=== PATIENT | male | born 1960 | race Caucasian/White ===

== ENCOUNTER 2016-06-02 11:21 | Inpatient (IN) | payer OTHER ==
[2016-06-02 12:26] VITALS: BMI 25.0
--- NOTE | 2016-06-02 13:49 | HP ---
CIWA Score - CIWA Score Nausea/Vomitin-Mild Nausea/No Vomiting Muscle Tremors: 4-Moderate,w/Arms Extend Anxiety: 4-Mod. Anxious/Guarded Agitation: 4-Moderately Restless Paroxysmal Sweats: 3 Orientation: 0-Oriented Tacttile Disturbances: 0-None Auditory Disturbances: 0-None Visual Disturbances: 0-None Headache: 0-None Present CIWA-Ar Total Score: 16 Admission ROS S - HPI Chief Complaint: I am here for detox and rehab. Allergies/Adverse Reactions: Allergies Allergy/AdvReac Type Severity Reaction Status Date / Time VELOGNA Allergy Severe Hives Uncoded 06/02/16 14:03 MAYONNAISE Allergy Severe Nausea Uncoded 06/02/16 14:03 History of Present Illness: pt is a 55yr old male with a history of alcohol dependence seeking detox for treatment. pt is also on a mmtp program last dose for 120ml received today 06/02/16, pt has take home bottles in his possession. Exam Limitations: No Limitations - Ebola screening Have you traveled outside of the country in the last 21 days: No Have you had contact with anyone from an Ebola affected area: No Have you been sick,other than usual withdrawal symptoms: No Do you have a fever: No - Review of Systems Constitutional: Chills, Diaphoresis, Loss of Appetite, Night Sweats, Changes in sleep, Unintentional Wgt. Loss EENT: reports: No Symptoms Reported, Blurred Vision Cardiac: reports: No Symptoms Reported GI: reports: Constipated, Poor Appetite, Poor Fluid Intake : reports: No Symptoms Reported Musculoskeletal: reports: No Symptoms Reported Integumentary: reports: Flushing, Pruritus (jock itch), Sweating Neuro: reports: Headache, Tingling, Tremors Endocrine: reports: Excessive Sweating, Flushing, Intolerance to Cold, Intolerance to Heat Hematology: reports: Anemia Psychiatric: reports: Judgement Intact, Mood/Affect Appropiate, Orientated x3, Agitated, Anxious Other Systems: Reviewed and Negative Patient History - Patient Medical History Hx Anemia: Yes Hx Asthma: Yes Hx Chronic Obstructive Pulmonary Disease (COPD): No Hx Cancer: No Hx Cardiac Disorders: No Hx Congestive Heart Failure: No Hx Hypertension: Yes Hx Hypercholesterolemia: No Hx Pacemaker: No HX Cerebrovascular Accident: No Hx Seizures: No Hx Dementia: No Hx Diabetes: No Hx Gastrointestinal Disorders: No Hx Liver Disease: No Hx Genitourinary Disorders: No Hx Sexually Transmitted Disorders: No Hx Renal Disease (ESRD): No Hx Thyroid Disease: No Hx Human Immunodeficiency Virus (HIV): No (neg) Hx Hepatitis C: No (negative) Hx Depression: No Hx Suicide Attempt: No (denies) Hx Bipolar Disorder: Yes Hx Schizophrenia: No - Patient Surgical History Past Surgical History: Yes Hx Abdominal Surgery: Yes (inguinal hernia 1976) - PPD History Previous Implant?: Yes Documented Results: Negative w/o proof Implanted On Prior [facility] Admission?: No PPD to be Administered?: No - Reproductive History Patient is a Female of Child Bearing Age (11 -55 yrs old): No - Smoking Cessation Smoking history: Current every day smoker Have you smoked in the past 12 months: Yes Aproximately how many cigarettes per day: 10 Hx Chewing Tobacco Use: No Initiated information on smoking cessation: Yes 'Breaking Loose' booklet given: 06/02/16 - Substance & Tx. History Hx Alcohol Use: Yes Hx Substance Use: No Substance Use Type: Alcohol Hx Substance Use Treatment: Yes - Substances Abused Alcohol Route: Oral Frequency: Daily Amount used: half pint barcardi/ 3 six pack beer Age of first use: 11 Date of Last Use: 06/02/16 Family Disease History - Family Disease History Family History: Denies Admission Physical Exam S - Vital Signs Vital Signs: Vital Signs - 24 hr 06/02/16 12:25 Temperature 96.9 F L Pulse Rate 111 H Respiratory 20 Rate Blood Pressure 119/73 - Physical General Appearance: Yes: Appropriately Dressed, Moderate Distress, Tremorous, Irritable, Sweating, Anxious HEENTM: Yes: Hearing grossly Normal, Nasal Congestion, Rhinorrhea Respiratory: Yes: Lungs Clear, Normal Breath Sounds, No Respiratory Distress Neck: Yes: No masses,lesions,Nodules Breast: Yes: Within Normal Limits Cardiology: Yes: Regular Rhythm, Regular Rate, S1, S2 Abdominal: Yes: Normal Bowel Sounds, Non Tender Genitourinary: Yes: Within Normal Limits, Other (jock itch to groin area) Back: Yes: Normal Inspection Musculoskeletal: Yes: full range of Motion Extremities: Yes: Normal Capillary Refill, Tremors Neurological: Yes: Fully Oriented, Alert, Normal Response Integumentary: Yes: Normal Color, Diaphoresis Lymphatic: Yes: Within Normal Limits - Diagnostic (1) Jock itch Current Visit: Yes Status: Acute Comment: groin area (2) Tinea pedis Current Visit: Yes Status: Chronic Qualifiers: Laterality: bilateral Qualified Code(s): B35.3 - Tinea pedis (3) Alcohol dependence with uncomplicated withdrawal Current Visit: Yes Status: Chronic (4) Asthma Current Visit: Yes Status: Chronic Qualifiers: Asthma severity: mild intermittent (5) Hypertension Current Visit: Yes Status: Chronic Qualifiers: Hypertension type: essential hypertension Qualified Code(s): I10 - Essential (primary) hypertension (6) Methadone maintenance therapy patient Current Visit: Yes Status: Chronic Comment: pt recieved his 120mg of methadone today; pending verification Cleared for Admission S - Detox or Rehab [facility] Level of Care: Medically Managed Detox Regimen/Protocol: Librium [facility] Breath Alcohol Content Breath Alcohol Content: 0.085 Urine Pregancy Test - Result Urine Test Results: Negative- NO Line Present Urine Drug Screen - Results Drug Screen Negative: No Urine Drug Screen Results: KAYCEE-Cocaine, MTD-Methadone
[2016-06-02] MEDS ORDERED: LOPERAMIDE HCL 2 MG CAPSULE PO PRN (14:21)
[2016-06-02] MEDS ORDERED: MAGNESIUM CITRATE 300 ML BOTTLE PO PRN (14:21)
[2016-06-02] MEDS ORDERED: guaiFENesin/D-METHORPHAN HB 10 ML UNIT-DOSE CUPS PO PRN (14:21)
[2016-06-02] MEDS ORDERED: MAG HYDROX/AL HYDROX/SIMETH 30 ML UNIT-DOSE CUP PO PRN (14:21)
[2016-06-02] MEDS ORDERED: hydrOXYzine PAMOATE 50 MG CAPSULE (FP) PO PRN (14:21)
[2016-06-02] MEDS ORDERED: P-EPHED 60MG/TRIPROLIDI 2.5MG TABLET PO PRN (14:21)
[2016-06-02] MEDS ORDERED: ACETAMINOPHEN 325 MG TABLET (FP) PO PRN (14:21)
[2016-06-02] MEDS ORDERED: MAGNESIUM HYDROX 2400MG/30ML ORAL SUSPENSION 30 ML CUP PO PRN (14:21)
[2016-06-02] MEDS ORDERED: IBUPROFEN 400 MG TABLET (FP) PO PRN (14:21)
[2016-06-02] MEDS ORDERED: MENTHOL/PHENOL 1 EACH UD MM PRN (14:21)
[2016-06-02] MEDS ORDERED: PATIENT'S OWN MEDICATION (NON-FORMULARY) (Fluticasone Propionate [Flovent Diskus] 110 MCG) IH PRN (14:23)
[2016-06-02] MEDS ORDERED: chlordiazePOXIDE HCL 25 MG CAPSULE PO ONE (15:09)
[2016-06-02] MEDS: chlordiazePOXIDE HCL 25 MG CAPSULE PO SCH ×2 (17:08→23:01)
[2016-06-02] MEDS ORDERED: ALBUTEROL SO4 2.5/IPRATROPIUM 0.5 INH SOL 3 ML VIAL.NEB. NEB PRN (17:59)
[2016-06-02] MEDS: NICOTINE POLACRILEX 4 MG GUM BUC PRN (19:32)
[2016-06-02] MEDS ORDERED: TOLNAFTATE 1% CREAM 15 GM TUBE TP SCH (22:00)
[2016-06-02] MEDS ORDERED: TOLNAFTATE TP SCH (22:00)
--- NOTE | 2016-06-02 22:49 | PN ---
S Progress Note Note: RECEIVED PHARMACIST CALL PATIENT HAS TWO ANTIFUNGUL CREAM CONTINUE DETOX
[2016-06-02 22:58] LABS: URINE APPEARANCE CLEAR; URINE BILIRUBIN NEGATIVE (NEGATIVE); URINE BLOOD NEGATIVE (NEGATIVE); URINE COLOR YELLOW; URINE GLUCOSE (UA) NEGATIVE (NEGATIVE); URINE KETONE NEGATIVE (NEGATIVE); URINE LEUK ESTERASE NEGATIVE (NEGATIVE); URINE NITRITE NEGATIVE (NEGATIVE); URINE PROTEIN NEGATIVE (NEGATIVE); URINE UROBILINOGEN NEGATIVE E.U./dl (0.2-1.0)
[2016-06-02] MEDS: BUDESONIDE/FORMETEROL FUMARATE 80/4.5 mcg INHALER IH SCH (23:00)
[2016-06-02] MEDS: THIAMINE HCL 100 MG TABLET (FP) PO SCH (23:00)
[2016-06-02] MEDS: NYSTATIN 100,000 UNIT/GM TOPICAL CREAM 15 GM TUBE TP SCH (23:00)
[2016-06-02] MEDS: diphenhydrAMINE HCL 50 MG CAPSULE PO PRN (23:03)
[2016-06-03] MEDS: chlordiazePOXIDE HCL 25 MG CAPSULE PO SCH ×4 (05:18→22:27)
[2016-06-03] MEDS: METHADONE HCL 40 MG DISPERSABLE TABLET PO SCH (07:30)
--- NOTE | 2016-06-03 09:24 | PN ---
S CIWA - CIWA Score Nausea/Vomitin Muscle Tremors: 4-Moderate,w/Arms Extend Anxiety: 5 Agitation: 4-Moderately Restless Paroxysmal Sweats: 3 Orientation: 0-Oriented Tacttile Disturbances: 1-Very Mild Itch/Numbness Auditory Disturbances: 0-None Visual Disturbances: 0-None Headache: 1-Very Mild CIWA-Ar Total Score: 21 BHS Progress Note (SOAP) Subjective: nausea, sweats, interrupted sleep, anxiety, trmeors, concerned he will nto geet his seroquel asking for psychiatrist and blood pressure mediatons Objective: 06/03/16 09:23 Vital Signs - 24 hr 06/02/16 06/02/16 06/02/16 12:25 17:10 23:18 Temperature 96.9 F L 98.4 F 97 F L Pulse Rate 111 H 104 H 94 H Respiratory 20 18 18 Rate Blood Pressure 119/73 123/84 140/88 06/03/16 06:44 Temperature 96.5 F L Pulse Rate 75 Respiratory 18 Rate Blood Pressure 150/93 Laboratory Tests 06/02/16 15:48 Urine Color Yellow Urine Appearance Clear Urine pH 5.0 Ur Specific [place] 1.012 Urine Protein Negative Urine Glucose (UA) Negative Urine Ketones Negative Urine Blood Negative Urine Nitrite Negative Urine Bilirubin Negative Urine Urobilinogen Negative Ur Leukocyte Esterase Negative labs st ill pending Assessment: 06/03/16 09:23 withdrawal sx, hypertension Plan: cont detox, fluids,
--- NOTE | 2016-06-03 09:59 | CONSULT ---
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 Substance Abuse History: - Smoking Cessation. Smoking history: Current every day smoker. Have you smoked in the past 12 months: Yes. Aproximately how many cigarettes per day: 10. Hx Chewing Tobacco Use: No. Initiated information on smoking cessation: Yes. 'Breaking Loose' booklet given: 06/02/16. - Substance & Tx. History. Hx Alcohol Use: Yes. Hx Substance Use: No. Substance Use Type : Alcohol. Hx Substance Use Treatment: Yes. - Substances Abused. Alcohol. Route: Oral. Frequency: Daily. Amount used: half pint barcardi/ 3 six pack beer. Age of first use: 11. Date of Last Use: 06/02/16. Discussed in this session.Patient confirms this pattern of substance abuse. Medical History: Hypertension,bronchial asthma,COPD and a history of inguinal herniorraphy. Psychiatric History: Patient denies history of psychiatric hospitalizations.He is,however,receiving outpatient psychiatric services at the [facility] clinic on [facility] under the supervision of Dr Sifuentes.Medications : seroquel 100 mg po hs + lamotrigine 50 mg po am/100 mg hs.Verified with [facility] @ [phone].Mr Hill endorses the diagnosis of Bipolar Disorder.He denies history of suicide attempts. Physical/Sexual Abuse/Trauma History: Patient denies. Additional Comment: Urine Drug Screen Results: KAYCEE-Cocaine, MTD-Methadone.Noted. Mental Status Exam - Mental Status Exam Alert and Oriented to: Time, Place, Person Cognitive Function: Good Patient Appearance: Disheveled (unshaven) Mood: Anxious, Apprehensive, Hopeful Affect: Mood Congruent Patient Behavior: Fatigued, Appropriate, Cooperative Speech Pattern: Clear (good historian) Voice Loudness: Normal Thought Process: Intact Thought Disorder: Not Present Hallucinations: Denies Suicidal Ideation: Denies Homicidal Ideation: Denies Insight/Judgement: Fair Sleep: Poorly, Difficulty falling asleep Appetite: Good Muscle strength/Tone: Normal Gait/Station: Normal Psychiatric Findings - Problem List ([place] 1, 2,3) (1) Alcohol dependence with uncomplicated withdrawal Current Visit: Yes Status: Acute (2) Opioid dependence on agonist therapy Current Visit: Yes Status: Chronic (3) Nicotine dependence Current Visit: Yes Status: Acute (4) Cocaine dependence Current Visit: Yes Status: Acute (5) Bipolar disorder Current Visit: Yes Status: Chronic (6) Asthma with COPD Current Visit: Yes Status: Chronic (7) Hypertension Current Visit: Yes Status: Chronic Qualifiers: Hypertension type: essential hypertension Qualified Code(s): I10 - Essential (primary) hypertension (8) Tinea pedis Current Visit: Yes Status: Chronic Qualifiers: Laterality: bilateral Qualified Code(s): B35.3 - Tinea pedis (9) Insomnia Current Visit: Yes Status: Acute - Initial Treatment Plan Initial Treatment Plan: Psychoeducation.Detoxification.Medications : lamictal 50 mg po daily/100 mg po hs + seroquel 100 mg po hs.Side effects/benefits discussed with the patient.Made aware of the risk of exfoliative dermatitis ( lamictal) and instructed to alert MD/RN if occurrence of skin rash.Patient states that he understands information and he agrees to follow this plan of care.Mr Hill indicates to this speech writer that he last took his medications 24 hours ago (just prior to this [facility] visit).No scripts necessary at discharge ( filled scripts on 05/24/16 @ [facility] :confirmed by pharmacist via telephone in the presence of the patient).Mr Hill has,verbally,given permission to speech writer to contact his pharmacy for verification of his medications.Observation.
[2016-06-03] MEDS ORDERED: IPRATROPIUM BROMIDE NS SCH (10:00)
[2016-06-03] MEDS: LISINOPRIL 10 MG TABLET (FP) PO SCH (10:34)
[2016-06-03] MEDS: PRENATAL VITAMINS W/ FOLIC ACID TABLET (FP) PO SCH (10:34)
[2016-06-03] MEDS: NICOTINE 21 MG/24 HOURS TOPICAL PATCH TD SCH (10:34)
[2016-06-03] MEDS: NYSTATIN 100,000 UNIT/GM TOPICAL CREAM 15 GM TUBE TP SCH ×2 (10:35→22:29)
[2016-06-03] MEDS: NICOTINE POLACRILEX 4 MG GUM BUC PRN ×2 (10:39→20:28)
[2016-06-03 10:54] LABS: CALCIUM 8.8 mg/dL (8.5-10.1)
[2016-06-03 10:55] LABS: MCHC 33.1 g/dl (32.0-35.9); MEAN CELL VOLUME 96.5 fl (80-96); MEAN PLT VOLUME 8.3 fl (7.5-11.1); PLATELET COUNT 184 K/MM3 (134-434); RDW 14.6 % (11.9-15.9); WHITE BLOOD COUNT 8.9 K/mm3 (4.0-10.0)
[2016-06-03 10:59] LABS: ALBUMIN 3.6 g/dl (3.4-5.0); ALK PHOS 148 U/L (45-117); ANION GAP 12 (8-16); BILIRUBIN,TOTAL 0.7 mg/dL (0.2-1.0); CO2 26 mmol/L (21-32); CREATININE 0.6 mg/dL (0.7-1.3); GLUCOSE,RANDOM 67 mg/dL (74-106); SGOT/AST 75 U/L (15-37); SGPT/ALT 54 U/L (12-78); TOT PROT 7.1 g/dl (6.4-8.2)
[2016-06-03] MEDS: BUDESONIDE/FORMETEROL FUMARATE 80/4.5 mcg INHALER IH SCH ×2 (11:22→22:27)
[2016-06-03] MEDS: GABAPENTIN 400 MG CAPSULE (FP) PO SCH ×2 (13:41→22:28)
[2016-06-03] MEDS: lamoTRIgine 25 MG TABLET PO SCH (13:42)
--- NOTE | 2016-06-03 18:47 | EKG ---
Test Reason : Blood Pressure : / mmHG Vent. Rate : 097 BPM Atrial Rate : 097 BPM P-R Int : 190 ms QRS Dur : 090 ms QT Int : 354 ms P-R-T Axes : 049 015 044 degrees QTc Int : 449 ms NORMAL SINUS RHYTHM SEPTAL INFARCT , AGE UNDETERMINED ABNORMAL ECG NO PREVIOUS ECGS AVAILABLE Confirmed by ERIN RENE MD ([id number]) on 06/03/2016 6:47:19 PM Referred By: Confirmed By:ERIN RENE MD
[2016-06-03] MEDS: THIAMINE HCL 100 MG TABLET (FP) PO SCH (22:27)
[2016-06-03] MEDS: QUEtiapine FUMARATE 100 MG TABLET (FP) PO SCH (22:28)
[2016-06-03] MEDS: lamoTRIgine 100 MG TABLET (FP) PO SCH (22:28)
[2016-06-04] MEDS: GABAPENTIN 400 MG CAPSULE (FP) PO SCH ×3 (05:27→22:34)
[2016-06-04] MEDS: chlordiazePOXIDE HCL 25 MG CAPSULE PO SCH ×2 (05:27→12:13)
[2016-06-04] MEDS: METHADONE HCL 40 MG DISPERSABLE TABLET PO SCH (05:27)
[2016-06-04] MEDS: LISINOPRIL 10 MG TABLET (FP) PO SCH (10:31)
[2016-06-04] MEDS: NYSTATIN 100,000 UNIT/GM TOPICAL CREAM 15 GM TUBE TP SCH ×2 (10:31→23:10)
[2016-06-04] MEDS: NICOTINE 21 MG/24 HOURS TOPICAL PATCH TD SCH (10:32)
[2016-06-04] MEDS: lamoTRIgine 25 MG TABLET PO SCH (10:32)
[2016-06-04] MEDS: PRENATAL VITAMINS W/ FOLIC ACID TABLET (FP) PO SCH (10:32)
[2016-06-04] MEDS: NICOTINE POLACRILEX 4 MG GUM BUC PRN (10:36)
[2016-06-04] MEDS: BUDESONIDE/FORMETEROL FUMARATE 80/4.5 mcg INHALER IH SCH ×2 (12:13→22:33)
[2016-06-04] MEDS: chlordiazePOXIDE HCL 25 MG CAPSULE PO PRN ×2 (15:06→20:39)
--- NOTE | 2016-06-04 15:38 | PN ---
S CIWA - CIWA Score Nausea/Vomitin-Mild Nausea/No Vomiting Muscle Tremors: 4-Moderate,w/Arms Extend Anxiety: 4-Mod. Anxious/Guarded Agitation: 4-Moderately Restless Paroxysmal Sweats: No Perspiration Orientation: 0-Oriented Tacttile Disturbances: 0-None Auditory Disturbances: 0-None Visual Disturbances: 0-None Headache: 2-Mild CIWA-Ar Total Score: 15 BHS Progress Note (SOAP) Subjective: Nausea, anxious, irritable, tremor, chills, interrupted sleep Objective: 06/04/16 15:37 Last Vital Signs Temp Pulse Resp BP Pulse Ox 97.9 F 86 18 114/74 06/04/16 14:17 06/04/16 14:17 06/04/16 14:17 06/04/16 14:17 Laboratory Tests 06/02/16 06/03/16 06/03/16 15:48 06:00 06:00 WBC 8.9 RBC 4.45 Hgb 14.2 Hct 43.0 MCV 96.5 H MCHC 33.1 RDW 14.6 Plt Count 184 MPV 8.3 Sodium 139 Potassium 3.6 Chloride 101 Carbon Dioxide 26 Anion Gap 12 BUN 13 Creatinine 0.6 L Creat Clearance w eGFR > 60 Random Glucose 67 L Calcium 8.8 Total Bilirubin 0.7 AST 75 H ALT 54 Alkaline Phosphatase 148 H Total Protein 7.1 Albumin 3.6 Urine Color Yellow Urine Appearance Clear Urine pH 5.0 Ur Specific [place] 1.012 Urine Protein Negative Urine Glucose (UA) Negative Urine Ketones Negative Urine Blood Negative Urine Nitrite Negative Urine Bilirubin Negative Urine Urobilinogen Negative Ur Leukocyte Esterase Negative RPR Titer 06/03/16 06:00 WBC RBC Hgb Hct MCV MCHC RDW Plt Count MPV Sodium Potassium Chloride Carbon Dioxide Anion Gap BUN Creatinine Creat Clearance w eGFR Random Glucose Calcium Total Bilirubin AST ALT Alkaline Phosphatase Total Protein Albumin Urine Color Urine Appearance Urine pH Ur Specific [place] Urine Protein Urine Glucose (UA) Urine Ketones Urine Blood Urine Nitrite Urine Bilirubin Urine Urobilinogen Ur Leukocyte Esterase RPR Titer Nonreactive Labs noted Assessment: 06/04/16 15:38 Withdrawal symptoms Plan: Continue detox
[2016-06-04] MEDS: chlordiazePOXIDE 5 MG CAPSULE PO SCH ×2 (17:19→22:34)
[2016-06-04] MEDS: THIAMINE HCL 100 MG TABLET (FP) PO SCH (22:33)
[2016-06-04] MEDS: lamoTRIgine 100 MG TABLET (FP) PO SCH (22:34)
[2016-06-04] MEDS: QUEtiapine FUMARATE 100 MG TABLET (FP) PO SCH (22:34)
[2016-06-05] MEDS: METHADONE HCL 40 MG DISPERSABLE TABLET PO SCH (05:32)
[2016-06-05] MEDS: chlordiazePOXIDE 5 MG CAPSULE PO SCH ×2 (05:33→10:29)
[2016-06-05] MEDS: GABAPENTIN 400 MG CAPSULE (FP) PO SCH ×3 (05:33→22:17)
[2016-06-05] MEDS: chlordiazePOXIDE HCL 25 MG CAPSULE PO PRN (09:13)
[2016-06-05] MEDS: PRENATAL VITAMINS W/ FOLIC ACID TABLET (FP) PO SCH (10:29)
[2016-06-05] MEDS: BUDESONIDE/FORMETEROL FUMARATE 80/4.5 mcg INHALER IH SCH ×2 (10:29→22:16)
[2016-06-05] MEDS: NICOTINE 21 MG/24 HOURS TOPICAL PATCH TD SCH (10:30)
[2016-06-05] MEDS: lamoTRIgine 25 MG TABLET PO SCH (10:30)
[2016-06-05] MEDS: LISINOPRIL 10 MG TABLET (FP) PO SCH (10:30)
[2016-06-05] MEDS: TOLNAFTATE 1% CREAM 15 GM TUBE TP SCH ×2 (10:31→22:19)
--- NOTE | 2016-06-05 11:41 | PN ---
BHS Progress Note (SOAP) Subjective: ANXIETY,TREMORS,FATIGUE. Objective: 06/05/16 11:40 Vital Signs Temperature 97.2 F L 06/05/16 10:59 Pulse Rate 77 06/05/16 10:59 Respiratory Rate 18 06/05/16 10:59 Blood Pressure 130/72 06/05/16 10:59 O2 Sat by Pulse Oximetry (%) Assessment: 06/05/16 11:41 WITHDRAWAL SX Plan: CONTINUE DETOX
[2016-06-05] MEDS: chlordiazePOXIDE HCL 10 MG CAPSULE PO SCH ×2 (17:26→22:17)
[2016-06-05] MEDS: THIAMINE HCL 100 MG TABLET (FP) PO SCH (22:16)
[2016-06-05] MEDS: lamoTRIgine 100 MG TABLET (FP) PO SCH (22:17)
[2016-06-05] MEDS: QUEtiapine FUMARATE 100 MG TABLET (FP) PO SCH (22:17)
[2016-06-05] MEDS: diphenhydrAMINE HCL 50 MG CAPSULE PO PRN (22:18)
[2016-06-06] MEDS: TOLNAFTATE 1% CREAM 15 GM TUBE TP SCH ×2 (05:20→10:09)
[2016-06-06] MEDS: METHADONE HCL 40 MG DISPERSABLE TABLET PO SCH (05:36)
[2016-06-06] MEDS: GABAPENTIN 400 MG CAPSULE (FP) PO SCH (05:36)
[2016-06-06] MEDS: chlordiazePOXIDE HCL 10 MG CAPSULE PO SCH (05:36)
[2016-06-06 06:44] VITALS: BP 107/68; PULSE 76; TEMP 96
[2016-06-06] MEDS: LISINOPRIL 10 MG TABLET (FP) PO SCH (09:44)
[2016-06-06] MEDS: NICOTINE 21 MG/24 HOURS TOPICAL PATCH TD SCH (09:44)
[2016-06-06] MEDS: lamoTRIgine 25 MG TABLET PO SCH (09:44)
[2016-06-06] MEDS: PRENATAL VITAMINS W/ FOLIC ACID TABLET (FP) PO SCH (09:44)
[2016-06-06] MEDS: BUDESONIDE/FORMETEROL FUMARATE 80/4.5 mcg INHALER IH SCH (09:44)
--- NOTE | 2016-06-06 11:31 | DS ---
[facility] Detox Discharge Summary Admission Date: 06/02/16 Discharge Date: 06/06/16 - History Present History: Alcohol Dependence, Cocaine Dependence, MMTP Additional Comments: DETOX COMPLETED. PT INSTRUCTED TO FOLLOW UP WITH HIS PMD DR ACOSTA AT [facility] ([phone]) FOR MEDICAL MANAGEMENT OF HIS COMORBID CONDITIONS. ENCOURAGED TO FOLLOW UP WITH HIS UPCOMING SCHEDULED APPOINTMENTS ON 06/28/16 --ECHO,COLONOSCOPY AND PSYCH PER HIS DOCUMENTATION. Pertinent Past History: HTN HEP C - Physical Exam Results Vital Signs: Vital Signs Temperature 96 F L 06/06/16 06:42 Pulse Rate 76 06/06/16 06:42 Respiratory Rate 16 06/06/16 06:42 Blood Pressure 107/68 06/06/16 06:42 O2 Sat by Pulse Oximetry (%) Pertinent Admission Physical Exam Findings: WITHDRAWAL SX Laboratory Last Values WBC 8.9 K/mm3 (4.0-10.0) 06/03/16 06:00 RBC 4.45 M/mm3 (4.00-5.60) 06/03/16 06:00 Hgb 14.2 GM/dL (11.7-16.9) 06/03/16 06:00 Hct 43.0 % (35.4-49) 06/03/16 06:00 MCV 96.5 fl (80-96) H 06/03/16 06:00 MCHC 33.1 g/dl (32.0-35.9) 06/03/16 06:00 RDW 14.6 % (11.9-15.9) 06/03/16 06:00 Plt Count 184 K/MM3 (134-434) 06/03/16 06:00 MPV 8.3 fl (7.5-11.1) 06/03/16 06:00 Sodium 139 mmol/L (136-145) 06/03/16 06:00 Potassium 3.6 mmol/L (3.5-5.1) 06/03/16 06:00 Chloride 101 mmol/L (98-107) 06/03/16 06:00 Carbon Dioxide 26 mmol/L (21-32) 06/03/16 06:00 Anion Gap 12 (8-16) 06/03/16 06:00 BUN 13 mg/dL (7-18) 06/03/16 06:00 Creatinine 0.6 mg/dL (0.7-1.3) L 06/03/16 06:00 Creat Clearance w eGFR > 60 (>60) 06/03/16 06:00 Random Glucose 67 mg/dL (74-106) L 06/03/16 06:00 Calcium 8.8 mg/dL (8.5-10.1) 06/03/16 06:00 Total Bilirubin 0.7 mg/dL (0.2-1.0) 06/03/16 06:00 AST 75 U/L (15-37) H 06/03/16 06:00 ALT 54 U/L (12-78) 06/03/16 06:00 Alkaline Phosphatase 148 U/L (45-117) H 06/03/16 06:00 Total Protein 7.1 g/dl (6.4-8.2) 06/03/16 06:00 Albumin 3.6 g/dl (3.4-5.0) 06/03/16 06:00 Urine Color Yellow 06/02/16 15:48 Urine Appearance Clear 06/02/16 15:48 Urine pH 5.0 (5.0-8.0) 06/02/16 15:48 Ur Specific [place] 1.012 (1.001-1.035) 06/02/16 15:48 Urine Protein Negative (NEGATIVE) 06/02/16 15:48 Urine Glucose (UA) Negative (NEGATIVE) 06/02/16 15:48 Urine Ketones Negative (NEGATIVE) 06/02/16 15:48 Urine Blood Negative (NEGATIVE) 06/02/16 15:48 Urine Nitrite Negative (NEGATIVE) 06/02/16 15:48 Urine Bilirubin Negative (NEGATIVE) 06/02/16 15:48 Urine Urobilinogen Negative E.U./dl (0.2-1.0) 06/02/16 15:48 Ur Leukocyte Esterase Negative (NEGATIVE) 06/02/16 15:48 RPR Titer Nonreactive (NONREACTIVE) 06/03/16 06:00 - Treatment Hospital Course: Detox Protocol Followed, Detoxed Safely, Responded well, Discharged Condition Good - Medication Discharge Medications: Ambulatory Orders Budesonide/Formeterol Fumarate [SYMBICORT 80/4.5mcg -] 2 inh PO BID 06/02/16 Fluticasone Propionate [Flovent Diskus] 110 mcg IH PRN PRN 06/02/16 Folic Acid - 1 mg PO DAILY 06/02/16 Gabapentin [Neurontin -] 400 mg PO TID 06/02/16 Ipratropium [place] 1 spray NS DAILY 06/02/16 Lamotrigine [Lamictal -] 50 mg PO AM 06/02/16 Lamotrigine [Lamictal -] 100 mg PO HS 06/02/16 Lisinopril [Prinivil] 10 mg PO DAILY 06/02/16 Quetiapine Fumarate [Seroquel -] 100 mg PO HS 06/02/16 Thiamine HCl [Vitamin B1] 100 mg PO DAILY 06/02/16 Tolnaftate [Antifungal Cream] 1 - 2 grams TP BID 06/02/16 - Diagnosis (1) Alcohol dependence with uncomplicated withdrawal Status: Acute (2) Jock itch Status: Acute (3) Nicotine dependence Status: Acute Qualifiers: Nicotine product type: cigarettes Substance use status: uncomplicated Qualified Code(s): F17.210 - Nicotine dependence, cigarettes, uncomplicated (4) Asthma with COPD Status: Chronic (5) Hypertension Status: Chronic Qualifiers: Hypertension type: essential hypertension Qualified Code(s): I10 - Essential (primary) hypertension (6) Methadone maintenance therapy patient Status: Chronic (7) Tinea pedis Status: Chronic Qualifiers: Laterality: bilateral Qualified Code(s): B35.3 - Tinea pedis (8) Cocaine dependence Status: Acute Qualifiers: Substance use status: uncomplicated Qualified Code(s): F14.20 - Cocaine dependence, uncomplicated (9) Bipolar disorder Status: Chronic - AMA Did Patient Leave Against Medical Advice: No
== END 2016-06-06 10:20 | disposition home or self-care (01) | DRG 773 ==
LOC: YASAS 11:21 → Y3N 15:06
PROVIDERS: ADMIT Internal Medicine; ATTEND Internal Medicine
PROC: HZ2ZZZZ Detoxification Services for Substance Abuse Treatment (ICD-10-PCS; principal; 2016-06-06)
DX: F10.230 Alcohol dependence with withdrawal, uncomplicated (principal); F11.20 Opioid dependence, uncomplicated; F14.20 Cocaine dependence, uncomplicated; F17.210 Nicotine dependence, cigarettes, uncomplicated; F31.9 Bipolar disorder, unspecified; G47.00 Insomnia, unspecified; I10 Essential (primary) hypertension; J44.9 Chronic obstructive pulmonary disease, unspecified; J45.909 Unspecified asthma, uncomplicated; B35.3 Tinea pedis
CPT/HCPCS: 36415; 80053; 81003; 85027; 86593; 93005; 93010

== ENCOUNTER 2019-06-13 13:16 | Inpatient (IN) | payer OTHER ==
--- NOTE | 2019-06-13 13:44 | BHS.RME ---
Substance Use & Tx History - Substance Use History Benzodiazepines Substance amount: klonopin 2 mg two tablets Frequency of use: Daily Substance route: Oral Date of Last Use: 06/13/19 Alcohol Substance amount: 1/2 pint bacardi Frequency of use: Daily Date of Last Use: 06/13/19 CIWA Nausea/Vomitin Muscle Tremors: 3 Anxiety: 1-Mildly Anxious Agitation: 1-Slight > Activity Paroxysmal Sweats: 1-Minimal Palms Moist Orientation: 1-Uncertain about Date Tacttile Disturbances: 1-Very Mild Itch/Numbness Auditory Disturbances: 0-None Visual Disturbances: 0-None Headache: 1-Very Mild CIWA-Ar Total Score: 12
[2019-06-13 14:18] VITALS: BMI 26.2
--- NOTE | 2019-06-13 14:47 | HP ---
CIWA Score Nausea/Vomitin-No Nausea/No Vomiting Muscle Tremors: None Anxiety: 3 Agitation: 3 Paroxysmal Sweats: No Perspiration Orientation: 0-Oriented Tacttile Disturbances: 2-Mild Itch/Numbness/Burn Auditory Disturbances: 1-Very Mild Visual Disturbances: 0-None Headache: 0-None Present CIWA-Ar Total Score: 9 - Admission Criteria OASAS Guidelines: Admission for Medically Managed Detox: Requires at least one of the followin. CIWA greater than 12 2. Seizures within the past 24 hours 3. Delirium tremens within the past 24 hours 4. Hallucinations within the past 24 hours 5. Acute intervention needed for co occurring medical disorder 6. Acute intervention needed for co occurring psychiatric disorder 7. Severe withdrawal that cannot be handled at a lower level of care (continued vomiting, continued diarrhea, abnormal vital signs) requiring intravenous medication and/or fluids 8. Patient presents the following: Acute intervention needed for co-occurring med or psych disorder Admission Criteria Met: Admission criteria met Admitting History and Physical - Admission History of Present Illness: Pt comes to [facility] seeking detox from alcohol. Methadone 90mg. He got his dose today. EtOH: 1/2 pint bacardi & 2 6-packs of 24oz beers daily. Last drink 5:30 am today. Never blacked out. Never had a seizure. Klonopin: 2mg twice daily since 2016. Crack cocaine: first - 1986, last 2 days ago Heroin: first - 1976, last use 3-4 months ago. Used to use frequently. For the past number of years, he uses once or twice yearly. Has never injected. PMH: HTN, Asthma PSH: partial b/l mastectomies (separate operations), hernia repair b/l Psych: Bipolar, Anxiety, Depression FH: Father - colon CA, Mother - stage III GI cancer Follows with GI. Had colon polyps. Gets colonoscopy every 3-5 years - Smoking History Smoking history: Current every day smoker Have you smoked in the past 12 months: Yes Aproximately how many cigarettes per day: 10 - Alcohol/Substance Use Hx Alcohol Use: Yes Admission ROS [facility] Allergies/Adverse Reactions: Allergies Allergy/AdvReac Type Severity Reaction Status Date / Time No Known Drug Allergies Allergy Unknown Verified 06/13/19 14:18 BOLOGNA Allergy Severe Hives Uncoded 06/13/19 14:18 MAYONNAISE Allergy Severe Nausea Uncoded 06/13/19 14:18 NKDA Allergy Uncoded 06/13/19 14:18 Patient History - Patient Medical History Hx Anemia: Yes Hx Asthma: Yes Hx Chronic Obstructive Pulmonary Disease (COPD): Yes Hx Cancer: No Hx Cardiac Disorders: No Hx Congestive Heart Failure: No Hx Hypertension: Yes Hx Hypercholesterolemia: No Hx Pacemaker: No HX Cerebrovascular Accident: No Hx Seizures: No Hx Dementia: No Hx Diabetes: No Hx Gastrointestinal Disorders: No Hx Liver Disease: No Hx Genitourinary Disorders: No Hx Sexually Transmitted Disorders: No Hx Renal Disease (ESRD): No Hx Thyroid Disease: No Hx Human Immunodeficiency Virus (HIV): No (neg) Hx Hepatitis C: No (negative) Hx Depression: Yes Hx Suicide Attempt: No Hx Bipolar Disorder: Yes Hx Schizophrenia: No - Patient Surgical History Past Surgical History: Yes Hx Neurologic Surgery: No Hx Cataract Extraction: No Hx Cardiac Surgery: No Hx Lung Surgery: No Hx Breast Surgery: Yes (Bilateral breast sx) Hx Breast Biopsy: No Hx Abdominal Surgery: Yes (inguinal hernia 1976) Hx Appendectomy: No Hx Cholecystectomy: No Hx Genitourinary Surgery: No Hx Section: No Hx Orthopedic Surgery: No Other Surgical History: Tonsillectomy Anesthesia Reaction: No - PPD History Previous Implant?: Yes Documented Results: Negative w/o proof Implanted On Prior [facility] Admission?: No Date: 06/04/16 - Smoking Cessation Smoking history: Current every day smoker Have you smoked in the past 12 months: Yes Aproximately how many cigarettes per day: 10 Hx Chewing Tobacco Use: No Initiated information on smoking cessation: Yes 'Breaking Loose' booklet given: 06/13/19 - Substances abused Alcohol Substance route: Oral Frequency: Daily Amount used: 2 6pks 24 oz cans 1/2 pint Age of first use: 10 Date of last use: 06/13/19 Cocaine Substance route: Smoking Frequency: Daily Amount used: $20 Age of first use: 28 Date of last use: 06/11/19 Admission Physical Exam BHS - Vital Signs Vital Signs: Vital Signs - 24 hr 06/13/19 14:15 Temperature 96.9 F L Pulse Rate 97 H Respiratory 18 Rate Blood Pressure 151/82 - Physical General Appearance: Yes: Within Normal Limits HEENTM: Yes: Within Normal Limits, EOMI, Normal ENT Inspection, SARAH Respiratory: Yes: Within Normal Limits, Lungs Clear Cardiology: Yes: Within Normal Limits, Regular Rhythm, Regular Rate. No: Murmur Abdominal: Yes: Within Normal Limits, Normal Bowel Sounds, Non Tender, Soft Back: Yes: Normal Inspection Breathalyzer - Breathalyzer Breathalyzer: 0.136 Urine Drug Screen - Test Device Lot number: [id number] Expiration date: 03/24/21 - Control Is test valid?: Yes - Results Drug screen NEGATIVE: No Urine drug screen results: KAYCEE-Cocaine, MTD-Methadone, BZO-Benzodiazepines Inpatient Rehab Admission - Rehab Decision to Admit Inpatient rehab admission?: No
[2019-06-13] MEDS ORDERED: hydrOXYzine PAMOATE 25 MG CAPSULE (FP) PO PRN (15:11)
[2019-06-13] MEDS ORDERED: METHOCARBAMOL 500 MG TABLET PO PRN (15:11)
[2019-06-13] MEDS ORDERED: BISMUTH SUBSALICYLATE 262 MG/15 ML BTL PO PRN (15:11)
[2019-06-13] MEDS ORDERED: MAG HYDROX/AL HYDROX/SIMETH 30 ML UNIT-DOSE CUP PO PRN (15:11)
[2019-06-13] MEDS ORDERED: MAGNESIUM CITRATE 300 ML BOTTLE PO PRN (15:11)
[2019-06-13] MEDS ORDERED: MENTHOL/PHENOL 1 EACH UD MM PRN (15:11)
[2019-06-13] MEDS ORDERED: MELATONIN 5 MG TABLETS PO PRN (15:11)
[2019-06-13] MEDS ORDERED: ACETAMINOPHEN 325 MG TABLET (FP) PO PRN ×2 (15:11)
[2019-06-13] MEDS ORDERED: IBUPROFEN 400 MG TABLET (FP) PO PRN (15:11)
[2019-06-13 16:55] LABS: HEMATOCRIT 41.8 % (35.4-49); HEMOGLOBIN 14.3 GM/dL (11.7-16.9); MCH 31.9 pg (25.7-33.7); MCHC 34.3 g/dl (32.0-35.9); MEAN CELL VOLUME 93.2 fl (80-96); MEAN PLT VOLUME 8.1 fl (7.5-11.1); PLATELET COUNT 199 K/MM3 (134-434); RBC 4.48 M/mm3 (4.00-5.60); RDW 14.3 % (11.9-15.9); WHITE BLOOD COUNT 5.4 K/mm3 (4.0-10.0)
[2019-06-13 17:05] LABS: ALBUMIN 3.5 g/dl (3.4-5.0); BLOOD UREA NITROGEN 13.2 mg/dL (7-18); CALCIUM 8.2 mg/dL (8.5-10.1); CREATININE 0.7 mg/dL (0.55-1.3); POTASSIUM 4.1 mmol/L (3.5-5.1); TOT PROT 7.2 g/dl (6.4-8.2)
[2019-06-13] MEDS: chlordiazePOXIDE HCL 25 MG CAPSULE PO SCH ×2 (17:31→22:30)
[2019-06-13] MEDS ORDERED: cloNIDine HCL 0.1 MG TABLET PO ONE (20:39)
[2019-06-13] MEDS ORDERED: QUEtiapine FUMARATE 100 MG TABLET (FP) PO ONE (21:28)
--- NOTE | 2019-06-13 21:28 | PN ---
S Progress Note Note: pt requesting psych meds . meds dated 05/08/2019 indicate Seroquel 100 mg hs . P ; one-time dose of Seroquel 100 mg ordered until seen by psychiatry
[2019-06-13] MEDS: BUDESONIDE/FORMETEROL FUMARATE 80/4.5 mcg INHALER IH SCH (21:50)
[2019-06-13] MEDS: THIAMINE HCL 100 MG TABLET (FP) PO SCH (22:30)
[2019-06-14] MEDS: chlordiazePOXIDE HCL 25 MG CAPSULE PO SCH ×4 (05:43→22:38)
--- NOTE | 2019-06-14 09:42 | PN ---
S CIWA - CIWA Score Nausea/Vomitin-Mild Nausea/No Vomiting Muscle Tremors: 3 Anxiety: 3 Agitation: 2 Paroxysmal Sweats: 3 Orientation: 0-Oriented Tacttile Disturbances: 0-None Auditory Disturbances: 0-None Visual Disturbances: 0-None Headache: 0-None Present CIWA-Ar Total Score: 12 BHS Progress Note (SOAP) Subjective: pt states he feels like he is in withdrawal- came in last night. O: Vital Signs - 24 hr 06/13/19 06/13/19 06/13/19 14:15 16:53 20:27 Temperature 96.9 F L 97.2 F L 98.1 F Pulse Rate 97 H 99 H 98 H Respiratory 18 18 18 Rate Blood Pressure 151/82 141/76 164/110 H 06/13/19 06/13/19 06/14/19 20:32 22:57 00:41 Temperature 98.1 F 98.1 F Pulse Rate 98 H 94 H Respiratory 18 18 18 Rate Blood Pressure 164/110 H 160/95 06/14/19 05:38 Temperature 97.5 F L Pulse Rate 89 Respiratory 18 Rate Blood Pressure 137/70 Laboratory Tests 06/13/19 06/13/19 06/13/19 15:30 15:30 15:30 WBC 5.4 RBC 4.48 Hgb 14.3 Hct 41.8 MCV 93.2 MCH 31.9 MCHC 34.3 RDW 14.3 Plt Count 199 MPV 8.1 Sodium 141 Potassium 4.1 Chloride 105 Carbon Dioxide 29 Anion Gap 6 L BUN 13.2 Creatinine 0.7 Est GFR (CKD-EPI)AfAm 118.88 Est GFR (CKD-EPI)NonAf 102.57 Random Glucose 81 Calcium 8.2 L Total Bilirubin 1.0 AST 38 H ALT 32 Alkaline Phosphatase 144 H Total Protein 7.2 Albumin 3.5 RPR Titer Nonreactive a/p: AUD- continue detox meds, d/w pt that he can ask for prn meds in between dosing MH consult pending for seroquel OUD- ordered methadonee- verified with MMTP
[2019-06-14] MEDS ORDERED: METHADONE HCL 10 MG TABLET PO SCH (09:45)
[2019-06-14] MEDS ORDERED: METHADONE HCL 40 MG DISPERSABLE TABLET PO SCH (10:00)
[2019-06-14] MEDS: NICOTINE 14 MG/24 HOURS TOPICAL PATCH TD SCH (10:24)
[2019-06-14] MEDS: PRENATAL VITAMINS W/ FOLIC ACID TABLET (FP) PO SCH (10:24)
[2019-06-14] MEDS: BUDESONIDE/FORMETEROL FUMARATE 80/4.5 mcg INHALER IH SCH ×2 (10:24→22:38)
[2019-06-14] MEDS: LISINOPRIL 10 MG TABLET (FP) PO SCH (10:25)
[2019-06-14] MEDS ORDERED: METHADONE HCL 40 MG DISPERSABLE TABLET ONE (11:02)
[2019-06-14] MEDS ORDERED: METHADONE HCL 10 MG TABLET ONE (11:02)
[2019-06-14] MEDS: METHADONE 80 MG, METHADONE 10 MG PO SCH (11:03)
--- NOTE | 2019-06-14 11:49 | CONSULT ---
[facility] Psychiatric Consult - Data Date of interview: 06/14/19 Admission source: [facility] Identifying data: Revisit to [facility] and admmission to [address] [place] [address] for this 58 y/ o male self-referred for detoxification treatment. AZALIA issues : alcohol , crack/cocaine, opioid, nicotine, benzodiazepine (clonazepam). Patient is single, father of one (claimed no dependents at a previous meeting with this copywriter), domiciled, unemployed and supported on SSI benefits. Substance Abuse History: Discussed with the patient. Details in current [facility] report as follows : Smoking history: Current every day smoker. Have you smoked in the past 12 months: Yes. Aproximately how many cigarettes per day: 10. Hx Chewing Tobacco Use: No. Initiated information on smoking cessation: Yes. ' Breaking Loose' booklet given: 06/13/19. - Substances abused. Alcohol. Substance route: Oral. Frequency: Daily. Amount used: 2 6pks 24 oz cans 1/2 pint. Age of first use: 10. Date of last use: 06/13/19. Cocaine. Substance route: Smoking. Frequency: Daily. Amount used: $20. Age of first use: 28. Date of last use: 06/11/19 Medical History: Medical profile is remarkable for hypertension, antecedents of bilateral mastectomies (partial), bronchial asthma, COPD, colon polyps and a history of bilateral inguinal herniorraphy. Psychiatric History: Patient denies history of psychiatric hospitalizations. Mr Hill is still receiving psychiatric outpatient services at the [facility] clinic on [facility] His current medications consist of seroquel 50 mg/day - 100 mg/hs + gabapentin 400 mg po tid + buspar 10 mg/bid (copywriter called [facility] @ [phone] : no response. Diagnosis : Bipolar Disorder. Patient denies history of suicide attempts. Physical/Sexual Abuse/Trauma History: Patient denies. Additional Comment: Urine drug screen results: KAYCEE-Cocaine, MTD-Methadone, BZO- Benzodiazepines. Noted. Mental Status Exam - Mental Status Exam Alert and Oriented to: Time, Place, Person Cognitive Function: Good Patient Appearance: Unkempt, Disheveled Mood: Hopeful, Euthymic Affect: Appropriate, Normal Range Patient Behavior: Fatigued, Appropriate, Cooperative Speech Pattern: Clear, Appropriate Voice Loudness: Normal Thought Process: Intact, Goal Oriented Thought Disorder: Not Present Hallucinations: Denies Suicidal Ideation: Denies Homicidal Ideation: Denies Insight/Judgement: Poor Sleep: Poorly, Difficulty falling asleep Appetite: Good Gait/Station: Normal Psychiatric Findings - Problem List ([place] 1, 2,3) (1) Alcohol dependence with uncomplicated withdrawal Current Visit: Yes Status: Acute (2) Opioid dependence on agonist therapy Current Visit: Yes Status: Chronic (3) Benzodiazepine dependence Current Visit: Yes Status: Chronic Comment: Has been buying klonopin in the streets for years (2 mg twice a day). (4) Cocaine dependence Current Visit: Yes Status: Chronic Qualifiers: Substance use status: uncomplicated Qualified Code(s): F14.20 - Cocaine dependence, uncomplicated (5) Nicotine dependence Current Visit: Yes Status: Chronic Qualifiers: Nicotine product type: cigarettes Substance use status: uncomplicated Qualified Code(s): F17.210 - Nicotine dependence, cigarettes, uncomplicated (6) Bipolar disorder Current Visit: Yes Status: Chronic (7) Insomnia Current Visit: Yes Status: Chronic - Initial Treatment Plan Initial Treatment Plan: Psychoeducation. Sleep hygiene. Detoxification. AA/NA meetings. Medications resumed as : seroquel 50 mg po daily + 100 mg po hs in addition to buspar 10 mg po bid. Side effects/benefits of these drugs are discussed with the patient. Mr Hill is agreeable with this plan of care. Observation.
[2019-06-14] MEDS: chlordiazePOXIDE HCL 25 MG CAPSULE PO PRN ×2 (13:07→19:19)
[2019-06-14] MEDS: GABAPENTIN 300 MG CAPSULE PO SCH ×2 (13:07→22:37)
[2019-06-14] MEDS ORDERED: QUEtiapine FUMARATE 50 MG TABLET PO SCH (22:00)
[2019-06-14] MEDS: QUEtiapine FUMARATE 100 MG TABLET (FP) PO SCH (22:37)
[2019-06-14] MEDS: THIAMINE HCL 100 MG TABLET (FP) PO SCH (22:37)
[2019-06-15] MEDS: chlordiazePOXIDE HCL 25 MG CAPSULE PO PRN ×3 (01:49→20:36)
[2019-06-15] MEDS: ALBUTEROL SO4 HFA INHALER IH PRN (01:57)
[2019-06-15] MEDS ORDERED: METHADONE HCL 10 MG TABLET ONE (04:32)
[2019-06-15] MEDS ORDERED: METHADONE HCL 40 MG DISPERSABLE TABLET ONE (04:32)
[2019-06-15] MEDS: METHADONE 80 MG, METHADONE 10 MG PO SCH (05:45)
[2019-06-15] MEDS: chlordiazePOXIDE HCL 25 MG CAPSULE PO SCH ×4 (05:46→22:05)
[2019-06-15] MEDS: NICOTINE 14 MG/24 HOURS TOPICAL PATCH TD SCH (10:11)
[2019-06-15] MEDS: GABAPENTIN 300 MG CAPSULE PO SCH ×2 (10:11→17:09)
[2019-06-15] MEDS: QUEtiapine FUMARATE 50 MG TABLET PO SCH (10:11)
[2019-06-15] MEDS: PRENATAL VITAMINS W/ FOLIC ACID TABLET (FP) PO SCH (10:11)
[2019-06-15] MEDS: BUDESONIDE/FORMETEROL FUMARATE 80/4.5 mcg INHALER IH SCH ×2 (10:11→22:08)
[2019-06-15] MEDS: LISINOPRIL 10 MG TABLET (FP) PO SCH (10:14)
--- NOTE | 2019-06-15 12:31 | PN ---
S CIWA - CIWA Score Nausea/Vomitin-No Nausea/No Vomiting Muscle Tremors: None Anxiety: 4-Mod. Anxious/Guarded Agitation: 4-Moderately Restless Paroxysmal Sweats: 2 Orientation: 0-Oriented Tacttile Disturbances: 2-Mild Itch/Numbness/Burn Auditory Disturbances: 0-None Visual Disturbances: 0-None Headache: 0-None Present CIWA-Ar Total Score: 12 BHS Progress Note (SOAP) Subjective: Patient admitted for alcohol detox. C/o of anxiety, restlessness and numbness and tingling of hands/feet Objective: 06/15/19 12:29 Vital Signs Temperature 98.1 F 06/15/19 11:38 Pulse Rate 93 H 06/15/19 11:41 Respiratory Rate 18 06/15/19 11:41 Blood Pressure 102/63 06/15/19 11:41 O2 Sat by Pulse Oximetry (%) Laboratory Tests 06/13/19 06/13/19 06/13/19 15:30 15:30 15:30 WBC 5.4 RBC 4.48 Hgb 14.3 Hct 41.8 MCV 93.2 MCH 31.9 MCHC 34.3 RDW 14.3 Plt Count 199 MPV 8.1 Sodium 141 Potassium 4.1 Chloride 105 Carbon Dioxide 29 Anion Gap 6 L BUN 13.2 Creatinine 0.7 Est GFR (CKD-EPI)AfAm 118.88 Est GFR (CKD-EPI)NonAf 102.57 Random Glucose 81 Calcium 8.2 L Total Bilirubin 1.0 AST 38 H ALT 32 Alkaline Phosphatase 144 H Total Protein 7.2 Albumin 3.5 RPR Titer Nonreactive PE alert and oriented x 3 skin warm and dry +perrla, eoms intact bl gi nt, nd ext full rom, amb ad suzie anxious/restless/pacing in [place] Assessment: 06/15/19 12:30 Etoh withdrawal sx Plan: continue detox encourage fluids monitor clinically
[2019-06-15] MEDS: cloNIDine HCL 0.1 MG TABLET PO PRN (13:06)
[2019-06-15] MEDS: MAGNESIUM HYDROX 2400MG/30ML ORAL SUSPENSION 30 ML CUP PO PRN (18:25)
[2019-06-15] MEDS: THIAMINE HCL 100 MG TABLET (FP) PO SCH (22:05)
[2019-06-15] MEDS: QUEtiapine FUMARATE 100 MG TABLET (FP) PO SCH (22:05)
[2019-06-16] MEDS: chlordiazePOXIDE HCL 10 MG CAPSULE PO PRN ×2 (03:37→13:14)
[2019-06-16] MEDS: MAGNESIUM HYDROX 2400MG/30ML ORAL SUSPENSION 30 ML CUP PO PRN (03:39)
[2019-06-16] MEDS ORDERED: METHADONE HCL 10 MG TABLET ONE (04:41)
[2019-06-16] MEDS ORDERED: METHADONE HCL 40 MG DISPERSABLE TABLET ONE (04:41)
[2019-06-16] MEDS: METHADONE 80 MG, METHADONE 10 MG PO SCH (05:00)
[2019-06-16] MEDS: chlordiazePOXIDE HCL 10 MG CAPSULE PO SCH ×4 (05:00→22:05)
[2019-06-16] MEDS: NICOTINE 14 MG/24 HOURS TOPICAL PATCH TD SCH (10:43)
[2019-06-16] MEDS: BUDESONIDE/FORMETEROL FUMARATE 80/4.5 mcg INHALER IH SCH ×2 (10:43→22:07)
[2019-06-16] MEDS: GABAPENTIN 300 MG CAPSULE PO SCH ×2 (10:43→16:50)
[2019-06-16] MEDS: PRENATAL VITAMINS W/ FOLIC ACID TABLET (FP) PO SCH (10:43)
[2019-06-16] MEDS: LISINOPRIL 10 MG TABLET (FP) PO SCH (10:44)
[2019-06-16] MEDS: QUEtiapine FUMARATE 50 MG TABLET PO SCH (10:44)
[2019-06-16] MEDS: TOLNAFTATE 1% CREAM 15 GM TUBE TP SCH ×2 (12:48→22:08)
[2019-06-16] MEDS: DOCUSATE SODIUM 100 MG CAPSULE (FP) PO SCH ×2 (13:11→22:05)
--- NOTE | 2019-06-16 13:22 | PN ---
[facility] CIWA - CIWA Score Nausea/Vomitin-Mild Nausea/No Vomiting Muscle Tremors: 1-None Visible, but [place] Anxiety: 1-Mildly Anxious Agitation: 1-Slight > Activity Paroxysmal Sweats: No Perspiration Orientation: 0-Oriented Tacttile Disturbances: 0-None Auditory Disturbances: 0-None Visual Disturbances: 0-None Headache: 1-Very Mild CIWA-Ar Total Score: 5 S Progress Note (SOAP) Subjective: alert,irritable,anxious,interrupted sleep,itching both feet,tinea pedis Objective: 06/16/19 13:20 Vital Signs Temperature 96.8 F L 06/16/19 08:38 Pulse Rate 81 06/16/19 08:38 Respiratory Rate 16 06/16/19 08:38 Blood Pressure 128/85 06/16/19 08:38 O2 Sat by Pulse Oximetry (%) Assessment: 06/16/19 13:20 withdrawal symptom Plan: continue detox librium regimen,tinactin cream both feet,psychiatric reevaluation for serquel
--- NOTE | 2019-06-16 14:26 | PN ---
CHASITY Progress Note Note: Patient requests to see customs entry writer in order to get Seroquel 50 mg/day ordered. Seroquel 50 mg/day is already ordered for patient and according to nursing staff , he received it this morning
[2019-06-16] MEDS: cloNIDine HCL 0.1 MG TABLET PO PRN (19:06)
[2019-06-16] MEDS: QUEtiapine FUMARATE 100 MG TABLET (FP) PO SCH (22:06)
[2019-06-16] MEDS: THIAMINE HCL 100 MG TABLET (FP) PO SCH (22:25)
[2019-06-17] MEDS ORDERED: METHADONE HCL 10 MG TABLET ONE (04:19)
[2019-06-17] MEDS ORDERED: METHADONE HCL 40 MG DISPERSABLE TABLET ONE (04:20)
[2019-06-17] MEDS: METHADONE 80 MG, METHADONE 10 MG PO SCH (06:14)
[2019-06-17] MEDS: DOCUSATE SODIUM 100 MG CAPSULE (FP) PO SCH ×2 (06:16→22:07)
[2019-06-17] MEDS: chlordiazePOXIDE HCL 10 MG CAPSULE PO SCH ×2 (06:17→17:27)
[2019-06-17] MEDS: ALBUTEROL SO4 HFA INHALER IH PRN (07:14)
--- NOTE | 2019-06-17 10:28 | PN ---
S Progress Note Note: Patient requests to resume Buspar 10 mg/bid. Therefore Buspar 10 mg/bid is ordered
[2019-06-17] MEDS: BUDESONIDE/FORMETEROL FUMARATE 80/4.5 mcg INHALER IH SCH ×2 (10:33→22:07)
[2019-06-17] MEDS: GABAPENTIN 300 MG CAPSULE PO SCH ×2 (10:33→17:28)
[2019-06-17] MEDS: TOLNAFTATE 1% CREAM 15 GM TUBE TP SCH ×2 (10:33→22:07)
[2019-06-17] MEDS: QUEtiapine FUMARATE 50 MG TABLET PO SCH (10:33)
[2019-06-17] MEDS: LISINOPRIL 10 MG TABLET (FP) PO SCH (10:34)
[2019-06-17] MEDS: NICOTINE 14 MG/24 HOURS TOPICAL PATCH TD SCH (10:34)
[2019-06-17] MEDS: PRENATAL VITAMINS W/ FOLIC ACID TABLET (FP) PO SCH (10:34)
[2019-06-17] MEDS: busPIRone HCL 10 MG TABLET (FP) PO SCH ×2 (10:35→22:07)
[2019-06-17] MEDS ORDERED: chlordiazePOXIDE HCL 10 MG CAPSULE PO ONE (10:47)
--- NOTE | 2019-06-17 10:51 | PN ---
S CIWA - CIWA Score Nausea/Vomitin-Mild Nausea/No Vomiting Muscle Tremors: 2 Anxiety: 2 Agitation: 2 Paroxysmal Sweats: No Perspiration Orientation: 0-Oriented Tacttile Disturbances: 1-Very Mild Itch/Numbness Auditory Disturbances: 0-None Visual Disturbances: 0-None Headache: 1-Very Mild CIWA-Ar Total Score: 9 BHS Progress Note (SOAP) Subjective: alert,irritable,anxious,interrupted sleep,pain in the body Objective: 06/17/19 10:50 Vital Signs Temperature 97.7 F 06/17/19 08:40 Pulse Rate 89 06/17/19 08:40 Respiratory Rate 18 06/17/19 08:40 Blood Pressure 106/77 06/17/19 08:40 O2 Sat by Pulse Oximetry (%) Assessment: 06/17/19 10:50 withdrawal symptom Plan: continue detox librium regimen,discharge in am,librium 10 mgs po now
[2019-06-17] MEDS: QUEtiapine FUMARATE 100 MG TABLET (FP) PO SCH (22:07)
[2019-06-17] MEDS: THIAMINE HCL 100 MG TABLET (FP) PO SCH (22:07)
[2019-06-17] MEDS: cloNIDine HCL 0.1 MG TABLET PO PRN (22:12)
[2019-06-18] MEDS ORDERED: METHADONE HCL 40 MG DISPERSABLE TABLET ONE (04:59)
[2019-06-18] MEDS ORDERED: METHADONE HCL 10 MG TABLET ONE (04:59)
[2019-06-18] MEDS ORDERED: chlordiazePOXIDE HCL 10 MG CAPSULE PO ONE (05:00)
[2019-06-18] MEDS: METHADONE 80 MG, METHADONE 10 MG PO SCH (05:20)
[2019-06-18] MEDS: ALBUTEROL SO4 HFA INHALER IH PRN (05:25)
--- NOTE | 2019-06-18 09:21 | PN ---
S CIWA - CIWA Score Nausea/Vomitin-No Nausea/No Vomiting Muscle Tremors: 1-None Visible, but [place] Anxiety: 0-No Anxiety, at Ease Agitation: 0-Normal Activity Paroxysmal Sweats: No Perspiration Orientation: 0-Oriented Tacttile Disturbances: 0-None Auditory Disturbances: 0-None Visual Disturbances: 0-None Headache: 1-Very Mild CIWA-Ar Total Score: 2 BHS Progress Note (SOAP) Subjective: alert,no complaint Objective: 06/18/19 09:19 alert,no complaint 06/18/19 09:19 Vital Signs Temperature 97.2 F L 06/18/19 06:32 Pulse Rate 62 06/18/19 06:32 Respiratory Rate 18 06/18/19 06:32 Blood Pressure 125/70 06/18/19 06:32 O2 Sat by Pulse Oximetry (%) Assessment: 06/18/19 09:19 Vital Signs Temperature 97.2 F L 06/18/19 06:32 Pulse Rate 62 06/18/19 06:32 Respiratory Rate 18 06/18/19 06:32 Blood Pressure 125/70 06/18/19 06:32 O2 Sat by Pulse Oximetry (%) 06/18/19 09:20 detox completed,no withdrawal symptom Plan: discharge today,follow up with after care program as arrangement
--- NOTE | 2019-06-18 09:21 | DS ---
[facility] Detox Discharge Summary Admission Date: 06/13/19 Discharge Date: 06/18/19 - History Present History: Alcohol Dependence, Cocaine Dependence, MMTP Additional Comments: alerted,oriented x3 ambulation on the unit heart normal heart sound lung clear no abdominal pain stable for discharge total time of discharge spending 30 mins Pertinent Past History: astma hypertension nicotine dependence bipolar disorder - Physical Exam Results Vital Signs: Vital Signs Temperature 97.2 F L 06/18/19 06:32 Pulse Rate 62 06/18/19 06:32 Respiratory Rate 18 06/18/19 06:32 Blood Pressure 125/70 06/18/19 06:32 O2 Sat by Pulse Oximetry (%) Pertinent Admission Physical Exam Findings: withdrawal signs and symptom - Treatment Hospital Course: Detox Protocol Followed, Detoxed Safely, Responded well, Discharged Condition Good Patient has Accepted a Rehab Referral to: declined - Medication Discharge Medications: Ambulatory Orders Budesonide/Formeterol Fumarate [SYMBICORT 80/4.5mcg -] 2 inh PO BID 06/02/16 Folic Acid - 1 mg PO DAILY 06/02/16 Gabapentin [Neurontin -] 400 mg PO TID 06/02/16 Lisinopril [Prinivil] 10 mg PO DAILY 06/02/16 Quetiapine Fumarate [Seroquel -] 100 mg PO HS 06/02/16 Albuterol Sulfate Inhaler - [Ventolin Hfa Inhaler -] 2 inh PO Q4H PRN 06/13/19 Buspirone HCl [Buspar -] 10 mg PO BID 06/13/19 Methadone [Dolophine -] 90 mg PO DAILY 06/13/19 - Diagnosis (1) Alcohol dependence with uncomplicated withdrawal Current Visit: Yes Status: Acute (2) Benzodiazepine dependence Current Visit: Yes Status: Chronic (3) Bipolar disorder Current Visit: Yes Status: Chronic (4) Cocaine dependence Current Visit: Yes Status: Chronic Qualifiers: Substance use status: uncomplicated Qualified Code(s): F14.20 - Cocaine dependence, uncomplicated (5) Insomnia Current Visit: Yes Status: Chronic (6) Nicotine dependence Current Visit: Yes Status: Chronic Qualifiers: Nicotine product type: cigarettes Substance use status: uncomplicated Qualified Code(s): F17.210 - Nicotine dependence, cigarettes, uncomplicated (7) Opioid dependence on agonist therapy Current Visit: Yes Status: Chronic (8) Asthma with COPD Current Visit: No Status: Chronic (9) Hypertension Current Visit: No Status: Chronic Qualifiers: Hypertension type: essential hypertension Qualified Code(s): I10 - Essential (primary) hypertension (10) Methadone maintenance therapy patient Current Visit: No Status: Chronic (11) Tinea pedis Current Visit: No Status: Chronic Qualifiers: Laterality: bilateral Qualified Code(s): B35.3 - Tinea pedis
[2019-06-18] MEDS: busPIRone HCL 10 MG TABLET (FP) PO SCH (10:54)
[2019-06-18 10:55] VITALS: BP 144/92; PULSE 89; TEMP 98.6
[2019-06-18] MEDS: GABAPENTIN 300 MG CAPSULE PO SCH (10:55)
[2019-06-18] MEDS: PRENATAL VITAMINS W/ FOLIC ACID TABLET (FP) PO SCH (10:55)
[2019-06-18] MEDS: LISINOPRIL 10 MG TABLET (FP) PO SCH (10:55)
[2019-06-18] MEDS: QUEtiapine FUMARATE 50 MG TABLET PO SCH (10:55)
[2019-06-18] MEDS: NICOTINE 14 MG/24 HOURS TOPICAL PATCH TD SCH (10:55)
[2019-06-18] MEDS: BUDESONIDE/FORMETEROL FUMARATE 80/4.5 mcg INHALER IH SCH (10:55)
[2019-06-18] MEDS: TOLNAFTATE 1% CREAM 15 GM TUBE TP SCH (10:55)
== END 2019-06-18 10:32 | disposition home or self-care (01) | DRG 773 ==
LOC: YASAS 13:16 → Y6N 14:49
PROVIDERS: ADMIT Allergy & Immunology; ATTEND Allergy & Immunology
PROC: HZ2ZZZZ Detoxification Services for Substance Abuse Treatment (ICD-10-PCS; principal; 2019-06-13)
DX: F10.230 Alcohol dependence with withdrawal, uncomplicated (principal); F11.20 Opioid dependence, uncomplicated; F13.20 Sedative, hypnotic or anxiolytic dependence, uncomplicated; F14.20 Cocaine dependence, uncomplicated; F17.210 Nicotine dependence, cigarettes, uncomplicated; F31.9 Bipolar disorder, unspecified; F41.9 Anxiety disorder, unspecified; G47.00 Insomnia, unspecified; I10 Essential (primary) hypertension; J44.9 Chronic obstructive pulmonary disease, unspecified; J45.998 Other asthma; B35.3 Tinea pedis; Z86.010 Personal history of colon polyps; Z91.018 Allergy to other foods
CPT/HCPCS: 36415; 80053; 85027; 86593; J0735

== ENCOUNTER 2019-11-12 12:25 | Inpatient (IN) | payer OTHER ==
--- NOTE | 2019-11-12 13:14 | BHS.RME ---
Substance Use & Tx History - Substance Use History Alcohol Substance amount: 3 six packs Physical/Psych/Mental Status - Behavior General Behavior: Decreased activity Eye Contact: Normal - Cooperativeness Cooperativeness: Cooperative - Thinking Thought Processes: Tight, Logical, Goal Directed - Physical Health Problems Is patient presently having any pain?: No Does patient presently have any injuries (include location): No Does patient currently have a fever: No Is patient : No CIWA Nausea/Vomitin-Mild Nausea/No Vomiting Muscle Tremors: None Anxiety: 2 Agitation: 0-Normal Activity Paroxysmal Sweats: No Perspiration Orientation: 1-Uncertain about Date Tacttile Disturbances: 0-None Auditory Disturbances: 0-None Visual Disturbances: 0-None Headache: 0-None Present CIWA-Ar Total Score: 4
--- NOTE | 2019-11-12 13:55 | HP ---
CIWA Score Nausea/Vomitin-Mild Nausea/No Vomiting Muscle Tremors: None Anxiety: 2 Agitation: 0-Normal Activity Paroxysmal Sweats: No Perspiration Orientation: 1-Uncertain about Date Tacttile Disturbances: 0-None Auditory Disturbances: 0-None Visual Disturbances: 0-None Headache: 0-None Present CIWA-Ar Total Score: 4 - Admission Criteria OASAS Guidelines: Admission for Medically Managed Detox: Requires at least one of the followin. CIWA greater than 12 2. Seizures within the past 24 hours 3. Delirium tremens within the past 24 hours 4. Hallucinations within the past 24 hours 5. Acute intervention needed for co occurring medical disorder 6. Acute intervention needed for co occurring psychiatric disorder 7. Severe withdrawal that cannot be handled at a lower level of care (continued vomiting, continued diarrhea, abnormal vital signs) requiring intravenous medication and/or fluids 8. Admitting History and Physical - Admission Chief Complaint: Mr. Hill presents to [facility] today requesting for detox from alcohol and benzodiazepine History of Present Illness: Mr. Hill presents to [facility] today requesting for detox from alcohol and benzodiazepine PMH: HTN, taks lisionpril, Asthma, st attack was 8yrs ago. Uses albuterol inhaler as needed. Last use was 3 days ago PSH: B/L Inguinal hernia PSYCH: Bipolar disorder. Takes seroquel, gabapentin and buspirone. Last dose, 11/12/19 SOCIAL/DOMICLED: Lives [facility] with mother LEGAL:None Substance Use History Alcohol Substance amount: 3 six packs beer daily Last use: 11/12/19 First use: age 10 No x of seizures. 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 orientation & mobility specialist Benzodiazepine: Xanax from street Substance amount: 2mg daily Last use: 11/12/19 First use: age 10 Klonopin: Substance use amount: 2.5mg or 3 tabs daily Last use: 11/12/19 First use: Age 28 Nicotine: Substance use amount: smokes 5-6 cigarettes daily Last use: 11/12/19 First use: age 10 Crack cocaine: Substance use amount: smokes $30 worth Last use: 11/11/19 First use: age 25 Limitations to Obtaining History: No Limitations - Past Surgical History Past Surgical History: Yes: Hernia Repair (b/l inguinal) - Smoking History Smoking history: Current every day smoker Have you smoked in the past 12 months: Yes Aproximately how many cigarettes per day: 6 - Alcohol/Substance Use Hx Alcohol Use: Yes Number of Drinks Daily: 6 (3 six packs) History of Substance Use: reports: Cocaine Date of Last Use: 11/10/19 (first use, age 25) - Social History Usual Living Arrangement: Yes: Other (Lives in the [place] with mother) Admission [facility] Chief Complaint: Mr. Hill presents to [facility] today requesting for detox from alcohol and benzodiazepine Allergies/Adverse Reactions: Allergies Allergy/AdvReac Type Severity Reaction Status Date / Time No Known Drug Allergies Allergy Unknown Verified 06/13/19 14:18 shellfish derived Allergy Verified 11/12/19 14:15 BOLOGNA Allergy Severe Hives Uncoded 06/13/19 14:18 MAYONNAISE Allergy Severe Nausea Uncoded 06/13/19 14:18 NKDA Allergy Uncoded 06/13/19 14:18 Exam Limitations: No Limitations - Ebola screening Have you traveled outside of the country in the last 21 days: No Have you been sick,other than usual withdrawal symptoms: No Do you have a fever: No - Review of Systems Constitutional: Unintentional Wgt. Loss (13 Ibs in 6 weeks) EENT: reports: No Symptoms Reported Respiratory: reports: No Symptoms reported Cardiac: reports: No Symptoms Reported GI: reports: No Symptoms Reported : reports: No Symptoms Reported Musculoskeletal: reports: Back Pain (Started months ago. Started aftr a hug from a nephew who is a big chloe.) Integumentary: reports: No Symptoms Reported Neuro: reports: No Symptoms reported Endocrine: reports: No Symptoms Reported Hematology: reports: No Symptoms Reported Psychiatric: reports: Anxious Patient History - Patient Medical History Hx Anemia: Yes Hx Asthma: Yes Hx Chronic Obstructive Pulmonary Disease (COPD): Yes Hx Cancer: No Hx Cardiac Disorders: No Hx Congestive Heart Failure: No Hx Hypertension: Yes Hx Hypercholesterolemia: No Hx Pacemaker: No HX Cerebrovascular Accident: No Hx Seizures: No Hx Dementia: No Hx Diabetes: No Hx Gastrointestinal Disorders: No Hx Liver Disease: No Hx Genitourinary Disorders: No Hx Sexually Transmitted Disorders: No Hx Renal Disease (ESRD): No Hx Thyroid Disease: No Hx Human Immunodeficiency Virus (HIV): No (neg) Hx Hepatitis C: No (negative) Hx Depression: Yes Hx Suicide Attempt: No Hx Bipolar Disorder: Yes Hx Schizophrenia: No - Patient Surgical History Past Surgical History: Yes Hx Neurologic Surgery: No Hx Cataract Extraction: No Hx Cardiac Surgery: No Hx Lung Surgery: No Hx Breast Surgery: Yes (Bilateral breast sx) Hx Breast Biopsy: No Hx Abdominal Surgery: Yes (inguinal hernia 1976) Hx Appendectomy: No Hx Cholecystectomy: No Hx Genitourinary Surgery: No Hx Section: No Hx Orthopedic Surgery: No Other Surgical History: Tonsillectomy Anesthesia Reaction: No - PPD History Date: 06/04/16 - Smoking Cessation Smoking history: Current every day smoker Have you smoked in the past 12 months: Yes Aproximately how many cigarettes per day: 6 Hx Chewing Tobacco Use: No Initiated information on smoking cessation: Yes 'Breaking Loose' booklet given: 11/12/19 Admission Physical Exam [facility] - Physical General Appearance: Yes: No Apparent Distress, Nourished, Appropriately Dressed HEENTM: Yes: Within Normal Limits, EOMI, Hearing grossly Normal, Normal ENT Inspection, Normocephalic, Normal Voice, SARAH Respiratory: Yes: Within Normal Limits, Chest Non-Tender, Lungs Clear, Normal Breath Sounds, No Respiratory Distress, No Accessory Muscle Use Neck: Yes: Within Normal Limits, No masses,lesions,Nodules, Trachea in good position Breast: Yes: Breast Exam Deferred Cardiology: Yes: Within Normal Limits, Regular Rhythm, Regular Rate, Gallop/S4 Abdominal: Yes: Normal Bowel Sounds, Soft, Distended, Tenderness (In right hypogastrium), Hepatomegaly (5cm below right costal margin) Genitourinary: Yes: Within Normal Limits Back: Yes: Other (moderate back pain, started after a hug from nephew who is a big chloe) Musculoskeletal: Yes: Back pain (moderate back pain, started after a hug from nephew who is a big chloe) Extremities: Yes: Erythema (mild erytherma wih few scattered telengiectasia on leg) Neurological: Yes: Within Normal Limits, Fully Oriented, Alert Integumentary: Yes: Within Normal Limits Cleared for Admission [facility] - Detox or Rehab [facility] Level of Care: Medically Managed Detox Regimen/Protocol: Methadone/Librium Claeared for Rehab Admission: No Screened but not Admitted - Documentation of Visit Screened but not Admitted: No Breathalyzer - Breathalyzer Breathalyzer: 0.047 Urine Drug Screen - Test Device Lot number: [id number] Expiration date: 12/28/20 - Control Is test valid?: Yes - Results Drug screen NEGATIVE: No Urine drug screen results: KAYCEE-Cocaine, MTD-Methadone, BZO-Benzodiazepines Inpatient Rehab Admission - Rehab Decision to Admit Inpatient rehab admission?: No
[2019-11-12] MEDS ORDERED: NICOTINE POLACRILEX 2 MG GUM BUC PRN (14:49)
[2019-11-12] MEDS ORDERED: ONDANSETRON *ODT* 4 MG TABLET SL ONE (14:49)
[2019-11-12] MEDS ORDERED: BISMUTH SUBSALICYLATE 524 MG/30 ML UD PO PRN (14:49)
[2019-11-12] MEDS ORDERED: ACETAMINOPHEN 325 MG TABLET (FP) PO PRN (14:49)
[2019-11-12] MEDS ORDERED: MAGNESIUM HYDROX 2400MG/30ML ORAL SUSPENSION 30 ML CUP PO PRN (14:49)
[2019-11-12] MEDS ORDERED: MAGNESIUM CITRATE 300 ML BOTTLE PO PRN (14:49)
[2019-11-12] MEDS ORDERED: cloNIDine HCL 0.1 MG TABLET PO PRN (14:49)
[2019-11-12] MEDS ORDERED: MAG HYDROX/AL HYDROX/SIMETH 30 ML UNIT-DOSE CUP PO PRN (14:49)
[2019-11-12] MEDS ORDERED: METHOCARBAMOL 500 MG TABLET PO PRN (14:49)
[2019-11-12] MEDS ORDERED: MENTHOL/PHENOL 1 EACH UD MM PRN (14:49)
[2019-11-12] MEDS ORDERED: IBUPROFEN 400 MG TABLET (FP) PO PRN (14:49)
[2019-11-12] MEDS ORDERED: METHADONE HCL 10 MG TABLET (FOR DETOX USE ONLY) PO ONE (14:49)
[2019-11-12 15:34] VITALS: BMI 26.4
--- NOTE | 2019-11-12 15:48 | EKG ---
Test Reason : Blood Pressure : / mmHG Vent. Rate : 091 BPM Atrial Rate : 091 BPM P-R Int : 174 ms QRS Dur : 100 ms QT Int : 404 ms P-R-T Axes : 056 010 034 degrees QTc Int : 496 ms NORMAL SINUS RHYTHM SEPTAL INFARCT (CITED ON OR BEFORE 02-JUN-2016) ABNORMAL ECG WHEN COMPARED WITH ECG OF 02-JUN-2016 17:18, NO SIGNIFICANT CHANGE WAS FOUND Confirmed by MD FRANCES, BRYAN ([id number]) on 11/12/2019 3:48:17 PM Referred By: Confirmed By:BRYAN DANIELS MD
[2019-11-12] MEDS: chlordiazePOXIDE HCL 25 MG CAPSULE PO SCH ×2 (17:14→22:02)
[2019-11-12] MEDS: NICOTINE 7 MG/24 HOURS TOPICAL PATCH TD SCH (17:15)
[2019-11-12] MEDS: FOLIC ACID 1 MG TABLET (FP) PO SCH (17:16)
[2019-11-12] MEDS: PRENATAL VITAMINS W/ FOLIC ACID TABLET (FP) PO SCH (17:16)
[2019-11-12] MEDS: GABAPENTIN 400 MG CAPSULE PO SCH ×2 (17:17→22:02)
[2019-11-12] MEDS: LISINOPRIL 10 MG TABLET (FP) PO SCH (17:17)
--- NOTE | 2019-11-12 17:31 | CONSULT ---
[facility] Psychiatric Consult - Data Date of interview: 11/12/19 Admission source: [facility] Identifying data: Readmission to [address] [place] [address] for this 59 y/o male self- referred for detoxification treatment. AZALIA issues : alcohol, crack/cocaine, opioid, nicotine, benzodiazepine (clonazepam). Patient is single, no dependents, domiciled (lives with his biological mother), unemployed and supported on SSI benefits. Substance Abuse History: Discussed with the patient. AZALIA profile as follows : Alcohol. Substance amount: 3 six packs beer daily. Last use: 11/12/19. First use: age 10. No x of seizures. Blackout x 1(15 yrs ago). 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 Benzodiazepine: Xanax from street. Substance amount: 2mg daily. Last use: 11/12/19. First use: age 10. Klonopin: Substance use amount: 2.5mg or 3 tabs daily. Last use: 11/12/19. First use: Age 28. Nicotine: Substance use amount: smokes 5-6 cigarettes daily. Last use: 11/12/19. First use: age 10. Crack cocaine: Substance use amount: smokes $30 worth. Last use: 11/11/19. First use: age 25. History of multiple AZALIA treatment failures. Medical History: Medical profile continues to be remarkable for hypertension, antecedent of bilateral mastectomies (partial), bronchial asthma, COPD, colon polyps and a history of bilateral inguinal herniorraphy. Psychiatric History: Patient denies history of psychiatric hospitalizations. Mr Hill is currently receiving psychiatric outpatient services at [facility] in [facility]. Maintenance medications consist of seroquel 50 mg/day + 200 mg/hs + gabapentin 400 mg/tid + buspar 10 mg/bid (copy writer called [facility] @ [phone] : spoke to pharmacist; medications are confirmed; patient got refills on 11/08/19). Diagnosis : Bipolar Disorder. Patient denies history of suicide attempts. Physical/Sexual Abuse/Trauma History: Patient denies. Additional Comment: Urine drug screen results: KAYCEE-Cocaine, MTD-Methadone, BZO- Benzodiazepines. Noted. Mental Status Exam - Mental Status Exam Alert and Oriented to: Time, Place, Person Cognitive Function: Good Patient Appearance: Well Groomed (short stature, obese) Mood: Anxious (mildly anxious), Hopeful Affect: Mood Congruent, Constricted Patient Behavior: Fatigued, Appropriate, Cooperative Speech Pattern: Clear (patient is a good historian), Appropriate Voice Loudness: Normal Thought Process: Intact, Goal Oriented Thought Disorder: Not Present Hallucinations: Denies Suicidal Ideation: Denies Homicidal Ideation: Denies Insight/Judgement: Poor Sleep: Poorly, Difficulty falling asleep Gait/Station: Normal Psychiatric Findings - Problem List (Protem 1, 2,3) (1) Alcohol dependence with uncomplicated withdrawal Current Visit: Yes Status: Acute (2) Opioid use disorder Current Visit: Yes Status: Chronic (3) Benzodiazepine dependence Current Visit: Yes Status: Chronic Comment: Has been buying klonopin in the streets for years (2 mg twice a day). (4) Cocaine dependence Current Visit: Yes Status: Chronic Qualifiers: Substance use status: uncomplicated Qualified Code(s): F14.20 - Cocaine dependence, uncomplicated (5) Nicotine dependence Current Visit: Yes Status: Chronic Qualifiers: Nicotine product type: cigarettes Substance use status: uncomplicated Qualified Code(s): F17.210 - Nicotine dependence, cigarettes, uncomplicated (6) Substance induced mood disorder Current Visit: Yes Status: Chronic (7) Bipolar disorder Current Visit: Yes Status: Chronic (8) Insomnia Current Visit: Yes Status: Chronic - Initial Treatment Plan Initial Treatment Plan: Psychoeducation. Sleep hygiene. Detoxification in progress. Support. Medications are verified with pharmacist at [facility] (see Psychiatric History section of this report for details). Resumed : seroquel 50 mg po am + 100 mg po hs (reduced to prevent oversedation). Gabapentin is already initiated from [facility]. Side effects/benefits of these medications are discussed in my interview with the patient. Mr Hill granted consent (verbal) to this copy writer. Observation.
[2019-11-12] MEDS ORDERED: ALBUTEROL SO4 HFA INHALER IH PRN (18:00)
[2019-11-12] MEDS: hydrOXYzine PAMOATE 25 MG CAPSULE (FP) PO SCH ×2 (18:35→22:02)
[2019-11-12] MEDS: chlordiazePOXIDE HCL 25 MG CAPSULE PO PRN (20:36)
[2019-11-12] MEDS ORDERED: MELATONIN 5 MG TABLETS PO SCH (22:00)
[2019-11-12] MEDS ORDERED: QUEtiapine FUMARATE 50 MG TABLET PO SCH (22:00)
[2019-11-12] MEDS: TOLNAFTATE 1% CREAM 15 GM TUBE TP SCH (22:02)
[2019-11-12] MEDS: QUEtiapine FUMARATE 100 MG TABLET (FP) PO SCH (22:02)
[2019-11-12] MEDS: THIAMINE HCL 100 MG TABLET (FP) PO SCH (22:02)
[2019-11-13] MEDS: ACETAMINOPHEN 325 MG TABLET (FP) PO PRN ×2 (01:09→23:00)
[2019-11-13] MEDS: GABAPENTIN 400 MG CAPSULE PO SCH ×3 (05:41→21:38)
[2019-11-13] MEDS: chlordiazePOXIDE HCL 25 MG CAPSULE PO SCH ×4 (05:41→22:21)
[2019-11-13] MEDS: hydrOXYzine PAMOATE 25 MG CAPSULE (FP) PO SCH ×5 (05:41→21:39)
--- NOTE | 2019-11-13 08:35 | PN ---
Teaching Attending Note Name of Resident: Storm Alan ATTENDING PHYSICIAN STATEMENT I saw and evaluated the patient. I reviewed the resident's note and discussed the case with the resident. I agree with the resident's findings and plan as documented. SUBJECTIVE: OBJECTIVE: ASSESSMENT AND PLAN:
[2019-11-13] MEDS ORDERED: METHADONE 80 MG, METHADONE 10 MG PO ONE (10:00)
[2019-11-13] MEDS ORDERED: METHADONE HCL 10 MG TABLET PO ONE (10:00)
[2019-11-13] MEDS ORDERED: METHADONE (DETOX) 20 MG, METHADONE (DETOX) 5 MG PO ONE (10:00)
[2019-11-13] MEDS: LISINOPRIL 10 MG TABLET (FP) PO SCH (10:17)
[2019-11-13] MEDS: NICOTINE 7 MG/24 HOURS TOPICAL PATCH TD SCH (10:17)
[2019-11-13] MEDS ORDERED: METHADONE HCL 10 MG TABLET ONE (10:17)
[2019-11-13] MEDS: PRENATAL VITAMINS W/ FOLIC ACID TABLET (FP) PO SCH (10:17)
[2019-11-13] MEDS: QUEtiapine FUMARATE 50 MG TABLET PO SCH (10:18)
[2019-11-13] MEDS ORDERED: METHADONE HCL 40 MG DISPERSABLE TABLET ONE (10:18)
[2019-11-13] MEDS: FOLIC ACID 1 MG TABLET (FP) PO SCH (10:19)
[2019-11-13] MEDS: TOLNAFTATE 1% CREAM 15 GM TUBE TP SCH ×2 (10:19→21:38)
--- NOTE | 2019-11-13 10:44 | PN ---
S CIWA - CIWA Score Nausea/Vomitin-Mild Nausea/No Vomiting Muscle Tremors: 3 Anxiety: 1-Mildly Anxious Agitation: 1-Slight > Activity Paroxysmal Sweats: 2 Orientation: 0-Oriented Tacttile Disturbances: 0-None Auditory Disturbances: 0-None Visual Disturbances: 1-Very Mild Sensitivity Headache: 3-Moderate CIWA-Ar Total Score: 12 BHS Progress Note (SOAP) Subjective: 59 years old male admitted on 11/12/19 for alcohol and benzo withdrawal sx management treating with librium detox regiment taking methadone 90mg po daily mr moss received 13 bottle of methadone 90mg po daily on 11/05/19 resume methadone 90mg po today Objective: 11/13/19 10:50 Vital Signs - 24 hr 11/12/19 11/12/19 11/12/19 15:31 16:09 20:37 Temperature 97.1 F L 97.3 F L 97.5 F L Pulse Rate 102 H 94 H 96 H Respiratory 20 18 16 Rate Blood Pressure 117/74 133/85 137/86 O2 Sat by Pulse 98 98 Oximetry (%) 11/13/19 11/13/19 06:24 08:34 Temperature 96.9 F L 97.3 F L Pulse Rate 71 88 Respiratory 18 16 Rate Blood Pressure 150/88 133/79 O2 Sat by Pulse 98 Oximetry (%) 11/13/19 10:51 lab pending 11/13/19 10:53 bp elevation clonidine 0.1 mg po q6h prn Assessment: 11/13/19 10:53 alcohol and benzo withdrawal sx hypertension Plan: librium regiment lisniopril 10 mg po
[2019-11-13] MEDS ORDERED: cloNIDine HCL 0.1 MG TABLET PO PRN (10:53)
[2019-11-13 11:06] LABS: HEMOGLOBIN 12.5 GM/dL (11.7-16.9); MCH 32.2 pg (25.7-33.7); MCHC 33.8 g/dl (32.0-35.9); MEAN CELL VOLUME 95.4 fl (80-96); MEAN PLT VOLUME 8.9 fl (7.5-11.1); PLATELET COUNT 178 K/MM3 (134-434); RBC 3.88 M/mm3 (4.00-5.60); RDW 14.5 % (11.9-15.9); WHITE BLOOD COUNT 5.2 K/mm3 (4.0-10.0)
[2019-11-13 11:16] LABS: ALBUMIN 2.9 g/dl (3.4-5.0); BILIRUBIN,TOTAL 0.8 mg/dL (0.2-1); BLOOD UREA NITROGEN 11.4 mg/dL (7-18); CALCIUM 8.1 mg/dL (8.5-10.1); CREATININE 0.5 mg/dL (0.55-1.3); POTASSIUM 3.8 mmol/L (3.5-5.1); TOT PROT 6.6 g/dl (6.4-8.2)
[2019-11-13] MEDS: THIAMINE HCL 100 MG TABLET (FP) PO SCH (21:38)
[2019-11-13] MEDS: MELATONIN 5 MG TABLETS PO SCH (21:39)
[2019-11-13] MEDS: DOCUSATE SODIUM 100 MG CAPSULE (FP) PO SCH (21:39)
[2019-11-13] MEDS: QUEtiapine FUMARATE 100 MG TABLET (FP) PO SCH (21:39)
[2019-11-13] MEDS ORDERED: SUVOREXANT 5 MG TABLET PO ONE (22:00)
[2019-11-14] MEDS ORDERED: METHADONE HCL 40 MG DISPERSABLE TABLET ONE (04:41)
[2019-11-14] MEDS ORDERED: METHADONE HCL 10 MG TABLET ONE (04:41)
[2019-11-14] MEDS: hydrOXYzine PAMOATE 25 MG CAPSULE (FP) PO SCH ×5 (05:43→22:01)
[2019-11-14] MEDS: GABAPENTIN 400 MG CAPSULE PO SCH ×3 (05:43→22:01)
[2019-11-14] MEDS: chlordiazePOXIDE HCL 25 MG CAPSULE PO SCH ×4 (05:43→22:02)
[2019-11-14] MEDS: METHADONE 80 MG, METHADONE 10 MG PO SCH (05:44)
[2019-11-14] MEDS ORDERED: METHADONE HCL 10 MG TABLET PO SCH (06:00)
[2019-11-14] MEDS ORDERED: METHADONE HCL 10 MG TABLET (FOR DETOX USE ONLY) PO ONE (10:00)
[2019-11-14] MEDS: TOLNAFTATE 1% CREAM 15 GM TUBE TP SCH ×2 (10:07→22:01)
[2019-11-14] MEDS: PRENATAL VITAMINS W/ FOLIC ACID TABLET (FP) PO SCH (10:07)
[2019-11-14] MEDS: FOLIC ACID 1 MG TABLET (FP) PO SCH (10:07)
[2019-11-14] MEDS: LISINOPRIL 10 MG TABLET (FP) PO SCH (10:08)
[2019-11-14] MEDS: NICOTINE 7 MG/24 HOURS TOPICAL PATCH TD SCH (10:08)
[2019-11-14] MEDS: QUEtiapine FUMARATE 50 MG TABLET PO SCH (10:08)
--- NOTE | 2019-11-14 11:38 | PN ---
Psychiatric Progress Note Vital Signs: Vital Signs Period Temp Pulse Resp BP Sys/Henry Pulse Ox Last 24 Hr 96.6 F-97.3 F 85-106 16-20 120-144/79-84 96-97 Date of Session: 11/14/19 Chief Complaint:: " I need my buspar and that medication for nightmares." HPI: Day 3 of detoxification treatment. See my consult note of 11/12/19 for details. Hospital course is benign except for patient's insistence on having buspar + prazosin included in his current regimen of medications. This is the reason for this psychiatric re-consultation. ROS: Unremarkable. Current Medications: Active Medications Generic Name Dose Route Start Last Admin Trade Name Freq PRN Reason Stop Dose Admin Acetaminophen 650 mg 11/12/19 14:49 11/13/19 23:00 Tylenol - PO 650 mg Q6H PRN Administration PAIN LEVEL 4 - 6 Acetaminophen 650 mg 11/12/19 14:49 Tylenol - PO Q6H PRN FEVER Al Hydroxide/Mg Hydroxide 30 ml 11/12/19 14:49 Mylanta Oral Suspension - PO Q6H PRN DYSPEPSIA Albuterol Sulfate 1 puff 11/12/19 18:00 Ventolin Hfa Inhaler - IH Q4H PRN ASTHMA Bismuth Subsalicylate 524 mg 11/12/19 14:49 Pepto-Bismol - PO Q1H PRN DIARRHEA Chlordiazepoxide HCl 25 mg 11/14/19 05:00 11/14/19 10:08 Librium - PO 11/14/19 23:01 25 mg [id number] SILVIA Administration Chlordiazepoxide HCl 25 mg 11/12/19 14:49 11/12/19 20:36 Librium - PO 11/14/19 23:59 25 mg Q4H PRN Administration WITHDRAWAL(CONT SUBST) Chlordiazepoxide HCl 10 mg 11/15/19 05:00 Librium - PO 11/15/19 23:01 [id number] SILVIA Chlordiazepoxide HCl 10 mg 11/16/19 05:00 Librium - PO 11/16/19 17:01 Q12H SILVIA Chlordiazepoxide HCl 10 mg 11/15/19 00:00 Librium - PO 11/16/19 00:00 Q4H PRN WITHDRAWAL(CONT SUBST) Chlordiazepoxide HCl 10 mg 11/17/19 05:00 Librium - PO 11/17/19 05:01 ONCE@0500 ONE Clonidine 0.1 mg 11/13/19 10:53 Catapres - PO 11/14/19 23:59 Q6H PRN HYPERTENSION Docusate Sodium 300 mg 11/13/19 22:00 11/13/19 21:39 Colace - PO 300 mg HS SILVIA Administration Eucalyptus/Menthol/Phenol/Sorbitol 1 each 11/12/19 14:49 Cepastat Lozenge - MM 11/18/19 14:50 Q4H PRN SORE THROAT Folic Acid 1 mg 11/12/19 15:15 11/14/19 10:07 Folic Acid - PO 1 mg DAILY SILVIA Administration Gabapentin 400 mg 11/12/19 18:00 11/14/19 05:43 Neurontin - PO 400 mg TID SILVIA Administration Hydroxyzine Pamoate 25 mg 11/12/19 18:00 11/14/19 10:08 Vistaril - PO 11/18/19 14:50 25 mg Q4HWA SILVIA Administration Ibuprofen 400 mg 11/12/19 14:49 Motrin - PO Q6H PRN PAIN LEVEL 1 - 3 Lisinopril 10 mg 11/12/19 18:00 11/14/19 10:08 Prinivil PO 10 mg DAILY SILVIA Administration Magnesium Citrate 300 ml 11/12/19 14:49 Citroma - PO Q48H PRN CONSTIPATION Magnesium Hydroxide 30 ml 11/12/19 14:49 Milk Of Magnesia - PO PRN PRN CONSTIPATION Melatonin 10 mg 11/13/19 15:45 11/13/19 21:39 Melatonin PO 10 mg HS SILVIA Administration Methadone HCl 80 mg/ Methadone 90 mg 11/14/19 06:00 11/14/19 05:44 HCl 10 mg PO 11/20/19 05:59 90 mg DAILY@0600 SILVIA Administration Methocarbamol 500 mg 11/12/19 14:49 Robaxin - PO 11/18/19 14:50 Q6H PRN MUSCLE SPASMS Nicotine 7 mg 11/12/19 15:00 11/14/19 10:08 Nicoderm Patch - TD 7 mg DAILY SILVIA Administration Nicotine Polacrilex 2 mg 11/12/19 14:49 Nicorette Gum - BUC Q2H PRN NICOTINE REPLACEMENT RX Multivit/Folic Acid/Iron 1 tab 11/12/19 15:00 11/14/19 10:07 Vitamins (Sjr) - PO 1 tab DAILY SILVIA Administration Quetiapine Fumarate 100 mg 11/12/19 22:00 11/13/19 21:39 Seroquel - PO 100 mg HS SILVIA Administration Quetiapine Fumarate 50 mg 11/13/19 10:00 11/14/19 10:08 Seroquel - PO 50 mg DAILY SILVIA Administration Thiamine HCl 100 mg 11/12/19 22:00 11/13/19 21:38 Vitamin B1 - PO 100 mg HS SILVIA Administration Tolnaftate 1 applic 11/12/19 22:00 11/14/19 10:07 Tinactin 1% Cream - TP 1 applic BID SILVIA Administration Medication(s) Change(s): Medications are revisited. Ordered at patient's request : buspar 10 mg po bid + prazosin 1 mg po hs. Side effects/benefits of both molecules are discussed with the patient. Mr Hill is in agreement with this plan of care. Howell consent (verbal) to . Current Side Effect: No Lab tests ordered: No Lab tests reviewed: Yes Provider note:: Chart reviewed. Medications were already verified, by this customs entry writer, with pharmacist at [facility] on 11/12/19. Prazosin was not mentioned but the patient insists that he gets prescribed that medication (could not name the drug) " to stop my nightmares." Met with the patient several times in the course of the morning (incessantly at office door to inquire about medications orders). Reassurance provided. Side effects/benefits revisited. Patient is in agreement with this plan of care (refer to Medications Changes section for details). No acute psychiatric issues. Detoxification progressing as per protocol. Well tolerated. Stable mental status. Refer to MSE report. No need for futher psychiatric consultation. Total face to face time:: 35 Mental Status Exam - Mental Status Exam Alert and Oriented to: Time, Place, Person Cognitive Function: Good Patient Appearance: Well Groomed Mood: Anxious Affect: Appropriate, Normal Range Patient Behavior: Appropriate, Cooperative Speech Pattern: Clear, Appropriate Voice Loudness: Normal Thought Process: Intact, Goal Oriented Thought Disorder: Not Present Hallucinations: Denies Suicidal Ideation: Denies Homicidal Ideation: Denies Insight/Judgement: Poor Sleep: Well Appetite: Good Gait/Station: Normal Psychiatric Treatment Plan - Problem List (1) Alcohol dependence with uncomplicated withdrawal Current Visit: Yes Comment: . (2) Opioid use disorder Current Visit: Yes Comment: . (3) Benzodiazepine dependence Current Visit: Yes Comment: . (4) Cocaine dependence Current Visit: Yes Qualifiers: Substance use status: uncomplicated Qualified Code(s): F14.20 - Cocaine dependence, uncomplicated Comment: . (5) Nicotine dependence Current Visit: Yes Qualifiers: Nicotine product type: cigarettes Substance use status: uncomplicated Qualified Code(s): F17.210 - Nicotine dependence, cigarettes, uncomplicated (6) Substance induced mood disorder Current Visit: Yes Comment: . (7) Bipolar disorder Current Visit: Yes Comment: . (8) Insomnia Current Visit: Yes Comment: .
--- NOTE | 2019-11-14 12:33 | PN ---
S CIWA - CIWA Score Nausea/Vomitin-No Nausea/No Vomiting Muscle Tremors: 2 Anxiety: 2 Agitation: 0-Normal Activity Paroxysmal Sweats: No Perspiration Orientation: 3-Disoriented Date>2 days Tacttile Disturbances: 0-None Auditory Disturbances: 0-None Visual Disturbances: 0-None Headache: 0-None Present CIWA-Ar Total Score: 7 BHS Progress Note (SOAP) Subjective: Asking to see Psychiatry, asking to resume medication for nightmares/insomnia. Asking for tx for chronic low back pain Objective: 11/14/19 12:30 PE Gn: WDWN, in no distress MS: awake, alert, mildly anxious Motor: moves well Coord; nl Gait: steady Laboratory Tests 11/13/19 11/13/19 11/13/19 07:50 07:50 07:50 WBC 5.2 RBC 3.88 L Hgb 12.5 Hct 37.0 MCV 95.4 MCH 32.2 MCHC 33.8 RDW 14.5 Plt Count 178 MPV 8.9 Sodium 139 Potassium 3.8 Chloride 106 Carbon Dioxide 28 Anion Gap 5 L BUN 11.4 Creatinine 0.5 L Est GFR (CKD-EPI)AfAm 135.56 Est GFR (CKD-EPI)NonAf 116.96 Random Glucose 89 Calcium 8.1 L Total Bilirubin 0.8 AST 109 H ALT 83 H Alkaline Phosphatase 188 H Total Protein 6.6 Albumin 2.9 L Syphilis Serology Non-reactive Home Medication List Medication Instructions Recorded Confirmed Type Budesonide/Formeterol Fumarate 2 inh PO BID 06/02/16 11/12/19 History [SYMBICORT 80/4.5mcg -] Lisinopril [Prinivil] 10 mg PO DAILY 06/02/16 11/12/19 History Quetiapine Fumarate [Seroquel -] 200 mg PO HS 06/02/16 11/12/19 History Albuterol Sulfate Inhaler - 2 inh PO Q4H PRN 06/13/19 11/12/19 History [Ventolin HFA Inhaler -] Buspirone HCl [Buspar -] 20 mg PO BID 06/13/19 11/12/19 History Methadone [Dolophine -] 90 mg PO DAILY 06/13/19 11/12/19 History Gabapentin [Neurontin -] 300 mg PO Q8H 11/12/19 11/12/19 History Quetiapine Fumarate [Seroquel -] 50 mg PO DAILY 11/12/19 11/12/19 History Active Medications Generic Name Dose Route Start Last Admin Trade Name Freq PRN Reason Stop Dose Admin Acetaminophen 650 mg 11/12/19 14:49 11/13/19 23:00 Tylenol - PO 650 mg Q6H PRN Administration PAIN LEVEL 4 - 6 Acetaminophen 650 mg 11/12/19 14:49 Tylenol - PO Q6H PRN FEVER Al Hydroxide/Mg Hydroxide 30 ml 11/12/19 14:49 Mylanta Oral Suspension - PO Q6H PRN DYSPEPSIA Albuterol Sulfate 1 puff 11/12/19 18:00 Ventolin Hfa Inhaler - IH Q4H PRN ASTHMA Bismuth Subsalicylate 524 mg 11/12/19 14:49 Pepto-Bismol - PO Q1H PRN DIARRHEA Buspirone HCl 10 mg 11/14/19 22:00 Buspar - PO BID SILVIA Chlordiazepoxide HCl 25 mg 11/14/19 05:00 11/14/19 10:08 Librium - PO 11/14/19 23:01 25 mg [id number] SILVIA Administration Chlordiazepoxide HCl 25 mg 11/12/19 14:49 11/12/19 20:36 Librium - PO 11/14/19 23:59 25 mg Q4H PRN Administration WITHDRAWAL(CONT SUBST) Chlordiazepoxide HCl 10 mg 11/15/19 05:00 Librium - PO 11/15/19 23:01 [id number] SILVIA Chlordiazepoxide HCl 10 mg 11/16/19 05:00 Librium - PO 11/16/19 17:01 Q12H SILVIA Chlordiazepoxide HCl 10 mg 11/15/19 00:00 Librium - PO 11/16/19 00:00 Q4H PRN WITHDRAWAL(CONT SUBST) Chlordiazepoxide HCl 10 mg 11/17/19 05:00 Librium - PO 11/17/19 05:01 ONCE@0500 ONE Clonidine 0.1 mg 11/13/19 10:53 Catapres - PO 11/14/19 23:59 Q6H PRN HYPERTENSION Docusate Sodium 300 mg 11/13/19 22:00 11/13/19 21:39 Colace - PO 300 mg HS SILVIA Administration Eucalyptus/Menthol/Phenol/Sorbitol 1 each 11/12/19 14:49 Cepastat Lozenge - MM 11/18/19 14:50 Q4H PRN SORE THROAT Folic Acid 1 mg 11/12/19 15:15 11/14/19 10:07 Folic Acid - PO 1 mg DAILY SILVIA Administration Gabapentin 400 mg 11/12/19 18:00 11/14/19 05:43 Neurontin - PO 400 mg TID SILVIA Administration Hydroxyzine Pamoate 25 mg 11/12/19 18:00 11/14/19 10:08 Vistaril - PO 11/18/19 14:50 25 mg Q4HWA SILVIA Administration Ibuprofen 400 mg 11/12/19 14:49 Motrin - PO Q6H PRN PAIN LEVEL 1 - 3 Lisinopril 10 mg 11/12/19 18:00 11/14/19 10:08 Prinivil PO 10 mg DAILY SILVIA Administration Magnesium Citrate 300 ml 11/12/19 14:49 Citroma - PO Q48H PRN CONSTIPATION Magnesium Hydroxide 30 ml 11/12/19 14:49 Milk Of Magnesia - PO PRN PRN CONSTIPATION Melatonin 10 mg 11/13/19 15:45 11/13/19 21:39 Melatonin PO 10 mg HS SILVIA Administration Methadone HCl 80 mg/ Methadone 90 mg 11/14/19 06:00 11/14/19 05:44 HCl 10 mg PO 11/20/19 05:59 90 mg DAILY@0600 SILVIA Administration Methocarbamol 500 mg 11/12/19 14:49 Robaxin - PO 11/18/19 14:50 Q6H PRN MUSCLE SPASMS Nicotine 7 mg 11/12/19 15:00 11/14/19 10:08 Nicoderm Patch - TD 7 mg DAILY SILVIA Administration Nicotine Polacrilex 2 mg 11/12/19 14:49 Nicorette Gum - BUC Q2H PRN NICOTINE REPLACEMENT RX Multivit/Folic Acid/Iron 1 tab 11/12/19 15:00 11/14/19 10:07 Vitamins (Sjr) - PO 1 tab DAILY SILVIA Administration Quetiapine Fumarate 100 mg 11/12/19 22:00 11/13/19 21:39 Seroquel - PO 100 mg HS SILVIA Administration Quetiapine Fumarate 50 mg 11/13/19 10:00 11/14/19 10:08 Seroquel - PO 50 mg DAILY SILVIA Administration Thiamine HCl 100 mg 11/12/19 22:00 11/13/19 21:38 Vitamin B1 - PO 100 mg HS SILVIA Administration Tolnaftate 1 applic 11/12/19 22:00 11/14/19 10:07 Tinactin 1% Cream - TP 1 applic BID SILVIA Administration Assessment: 11/14/19 12:32 1. Alcohol use disorder 2. Opioid use disorder on maintenance therapy 3. Nicotine dependence Plan: 1. Librium protocol, projected completion on 11/16 2. Methadone, 90 mg daily 3. Nicoderm patch 4. Dr. Godfrey seeing patient now
[2019-11-14] MEDS: LIDOCAINE 5% TOPICAL PATCH TP SCH (12:46)
[2019-11-14] MEDS: chlordiazePOXIDE HCL 25 MG CAPSULE PO PRN ×2 (15:15→19:54)
[2019-11-14] MEDS: DOCUSATE SODIUM 100 MG CAPSULE (FP) PO SCH (21:59)
[2019-11-14] MEDS: busPIRone HCL 10 MG TABLET (FP) PO SCH (21:59)
[2019-11-14] MEDS: LIDOCAINE PATCH REMOVAL MC SCH (22:00)
[2019-11-14] MEDS: MELATONIN 5 MG TABLETS PO SCH (22:00)
[2019-11-14] MEDS: THIAMINE HCL 100 MG TABLET (FP) PO SCH (22:01)
[2019-11-14] MEDS: QUEtiapine FUMARATE 100 MG TABLET (FP) PO SCH (22:01)
[2019-11-14] MEDS: PRAZOSIN HCL 1 MG CAPSULE PO SCH (22:01)
[2019-11-14] MEDS ORDERED: MASKS NR ONE (22:35)
[2019-11-15] MEDS ORDERED: METHADONE HCL 40 MG DISPERSABLE TABLET ONE (04:18)
[2019-11-15] MEDS ORDERED: METHADONE HCL 10 MG TABLET ONE (04:18)
[2019-11-15] MEDS: chlordiazePOXIDE HCL 10 MG CAPSULE PO SCH ×4 (04:54→22:06)
[2019-11-15] MEDS: METHADONE 80 MG, METHADONE 10 MG PO SCH (05:01)
[2019-11-15] MEDS: hydrOXYzine PAMOATE 25 MG CAPSULE (FP) PO SCH ×5 (05:01→22:07)
[2019-11-15] MEDS: GABAPENTIN 400 MG CAPSULE PO SCH ×3 (05:01→22:07)
[2019-11-15] MEDS ORDERED: METHADONE (DETOX) 10 MG, METHADONE (DETOX) 5 MG PO ONE (10:00)
[2019-11-15] MEDS: PRENATAL VITAMINS W/ FOLIC ACID TABLET (FP) PO SCH (10:04)
[2019-11-15] MEDS: busPIRone HCL 10 MG TABLET (FP) PO SCH ×2 (10:05→22:06)
[2019-11-15] MEDS: LISINOPRIL 10 MG TABLET (FP) PO SCH (10:05)
[2019-11-15] MEDS: LIDOCAINE 5% TOPICAL PATCH TP SCH (10:06)
[2019-11-15] MEDS: TOLNAFTATE 1% CREAM 15 GM TUBE TP SCH ×2 (10:06→22:08)
[2019-11-15] MEDS: NICOTINE 7 MG/24 HOURS TOPICAL PATCH TD SCH (10:07)
[2019-11-15] MEDS: FOLIC ACID 1 MG TABLET (FP) PO SCH (10:07)
[2019-11-15] MEDS: QUEtiapine FUMARATE 50 MG TABLET PO SCH (10:07)
--- NOTE | 2019-11-15 13:44 | PN ---
S CIWA - CIWA Score Nausea/Vomitin-No Nausea/No Vomiting Muscle Tremors: None Anxiety: 2 Agitation: 1-Slight > Activity Paroxysmal Sweats: 3 Orientation: 0-Oriented Tacttile Disturbances: 0-None Auditory Disturbances: 0-None Visual Disturbances: 0-None Headache: 0-None Present CIWA-Ar Total Score: 6 BHS Progress Note (SOAP) Subjective: c/o anxiety and sweats. Objective: 11/15/19 13:43 Vital Signs 11/15/19 11/15/19 08:40 12:32 Temperature 97.1 F L 96.6 F L Pulse Rate 85 98 H Respiratory 18 16 Rate Blood Pressure 133/85 122/80 O2 Sat by Pulse 97 Oximetry (%) Laboratory Last Values WBC 5.2 K/mm3 (4.0-10.0) 11/13/19 07:50 RBC 3.88 M/mm3 (4.00-5.60) L 11/13/19 07:50 Hgb 12.5 GM/dL (11.7-16.9) 11/13/19 07:50 Hct 37.0 % (35.4-49) 11/13/19 07:50 MCV 95.4 fl (80-96) 11/13/19 07:50 MCH 32.2 pg (25.7-33.7) 11/13/19 07:50 MCHC 33.8 g/dl (32.0-35.9) 11/13/19 07:50 RDW 14.5 % (11.9-15.9) 11/13/19 07:50 Plt Count 178 K/MM3 (134-434) 11/13/19 07:50 MPV 8.9 fl (7.5-11.1) 11/13/19 07:50 Sodium 139 mmol/L (136-145) 11/13/19 07:50 Potassium 3.8 mmol/L (3.5-5.1) 11/13/19 07:50 Chloride 106 mmol/L (98-107) 11/13/19 07:50 Carbon Dioxide 28 mmol/L (21-32) 11/13/19 07:50 Anion Gap 5 MMOL/L (8-16) L 11/13/19 07:50 BUN 11.4 mg/dL (7-18) 11/13/19 07:50 Creatinine 0.5 mg/dL (0.55-1.3) L 11/13/19 07:50 Est GFR (CKD-EPI)AfAm 135.56 11/13/19 07:50 Est GFR (CKD-EPI)NonAf 116.96 11/13/19 07:50 Random Glucose 89 mg/dL (74-106) 11/13/19 07:50 Calcium 8.1 mg/dL (8.5-10.1) L 11/13/19 07:50 Total Bilirubin 0.8 mg/dL (0.2-1) 11/13/19 07:50 AST 109 U/L (15-37) H 11/13/19 07:50 ALT 83 U/L (13-61) H 11/13/19 07:50 Alkaline Phosphatase 188 U/L (45-117) H 11/13/19 07:50 Total Protein 6.6 g/dl (6.4-8.2) 11/13/19 07:50 Albumin 2.9 g/dl (3.4-5.0) L 11/13/19 07:50 Syphilis Serology Non-reactive (NONREACTIVE) 11/13/19 07:50 COVID-19 (JOHNIE) Not detected (Not Detected) 11/12/19 16:00 Labs noted. Assessment: 11/15/19 13:44 AOX3, in no acute respiratory distress. Full ROM, ambulating in the unit. Withdrawal symptoms Plan: continue detox.
[2019-11-15] MEDS: chlordiazePOXIDE HCL 10 MG CAPSULE PO PRN ×2 (14:28→20:02)
[2019-11-15] MEDS: ACETAMINOPHEN 325 MG TABLET (FP) PO PRN (20:04)
[2019-11-15] MEDS: DOCUSATE SODIUM 100 MG CAPSULE (FP) PO SCH (22:06)
[2019-11-15] MEDS: PRAZOSIN HCL 1 MG CAPSULE PO SCH (22:06)
[2019-11-15] MEDS: THIAMINE HCL 100 MG TABLET (FP) PO SCH (22:07)
[2019-11-15] MEDS: LIDOCAINE PATCH REMOVAL MC SCH (22:07)
[2019-11-15] MEDS: QUEtiapine FUMARATE 100 MG TABLET (FP) PO SCH (22:07)
[2019-11-15] MEDS: MELATONIN 5 MG TABLETS PO SCH (22:08)
[2019-11-16] MEDS ORDERED: METHADONE HCL 10 MG TABLET ONE (04:07)
[2019-11-16] MEDS ORDERED: METHADONE HCL 40 MG DISPERSABLE TABLET ONE (04:08)
[2019-11-16] MEDS: hydrOXYzine PAMOATE 25 MG CAPSULE (FP) PO SCH ×5 (05:50→22:09)
[2019-11-16] MEDS: chlordiazePOXIDE HCL 10 MG CAPSULE PO SCH ×2 (05:50→17:16)
[2019-11-16] MEDS: METHADONE 80 MG, METHADONE 10 MG PO SCH (05:50)
[2019-11-16] MEDS: GABAPENTIN 400 MG CAPSULE PO SCH ×3 (05:51→22:08)
[2019-11-16] MEDS: LISINOPRIL 10 MG TABLET (FP) PO SCH ×2 (09:47→22:08)
[2019-11-16] MEDS: FOLIC ACID 1 MG TABLET (FP) PO SCH (09:47)
[2019-11-16] MEDS: LIDOCAINE 5% TOPICAL PATCH TP SCH (09:48)
[2019-11-16] MEDS: PRENATAL VITAMINS W/ FOLIC ACID TABLET (FP) PO SCH (09:48)
[2019-11-16] MEDS: TOLNAFTATE 1% CREAM 15 GM TUBE TP SCH ×2 (09:48→22:09)
[2019-11-16] MEDS: busPIRone HCL 10 MG TABLET (FP) PO SCH ×2 (09:48→22:09)
[2019-11-16] MEDS: NICOTINE 7 MG/24 HOURS TOPICAL PATCH TD SCH (09:48)
[2019-11-16] MEDS: QUEtiapine FUMARATE 50 MG TABLET PO SCH (09:49)
[2019-11-16] MEDS ORDERED: METHADONE HCL 10 MG TABLET (FOR DETOX USE ONLY) PO ONE (10:00)
--- NOTE | 2019-11-16 10:12 | PN ---
S CIWA - CIWA Score Nausea/Vomitin-No Nausea/No Vomiting Muscle Tremors: 1-None Visible, but [place] Anxiety: 1-Mildly Anxious Agitation: 0-Normal Activity Paroxysmal Sweats: 1-Minimal Palms Moist Orientation: 0-Oriented Tacttile Disturbances: 0-None Auditory Disturbances: 0-None Visual Disturbances: 0-None Headache: 0-None Present CIWA-Ar Total Score: 3 BHS Progress Note (SOAP) Subjective: 59 years old male admitted on 11/12/19 for alcohol and benzo withdrawal sx management treating with librium detox regimetn requests seroquel 200 mg po daily due to discharge date of 11/17/19 tomorrow mr moss may return to mental health service in the [facility] and resume seroquel 200mg discussing cardiovascular insult related to polypharmacotheray Objective: 11/16/19 10:13 Vital Signs - 24 hr 11/15/19 11/15/19 11/15/19 12:32 16:30 20:31 Temperature 96.6 F L 97.1 F L 97.3 F L Pulse Rate 98 H 83 89 Respiratory 16 18 19 Rate Blood Pressure 122/80 143/85 146/83 O2 Sat by Pulse 97 98 Oximetry (%) 11/16/19 11/16/19 05:44 08:39 Temperature 97.3 F L 96.9 F L Pulse Rate 70 95 H Respiratory 16 18 Rate Blood Pressure 143/79 138/83 O2 Sat by Pulse 99 Oximetry (%) Laboratory Tests bp elevation added lisinopril 10 mg po at hs 11/12/19 11/13/19 11/13/19 16:00 07:50 07:50 WBC 5.2 RBC 3.88 L Hgb 12.5 Hct 37.0 MCV 95.4 MCH 32.2 MCHC 33.8 RDW 14.5 Plt Count 178 MPV 8.9 Sodium Potassium Chloride Carbon Dioxide Anion Gap BUN Creatinine Est GFR (CKD-EPI)AfAm Est GFR (CKD-EPI)NonAf Random Glucose Calcium Total Bilirubin AST ALT Alkaline Phosphatase Total Protein Albumin Syphilis Serology Non-reactive COVID-19 (JOHNIE) Not detected 11/13/19 07:50 WBC RBC Hgb Hct MCV MCH MCHC RDW Plt Count MPV Sodium 139 Potassium 3.8 Chloride 106 Carbon Dioxide 28 Anion Gap 5 L BUN 11.4 Creatinine 0.5 L Est GFR (CKD-EPI)AfAm 135.56 Est GFR (CKD-EPI)NonAf 116.96 Random Glucose 89 Calcium 8.1 L Total Bilirubin 0.8 AST 109 H ALT 83 H Alkaline Phosphatase 188 H Total Protein 6.6 Albumin 2.9 L Syphilis Serology COVID-19 (JOHNIE) 11/16/19 10:16 11/16/19 10:17 at elevation mr moss will return to methadone program for repeat ast Assessment: 11/16/19 10:18 alcohol and benzo withdrawal Plan: librium regiment
--- NOTE | 2019-11-16 16:12 | PN ---
Psychiatric Progress Note Vital Signs: Vital Signs Period Temp Pulse Resp BP Sys/Henry Pulse Ox Last 24 Hr 96.9 F-97.3 F 70-100 16-19 117-146/72-85 96-99 Date of Session: 11/16/19 Chief Complaint:: " I'n not sleeping well." HPI: Patient admitted to for acohol, crack/cocaine, opioid, nicotine, benzodiazepine (clonazepam) dependence. Consultation ordered due to complaints of insomnia. ROS: Patient is ambulatory, alert +oriented X3. Current Medications: Active Medications Generic Name Dose Route Start Last Admin Trade Name Freq PRN Reason Stop Dose Admin Acetaminophen 650 mg 11/12/19 14:49 11/15/19 20:04 Tylenol - PO 650 mg Q6H PRN Administration PAIN LEVEL 4 - 6 Acetaminophen 650 mg 11/12/19 14:49 Tylenol - PO Q6H PRN FEVER Al Hydroxide/Mg Hydroxide 30 ml 11/12/19 14:49 Mylanta Oral Suspension - PO Q6H PRN DYSPEPSIA Albuterol Sulfate 1 puff 11/12/19 18:00 Ventolin Hfa Inhaler - IH Q4H PRN ASTHMA Bismuth Subsalicylate 524 mg 11/12/19 14:49 Pepto-Bismol - PO Q1H PRN DIARRHEA Buspirone HCl 10 mg 11/14/19 22:00 11/16/19 09:48 Buspar - PO 10 mg BID SILVIA Administration Chlordiazepoxide HCl 10 mg 11/16/19 05:00 11/16/19 05:50 Librium - PO 11/16/19 17:01 10 mg Q12H SILVIA Administration Chlordiazepoxide HCl 10 mg 11/17/19 05:00 Librium - PO 11/17/19 05:01 ONCE@0500 ONE Docusate Sodium 300 mg 11/13/19 22:00 11/15/19 22:06 Colace - PO 300 mg HS SILVIA Administration Eucalyptus/Menthol/Phenol/Sorbitol 1 each 11/12/19 14:49 Cepastat Lozenge - MM 11/18/19 14:50 Q4H PRN SORE THROAT Folic Acid 1 mg 11/12/19 15:15 11/16/19 09:47 Folic Acid - PO 1 mg DAILY SILVIA Administration Gabapentin 400 mg 11/12/19 18:00 11/16/19 13:40 Neurontin - PO 400 mg TID SILVIA Administration Hydroxyzine Pamoate 25 mg 11/12/19 18:00 11/16/19 13:40 Vistaril - PO 11/18/19 14:50 25 mg Q4HWA SILVIA Administration Ibuprofen 400 mg 11/12/19 14:49 11/14/19 22:36 Motrin - PO 400 mg Q6H PRN Administration PAIN LEVEL 1 - 3 Lidocaine 1 patch 11/14/19 12:45 11/16/19 09:48 Lidoderm Patch - TP 1 patch DAILY SILVIA Administration Lisinopril 10 mg 11/16/19 22:00 Prinivil PO DAILY@2200 SILVIA Magnesium Citrate 300 ml 11/12/19 14:49 Citroma - PO Q48H PRN CONSTIPATION Magnesium Hydroxide 30 ml 11/12/19 14:49 Milk Of Magnesia - PO PRN PRN CONSTIPATION Melatonin 10 mg 11/13/19 15:45 11/15/19 22:08 Melatonin PO 10 mg HS [facility] Administration Methadone HCl 80 mg/ Methadone 90 mg 11/14/19 06:00 11/16/19 05:50 HCl 10 mg PO 11/20/19 05:59 90 mg DAILY@0600 [facility] Administration Methocarbamol 500 mg 11/12/19 14:49 Robaxin - PO 11/18/19 14:50 Q6H PRN MUSCLE SPASMS Miscellaneous 1 each 11/14/19 22:00 11/15/19 22:07 Lidoderm Patch Removal MC 1 each DAILY@2200 [facility] Administration Nicotine 7 mg 11/12/19 15:00 11/16/19 09:48 Nicoderm Patch - TD Not Given DAILY [facility] Nicotine Polacrilex 2 mg 11/12/19 14:49 Nicorette Gum - BUC Q2H PRN NICOTINE REPLACEMENT RX Prazosin HCl 1 mg 11/14/19 22:00 11/15/19 22:06 Minipress - PO 1 mg HS [facility] Administration Multivit/Folic Acid/Iron 1 tab 11/12/19 15:00 11/16/19 09:48 Vitamins (Sjr) - PO 1 tab DAILY SILVIA Administration Quetiapine Fumarate 100 mg 11/12/19 22:00 11/15/19 22:07 Seroquel - PO 100 mg HS SILVIA Administration Quetiapine Fumarate 50 mg 11/13/19 10:00 11/16/19 09:49 Seroquel - PO 50 mg DAILY SILVIA Administration Thiamine HCl 100 mg 11/12/19 22:00 11/15/19 22:07 Vitamin B1 - PO 100 mg HS SILVIA Administration Tolnaftate 1 applic 11/12/19 22:00 11/16/19 09:48 Tinactin 1% Cream - TP 1 applic BID SILVIA Administration Medication(s) Change(s): Yes. Will d/c seroquel 100mg HS. Will order Seroquel 200mg HS. Current Side Effect: No Lab tests ordered: No Lab tests reviewed: Yes Provider note:: Chart reviewed. Dr. Godfrey note read and appreciated. Mr. Hill reports poor sleep despite accepting seroquel 100mg HS. Patient reports being prescribed seroquel 200mg by his outpatient psychiatrist. Will d/c seroquel 100mg and will order seroquel 200mg HS. Patient educated on the importance of proper sleep hygiene. Benefits and side effects discussed. Verbal consent given. Total face to face time:: 25 Mental Status Exam - Mental Status Exam Alert and Oriented to: Time, Place, Person Cognitive Function: Good Patient Appearance: Well Groomed Mood: Hopeful Affect: Appropriate Patient Behavior: Cooperative Speech Pattern: Appropriate Voice Loudness: Normal Thought Process: Goal Oriented Thought Disorder: Not Present Hallucinations: Denies Suicidal Ideation: Denies Homicidal Ideation: Denies Insight/Judgement: Poor Sleep: Poorly Appetite: Fair Muscle strength/Tone: Normal Gait/Station: Normal Psychiatric Treatment Plan - Problem List (1) Alcohol dependence with uncomplicated withdrawal Current Visit: Yes Comment: . (2) Benzodiazepine dependence Current Visit: Yes Comment: . (3) Bipolar disorder Current Visit: Yes Comment: . (4) Cocaine dependence Current Visit: Yes Qualifiers: Substance use status: uncomplicated Qualified Code(s): F14.20 - Cocaine dependence, uncomplicated Comment: . (5) Nicotine dependence Current Visit: Yes Qualifiers: Nicotine product type: cigarettes Substance use status: uncomplicated Qualified Code(s): F17.210 - Nicotine dependence, cigarettes, uncomplicated (6) Substance-induced sleep disorder Current Visit: Yes
[2019-11-16] MEDS: MELATONIN 5 MG TABLETS PO SCH (22:06)
[2019-11-16] MEDS: LIDOCAINE PATCH REMOVAL MC SCH (22:07)
[2019-11-16] MEDS: DOCUSATE SODIUM 100 MG CAPSULE (FP) PO SCH (22:08)
[2019-11-16] MEDS: THIAMINE HCL 100 MG TABLET (FP) PO SCH (22:08)
[2019-11-16] MEDS: PRAZOSIN HCL 1 MG CAPSULE PO SCH (22:08)
[2019-11-16] MEDS: QUEtiapine FUMARATE 200 MG TABLET PO SCH (22:09)
[2019-11-17] MEDS ORDERED: METHADONE HCL 40 MG DISPERSABLE TABLET ONE (04:07)
[2019-11-17] MEDS ORDERED: METHADONE HCL 10 MG TABLET ONE (04:07)
[2019-11-17] MEDS ORDERED: chlordiazePOXIDE HCL 10 MG CAPSULE PO ONE (05:00)
[2019-11-17] MEDS: hydrOXYzine PAMOATE 25 MG CAPSULE (FP) PO SCH ×2 (05:56→10:09)
[2019-11-17] MEDS: METHADONE 80 MG, METHADONE 10 MG PO SCH (05:56)
[2019-11-17] MEDS: GABAPENTIN 400 MG CAPSULE PO SCH ×3 (05:56→22:10)
[2019-11-17] MEDS ORDERED: METHADONE HCL 5 MG TABLET (FOR DETOX USE ONLY) PO ONE (06:00)
--- NOTE | 2019-11-17 08:22 | DS ---
[facility] Detox Discharge Summary Admission Date: 11/12/19 Discharge Date: 11/17/19 - History Present History: Alcohol Dependence, Sedative Dependence - Physical Exam Results Vital Signs: Vital Signs Temperature 96.9 F L 11/17/19 06:53 Pulse Rate 75 11/17/19 06:53 Respiratory Rate 18 11/17/19 06:53 Blood Pressure 130/85 11/17/19 06:53 O2 Sat by Pulse Oximetry (%) 98 11/17/19 06:53 - Treatment Hospital Course: Detox Protocol Followed, Detoxed Safely, Responded well, Discharged Condition Good, Rehab Referral Accepted - Medication Discharge Medications: Ambulatory Orders Budesonide/Formeterol Fumarate [SYMBICORT 80/4.5mcg -] 2 inh PO BID 06/02/16 Lisinopril [Prinivil] 10 mg PO DAILY 06/02/16 Quetiapine Fumarate [Seroquel -] 200 mg PO HS 06/02/16 Albuterol Sulfate Inhaler - [Ventolin HFA Inhaler -] 2 inh PO Q4H PRN 06/13/19 Buspirone HCl [Buspar -] 20 mg PO BID 06/13/19 Methadone [Dolophine -] 90 mg PO DAILY 06/13/19 Gabapentin [Neurontin -] 300 mg PO Q8H 11/12/19 Quetiapine Fumarate [Seroquel -] 50 mg PO DAILY 11/12/19 - AMA Did Patient Leave Against Medical Advice: No CIWA Score - CIWA Score Nausea/Vomitin-No Nausea/No Vomiting Muscle Tremors: 1-None Visible, but [place] Anxiety: 0-No Anxiety, at Ease Agitation: 0-Normal Activity Paroxysmal Sweats: No Perspiration Orientation: 0-Oriented Tacttile Disturbances: 0-None Auditory Disturbances: 0-None Visual Disturbances: 0-None Headache: 0-None Present CIWA-Ar Total Score: 1
[2019-11-17] MEDS: busPIRone HCL 10 MG TABLET (FP) PO SCH ×2 (10:08→22:10)
[2019-11-17] MEDS: PRENATAL VITAMINS W/ FOLIC ACID TABLET (FP) PO SCH (10:09)
[2019-11-17] MEDS: NICOTINE 7 MG/24 HOURS TOPICAL PATCH TD SCH (10:09)
[2019-11-17] MEDS: QUEtiapine FUMARATE 50 MG TABLET PO SCH (10:10)
[2019-11-17] MEDS: TOLNAFTATE 1% CREAM 15 GM TUBE TP SCH ×2 (10:10→22:13)
[2019-11-17] MEDS: FOLIC ACID 1 MG TABLET (FP) PO SCH (10:10)
[2019-11-17] MEDS: LIDOCAINE 5% TOPICAL PATCH TP SCH (10:12)
[2019-11-17] MEDS ORDERED: chlordiazePOXIDE 5 MG CAPSULE PO ONE ×3 (10:30→23:15)
--- NOTE | 2019-11-17 10:47 | PN ---
S Progress Note Note: Psychiatry Attending's note : No scripts needed. Patient got refills on 11/08/19. From [facility].
--- NOTE | 2019-11-17 13:28 | PN ---
[facility] CIWA - CIWA Score Nausea/Vomitin-No Nausea/No Vomiting Muscle Tremors: 1-None Visible, but [place] Anxiety: 3 Agitation: 0-Normal Activity Paroxysmal Sweats: No Perspiration Orientation: 0-Oriented Tacttile Disturbances: 0-None Auditory Disturbances: 0-None Visual Disturbances: 0-None Headache: 0-None Present CIWA-Ar Total Score: 4 [facility] Progress Note (SOAP) Subjective: 59 years old male admitted on 11/12/19 for alcohol and benzo withdrawal sx management treating with librium detox regiment received methadone 90mg po today feeling anxious that aftercare [facility] available for him psychiatrist progress note is appreciated that 150mg po seroquel per day is appropriated due to mr moss is in the process of librium detox mr moss seen by psychiatrist yesterday increase seroquel to 250 mg due to trouble sleep at night mr moss is tolerated seroquel well mr msos continues experiencing alcohol and benzo withdrawal sx additional librium were added into detox regiment Objective: 11/17/19 13:45 Vital Signs - 24 hr 11/16/19 11/16/19 11/17/19 16:30 20:25 06:53 Temperature 97.1 F L 97.1 F L 96.9 F L Pulse Rate 76 90 75 Respiratory 18 18 18 Rate Blood Pressure 114/78 117/83 130/85 O2 Sat by Pulse 96 98 Oximetry (%) 11/17/19 11/17/19 08:31 12:28 Temperature 97.1 F L 97.1 F L Pulse Rate 117 H 105 H Respiratory 18 20 Rate Blood Pressure 127/77 100/70 O2 Sat by Pulse 96 Oximetry (%) Laboratory Tests 11/12/19 11/13/19 11/13/19 16:00 07:50 07:50 WBC 5.2 RBC 3.88 L Hgb 12.5 Hct 37.0 MCV 95.4 MCH 32.2 MCHC 33.8 RDW 14.5 Plt Count 178 MPV 8.9 Sodium Potassium Chloride Carbon Dioxide Anion Gap BUN Creatinine Est GFR (CKD-EPI)AfAm Est GFR (CKD-EPI)NonAf Random Glucose Calcium Total Bilirubin AST ALT Alkaline Phosphatase Total Protein Albumin Syphilis Serology Non-reactive COVID-19 (JOHNIE) Not detected 11/13/19 07:50 WBC RBC Hgb Hct MCV MCH MCHC RDW Plt Count MPV Sodium 139 Potassium 3.8 Chloride 106 Carbon Dioxide 28 Anion Gap 5 L BUN 11.4 Creatinine 0.5 L Est GFR (CKD-EPI)AfAm 135.56 Est GFR (CKD-EPI)NonAf 116.96 Random Glucose 89 Calcium 8.1 L Total Bilirubin 0.8 AST 109 H ALT 83 H Alkaline Phosphatase 188 H Total Protein 6.6 Albumin 2.9 L Syphilis Serology COVID-19 (JOHNIE) 11/17/19 13:47 ast elevation will return to methadone program repeat ast serum level Assessment: 11/17/19 13:47 alcohol and benzo withdrawal Plan: librium regiment
[2019-11-17] MEDS: hydrOXYzine PAMOATE 50 MG CAPSULE (FP) PO SCH ×2 (17:02→22:14)
[2019-11-17] MEDS: DOCUSATE SODIUM 100 MG CAPSULE (FP) PO SCH (22:10)
[2019-11-17] MEDS: LISINOPRIL 10 MG TABLET (FP) PO SCH (22:11)
[2019-11-17] MEDS: MELATONIN 5 MG TABLETS PO SCH (22:11)
[2019-11-17] MEDS: THIAMINE HCL 100 MG TABLET (FP) PO SCH (22:12)
[2019-11-17] MEDS: QUEtiapine FUMARATE 200 MG TABLET PO SCH (22:12)
[2019-11-17] MEDS: PRAZOSIN HCL 1 MG CAPSULE PO SCH (22:12)
[2019-11-17] MEDS: LIDOCAINE PATCH REMOVAL MC SCH (22:13)
[2019-11-18] MEDS ORDERED: METHADONE HCL 10 MG TABLET ONE (04:43)
[2019-11-18] MEDS ORDERED: METHADONE HCL 40 MG DISPERSABLE TABLET ONE (04:43)
[2019-11-18] MEDS ORDERED: chlordiazePOXIDE 5 MG CAPSULE PO ONE (05:00)
[2019-11-18] MEDS: hydrOXYzine PAMOATE 50 MG CAPSULE (FP) PO SCH (05:42)
[2019-11-18] MEDS: METHADONE 80 MG, METHADONE 10 MG PO SCH (05:42)
[2019-11-18] MEDS: GABAPENTIN 400 MG CAPSULE PO SCH (05:42)
[2019-11-18] MEDS: busPIRone HCL 10 MG TABLET (FP) PO SCH (09:23)
[2019-11-18] MEDS: FOLIC ACID 1 MG TABLET (FP) PO SCH (09:24)
[2019-11-18] MEDS: PRENATAL VITAMINS W/ FOLIC ACID TABLET (FP) PO SCH (09:28)
[2019-11-18] MEDS: LIDOCAINE 5% TOPICAL PATCH TP SCH (09:33)
[2019-11-18] MEDS: NICOTINE 7 MG/24 HOURS TOPICAL PATCH TD SCH (09:34)
[2019-11-18 09:44] VITALS: BP 125/76; PULSE 116; TEMP 96.7
[2019-11-18] MEDS: TOLNAFTATE 1% CREAM 15 GM TUBE TP SCH (10:02)
[2019-11-18] MEDS: QUEtiapine FUMARATE 50 MG TABLET PO SCH (10:04)
--- NOTE | 2019-11-18 10:45 | DS ---
[facility] Detox Discharge Summary Admission Date: 11/12/19 Discharge Date: 11/18/19 - History Present History: Alcohol Dependence, Sedative Dependence Additional Comments: 59 years old male admitted on 11/12/19 for alcohol and benzo withdrawal sx management treated with librium detox regiment feeling better today less anxiousness with mild tremor received methadone 90mg po today ate breakfast showered mr moss has month supply of medications to go to [facility] e prescription from detox unit mr moss determines to maintain sober that his mother out of cancer surgery and is doing ok mr moss states that he will put out 150% effort to stay clean for his mother alert oriented x 3 speech clearly coherently ambulating with steady gaits cardiac s1s2 regular rate rhythm ekg indicated old septal infract mr moss denies chest pain no dizziness no shortness of breath respiratory clear lung sounds bilaterally on auscultation extremities full range of motion Pertinent Past History: time for discharge 35 minutes treatment team met with the patient who is going to [facility] for alcohol recovery cigarette cessation discussed related to respiratory insult with co exist medication condition of asthma and hypertension - Physical Exam Results Vital Signs: Vital Signs Temperature 96.7 F L 11/18/19 09:05 Pulse Rate 116 H 11/18/19 09:05 Respiratory Rate 20 11/18/19 09:05 Blood Pressure 125/76 11/18/19 09:05 O2 Sat by Pulse Oximetry (%) 98 11/18/19 09:05 Pertinent Admission Physical Exam Findings: alcohol and benzo withdrawal Laboratory Tests 11/12/19 11/13/19 11/13/19 16:00 07:50 07:50 WBC 5.2 RBC 3.88 L Hgb 12.5 Hct 37.0 MCV 95.4 MCH 32.2 MCHC 33.8 RDW 14.5 Plt Count 178 MPV 8.9 Sodium Potassium Chloride Carbon Dioxide Anion Gap BUN Creatinine Est GFR (CKD-EPI)AfAm Est GFR (CKD-EPI)NonAf Random Glucose Calcium Total Bilirubin AST ALT Alkaline Phosphatase Total Protein Albumin Syphilis Serology Non-reactive COVID-19 (JOHNIE) Not detected 11/13/19 07:50 WBC RBC Hgb Hct MCV MCH MCHC RDW Plt Count MPV Sodium 139 Potassium 3.8 Chloride 106 Carbon Dioxide 28 Anion Gap 5 L BUN 11.4 Creatinine 0.5 L Est GFR (CKD-EPI)AfAm 135.56 Est GFR (CKD-EPI)NonAf 116.96 Random Glucose 89 Calcium 8.1 L Total Bilirubin 0.8 AST 109 H ALT 83 H Alkaline Phosphatase 188 H Total Protein 6.6 Albumin 2.9 L Syphilis Serology COVID-19 (JOHNIE) lab noted - Treatment Hospital Course: Detox Protocol Followed, Detoxed Safely, Responded well, Discharged Condition Good, Rehab Referral Accepted Patient has Accepted a Rehab Referral to: [facility] - Medication Discharge Medications: Ambulatory Orders Budesonide/Formeterol Fumarate [SYMBICORT 80/4.5mcg -] 2 inh PO BID 06/02/16 Lisinopril [Prinivil] 10 mg PO DAILY 06/02/16 Quetiapine Fumarate [Seroquel -] 200 mg PO HS 06/02/16 Albuterol Sulfate Inhaler - [Ventolin HFA Inhaler -] 2 inh PO Q4H PRN 06/13/19 Buspirone HCl [Buspar -] 20 mg PO BID 06/13/19 Methadone [Dolophine -] 90 mg PO DAILY 06/13/19 Gabapentin [Neurontin -] 300 mg PO Q8H 11/12/19 Quetiapine Fumarate [Seroquel -] 50 mg PO DAILY 11/12/19 - Diagnosis (1) Alcohol dependence with uncomplicated withdrawal Current Visit: Yes Status: Acute (2) Substance-induced sleep disorder Current Visit: Yes Status: Suspected (3) Nicotine dependence Current Visit: Yes Status: Acute Qualifiers: Nicotine product type: cigarettes Substance use status: in withdrawal Qualified Code(s): F17.213 - Nicotine dependence, cigarettes, with withdrawal (4) Substance induced mood disorder Current Visit: Yes Status: Suspected (5) Asthma with COPD Current Visit: Yes Status: Chronic (6) Methadone maintenance therapy patient Current Visit: Yes Status: Chronic (7) Septal myocardial infarction Current Visit: Yes Status: Chronic - AMA Did Patient Leave Against Medical Advice: No CIWA Score - CIWA Score Nausea/Vomitin-No Nausea/No Vomiting Muscle Tremors: None Anxiety: 2 Agitation: 0-Normal Activity Paroxysmal Sweats: No Perspiration Orientation: 0-Oriented Tacttile Disturbances: 0-None Auditory Disturbances: 0-None Visual Disturbances: 0-None Headache: 0-None Present CIWA-Ar Total Score: 2
== END 2019-11-18 10:12 | disposition home or self-care (01) | DRG 773 ==
LOC: YASAS 12:25 → Y3N 15:24
PROVIDERS: ADMIT Allergy & Immunology; ATTEND Allergy & Immunology
PROC: HZ2ZZZZ Detoxification Services for Substance Abuse Treatment (ICD-10-PCS; principal; 2019-11-12)
DX: F10.230 Alcohol dependence with withdrawal, uncomplicated (principal); F11.20 Opioid dependence, uncomplicated; F13.230 Sedative, hypnotic or anxiolytic dependence with withdrawal, uncomplicated; F14.20 Cocaine dependence, uncomplicated; F17.213 Nicotine dependence, cigarettes, with withdrawal; F19.282 Other psychoactive substance dependence with psychoactive substance-induced sleep disorder; F19.24 Other psychoactive substance dependence with psychoactive substance-induced mood disorder; F31.9 Bipolar disorder, unspecified; G47.00 Insomnia, unspecified; I10 Essential (primary) hypertension; I25.2 Old myocardial infarction; J44.9 Chronic obstructive pulmonary disease, unspecified; R74.0 Nonspecific elevation of levels of transaminase and lactic acid dehydrogenase [LDH]; Z86.2 Personal history of diseases of the blood and blood-forming organs and certain disorders involving the immune mechanism; Z90.13 Acquired absence of bilateral breasts and nipples; Z86.010 Personal history of colon polyps; Z98.890 Other specified postprocedural states; Z91.018 Allergy to other foods; Z91.013 Allergy to seafood
CPT/HCPCS: 36415; 80053; 85027; 86780; 93005; 93010; U0003

== ENCOUNTER 2020-03-09 11:47 | Inpatient (IN) | payer OTHER ==
[2020-03-09] MEDS ORDERED: MAGNESIUM HYDROX 2400MG/30ML ORAL SUSPENSION 30 ML CUP PO PRN (13:16)
[2020-03-09] MEDS ORDERED: BISMUTH SUBSALICYLATE 524 MG/30 ML UD PO PRN (13:16)
[2020-03-09] MEDS ORDERED: ONDANSETRON *ODT* 4 MG TABLET SL PRN (13:16)
[2020-03-09] MEDS ORDERED: ACETAMINOPHEN 325 MG TABLET (FP) PO PRN ×2 (13:16)
[2020-03-09] MEDS ORDERED: MAGNESIUM CITRATE 300 ML BOTTLE PO PRN (13:16)
[2020-03-09] MEDS ORDERED: NICOTINE POLACRILEX 2 MG GUM BUC PRN (13:16)
[2020-03-09] MEDS ORDERED: IBUPROFEN 400 MG TABLET (FP) PO PRN (13:16)
[2020-03-09] MEDS ORDERED: MENTHOL/PHENOL 1 EACH UD MM PRN (13:16)
[2020-03-09] MEDS ORDERED: MAG HYDROX/AL HYDROX/SIMETH 30 ML UNIT-DOSE CUP PO PRN (13:16)
[2020-03-09] MEDS ORDERED: ALBUTEROL SO4 HFA INHALER IH PRN (13:18)
[2020-03-09 13:23] VITALS: BMI 28.1
[2020-03-09] MEDS: LORazepam 1 MG TABLET PO PRN ×2 (15:15→19:42)
[2020-03-09] MEDS: hydrOXYzine PAMOATE 25 MG CAPSULE (FP) PO SCH ×3 (15:15→22:01)
[2020-03-09] MEDS: NICOTINE 14 MG/24 HOURS TOPICAL PATCH TD SCH (15:16)
[2020-03-09] MEDS: LORazepam 2 MG TABLET PO SCH ×2 (17:12→22:01)
[2020-03-09] MEDS: METHOCARBAMOL 500 MG TABLET PO PRN (18:34)
[2020-03-09] MEDS ORDERED: PRAZOSIN HCL 5 MG CAPSULE PO SCH (22:00)
[2020-03-09] MEDS: MELATONIN 5 MG TABLETS PO SCH (22:00)
[2020-03-09] MEDS: THIAMINE HCL 100 MG TABLET (FP) PO SCH (22:01)
[2020-03-10] MEDS ORDERED: METHADONE HCL 10 MG TABLET ONE (04:34)
[2020-03-10] MEDS ORDERED: METHADONE HCL 40 MG DISPERSABLE TABLET ONE (04:34)
[2020-03-10] MEDS: METHADONE 80 MG, METHADONE 10 MG PO SCH (05:30)
[2020-03-10] MEDS: hydrOXYzine PAMOATE 25 MG CAPSULE (FP) PO SCH ×5 (05:31→22:00)
[2020-03-10] MEDS: LORazepam 2 MG TABLET PO SCH ×4 (05:31→22:00)
[2020-03-10] MEDS ORDERED: METHADONE HCL 40 MG DISPERSABLE TABLET PO SCH (06:00)
[2020-03-10] MEDS ORDERED: LISINOPRIL 20 MG TABLET PO SCH (10:00)
[2020-03-10 10:01] LABS: HEMOGLOBIN 13.2 GM/dL (11.7-16.9); MCH 32.2 pg (25.7-33.7); MCHC 34.7 g/dl (32.0-35.9); MEAN CELL VOLUME 92.7 fl (80-96); MEAN PLT VOLUME 7.9 fl (7.5-11.1); PLATELET COUNT 183 K/MM3 (134-434); RDW 15.7 % (11.9-15.9); WHITE BLOOD COUNT 6.3 K/mm3 (4.0-10.0)
[2020-03-10] MEDS: PRENATAL VITAMINS W/ FOLIC ACID TABLET (FP) PO SCH (10:02)
[2020-03-10] MEDS: NICOTINE 14 MG/24 HOURS TOPICAL PATCH TD SCH (10:03)
[2020-03-10 10:08] LABS: POTASSIUM 3.8 mmol/L (3.5-5.1)
[2020-03-10 10:12] LABS: ALBUMIN 2.9 g/dl (3.4-5.0); BLOOD UREA NITROGEN 12.5 mg/dL (7-18); CALCIUM 8.5 mg/dL (8.5-10.1)
[2020-03-10 10:16] LABS: CREATININE 0.5 mg/dL (0.55-1.3)
[2020-03-10 10:17] LABS: BILIRUBIN,TOTAL 1.9 mg/dL (0.2-1); TOT PROT 6.4 g/dl (6.4-8.2)
[2020-03-10 11:07] LABS: HIV INTERPRETATION NEGATIVE (NEGATIVE)
[2020-03-10] MEDS: METHOCARBAMOL 500 MG TABLET PO PRN ×2 (13:50→22:00)
[2020-03-10] MEDS: cloNIDine HCL 0.1 MG TABLET PO PRN (15:56)
[2020-03-10] MEDS: QUEtiapine FUMARATE 100 MG TABLET (FP) PO SCH (22:00)
[2020-03-10] MEDS: THIAMINE HCL 100 MG TABLET (FP) PO SCH (22:00)
[2020-03-10] MEDS: busPIRone HCL 5 MG TABLET PO SCH (22:00)
[2020-03-10] MEDS: MELATONIN 5 MG TABLETS PO SCH (22:00)
[2020-03-10] MEDS: PRAZOSIN HCL 5 MG CAPSULE PO SCH (22:02)
[2020-03-11] MEDS ORDERED: METHADONE HCL 10 MG TABLET ONE (03:45)
[2020-03-11] MEDS ORDERED: METHADONE HCL 40 MG DISPERSABLE TABLET ONE (03:46)
[2020-03-11] MEDS: LORazepam 1 MG TABLET PO SCH ×4 (05:15→22:01)
[2020-03-11] MEDS: hydrOXYzine PAMOATE 25 MG CAPSULE (FP) PO SCH ×2 (05:15→10:02)
[2020-03-11] MEDS: METHADONE 80 MG, METHADONE 10 MG PO SCH (05:15)
[2020-03-11] MEDS: LISINOPRIL 20 MG TABLET PO SCH (10:01)
[2020-03-11] MEDS: QUEtiapine FUMARATE 50 MG TABLET PO SCH (10:01)
[2020-03-11] MEDS: PRENATAL VITAMINS W/ FOLIC ACID TABLET (FP) PO SCH (10:02)
[2020-03-11] MEDS: NICOTINE 14 MG/24 HOURS TOPICAL PATCH TD SCH (10:02)
[2020-03-11] MEDS: busPIRone HCL 5 MG TABLET PO SCH ×2 (10:07→22:01)
[2020-03-11] MEDS ORDERED: FLU VACCINE (FLULAVAL) PF 60 MCG/0.5 ML SYRINGE 2020-2021 IM ONE (12:00)
[2020-03-11] MEDS: cloNIDine HCL 0.1 MG TABLET PO PRN (17:18)
[2020-03-11] MEDS: hydrOXYzine PAMOATE 25 MG CAPSULE (FP) PO PRN ×2 (17:18→22:01)
[2020-03-11] MEDS: LORazepam 1 MG TABLET PO PRN (19:26)
[2020-03-11] MEDS: THIAMINE HCL 100 MG TABLET (FP) PO SCH (22:01)
[2020-03-11] MEDS: PRAZOSIN HCL 5 MG CAPSULE PO SCH (22:01)
[2020-03-11] MEDS: MELATONIN 5 MG TABLETS PO SCH (22:01)
[2020-03-11] MEDS: METHOCARBAMOL 500 MG TABLET PO PRN (22:01)
[2020-03-11] MEDS: QUEtiapine FUMARATE 100 MG TABLET (FP) PO SCH (22:01)
[2020-03-12] MEDS: LORazepam 0.5 MG TABLET PO PRN ×2 (01:27→20:38)
[2020-03-12] MEDS ORDERED: METHADONE HCL 10 MG TABLET ONE (04:40)
[2020-03-12] MEDS ORDERED: METHADONE HCL 40 MG DISPERSABLE TABLET ONE (04:40)
[2020-03-12] MEDS: METHADONE 80 MG, METHADONE 10 MG PO SCH (05:31)
[2020-03-12] MEDS: LORazepam 0.5 MG TABLET PO SCH ×4 (05:31→22:16)
[2020-03-12] MEDS: cloNIDine HCL 0.1 MG TABLET PO PRN ×2 (05:32→17:31)
[2020-03-12] MEDS: COLLOIDAL OATMEAL 1 BAR EACH TP PRN (07:00)
[2020-03-12] MEDS: busPIRone HCL 5 MG TABLET PO SCH ×2 (10:11→22:17)
[2020-03-12] MEDS: GABAPENTIN 300 MG CAPSULE PO SCH ×2 (10:12→22:16)
[2020-03-12] MEDS: PRENATAL VITAMINS W/ FOLIC ACID TABLET (FP) PO SCH (10:12)
[2020-03-12] MEDS: QUEtiapine FUMARATE 50 MG TABLET PO SCH (10:12)
[2020-03-12] MEDS: NICOTINE 14 MG/24 HOURS TOPICAL PATCH TD SCH (10:12)
[2020-03-12] MEDS: LISINOPRIL 20 MG TABLET PO SCH (10:12)
[2020-03-12 11:02] LABS: GLUCOSE,FASTING 107 mg/dL (74-106)
[2020-03-12 11:06] LABS: SGOT/AST 76 U/L (15-37)
[2020-03-12] MEDS ORDERED: FLU VACCINE (FLULAVAL) PF 60 MCG/0.5 ML SYRINGE 2020-2021 IM ONE (12:00)
[2020-03-12] MEDS: METHOCARBAMOL 500 MG TABLET PO PRN (13:20)
[2020-03-12] MEDS: THIAMINE HCL 100 MG TABLET (FP) PO SCH (22:16)
[2020-03-12] MEDS: QUEtiapine FUMARATE 100 MG TABLET (FP) PO SCH (22:16)
[2020-03-12] MEDS: MELATONIN 5 MG TABLETS PO SCH (22:16)
[2020-03-12] MEDS: PRAZOSIN HCL 5 MG CAPSULE PO SCH (22:18)
[2020-03-13] MEDS ORDERED: METHADONE HCL 10 MG TABLET ONE (03:48)
[2020-03-13] MEDS ORDERED: METHADONE HCL 40 MG DISPERSABLE TABLET ONE (03:49)
[2020-03-13] MEDS ORDERED: LORazepam 0.5 MG TABLET PO ONE (05:00)
[2020-03-13] MEDS: METHADONE 80 MG, METHADONE 10 MG PO SCH (05:32)
[2020-03-13] MEDS: LORazepam 0.5 MG TABLET PO SCH ×3 (05:33→21:00)
[2020-03-13] MEDS: GABAPENTIN 300 MG CAPSULE PO SCH ×2 (10:11→21:01)
[2020-03-13] MEDS: PRENATAL VITAMINS W/ FOLIC ACID TABLET (FP) PO SCH (10:11)
[2020-03-13] MEDS: LISINOPRIL 20 MG TABLET PO SCH (10:12)
[2020-03-13] MEDS: QUEtiapine FUMARATE 50 MG TABLET PO SCH (10:12)
[2020-03-13] MEDS: busPIRone HCL 5 MG TABLET PO SCH ×2 (10:13→21:01)
[2020-03-13] MEDS: NICOTINE 14 MG/24 HOURS TOPICAL PATCH TD SCH (10:13)
[2020-03-13] MEDS: cloNIDine HCL 0.1 MG TABLET PO PRN ×2 (13:09→21:02)
[2020-03-13] MEDS: METHOCARBAMOL 500 MG TABLET PO PRN (18:25)
[2020-03-13] MEDS: hydrOXYzine PAMOATE 25 MG CAPSULE (FP) PO PRN (18:25)
[2020-03-13] MEDS: THIAMINE HCL 100 MG TABLET (FP) PO SCH (21:01)
[2020-03-13] MEDS: MELATONIN 5 MG TABLETS PO SCH (21:01)
[2020-03-13] MEDS: PRAZOSIN HCL 5 MG CAPSULE PO SCH (21:01)
[2020-03-13] MEDS: QUEtiapine FUMARATE 100 MG TABLET (FP) PO SCH (21:01)
[2020-03-14] MEDS: hydrOXYzine PAMOATE 25 MG CAPSULE (FP) PO PRN ×2 (01:25→17:33)
[2020-03-14] MEDS ORDERED: METHADONE HCL 40 MG DISPERSABLE TABLET ONE (03:41)
[2020-03-14] MEDS ORDERED: METHADONE HCL 10 MG TABLET ONE (03:41)
[2020-03-14] MEDS: METHADONE 80 MG, METHADONE 10 MG PO SCH (05:32)
[2020-03-14] MEDS: LORazepam 0.5 MG TABLET PO SCH ×2 (05:32→10:08)
[2020-03-14] MEDS: METHOCARBAMOL 500 MG TABLET PO PRN (06:06)
[2020-03-14] MEDS: GABAPENTIN 300 MG CAPSULE PO SCH ×2 (10:08→22:03)
[2020-03-14] MEDS: PRENATAL VITAMINS W/ FOLIC ACID TABLET (FP) PO SCH (10:08)
[2020-03-14] MEDS: QUEtiapine FUMARATE 50 MG TABLET PO SCH (10:08)
[2020-03-14] MEDS: NICOTINE 14 MG/24 HOURS TOPICAL PATCH TD SCH (10:09)
[2020-03-14] MEDS: LISINOPRIL 20 MG TABLET PO SCH (10:09)
[2020-03-14] MEDS: busPIRone HCL 5 MG TABLET PO SCH ×2 (10:11→22:03)
[2020-03-14] MEDS: cloNIDine HCL 0.1 MG TABLET PO PRN ×2 (12:24→17:33)
[2020-03-14] MEDS: COLLOIDAL OATMEAL 1 BAR EACH TP PRN (19:02)
[2020-03-14] MEDS ORDERED: QUEtiapine FUMARATE 50 MG TABLET ONE (21:00)
[2020-03-14 21:21] VITALS: TEMP 97.3
[2020-03-14] MEDS: QUEtiapine FUMARATE 100 MG TABLET (FP) PO SCH (22:03)
[2020-03-14] MEDS: MELATONIN 5 MG TABLETS PO SCH (22:03)
[2020-03-14] MEDS: PRAZOSIN HCL 5 MG CAPSULE PO SCH (22:03)
[2020-03-14] MEDS: THIAMINE HCL 100 MG TABLET (FP) PO SCH (22:03)
[2020-03-15] MEDS ORDERED: METHADONE HCL 10 MG TABLET ONE (04:40)
[2020-03-15] MEDS ORDERED: METHADONE HCL 40 MG DISPERSABLE TABLET ONE (04:41)
[2020-03-15] MEDS ORDERED: LORazepam 0.5 MG TABLET PO ONE (05:00)
[2020-03-15] MEDS: METHADONE 80 MG, METHADONE 10 MG PO SCH (05:34)
[2020-03-15 07:37] VITALS: BP 144/91; PULSE 90
[2020-03-15] MEDS: PRENATAL VITAMINS W/ FOLIC ACID TABLET (FP) PO SCH (09:14)
[2020-03-15] MEDS: NICOTINE 14 MG/24 HOURS TOPICAL PATCH TD SCH (09:14)
[2020-03-15] MEDS: QUEtiapine FUMARATE 50 MG TABLET PO SCH (09:14)
[2020-03-15] MEDS: busPIRone HCL 5 MG TABLET PO SCH (09:14)
[2020-03-15] MEDS: GABAPENTIN 300 MG CAPSULE PO SCH (09:14)
[2020-03-15] MEDS: LISINOPRIL 20 MG TABLET PO SCH (09:14)
== END 2020-03-15 09:10 | disposition other institution (70) | DRG 773 ==
LOC: YASAS 11:47 → Y3N 13:19
PROVIDERS: ADMIT Allergy & Immunology; ATTEND Allergy & Immunology
PROC: HZ2ZZZZ Detoxification Services for Substance Abuse Treatment (ICD-10-PCS; principal; 2020-03-09)
DX: F10.230 Alcohol dependence with withdrawal, uncomplicated (principal); F11.20 Opioid dependence, uncomplicated; F13.230 Sedative, hypnotic or anxiolytic dependence with withdrawal, uncomplicated; F14.20 Cocaine dependence, uncomplicated; F17.210 Nicotine dependence, cigarettes, uncomplicated; F19.24 Other psychoactive substance dependence with psychoactive substance-induced mood disorder; F31.9 Bipolar disorder, unspecified; G47.00 Insomnia, unspecified; I10 Essential (primary) hypertension; I25.2 Old myocardial infarction; J44.9 Chronic obstructive pulmonary disease, unspecified; K63.5 Polyp of colon; R74.8 Abnormal levels of other serum enzymes; R73.9 Hyperglycemia, unspecified; R26.89 Other abnormalities of gait and mobility; Z99.89 Dependence on other enabling machines and devices; Z91.018 Allergy to other foods; Z91.013 Allergy to seafood; Z90.13 Acquired absence of bilateral breasts and nipples; Z98.890 Other specified postprocedural states
CPT/HCPCS: 36415; 80053; 82947; 84450; 85027; 86780; 87389; C9803; G0008; J0735; Q2036; U0003

== ENCOUNTER 2020-07-24 11:56 | Inpatient (IN) | payer OTHER ==
[2020-07-24 12:37] VITALS: BMI 25.2
[2020-07-24] MEDS ORDERED: MAG HYDROX/AL HYDROX/SIMETH 30 ML UNIT-DOSE CUP PO PRN (13:36)
[2020-07-24] MEDS ORDERED: BISMUTH SUBSALICYLATE 524 MG/30 ML UD PO PRN (13:36)
[2020-07-24] MEDS ORDERED: NICOTINE POLACRILEX 2 MG GUM BUC PRN (13:36)
[2020-07-24] MEDS ORDERED: ACETAMINOPHEN 325 MG TABLET (FP) PO PRN ×2 (13:36)
[2020-07-24] MEDS ORDERED: MENTHOL/PHENOL 1 EACH UD MM PRN (13:36)
[2020-07-24] MEDS ORDERED: MAGNESIUM CITRATE 300 ML BOTTLE PO PRN (13:36)
[2020-07-24] MEDS ORDERED: ONDANSETRON *ODT* 4 MG TABLET SL PRN (13:36)
[2020-07-24] MEDS ORDERED: MAGNESIUM HYDROX 2400MG/30ML ORAL SUSPENSION 30 ML CUP PO PRN (13:36)
[2020-07-24] MEDS ORDERED: METHOCARBAMOL 500 MG TABLET PO PRN (13:36)
[2020-07-24] MEDS ORDERED: IBUPROFEN 400 MG TABLET (FP) PO PRN (13:36)
[2020-07-24] MEDS ORDERED: ALBUTEROL SO4 HFA INHALER IH PRN (13:41)
[2020-07-24] MEDS: hydrOXYzine PAMOATE 25 MG CAPSULE (FP) PO SCH ×3 (14:29→22:06)
[2020-07-24] MEDS: LORazepam 2 MG TABLET PO SCH ×2 (17:20→22:06)
[2020-07-24] MEDS: MELATONIN 5 MG TABLETS PO SCH (22:06)
[2020-07-24] MEDS: THIAMINE HCL 100 MG TABLET (FP) PO SCH (22:06)
[2020-07-24] MEDS: BUDESONIDE/FORMETEROL FUMARATE 80/4.5 mcg INHALER IH SCH (22:06)
[2020-07-25] MEDS: LORazepam 1 MG TABLET PO PRN ×2 (01:46→19:59)
[2020-07-25] MEDS ORDERED: METHADONE HCL 10 MG TABLET ONE (05:10)
[2020-07-25] MEDS ORDERED: METHADONE HCL 40 MG DISPERSABLE TABLET ONE (05:11)
[2020-07-25] MEDS: hydrOXYzine PAMOATE 25 MG CAPSULE (FP) PO SCH ×5 (06:00→22:13)
[2020-07-25] MEDS ORDERED: METHADONE HCL 10 MG TABLET PO ONE (06:00)
[2020-07-25] MEDS: LORazepam 2 MG TABLET PO SCH ×4 (06:00→22:10)
[2020-07-25] MEDS ORDERED: METHADONE 80 MG, METHADONE 10 MG PO ONE (06:00)
[2020-07-25] MEDS: LISINOPRIL 10 MG TABLET PO SCH (10:33)
[2020-07-25] MEDS: PRENATAL VITAMINS W/ FOLIC ACID TABLET (FP) PO SCH (10:34)
[2020-07-25] MEDS: BUDESONIDE/FORMETEROL FUMARATE 80/4.5 mcg INHALER IH SCH ×2 (10:34→22:13)
[2020-07-25] MEDS: QUEtiapine FUMARATE 50 MG TABLET PO SCH (10:35)
[2020-07-25 11:45] LABS: POTASSIUM 3.9 mmol/L (3.5-5.1)
[2020-07-25 11:50] LABS: BLOOD UREA NITROGEN 13.6 mg/dL (7-18); CALCIUM 9.1 mg/dL (8.5-10.1); HEMATOCRIT 38.5 % (35.4-49); HEMOGLOBIN 13.3 GM/dL (11.7-16.9); MCH 33.3 pg (25.7-33.7); MCHC 34.5 g/dl (32.0-35.9); MEAN CELL VOLUME 96.3 fl (80-96); MEAN PLT VOLUME 8.3 fl (7.5-11.1); PLATELET COUNT 187 K/MM3 (134-434); RBC 3.99 M/mm3 (4.00-5.60); RDW 14.6 % (11.9-15.9); WHITE BLOOD COUNT 8.6 K/mm3 (4.0-10.0)
[2020-07-25 11:51] LABS: ALBUMIN 3.3 g/dl (3.4-5.0)
[2020-07-25 11:53] LABS: CREATININE 0.6 mg/dL (0.55-1.3)
[2020-07-25 11:54] LABS: BILIRUBIN,TOTAL 0.8 mg/dL (0.2-1)
[2020-07-25 11:55] LABS: TOT PROT 6.9 g/dl (6.4-8.2)
[2020-07-25] MEDS: GABAPENTIN 100 MG CAPSULE PO SCH ×2 (14:16→22:11)
[2020-07-25] MEDS ORDERED: QUEtiapine FUMARATE 100 MG TABLET (FP) PO SCH (22:00)
[2020-07-25] MEDS: QUEtiapine FUMARATE 100 MG TABLET (FP) PO SCH (22:11)
[2020-07-25] MEDS: THIAMINE HCL 100 MG TABLET (FP) PO SCH (22:11)
[2020-07-25] MEDS: MELATONIN 5 MG TABLETS PO SCH (22:13)
[2020-07-25] MEDS: PRAZOSIN HCL 1 MG CAPSULE PO SCH (22:13)
[2020-07-26] MEDS: hydrOXYzine PAMOATE 25 MG CAPSULE (FP) PO SCH ×5 (05:22→22:28)
[2020-07-26] MEDS: LORazepam 1 MG TABLET PO SCH ×4 (05:22→22:26)
[2020-07-26] MEDS ORDERED: METHADONE HCL 10 MG TABLET PO SCH (07:15)
[2020-07-26] MEDS: GABAPENTIN 100 MG CAPSULE PO SCH ×3 (07:34→22:25)
[2020-07-26] MEDS ORDERED: METHADONE HCL 10 MG TABLET ONE (08:26)
[2020-07-26] MEDS ORDERED: METHADONE HCL 40 MG DISPERSABLE TABLET ONE (08:27)
[2020-07-26] MEDS: METHADONE 80 MG, METHADONE 10 MG PO SCH (08:28)
[2020-07-26] MEDS: QUEtiapine FUMARATE 50 MG TABLET PO SCH (10:26)
[2020-07-26] MEDS: PRENATAL VITAMINS W/ FOLIC ACID TABLET (FP) PO SCH (10:26)
[2020-07-26] MEDS: BUDESONIDE/FORMETEROL FUMARATE 80/4.5 mcg INHALER IH SCH ×2 (10:30→22:27)
[2020-07-26] MEDS: LISINOPRIL 10 MG TABLET PO SCH (10:32)
[2020-07-26] MEDS: LORazepam 1 MG TABLET PO PRN (14:28)
[2020-07-26] MEDS: PRAZOSIN HCL 1 MG CAPSULE PO SCH (22:25)
[2020-07-26] MEDS: THIAMINE HCL 100 MG TABLET (FP) PO SCH (22:26)
[2020-07-26] MEDS: QUEtiapine FUMARATE 100 MG TABLET (FP) PO SCH (22:26)
[2020-07-26] MEDS: MELATONIN 5 MG TABLETS PO SCH (22:26)
[2020-07-27] MEDS ORDERED: LORazepam 0.5 MG TABLET PO PRN
[2020-07-27] MEDS ORDERED: METHADONE HCL 10 MG TABLET ONE (03:50)
[2020-07-27] MEDS ORDERED: METHADONE HCL 40 MG DISPERSABLE TABLET ONE (03:50)
[2020-07-27] MEDS: LORazepam 0.5 MG TABLET PO SCH ×4 (05:08→22:06)
[2020-07-27] MEDS: hydrOXYzine PAMOATE 25 MG CAPSULE (FP) PO SCH ×5 (05:08→22:06)
[2020-07-27] MEDS: GABAPENTIN 100 MG CAPSULE PO SCH ×3 (05:08→22:06)
[2020-07-27] MEDS: METHADONE 80 MG, METHADONE 10 MG PO SCH (05:09)
[2020-07-27] MEDS: LISINOPRIL 10 MG TABLET PO SCH (10:29)
[2020-07-27] MEDS: BUDESONIDE/FORMETEROL FUMARATE 80/4.5 mcg INHALER IH SCH ×2 (10:29→22:06)
[2020-07-27] MEDS: PRENATAL VITAMINS W/ FOLIC ACID TABLET (FP) PO SCH (10:29)
[2020-07-27] MEDS: QUEtiapine FUMARATE 50 MG TABLET PO SCH (10:29)
[2020-07-27] MEDS: THIAMINE HCL 100 MG TABLET (FP) PO SCH (22:06)
[2020-07-27] MEDS: busPIRone HCL 10 MG TABLET (FP) PO SCH (22:06)
[2020-07-27] MEDS: QUEtiapine FUMARATE 100 MG TABLET (FP) PO SCH (22:07)
[2020-07-27] MEDS: MELATONIN 5 MG TABLETS PO SCH (22:07)
[2020-07-27] MEDS: PRAZOSIN HCL 1 MG CAPSULE PO SCH (22:07)
[2020-07-28] MEDS ORDERED: METHADONE HCL 10 MG TABLET ONE (04:05)
[2020-07-28] MEDS ORDERED: METHADONE HCL 40 MG DISPERSABLE TABLET ONE (04:06)
[2020-07-28] MEDS ORDERED: LORazepam 0.5 MG TABLET PO ONE (05:00)
[2020-07-28] MEDS: METHADONE 80 MG, METHADONE 10 MG PO SCH (05:20)
[2020-07-28] MEDS: GABAPENTIN 100 MG CAPSULE PO SCH ×2 (05:21→15:20)
[2020-07-28] MEDS: hydrOXYzine PAMOATE 25 MG CAPSULE (FP) PO SCH ×3 (05:21→15:20)
[2020-07-28 09:33] VITALS: BP 136/92; PULSE 111; TEMP 97.5
[2020-07-28] MEDS: QUEtiapine FUMARATE 50 MG TABLET PO SCH (10:00)
[2020-07-28] MEDS: busPIRone HCL 10 MG TABLET (FP) PO SCH (10:00)
[2020-07-28] MEDS: LISINOPRIL 10 MG TABLET PO SCH (10:00)
[2020-07-28] MEDS: PRENATAL VITAMINS W/ FOLIC ACID TABLET (FP) PO SCH (10:00)
[2020-07-28] MEDS: BUDESONIDE/FORMETEROL FUMARATE 80/4.5 mcg INHALER IH SCH (10:01)
== END 2020-07-28 15:26 | disposition other institution (70) | DRG 773 ==
LOC: YASAS 11:56 → Y6N 13:50
PROVIDERS: ADMIT Allergy & Immunology; ATTEND Allergy & Immunology
PROC: HZ2ZZZZ Detoxification Services for Substance Abuse Treatment (ICD-10-PCS; principal; 2020-07-24)
DX: F10.230 Alcohol dependence with withdrawal, uncomplicated (principal); F13.230 Sedative, hypnotic or anxiolytic dependence with withdrawal, uncomplicated; F11.20 Opioid dependence, uncomplicated; F14.20 Cocaine dependence, uncomplicated; F17.210 Nicotine dependence, cigarettes, uncomplicated; F19.282 Other psychoactive substance dependence with psychoactive substance-induced sleep disorder; F19.24 Other psychoactive substance dependence with psychoactive substance-induced mood disorder; I10 Essential (primary) hypertension; J44.9 Chronic obstructive pulmonary disease, unspecified; J45.20 Mild intermittent asthma, uncomplicated; Z86.010 Personal history of colon polyps; Z98.890 Other specified postprocedural states; Z91.013 Allergy to seafood; Z91.018 Allergy to other foods; Z90.13 Acquired absence of bilateral breasts and nipples
CPT/HCPCS: 36415; 80053; 85027; 86780; C9803; U0003; U0005

== ENCOUNTER 2020-07-28 15:36 | Inpatient (IN) | payer OTHER ==
[2020-07-28] MEDS ORDERED: MAGNESIUM CITRATE 300 ML BOTTLE PO PRN (15:49)
[2020-07-28] MEDS ORDERED: IBUPROFEN 400 MG TABLET (FP) PO PRN (15:49)
[2020-07-28] MEDS ORDERED: guaiFENesin 200 MG/10 ML 10 ML UNIT-DOSE CUPS PO PRN (15:49)
[2020-07-28] MEDS ORDERED: ACETAMINOPHEN 325 MG TABLET (FP) PO PRN (15:49)
[2020-07-28] MEDS ORDERED: P-EPHED 60MG/TRIPROLIDI 2.5MG TABLET PO PRN (15:49)
[2020-07-28] MEDS ORDERED: NICOTINE POLACRILEX 2 MG GUM BUC PRN (15:49)
[2020-07-28] MEDS ORDERED: MENTHOL/PHENOL 1 EACH UD MM PRN (15:49)
[2020-07-28] MEDS ORDERED: LOPERAMIDE HCL 2 MG CAPSULE PO PRN (15:49)
[2020-07-28] MEDS ORDERED: ALBUTEROL SO4 HFA INHALER IH PRN (16:13)
[2020-07-28] MEDS ORDERED: PRAZOSIN HCL 1 MG CAPSULE PO SCH (22:00)
[2020-07-28] MEDS ORDERED: PRAZOSIN HCL 2 MG CAPSULE PO SCH (22:00)
[2020-07-28] MEDS ORDERED: QUEtiapine FUMARATE 100 MG TABLET (FP) PO SCH (22:00)
[2020-07-28] MEDS: GABAPENTIN 100 MG CAPSULE PO SCH (22:17)
[2020-07-28] MEDS: BUDESONIDE/FORMETEROL FUMARATE 80/4.5 mcg INHALER IH SCH (22:17)
[2020-07-28] MEDS: MELATONIN 5 MG TABLETS PO SCH (22:17)
[2020-07-28] MEDS: THIAMINE HCL 100 MG TABLET (FP) PO SCH (22:18)
[2020-07-29] MEDS: hydrOXYzine PAMOATE 25 MG CAPSULE (FP) PO PRN ×4 (01:40→15:53)
[2020-07-29] MEDS: MAG HYDROX/AL HYDROX/SIMETH 30 ML UNIT-DOSE CUP PO PRN ×3 (01:49→18:22)
[2020-07-29] MEDS ORDERED: METHADONE HCL 10 MG TABLET ONE (05:40)
[2020-07-29] MEDS ORDERED: METHADONE HCL 40 MG DISPERSABLE TABLET ONE (05:41)
[2020-07-29] MEDS: GABAPENTIN 100 MG CAPSULE PO SCH (05:42)
[2020-07-29] MEDS: METHADONE 80 MG, METHADONE 10 MG PO SCH (05:42)
[2020-07-29] MEDS ORDERED: METHADONE HCL 10 MG TABLET PO SCH (06:00)
[2020-07-29] MEDS: LISINOPRIL 20 MG TABLET PO SCH (09:40)
[2020-07-29] MEDS: PRENATAL VITAMINS W/ FOLIC ACID TABLET (FP) PO SCH (09:40)
[2020-07-29] MEDS: QUEtiapine FUMARATE 50 MG TABLET PO SCH (09:40)
[2020-07-29] MEDS: NICOTINE 7 MG/24 HOURS TOPICAL PATCH TD SCH (09:41)
[2020-07-29] MEDS: BUDESONIDE/FORMETEROL FUMARATE 80/4.5 mcg INHALER IH SCH ×2 (09:42→21:02)
[2020-07-29] MEDS ORDERED: hydrOXYzine PAMOATE 25 MG CAPSULE (FP) PO PRN (12:27)
[2020-07-29] MEDS: GABAPENTIN 400 MG CAPSULE PO SCH ×2 (14:04→21:02)
[2020-07-29] MEDS ORDERED: PT OWN MED DRAWER 7, Y5N ONE (20:13)
[2020-07-29] MEDS ORDERED: MASKS NR ONE (20:48)
[2020-07-29] MEDS: QUEtiapine FUMARATE 200 MG TABLET PO SCH (21:02)
[2020-07-29] MEDS: MELATONIN 5 MG TABLETS PO SCH (21:02)
[2020-07-29] MEDS: busPIRone HCL 10 MG TABLET (FP) PO SCH (21:02)
[2020-07-29] MEDS: THIAMINE HCL 100 MG TABLET (FP) PO SCH (21:03)
[2020-07-29] MEDS: PRAZOSIN HCL 1 MG CAPSULE PO SCH (21:42)
[2020-07-30] MEDS: hydrOXYzine PAMOATE 25 MG CAPSULE (FP) PO PRN ×2 (03:05→17:28)
[2020-07-30] MEDS ORDERED: METHADONE HCL 40 MG DISPERSABLE TABLET ONE (03:24)
[2020-07-30] MEDS ORDERED: METHADONE HCL 10 MG TABLET ONE (03:24)
[2020-07-30] MEDS: METHADONE 80 MG, METHADONE 10 MG PO SCH (06:01)
[2020-07-30] MEDS: GABAPENTIN 400 MG CAPSULE PO SCH ×3 (06:01→21:01)
[2020-07-30] MEDS: QUEtiapine FUMARATE 50 MG TABLET PO SCH (09:36)
[2020-07-30] MEDS: BUDESONIDE/FORMETEROL FUMARATE 80/4.5 mcg INHALER IH SCH ×2 (09:36→21:01)
[2020-07-30] MEDS: PRENATAL VITAMINS W/ FOLIC ACID TABLET (FP) PO SCH (09:36)
[2020-07-30] MEDS: busPIRone HCL 10 MG TABLET (FP) PO SCH ×2 (09:36→21:01)
[2020-07-30] MEDS: LISINOPRIL 20 MG TABLET PO SCH (09:36)
[2020-07-30] MEDS: NICOTINE 7 MG/24 HOURS TOPICAL PATCH TD SCH (09:37)
[2020-07-30] MEDS ORDERED: PT OWN MED DRAWER 7, Y5N ONE (20:08)
[2020-07-30] MEDS: QUEtiapine FUMARATE 200 MG TABLET PO SCH (21:01)
[2020-07-30] MEDS: THIAMINE HCL 100 MG TABLET (FP) PO SCH (21:02)
[2020-07-30] MEDS: PRAZOSIN HCL 1 MG CAPSULE PO SCH (21:03)
[2020-07-30] MEDS: MELATONIN 5 MG TABLETS PO SCH (21:03)
[2020-07-31] MEDS: hydrOXYzine PAMOATE 25 MG CAPSULE (FP) PO PRN ×3 (00:24→21:02)
[2020-07-31] MEDS ORDERED: METHADONE HCL 40 MG DISPERSABLE TABLET ONE (03:23)
[2020-07-31] MEDS ORDERED: METHADONE HCL 10 MG TABLET ONE (03:23)
[2020-07-31] MEDS: METHADONE 80 MG, METHADONE 10 MG PO SCH (06:16)
[2020-07-31] MEDS: GABAPENTIN 400 MG CAPSULE PO SCH ×3 (06:16→21:00)
[2020-07-31] MEDS: LISINOPRIL 20 MG TABLET PO SCH ×2 (07:31→10:07)
[2020-07-31] MEDS: busPIRone HCL 10 MG TABLET (FP) PO SCH ×2 (10:06→21:00)
[2020-07-31] MEDS: NICOTINE 7 MG/24 HOURS TOPICAL PATCH TD SCH (10:06)
[2020-07-31] MEDS: BUDESONIDE/FORMETEROL FUMARATE 80/4.5 mcg INHALER IH SCH ×2 (10:06→21:01)
[2020-07-31] MEDS: QUEtiapine FUMARATE 50 MG TABLET PO SCH (10:06)
[2020-07-31] MEDS: PRENATAL VITAMINS W/ FOLIC ACID TABLET (FP) PO SCH (10:06)
[2020-07-31] MEDS ORDERED: PT OWN MED DRAWER 7, Y5N ONE (19:27)
[2020-07-31] MEDS: QUEtiapine FUMARATE 200 MG TABLET PO SCH (21:00)
[2020-07-31] MEDS: PRAZOSIN HCL 1 MG CAPSULE PO SCH (21:00)
[2020-07-31] MEDS: MELATONIN 5 MG TABLETS PO SCH (21:01)
[2020-07-31] MEDS: THIAMINE HCL 100 MG TABLET (FP) PO SCH (21:01)
[2020-07-31] MEDS ORDERED: cloNIDine HCL 0.1 MG TABLET PO ONE ×2 (21:40→22:00)
[2020-08-01] MEDS ORDERED: METHADONE HCL 40 MG DISPERSABLE TABLET ONE (05:19)
[2020-08-01] MEDS ORDERED: METHADONE HCL 10 MG TABLET ONE (05:19)
[2020-08-01] MEDS: METHADONE 80 MG, METHADONE 10 MG PO SCH (05:57)
[2020-08-01] MEDS: GABAPENTIN 400 MG CAPSULE PO SCH ×3 (05:57→21:07)
[2020-08-01] MEDS: BUDESONIDE/FORMETEROL FUMARATE 80/4.5 mcg INHALER IH SCH ×2 (09:55→21:07)
[2020-08-01] MEDS: hydrOXYzine PAMOATE 25 MG CAPSULE (FP) PO PRN ×3 (09:55→21:08)
[2020-08-01] MEDS: busPIRone HCL 10 MG TABLET (FP) PO SCH ×2 (09:55→21:07)
[2020-08-01] MEDS: QUEtiapine FUMARATE 50 MG TABLET PO SCH (09:56)
[2020-08-01] MEDS: NICOTINE 7 MG/24 HOURS TOPICAL PATCH TD SCH (09:56)
[2020-08-01] MEDS: LISINOPRIL 20 MG TABLET PO SCH (09:56)
[2020-08-01] MEDS: PRENATAL VITAMINS W/ FOLIC ACID TABLET (FP) PO SCH (09:56)
[2020-08-01 10:09] LABS: SARS-CoV-2 NAA Not Detected (Not Detected)
[2020-08-01] MEDS: MAG HYDROX/AL HYDROX/SIMETH 30 ML UNIT-DOSE CUP PO PRN (15:34)
[2020-08-01] MEDS: QUEtiapine FUMARATE 200 MG TABLET PO SCH (21:07)
[2020-08-01] MEDS: MELATONIN 5 MG TABLETS PO SCH (21:08)
[2020-08-01] MEDS: PRAZOSIN HCL 1 MG CAPSULE PO SCH (21:08)
[2020-08-01] MEDS: THIAMINE HCL 100 MG TABLET (FP) PO SCH (21:09)
[2020-08-01] MEDS ORDERED: METOPROLOL TARTRATE 25 MG TABLET (FP) PO ONE (22:15)
[2020-08-02] MEDS ORDERED: METHADONE HCL 40 MG DISPERSABLE TABLET ONE (03:16)
[2020-08-02] MEDS ORDERED: METHADONE HCL 10 MG TABLET ONE (03:16)
[2020-08-02] MEDS: hydrOXYzine PAMOATE 25 MG CAPSULE (FP) PO PRN ×2 (06:10→21:17)
[2020-08-02] MEDS: METHADONE 80 MG, METHADONE 10 MG PO SCH (06:10)
[2020-08-02] MEDS: GABAPENTIN 400 MG CAPSULE PO SCH ×3 (06:10→21:15)
[2020-08-02] MEDS ORDERED: PT OWN MED DRAWER 7, Y5N ONE (08:05)
[2020-08-02] MEDS: busPIRone HCL 10 MG TABLET (FP) PO SCH ×2 (09:50→21:15)
[2020-08-02] MEDS: QUEtiapine FUMARATE 50 MG TABLET PO SCH (09:50)
[2020-08-02] MEDS: LISINOPRIL 20 MG TABLET PO SCH (09:50)
[2020-08-02] MEDS: BUDESONIDE/FORMETEROL FUMARATE 80/4.5 mcg INHALER IH SCH ×2 (09:50→21:16)
[2020-08-02] MEDS: NICOTINE 7 MG/24 HOURS TOPICAL PATCH TD SCH (09:51)
[2020-08-02] MEDS: PRENATAL VITAMINS W/ FOLIC ACID TABLET (FP) PO SCH (09:51)
[2020-08-02] MEDS: QUEtiapine FUMARATE 200 MG TABLET PO SCH (21:15)
[2020-08-02] MEDS: PRAZOSIN HCL 1 MG CAPSULE PO SCH (21:15)
[2020-08-02] MEDS: THIAMINE HCL 100 MG TABLET (FP) PO SCH (21:15)
[2020-08-02] MEDS: MELATONIN 5 MG TABLETS PO SCH (21:16)
[2020-08-03] MEDS ORDERED: METHADONE HCL 10 MG TABLET ONE (03:37)
[2020-08-03] MEDS ORDERED: METHADONE HCL 40 MG DISPERSABLE TABLET ONE (03:38)
[2020-08-03] MEDS: hydrOXYzine PAMOATE 25 MG CAPSULE (FP) PO PRN (03:44)
[2020-08-03] MEDS: GABAPENTIN 400 MG CAPSULE PO SCH ×3 (05:55→21:13)
[2020-08-03] MEDS: METHADONE 80 MG, METHADONE 10 MG PO SCH (05:55)
[2020-08-03] MEDS: PRENATAL VITAMINS W/ FOLIC ACID TABLET (FP) PO SCH (09:31)
[2020-08-03] MEDS: BUDESONIDE/FORMETEROL FUMARATE 80/4.5 mcg INHALER IH SCH ×2 (09:32→21:30)
[2020-08-03] MEDS: busPIRone HCL 10 MG TABLET (FP) PO SCH ×2 (09:32→21:13)
[2020-08-03] MEDS: NICOTINE 7 MG/24 HOURS TOPICAL PATCH TD SCH (09:32)
[2020-08-03] MEDS: QUEtiapine FUMARATE 50 MG TABLET PO SCH (09:32)
[2020-08-03] MEDS: LISINOPRIL 20 MG TABLET PO SCH (09:33)
[2020-08-03] MEDS: cloNIDine HCL 0.1 MG TABLET PO PRN (10:02)
[2020-08-03] MEDS: MAG HYDROX/AL HYDROX/SIMETH 30 ML UNIT-DOSE CUP PO PRN (18:02)
[2020-08-03] MEDS: QUEtiapine FUMARATE 200 MG TABLET PO SCH (21:13)
[2020-08-03] MEDS: PRAZOSIN HCL 1 MG CAPSULE PO SCH (21:13)
[2020-08-03] MEDS: MELATONIN 5 MG TABLETS PO SCH (21:13)
[2020-08-03] MEDS: THIAMINE HCL 100 MG TABLET (FP) PO SCH (21:13)
[2020-08-04] MEDS ORDERED: METHADONE HCL 10 MG TABLET ONE (05:05)
[2020-08-04] MEDS ORDERED: METHADONE HCL 40 MG DISPERSABLE TABLET ONE (05:05)
[2020-08-04] MEDS: GABAPENTIN 400 MG CAPSULE PO SCH ×3 (06:15→21:16)
[2020-08-04] MEDS: cloNIDine HCL 0.1 MG TABLET PO PRN ×2 (06:15→21:15)
[2020-08-04] MEDS: METHADONE 80 MG, METHADONE 10 MG PO SCH (06:16)
[2020-08-04] MEDS: LISINOPRIL 20 MG TABLET PO SCH (09:32)
[2020-08-04] MEDS: QUEtiapine FUMARATE 50 MG TABLET PO SCH (09:32)
[2020-08-04] MEDS: BUDESONIDE/FORMETEROL FUMARATE 80/4.5 mcg INHALER IH SCH ×2 (09:32→21:17)
[2020-08-04] MEDS: hydrOXYzine PAMOATE 25 MG CAPSULE (FP) PO PRN ×3 (09:32→21:16)
[2020-08-04] MEDS: PRENATAL VITAMINS W/ FOLIC ACID TABLET (FP) PO SCH (09:32)
[2020-08-04] MEDS: busPIRone HCL 10 MG TABLET (FP) PO SCH ×2 (09:32→21:16)
[2020-08-04] MEDS: NICOTINE 7 MG/24 HOURS TOPICAL PATCH TD SCH (09:35)
[2020-08-04] MEDS: PRAZOSIN HCL 1 MG CAPSULE PO SCH (21:16)
[2020-08-04] MEDS: MELATONIN 5 MG TABLETS PO SCH (21:16)
[2020-08-04] MEDS: THIAMINE HCL 100 MG TABLET (FP) PO SCH (21:16)
[2020-08-04] MEDS: QUEtiapine FUMARATE 200 MG TABLET PO SCH (21:16)
[2020-08-05] MEDS ORDERED: METHADONE HCL 40 MG DISPERSABLE TABLET ONE (03:46)
[2020-08-05] MEDS ORDERED: METHADONE HCL 10 MG TABLET ONE (03:46)
[2020-08-05] MEDS: METHADONE 80 MG, METHADONE 10 MG PO SCH (06:04)
[2020-08-05] MEDS: GABAPENTIN 400 MG CAPSULE PO SCH ×3 (06:04→21:09)
[2020-08-05] MEDS: hydrOXYzine PAMOATE 25 MG CAPSULE (FP) PO PRN ×2 (06:06→09:39)
[2020-08-05] MEDS: PRENATAL VITAMINS W/ FOLIC ACID TABLET (FP) PO SCH (09:38)
[2020-08-05] MEDS: LISINOPRIL 20 MG TABLET PO SCH (09:38)
[2020-08-05] MEDS: busPIRone HCL 10 MG TABLET (FP) PO SCH ×2 (09:38→21:09)
[2020-08-05] MEDS: QUEtiapine FUMARATE 50 MG TABLET PO SCH (09:38)
[2020-08-05] MEDS: NICOTINE 7 MG/24 HOURS TOPICAL PATCH TD SCH ×2 (09:39→10:32)
[2020-08-05] MEDS: BUDESONIDE/FORMETEROL FUMARATE 80/4.5 mcg INHALER IH SCH ×2 (09:39→21:10)
[2020-08-05] MEDS: cloNIDine HCL 0.1 MG TABLET PO PRN ×2 (11:40→21:09)
[2020-08-05] MEDS: NICOTINE 14 MG/24 HOURS TOPICAL PATCH TD SCH (19:46)
[2020-08-05] MEDS: MELATONIN 5 MG TABLETS PO SCH (21:08)
[2020-08-05] MEDS: QUEtiapine FUMARATE 200 MG TABLET PO SCH (21:09)
[2020-08-05] MEDS: THIAMINE HCL 100 MG TABLET (FP) PO SCH (21:09)
[2020-08-05] MEDS: PRAZOSIN HCL 1 MG CAPSULE PO SCH (21:12)
[2020-08-05] MEDS ORDERED: PT OWN MED DRAWER 7, Y5N ONE (21:12)
[2020-08-06] MEDS ORDERED: METHADONE HCL 40 MG DISPERSABLE TABLET ONE (03:35)
[2020-08-06] MEDS ORDERED: METHADONE HCL 10 MG TABLET ONE (03:35)
[2020-08-06] MEDS: METHADONE 80 MG, METHADONE 10 MG PO SCH (06:02)
[2020-08-06] MEDS: GABAPENTIN 400 MG CAPSULE PO SCH ×3 (06:03→21:27)
[2020-08-06] MEDS: hydrOXYzine PAMOATE 25 MG CAPSULE (FP) PO PRN ×2 (06:04→14:31)
[2020-08-06] MEDS: BUDESONIDE/FORMETEROL FUMARATE 80/4.5 mcg INHALER IH SCH ×2 (09:34→21:27)
[2020-08-06] MEDS: busPIRone HCL 10 MG TABLET (FP) PO SCH ×2 (09:34→21:27)
[2020-08-06] MEDS: QUEtiapine FUMARATE 50 MG TABLET PO SCH (09:34)
[2020-08-06] MEDS: LISINOPRIL 20 MG TABLET PO SCH (09:34)
[2020-08-06] MEDS: PRENATAL VITAMINS W/ FOLIC ACID TABLET (FP) PO SCH (09:34)
[2020-08-06] MEDS: NICOTINE 14 MG/24 HOURS TOPICAL PATCH TD SCH (09:35)
[2020-08-06] MEDS: MAGNESIUM HYDROX 2400MG/30ML ORAL SUSPENSION 30 ML CUP PO PRN (18:30)
[2020-08-06] MEDS ORDERED: PT OWN MED DRAWER 7, Y5N ONE (19:38)
[2020-08-06] MEDS: MELATONIN 5 MG TABLETS PO SCH (21:27)
[2020-08-06] MEDS: THIAMINE HCL 100 MG TABLET (FP) PO SCH (21:27)
[2020-08-06] MEDS: QUEtiapine FUMARATE 200 MG TABLET PO SCH (21:27)
[2020-08-06] MEDS: PRAZOSIN HCL 1 MG CAPSULE PO SCH (21:27)
[2020-08-06] MEDS: cloNIDine HCL 0.1 MG TABLET PO PRN (21:29)
[2020-08-07] MEDS ORDERED: METHADONE HCL 40 MG DISPERSABLE TABLET ONE (03:19)
[2020-08-07] MEDS ORDERED: METHADONE HCL 10 MG TABLET ONE (03:19)
[2020-08-07] MEDS: GABAPENTIN 400 MG CAPSULE PO SCH ×3 (06:10→21:16)
[2020-08-07] MEDS: METHADONE 80 MG, METHADONE 10 MG PO SCH (06:10)
[2020-08-07] MEDS: hydrOXYzine PAMOATE 25 MG CAPSULE (FP) PO PRN ×2 (06:10→19:20)
[2020-08-07] MEDS: LISINOPRIL 20 MG TABLET PO SCH (09:26)
[2020-08-07] MEDS: PRENATAL VITAMINS W/ FOLIC ACID TABLET (FP) PO SCH (09:26)
[2020-08-07] MEDS: QUEtiapine FUMARATE 50 MG TABLET PO SCH (09:26)
[2020-08-07] MEDS: busPIRone HCL 10 MG TABLET (FP) PO SCH ×2 (09:26→21:16)
[2020-08-07] MEDS: BUDESONIDE/FORMETEROL FUMARATE 80/4.5 mcg INHALER IH SCH ×2 (09:27→21:16)
[2020-08-07] MEDS: NICOTINE 14 MG/24 HOURS TOPICAL PATCH TD SCH (09:27)
[2020-08-07] MEDS ORDERED: PT OWN MED DRAWER 7, Y5N ONE (19:46)
[2020-08-07] MEDS: THIAMINE HCL 100 MG TABLET (FP) PO SCH (21:16)
[2020-08-07] MEDS: QUEtiapine FUMARATE 200 MG TABLET PO SCH (21:16)
[2020-08-07] MEDS: PRAZOSIN HCL 1 MG CAPSULE PO SCH (21:17)
[2020-08-07] MEDS: MELATONIN 5 MG TABLETS PO SCH (21:17)
[2020-08-07] MEDS: cloNIDine HCL 0.1 MG TABLET PO PRN (21:18)
[2020-08-08] MEDS: hydrOXYzine PAMOATE 25 MG CAPSULE (FP) PO PRN ×2 (01:39→05:59)
[2020-08-08] MEDS ORDERED: METHADONE HCL 40 MG DISPERSABLE TABLET ONE (03:47)
[2020-08-08] MEDS ORDERED: METHADONE HCL 10 MG TABLET ONE (03:47)
[2020-08-08] MEDS: METHADONE 80 MG, METHADONE 10 MG PO SCH (05:58)
[2020-08-08] MEDS: cloNIDine HCL 0.1 MG TABLET PO PRN (05:58)
[2020-08-08] MEDS: GABAPENTIN 400 MG CAPSULE PO SCH ×3 (05:59→21:04)
[2020-08-08] MEDS: LISINOPRIL 20 MG TABLET PO SCH (09:21)
[2020-08-08] MEDS: busPIRone HCL 10 MG TABLET (FP) PO SCH ×2 (09:21→21:04)
[2020-08-08] MEDS: BUDESONIDE/FORMETEROL FUMARATE 80/4.5 mcg INHALER IH SCH ×2 (09:21→21:05)
[2020-08-08] MEDS: QUEtiapine FUMARATE 50 MG TABLET PO SCH (09:21)
[2020-08-08] MEDS: PRENATAL VITAMINS W/ FOLIC ACID TABLET (FP) PO SCH (09:21)
[2020-08-08] MEDS: NICOTINE 14 MG/24 HOURS TOPICAL PATCH TD SCH (09:22)
[2020-08-08] MEDS: PRAZOSIN HCL 1 MG CAPSULE PO SCH (21:04)
[2020-08-08] MEDS: QUEtiapine FUMARATE 200 MG TABLET PO SCH (21:04)
[2020-08-08] MEDS: THIAMINE HCL 100 MG TABLET (FP) PO SCH (21:05)
[2020-08-08] MEDS: MELATONIN 5 MG TABLETS PO SCH (21:43)
[2020-08-09] MEDS: hydrOXYzine PAMOATE 25 MG CAPSULE (FP) PO PRN ×3 (02:09→14:12)
[2020-08-09] MEDS: cloNIDine HCL 0.1 MG TABLET PO PRN ×2 (02:09→21:28)
[2020-08-09] MEDS ORDERED: METHADONE HCL 40 MG DISPERSABLE TABLET ONE (03:14)
[2020-08-09] MEDS ORDERED: METHADONE HCL 10 MG TABLET ONE (03:14)
[2020-08-09] MEDS: METHADONE 80 MG, METHADONE 10 MG PO SCH (06:06)
[2020-08-09] MEDS: GABAPENTIN 400 MG CAPSULE PO SCH ×3 (06:06→21:26)
[2020-08-09] MEDS: PRENATAL VITAMINS W/ FOLIC ACID TABLET (FP) PO SCH (09:38)
[2020-08-09] MEDS: NICOTINE 14 MG/24 HOURS TOPICAL PATCH TD SCH (09:39)
[2020-08-09] MEDS: LISINOPRIL 20 MG TABLET PO SCH (09:39)
[2020-08-09] MEDS: busPIRone HCL 10 MG TABLET (FP) PO SCH ×2 (09:39→21:26)
[2020-08-09] MEDS: QUEtiapine FUMARATE 50 MG TABLET PO SCH (09:39)
[2020-08-09] MEDS: BUDESONIDE/FORMETEROL FUMARATE 80/4.5 mcg INHALER IH SCH ×2 (09:39→21:26)
[2020-08-09] MEDS ORDERED: DOCUSATE SODIUM 100 MG CAPSULE (FP) PO ONE (09:45)
[2020-08-09] MEDS: DOCUSATE SODIUM 100 MG CAPSULE (FP) PO SCH ×2 (14:12→21:26)
[2020-08-09] MEDS ORDERED: PT OWN MED DRAWER 7, Y5N ONE (20:09)
[2020-08-09] MEDS: QUEtiapine FUMARATE 200 MG TABLET PO SCH (21:25)
[2020-08-09] MEDS: THIAMINE HCL 100 MG TABLET (FP) PO SCH (21:25)
[2020-08-09] MEDS: MELATONIN 5 MG TABLETS PO SCH (22:56)
[2020-08-09] MEDS: PRAZOSIN HCL 1 MG CAPSULE PO SCH (22:56)
[2020-08-10] MEDS: hydrOXYzine PAMOATE 25 MG CAPSULE (FP) PO PRN ×3 (03:27→13:58)
[2020-08-10] MEDS ORDERED: METHADONE HCL 10 MG TABLET ONE (05:59)
[2020-08-10] MEDS: METHADONE 80 MG, METHADONE 10 MG PO SCH (06:00)
[2020-08-10] MEDS: DOCUSATE SODIUM 100 MG CAPSULE (FP) PO SCH ×3 (06:00→21:09)
[2020-08-10] MEDS ORDERED: METHADONE HCL 40 MG DISPERSABLE TABLET ONE (06:00)
[2020-08-10] MEDS: GABAPENTIN 400 MG CAPSULE PO SCH ×3 (06:00→21:10)
[2020-08-10] MEDS: cloNIDine HCL 0.1 MG TABLET PO PRN ×2 (06:04→21:12)
[2020-08-10] MEDS: PRENATAL VITAMINS W/ FOLIC ACID TABLET (FP) PO SCH (09:40)
[2020-08-10] MEDS: QUEtiapine FUMARATE 50 MG TABLET PO SCH (09:40)
[2020-08-10] MEDS: BUDESONIDE/FORMETEROL FUMARATE 80/4.5 mcg INHALER IH SCH ×2 (09:40→21:10)
[2020-08-10] MEDS: busPIRone HCL 10 MG TABLET (FP) PO SCH ×2 (09:40→21:10)
[2020-08-10] MEDS: LISINOPRIL 20 MG TABLET PO SCH (09:41)
[2020-08-10] MEDS: NICOTINE 14 MG/24 HOURS TOPICAL PATCH TD SCH (09:41)
[2020-08-10] MEDS ORDERED: PT OWN MED DRAWER 7, Y5N ONE (20:42)
[2020-08-10] MEDS: PRAZOSIN HCL 1 MG CAPSULE PO SCH (21:09)
[2020-08-10] MEDS: QUEtiapine FUMARATE 200 MG TABLET PO SCH (21:10)
[2020-08-10] MEDS: THIAMINE HCL 100 MG TABLET (FP) PO SCH (21:10)
[2020-08-10] MEDS: MELATONIN 5 MG TABLETS PO SCH (21:12)
[2020-08-11] MEDS ORDERED: METHADONE HCL 10 MG TABLET ONE (03:13)
[2020-08-11] MEDS ORDERED: METHADONE HCL 40 MG DISPERSABLE TABLET ONE (03:14)
[2020-08-11] MEDS: GABAPENTIN 400 MG CAPSULE PO SCH ×3 (06:14→21:16)
[2020-08-11] MEDS: METHADONE 80 MG, METHADONE 10 MG PO SCH (06:14)
[2020-08-11] MEDS: DOCUSATE SODIUM 100 MG CAPSULE (FP) PO SCH ×3 (06:14→21:16)
[2020-08-11] MEDS: PRENATAL VITAMINS W/ FOLIC ACID TABLET (FP) PO SCH (09:39)
[2020-08-11] MEDS: hydrOXYzine PAMOATE 25 MG CAPSULE (FP) PO PRN ×3 (09:40→21:18)
[2020-08-11] MEDS: QUEtiapine FUMARATE 50 MG TABLET PO SCH (09:40)
[2020-08-11] MEDS: LISINOPRIL 20 MG TABLET PO SCH (09:40)
[2020-08-11] MEDS: NICOTINE 14 MG/24 HOURS TOPICAL PATCH TD SCH (09:40)
[2020-08-11] MEDS: busPIRone HCL 10 MG TABLET (FP) PO SCH ×2 (09:40→21:16)
[2020-08-11] MEDS: BUDESONIDE/FORMETEROL FUMARATE 80/4.5 mcg INHALER IH SCH ×2 (09:40→21:16)
[2020-08-11] MEDS: MAGNESIUM HYDROX 2400MG/30ML ORAL SUSPENSION 30 ML CUP PO PRN (17:52)
[2020-08-11] MEDS ORDERED: PT OWN MED DRAWER 7, Y5N ONE (20:46)
[2020-08-11] MEDS: PRAZOSIN HCL 1 MG CAPSULE PO SCH (21:15)
[2020-08-11] MEDS: QUEtiapine FUMARATE 200 MG TABLET PO SCH (21:16)
[2020-08-11] MEDS: MELATONIN 5 MG TABLETS PO SCH (21:16)
[2020-08-11] MEDS: cloNIDine HCL 0.1 MG TABLET PO PRN (21:17)
[2020-08-11] MEDS: THIAMINE HCL 100 MG TABLET (FP) PO SCH (21:26)
[2020-08-12] MEDS ORDERED: MASKS NR ONE (01:27)
[2020-08-12] MEDS: hydrOXYzine PAMOATE 25 MG CAPSULE (FP) PO PRN (02:31)
[2020-08-12] MEDS ORDERED: METHADONE HCL 10 MG TABLET ONE (03:20)
[2020-08-12] MEDS ORDERED: METHADONE HCL 40 MG DISPERSABLE TABLET ONE (03:20)
[2020-08-12] MEDS: METHADONE 80 MG, METHADONE 10 MG PO SCH (05:54)
[2020-08-12] MEDS: GABAPENTIN 400 MG CAPSULE PO SCH ×2 (05:55→13:37)
[2020-08-12] MEDS: DOCUSATE SODIUM 100 MG CAPSULE (FP) PO SCH ×2 (05:55→13:37)
[2020-08-12] MEDS: cloNIDine HCL 0.1 MG TABLET PO PRN (08:23)
[2020-08-12] MEDS: QUEtiapine FUMARATE 50 MG TABLET PO SCH (09:49)
[2020-08-12] MEDS: busPIRone HCL 10 MG TABLET (FP) PO SCH (09:49)
[2020-08-12] MEDS: BUDESONIDE/FORMETEROL FUMARATE 80/4.5 mcg INHALER IH SCH (09:50)
[2020-08-12] MEDS: LISINOPRIL 20 MG TABLET PO SCH (09:50)
[2020-08-12] MEDS: PRENATAL VITAMINS W/ FOLIC ACID TABLET (FP) PO SCH (09:50)
[2020-08-12] MEDS: NICOTINE 14 MG/24 HOURS TOPICAL PATCH TD SCH (09:50)
[2020-08-12 10:29] VITALS: BP 141/80; PULSE 74; TEMP 97
== END 2020-08-12 14:35 | disposition home or self-care (01) | DRG 772 ==
LOC: YASAS 15:36 → Y5N 15:41
PROVIDERS: ADMIT Allergy & Immunology; ATTEND Allergy & Immunology
PROC: HZ42ZZZ Group Counseling for Substance Abuse Treatment, Cognitive-Behavioral (ICD-10-PCS; principal; 2020-07-28)
DX: F10.20 Alcohol dependence, uncomplicated (principal); F11.20 Opioid dependence, uncomplicated; F14.20 Cocaine dependence, uncomplicated; F13.20 Sedative, hypnotic or anxiolytic dependence, uncomplicated; F17.210 Nicotine dependence, cigarettes, uncomplicated; F19.282 Other psychoactive substance dependence with psychoactive substance-induced sleep disorder; F31.9 Bipolar disorder, unspecified; F43.10 Post-traumatic stress disorder, unspecified; I10 Essential (primary) hypertension; I25.2 Old myocardial infarction; J44.9 Chronic obstructive pulmonary disease, unspecified; J45.909 Unspecified asthma, uncomplicated; G47.00 Insomnia, unspecified; B35.3 Tinea pedis; Z86.010 Personal history of colon polyps; Z90.13 Acquired absence of bilateral breasts and nipples; Z98.890 Other specified postprocedural states; Z91.013 Allergy to seafood; Z91.018 Allergy to other foods
CPT/HCPCS: C9803; J0735; U0003; U0005

== ENCOUNTER 2020-11-05 15:42 | Inpatient (IN) | payer OTHER ==
[2020-11-05 19:21] VITALS: BMI 24.9
[2020-11-05] MEDS ORDERED: MENTHOL/PHENOL 1 EACH UD MM PRN (20:24)
[2020-11-05] MEDS ORDERED: BISMUTH SUBSALICYLATE 524 MG/30 ML PO PRN (20:24)
[2020-11-05] MEDS ORDERED: ONDANSETRON *ODT* 4 MG TABLET SL PRN (20:24)
[2020-11-05] MEDS ORDERED: LORazepam 1 MG TABLET PO PRN (20:24)
[2020-11-05] MEDS ORDERED: MAGNESIUM CITRATE 300 ML BOTTLE PO PRN (20:24)
[2020-11-05] MEDS ORDERED: ACETAMINOPHEN 325 MG TABLET (FP) PO PRN ×2 (20:24)
[2020-11-05] MEDS ORDERED: MAG HYDROX/AL HYDROX/SIMETH 30 ML UNIT-DOSE CUP PO PRN (20:24)
[2020-11-05] MEDS ORDERED: IBUPROFEN 400 MG TABLET (FP) PO PRN (20:24)
[2020-11-05] MEDS ORDERED: ALBUTEROL SO4 HFA INHALER IH PRN (21:18)
[2020-11-05] MEDS ORDERED: METHOCARBAMOL 500 MG TABLET ONE (21:42)
[2020-11-05] MEDS ORDERED: hydrOXYzine PAMOATE 25 MG CAPSULE (FP) PO ONE (21:42)
[2020-11-05] MEDS ORDERED: LORazepam 2 MG TABLET ONE (21:42)
[2020-11-05] MEDS: MELATONIN 5 MG TABLETS PO SCH (21:44)
[2020-11-05] MEDS: hydrOXYzine PAMOATE 25 MG CAPSULE (FP) PO SCH (21:44)
[2020-11-05] MEDS: METHOCARBAMOL 500 MG TABLET PO PRN (21:44)
[2020-11-05] MEDS: THIAMINE HCL 100 MG TABLET (FP) PO SCH (21:44)
[2020-11-05] MEDS ORDERED: PRAZOSIN HCL 5 MG CAPSULE PO SCH (22:00)
[2020-11-05] MEDS ORDERED: BUSPIRONE HCL 15 MG PO SCH (22:00)
[2020-11-05] MEDS ORDERED: QUEtiapine FUMARATE 200 MG TABLET PO SCH (22:00)
[2020-11-05] MEDS: LORazepam 2 MG TABLET PO SCH (22:13)
[2020-11-05] MEDS: ATORVASTATIN CA 10 MG TABLET (FP) PO SCH (22:13)
[2020-11-05] MEDS: FAMOTIDINE 20 MG TABLET PO SCH (22:14)
[2020-11-05] MEDS: GABAPENTIN 400 MG CAPSULE PO SCH (22:14)
[2020-11-05] MEDS: BUDESONIDE/FORMETEROL FUMARATE 80/4.5 mcg INHALER IH SCH (23:27)
[2020-11-06] MEDS ORDERED: LORazepam 2 MG TABLET ONE ×2 (04:18→10:08)
[2020-11-06] MEDS: hydrOXYzine PAMOATE 25 MG CAPSULE (FP) PO SCH ×6 (05:41→23:46)
[2020-11-06] MEDS: LORazepam 2 MG TABLET PO SCH ×4 (05:41→22:01)
[2020-11-06] MEDS: GABAPENTIN 400 MG CAPSULE PO SCH ×2 (05:41→14:46)
[2020-11-06] MEDS ORDERED: LISINOPRIL 10 MG PO SCH (10:00)
[2020-11-06] MEDS ORDERED: LISINOPRIL 10 MG TABLET ONE (10:08)
[2020-11-06] MEDS ORDERED: hydrOXYzine PAMOATE 25 MG CAPSULE (FP) PO ONE (10:08)
[2020-11-06] MEDS: LISINOPRIL 20 MG TABLET PO SCH (10:10)
[2020-11-06] MEDS: PRENATAL VITAMINS W/ FOLIC ACID TABLET (FP) PO SCH (10:10)
[2020-11-06] MEDS: BUDESONIDE/FORMETEROL FUMARATE 80/4.5 mcg INHALER IH SCH ×2 (10:13→22:04)
[2020-11-06] MEDS ORDERED: methaDONE HCL 10 MG TABLET PO SCH (10:15)
[2020-11-06] MEDS ORDERED: methaDONE HCL 10 MG TABLET ONE (12:00)
[2020-11-06] MEDS ORDERED: methaDONE HCL 40 MG DISPERSABLE TABLET ONE (12:01)
[2020-11-06] MEDS: QUEtiapine FUMARATE 25 MG TABLET PO SCH (12:02)
[2020-11-06] MEDS: methaDONE 80 MG, methaDONE 10 MG PO SCH (12:02)
[2020-11-06] MEDS: FAMOTIDINE 20 MG TABLET PO SCH ×2 (12:02→22:01)
[2020-11-06] MEDS: FOLIC ACID 1 MG TABLET (FP) PO SCH (14:44)
[2020-11-06] MEDS: ASCORBIC ACID 250 MG TABLET (FP) PO SCH (14:44)
[2020-11-06] MEDS: MAGNESIUM HYDROX 2400MG/30ML ORAL SUSPENSION 30 ML CUP PO PRN (14:46)
[2020-11-06] MEDS: GABAPENTIN 100 MG CAPSULE PO SCH (22:00)
[2020-11-06] MEDS: QUEtiapine FUMARATE 100 MG TABLET (FP) PO SCH (22:00)
[2020-11-06] MEDS: ATORVASTATIN CA 10 MG TABLET (FP) PO SCH (22:01)
[2020-11-06] MEDS: MELATONIN 5 MG TABLETS PO SCH (22:01)
[2020-11-06] MEDS: THIAMINE HCL 100 MG TABLET (FP) PO SCH (22:01)
[2020-11-06] MEDS: busPIRone HCL 5 MG TABLET PO SCH (22:01)
[2020-11-07] MEDS ORDERED: methaDONE HCL 40 MG DISPERSABLE TABLET ONE (04:05)
[2020-11-07] MEDS ORDERED: methaDONE HCL 10 MG TABLET ONE (04:05)
[2020-11-07] MEDS: methaDONE 80 MG, methaDONE 10 MG PO SCH (05:02)
[2020-11-07] MEDS: GABAPENTIN 100 MG CAPSULE PO SCH ×3 (05:02→22:20)
[2020-11-07] MEDS: hydrOXYzine PAMOATE 25 MG CAPSULE (FP) PO SCH ×5 (05:03→22:19)
[2020-11-07] MEDS: busPIRone HCL 5 MG TABLET PO SCH ×3 (05:03→22:20)
[2020-11-07] MEDS: LORazepam 1 MG TABLET PO SCH ×4 (05:03→22:19)
[2020-11-07] MEDS: FAMOTIDINE 20 MG TABLET PO SCH ×2 (10:13→22:20)
[2020-11-07] MEDS: PRENATAL VITAMINS W/ FOLIC ACID TABLET (FP) PO SCH (10:13)
[2020-11-07] MEDS: QUEtiapine FUMARATE 25 MG TABLET PO SCH (10:13)
[2020-11-07] MEDS: LISINOPRIL 20 MG TABLET PO SCH (10:13)
[2020-11-07] MEDS: ASCORBIC ACID 250 MG TABLET (FP) PO SCH (10:14)
[2020-11-07] MEDS: FOLIC ACID 1 MG TABLET (FP) PO SCH (10:14)
[2020-11-07] MEDS: BUDESONIDE/FORMETEROL FUMARATE 80/4.5 mcg INHALER IH SCH ×2 (10:17→22:20)
[2020-11-07 11:09] LABS: HEMATOCRIT 39.1 % (35.4-49); MCH 31.5 pg (25.7-33.7); MCHC 33.3 g/dl (32.0-35.9); MEAN CELL VOLUME 94.5 fl (80-96); MEAN PLT VOLUME 8.1 fl (7.5-11.1); PLATELET COUNT 164 10^3/uL (134-434); RBC 4.14 M/mm3 (4.00-5.60); WHITE BLOOD COUNT 7.2 K/mm3 (4.0-10.0)
[2020-11-07 11:13] LABS: BLOOD UREA NITROGEN 8.2 mg/dL (7-18); CALCIUM 8.5 mg/dL (8.5-10.1)
[2020-11-07 11:16] LABS: CREATININE 0.5 mg/dL (0.55-1.3)
[2020-11-07 11:18] LABS: BILIRUBIN,TOTAL 0.6 mg/dL (0.2-1); TOT PROT 6.7 g/dl (6.4-8.2)
[2020-11-07] MEDS: METHOCARBAMOL 500 MG TABLET PO PRN (13:15)
[2020-11-07] MEDS: ATORVASTATIN CA 10 MG TABLET (FP) PO SCH (22:19)
[2020-11-07] MEDS: QUEtiapine FUMARATE 100 MG TABLET (FP) PO SCH (22:20)
[2020-11-07] MEDS: THIAMINE HCL 100 MG TABLET (FP) PO SCH (22:20)
[2020-11-07] MEDS: MELATONIN 5 MG TABLETS PO SCH (22:20)
[2020-11-08] MEDS ORDERED: LORazepam 0.5 MG TABLET PO PRN
[2020-11-08] MEDS: METHOCARBAMOL 500 MG TABLET PO PRN (03:11)
[2020-11-08] MEDS ORDERED: methaDONE HCL 10 MG TABLET ONE (04:03)
[2020-11-08] MEDS ORDERED: methaDONE HCL 40 MG DISPERSABLE TABLET ONE (04:03)
[2020-11-08] MEDS: GABAPENTIN 100 MG CAPSULE PO SCH ×3 (05:32→22:06)
[2020-11-08] MEDS: hydrOXYzine PAMOATE 25 MG CAPSULE (FP) PO SCH ×5 (05:32→22:09)
[2020-11-08] MEDS: busPIRone HCL 5 MG TABLET PO SCH ×3 (05:32→22:06)
[2020-11-08] MEDS: methaDONE 80 MG, methaDONE 10 MG PO SCH (05:32)
[2020-11-08] MEDS: LORazepam 0.5 MG TABLET PO SCH ×4 (05:33→22:08)
[2020-11-08] MEDS ORDERED: MASKS NR ONE (07:29)
[2020-11-08] MEDS: MAGNESIUM HYDROX 2400MG/30ML ORAL SUSPENSION 30 ML CUP PO PRN (09:05)
[2020-11-08] MEDS ORDERED: LISINOPRIL 20 MG TABLET PO SCH (10:00)
[2020-11-08] MEDS: PRENATAL VITAMINS W/ FOLIC ACID TABLET (FP) PO SCH (10:37)
[2020-11-08] MEDS: QUEtiapine FUMARATE 25 MG TABLET PO SCH (10:38)
[2020-11-08] MEDS: BUDESONIDE/FORMETEROL FUMARATE 80/4.5 mcg INHALER IH SCH ×2 (10:38→22:09)
[2020-11-08] MEDS: FAMOTIDINE 20 MG TABLET PO SCH ×2 (10:39→22:06)
[2020-11-08] MEDS: FOLIC ACID 1 MG TABLET (FP) PO SCH (10:39)
[2020-11-08] MEDS: ASCORBIC ACID 250 MG TABLET (FP) PO SCH (10:39)
[2020-11-08] MEDS: LISINOPRIL 20 MG TABLET PO SCH (11:04)
[2020-11-08] MEDS: ATORVASTATIN CA 10 MG TABLET (FP) PO SCH (22:06)
[2020-11-08] MEDS: QUEtiapine FUMARATE 100 MG TABLET (FP) PO SCH (22:06)
[2020-11-08] MEDS: THIAMINE HCL 100 MG TABLET (FP) PO SCH (22:07)
[2020-11-08] MEDS: MELATONIN 5 MG TABLETS PO SCH (22:09)
[2020-11-09] MEDS ORDERED: methaDONE HCL 10 MG TABLET ONE (04:04)
[2020-11-09] MEDS ORDERED: methaDONE HCL 40 MG DISPERSABLE TABLET ONE (04:05)
[2020-11-09] MEDS ORDERED: LORazepam 0.5 MG TABLET PO ONE (05:00)
[2020-11-09] MEDS: methaDONE 80 MG, methaDONE 10 MG PO SCH (05:38)
[2020-11-09] MEDS: GABAPENTIN 100 MG CAPSULE PO SCH (05:41)
[2020-11-09] MEDS: busPIRone HCL 5 MG TABLET PO SCH (05:42)
[2020-11-09] MEDS: hydrOXYzine PAMOATE 25 MG CAPSULE (FP) PO SCH ×2 (05:42→10:18)
[2020-11-09 09:04] VITALS: BP 156/92; PULSE 91; TEMP 96.9
[2020-11-09] MEDS: ASCORBIC ACID 250 MG TABLET (FP) PO SCH (10:17)
[2020-11-09] MEDS: FOLIC ACID 1 MG TABLET (FP) PO SCH (10:17)
[2020-11-09] MEDS: BUDESONIDE/FORMETEROL FUMARATE 80/4.5 mcg INHALER IH SCH (10:17)
[2020-11-09] MEDS: FAMOTIDINE 20 MG TABLET PO SCH (10:17)
[2020-11-09] MEDS: PRENATAL VITAMINS W/ FOLIC ACID TABLET (FP) PO SCH (10:17)
[2020-11-09] MEDS: LISINOPRIL 20 MG TABLET PO SCH (10:17)
[2020-11-09] MEDS: QUEtiapine FUMARATE 25 MG TABLET PO SCH (10:18)
[2020-11-09] MEDS ORDERED: amLODIPine BESYLATE 10 MG TABLET (FP) PO SCH (11:00)
== END 2020-11-09 12:36 | disposition other institution (70) | DRG 773 ==
LOC: YASAS 15:42 → Y6N 11-06 10:41
PROVIDERS: ADMIT Allergy & Immunology; ATTEND Allergy & Immunology
PROC: HZ2ZZZZ Detoxification Services for Substance Abuse Treatment (ICD-10-PCS; principal; 2020-11-06)
DX: F10.230 Alcohol dependence with withdrawal, uncomplicated (principal); F13.230 Sedative, hypnotic or anxiolytic dependence with withdrawal, uncomplicated; F11.20 Opioid dependence, uncomplicated; F14.20 Cocaine dependence, uncomplicated; F17.210 Nicotine dependence, cigarettes, uncomplicated; F19.24 Other psychoactive substance dependence with psychoactive substance-induced mood disorder; F31.9 Bipolar disorder, unspecified; G47.00 Insomnia, unspecified; I10 Essential (primary) hypertension; J44.9 Chronic obstructive pulmonary disease, unspecified; B35.3 Tinea pedis; M54.5 Low back pain; G89.29 Other chronic pain; I25.2 Old myocardial infarction; Z86.010 Personal history of colon polyps; Z90.13 Acquired absence of bilateral breasts and nipples; Z91.018 Allergy to other foods
CPT/HCPCS: 36415; 80053; 85027; 86780; C9803; U0003; U0005

== ENCOUNTER 2020-11-09 12:46 | Inpatient (IN) | payer OTHER ==
[2020-11-09] MEDS ORDERED: P-EPHED 60MG/TRIPROLIDI 2.5MG TABLET PO PRN (14:17)
[2020-11-09] MEDS ORDERED: MENTHOL/PHENOL 1 EACH UD MM PRN (14:17)
[2020-11-09] MEDS ORDERED: LOPERAMIDE HCL 2 MG CAPSULE PO PRN (14:17)
[2020-11-09] MEDS ORDERED: NICOTINE POLACRILEX 2 MG GUM BUC PRN (14:17)
[2020-11-09] MEDS ORDERED: MAGNESIUM CITRATE 300 ML BOTTLE PO PRN (14:17)
[2020-11-09] MEDS ORDERED: guaiFENesin 200 MG/10 ML 10 ML UNIT-DOSE CUPS PO PRN (14:17)
[2020-11-09] MEDS ORDERED: IBUPROFEN 400 MG TABLET (FP) PO PRN (14:17)
[2020-11-09] MEDS ORDERED: MAG HYDROX/AL HYDROX/SIMETH 30 ML UNIT-DOSE CUP PO PRN (14:17)
[2020-11-09] MEDS ORDERED: ALBUTEROL SO4 HFA INHALER IH PRN (14:19)
[2020-11-09] MEDS: GABAPENTIN 400 MG CAPSULE PO SCH ×2 (15:45→21:09)
[2020-11-09] MEDS ORDERED: PT OWN MED DRAWER 7, Y5N ONE (21:08)
[2020-11-09] MEDS: QUEtiapine FUMARATE 200 MG TABLET PO SCH (21:09)
[2020-11-09] MEDS: BUDESONIDE/FORMETEROL FUMARATE 80/4.5 mcg INHALER IH SCH (21:09)
[2020-11-09] MEDS: ATORVASTATIN CA 10 MG TABLET (FP) PO SCH (21:09)
[2020-11-09] MEDS: MELATONIN 5 MG TABLETS PO SCH (21:10)
[2020-11-09] MEDS: THIAMINE HCL 100 MG TABLET (FP) PO SCH (21:10)
[2020-11-09] MEDS: hydrOXYzine PAMOATE 25 MG CAPSULE (FP) PO PRN (21:11)
[2020-11-09] MEDS: ACETAMINOPHEN 325 MG TABLET (FP) PO PRN (23:17)
[2020-11-10] MEDS: hydrOXYzine PAMOATE 25 MG CAPSULE (FP) PO PRN ×3 (03:30→21:53)
[2020-11-10] MEDS ORDERED: methaDONE HCL 10 MG TABLET PO SCH (06:00)
[2020-11-10] MEDS ORDERED: methaDONE HCL 40 MG DISPERSABLE TABLET ONE (06:02)
[2020-11-10] MEDS: methaDONE 80 MG, methaDONE 10 MG PO SCH (06:02)
[2020-11-10] MEDS: GABAPENTIN 400 MG CAPSULE PO SCH ×3 (06:02→21:53)
[2020-11-10] MEDS ORDERED: methaDONE HCL 10 MG TABLET ONE (06:02)
[2020-11-10] MEDS ORDERED: PT OWN MED DRAWER 7, Y5N ONE (08:57)
[2020-11-10] MEDS: BUDESONIDE/FORMETEROL FUMARATE 80/4.5 mcg INHALER IH SCH ×2 (10:27→21:53)
[2020-11-10] MEDS: LISINOPRIL 20 MG TABLET PO SCH ×2 (10:30→12:37)
[2020-11-10] MEDS: QUEtiapine FUMARATE 50 MG TABLET PO SCH (10:30)
[2020-11-10] MEDS: amLODIPine BESYLATE 10 MG TABLET (FP) PO SCH (10:30)
[2020-11-10] MEDS: PRENATAL VITAMINS W/ FOLIC ACID TABLET (FP) PO SCH (10:32)
[2020-11-10] MEDS: NICOTINE 7 MG/24 HOURS TOPICAL PATCH TD SCH (10:32)
[2020-11-10] MEDS ORDERED: LISINOPRIL 20 MG TABLET PO ONE (12:30)
[2020-11-10] MEDS: QUEtiapine FUMARATE 200 MG TABLET PO SCH (21:53)
[2020-11-10] MEDS: THIAMINE HCL 100 MG TABLET (FP) PO SCH (21:53)
[2020-11-10] MEDS: ATORVASTATIN CA 10 MG TABLET (FP) PO SCH (21:54)
[2020-11-10] MEDS: MELATONIN 5 MG TABLETS PO SCH (21:54)
[2020-11-11] MEDS ORDERED: methaDONE HCL 10 MG TABLET ONE (04:52)
[2020-11-11] MEDS ORDERED: methaDONE HCL 40 MG DISPERSABLE TABLET ONE (04:53)
[2020-11-11] MEDS: GABAPENTIN 400 MG CAPSULE PO SCH ×3 (06:05→21:34)
[2020-11-11] MEDS: methaDONE 80 MG, methaDONE 10 MG PO SCH (06:06)
[2020-11-11] MEDS: QUEtiapine FUMARATE 50 MG TABLET PO SCH (10:43)
[2020-11-11] MEDS: PRENATAL VITAMINS W/ FOLIC ACID TABLET (FP) PO SCH (10:43)
[2020-11-11] MEDS: hydrOXYzine PAMOATE 25 MG CAPSULE (FP) PO PRN (10:43)
[2020-11-11] MEDS: BUDESONIDE/FORMETEROL FUMARATE 80/4.5 mcg INHALER IH SCH ×2 (10:43→21:34)
[2020-11-11] MEDS: LISINOPRIL 20 MG TABLET PO SCH (10:43)
[2020-11-11] MEDS: amLODIPine BESYLATE 10 MG TABLET (FP) PO SCH (10:43)
[2020-11-11] MEDS: NICOTINE 7 MG/24 HOURS TOPICAL PATCH TD SCH (10:44)
[2020-11-11] MEDS: MAGNESIUM HYDROX 2400MG/30ML ORAL SUSPENSION 30 ML CUP PO PRN (17:31)
[2020-11-11] MEDS: QUEtiapine FUMARATE 200 MG TABLET PO SCH (21:34)
[2020-11-11] MEDS: ATORVASTATIN CA 10 MG TABLET (FP) PO SCH (21:34)
[2020-11-11] MEDS: THIAMINE HCL 100 MG TABLET (FP) PO SCH (21:35)
[2020-11-11] MEDS: MELATONIN 5 MG TABLETS PO SCH (21:35)
[2020-11-12] MEDS: hydrOXYzine PAMOATE 25 MG CAPSULE (FP) PO PRN (03:20)
[2020-11-12] MEDS ORDERED: methaDONE HCL 10 MG TABLET ONE (05:57)
[2020-11-12] MEDS ORDERED: methaDONE HCL 40 MG DISPERSABLE TABLET ONE (05:57)
[2020-11-12] MEDS: GABAPENTIN 400 MG CAPSULE PO SCH ×3 (06:12→21:42)
[2020-11-12] MEDS: methaDONE 80 MG, methaDONE 10 MG PO SCH (06:12)
[2020-11-12] MEDS: QUEtiapine FUMARATE 50 MG TABLET PO SCH (10:33)
[2020-11-12] MEDS: NICOTINE 7 MG/24 HOURS TOPICAL PATCH TD SCH (10:33)
[2020-11-12] MEDS: LISINOPRIL 20 MG TABLET PO SCH (10:33)
[2020-11-12] MEDS: BUDESONIDE/FORMETEROL FUMARATE 80/4.5 mcg INHALER IH SCH ×2 (10:33→21:41)
[2020-11-12] MEDS: amLODIPine BESYLATE 10 MG TABLET (FP) PO SCH (10:33)
[2020-11-12] MEDS: PRENATAL VITAMINS W/ FOLIC ACID TABLET (FP) PO SCH (10:33)
[2020-11-12] MEDS: ATORVASTATIN CA 10 MG TABLET (FP) PO SCH (21:42)
[2020-11-12] MEDS: THIAMINE HCL 100 MG TABLET (FP) PO SCH (21:42)
[2020-11-12] MEDS: QUEtiapine FUMARATE 200 MG TABLET PO SCH (21:42)
[2020-11-12] MEDS: MELATONIN 5 MG TABLETS PO SCH (21:44)
[2020-11-13] MEDS ORDERED: methaDONE HCL 10 MG TABLET ONE (03:16)
[2020-11-13] MEDS ORDERED: methaDONE HCL 40 MG DISPERSABLE TABLET ONE (03:16)
[2020-11-13] MEDS: methaDONE 80 MG, methaDONE 10 MG PO SCH (06:01)
[2020-11-13] MEDS: GABAPENTIN 400 MG CAPSULE PO SCH ×3 (06:02→21:39)
[2020-11-13] MEDS: hydrOXYzine PAMOATE 25 MG CAPSULE (FP) PO PRN (06:03)
[2020-11-13] MEDS: QUEtiapine FUMARATE 50 MG TABLET PO SCH (10:17)
[2020-11-13] MEDS: PRENATAL VITAMINS W/ FOLIC ACID TABLET (FP) PO SCH (10:17)
[2020-11-13] MEDS: amLODIPine BESYLATE 10 MG TABLET (FP) PO SCH (10:17)
[2020-11-13] MEDS: LISINOPRIL 20 MG TABLET PO SCH (10:17)
[2020-11-13] MEDS: NICOTINE 7 MG/24 HOURS TOPICAL PATCH TD SCH (10:18)
[2020-11-13] MEDS: BUDESONIDE/FORMETEROL FUMARATE 80/4.5 mcg INHALER IH SCH ×2 (10:18→21:39)
[2020-11-13] MEDS ORDERED: PT OWN MED DRAWER 7, Y5N ONE (20:26)
[2020-11-13] MEDS: QUEtiapine FUMARATE 200 MG TABLET PO SCH (21:39)
[2020-11-13] MEDS: ATORVASTATIN CA 10 MG TABLET (FP) PO SCH (21:39)
[2020-11-13] MEDS: MELATONIN 5 MG TABLETS PO SCH (21:39)
[2020-11-13] MEDS: THIAMINE HCL 100 MG TABLET (FP) PO SCH (21:39)
[2020-11-14] MEDS ORDERED: methaDONE HCL 10 MG TABLET ONE (04:57)
[2020-11-14] MEDS ORDERED: methaDONE HCL 40 MG DISPERSABLE TABLET ONE (04:57)
[2020-11-14] MEDS: methaDONE 80 MG, methaDONE 10 MG PO SCH (05:58)
[2020-11-14] MEDS: GABAPENTIN 400 MG CAPSULE PO SCH ×3 (05:59→21:36)
[2020-11-14] MEDS: QUEtiapine FUMARATE 50 MG TABLET PO SCH (10:15)
[2020-11-14] MEDS: PRENATAL VITAMINS W/ FOLIC ACID TABLET (FP) PO SCH (10:15)
[2020-11-14] MEDS: BUDESONIDE/FORMETEROL FUMARATE 80/4.5 mcg INHALER IH SCH ×2 (10:15→21:37)
[2020-11-14] MEDS: amLODIPine BESYLATE 10 MG TABLET (FP) PO SCH (10:16)
[2020-11-14] MEDS: LISINOPRIL 20 MG TABLET PO SCH (10:16)
[2020-11-14] MEDS: NICOTINE 7 MG/24 HOURS TOPICAL PATCH TD SCH (10:16)
[2020-11-14] MEDS: hydrOXYzine PAMOATE 25 MG CAPSULE (FP) PO PRN (18:11)
[2020-11-14] MEDS ORDERED: PT OWN MED DRAWER 7, Y5N ONE (19:55)
[2020-11-14] MEDS: MELATONIN 5 MG TABLETS PO SCH (21:36)
[2020-11-14] MEDS: THIAMINE HCL 100 MG TABLET (FP) PO SCH (21:36)
[2020-11-14] MEDS: QUEtiapine FUMARATE 200 MG TABLET PO SCH (21:36)
[2020-11-14] MEDS: ATORVASTATIN CA 10 MG TABLET (FP) PO SCH (21:36)
[2020-11-15] MEDS: hydrOXYzine PAMOATE 25 MG CAPSULE (FP) PO PRN ×3 (02:42→21:51)
[2020-11-15] MEDS ORDERED: methaDONE HCL 10 MG TABLET ONE (03:02)
[2020-11-15] MEDS ORDERED: methaDONE HCL 40 MG DISPERSABLE TABLET ONE (03:03)
[2020-11-15] MEDS: methaDONE 80 MG, methaDONE 10 MG PO SCH (06:01)
[2020-11-15] MEDS: GABAPENTIN 400 MG CAPSULE PO SCH ×3 (06:02→21:49)
[2020-11-15] MEDS: PRENATAL VITAMINS W/ FOLIC ACID TABLET (FP) PO SCH (10:45)
[2020-11-15] MEDS: QUEtiapine FUMARATE 50 MG TABLET PO SCH (10:46)
[2020-11-15] MEDS: amLODIPine BESYLATE 10 MG TABLET (FP) PO SCH (10:46)
[2020-11-15] MEDS: NICOTINE 7 MG/24 HOURS TOPICAL PATCH TD SCH (10:46)
[2020-11-15] MEDS: BUDESONIDE/FORMETEROL FUMARATE 80/4.5 mcg INHALER IH SCH ×2 (10:46→21:50)
[2020-11-15] MEDS: LISINOPRIL 20 MG TABLET PO SCH (10:46)
[2020-11-15] MEDS: THIAMINE HCL 100 MG TABLET (FP) PO SCH (21:48)
[2020-11-15] MEDS: MELATONIN 5 MG TABLETS PO SCH (21:48)
[2020-11-15] MEDS: QUEtiapine FUMARATE 200 MG TABLET PO SCH (21:49)
[2020-11-15] MEDS: ATORVASTATIN CA 10 MG TABLET (FP) PO SCH (21:49)
[2020-11-16] MEDS ORDERED: methaDONE HCL 40 MG DISPERSABLE TABLET ONE (04:51)
[2020-11-16] MEDS ORDERED: methaDONE HCL 10 MG TABLET ONE (04:51)
[2020-11-16] MEDS: methaDONE 80 MG, methaDONE 10 MG PO SCH (05:58)
[2020-11-16] MEDS: GABAPENTIN 400 MG CAPSULE PO SCH ×3 (05:58→21:15)
[2020-11-16] MEDS: NICOTINE 7 MG/24 HOURS TOPICAL PATCH TD SCH (10:22)
[2020-11-16] MEDS: LISINOPRIL 20 MG TABLET PO SCH (10:22)
[2020-11-16] MEDS: PRENATAL VITAMINS W/ FOLIC ACID TABLET (FP) PO SCH (10:22)
[2020-11-16] MEDS: QUEtiapine FUMARATE 50 MG TABLET PO SCH (10:22)
[2020-11-16] MEDS: amLODIPine BESYLATE 10 MG TABLET (FP) PO SCH (10:22)
[2020-11-16] MEDS: BUDESONIDE/FORMETEROL FUMARATE 80/4.5 mcg INHALER IH SCH ×2 (10:23→21:15)
[2020-11-16] MEDS: hydrOXYzine PAMOATE 25 MG CAPSULE (FP) PO PRN (10:23)
[2020-11-16] MEDS: MAGNESIUM HYDROX 2400MG/30ML ORAL SUSPENSION 30 ML CUP PO PRN (17:19)
[2020-11-16] MEDS: QUEtiapine FUMARATE 200 MG TABLET PO SCH (21:15)
[2020-11-16] MEDS: THIAMINE HCL 100 MG TABLET (FP) PO SCH (21:15)
[2020-11-16] MEDS: MELATONIN 5 MG TABLETS PO SCH (21:15)
[2020-11-16] MEDS: ATORVASTATIN CA 10 MG TABLET (FP) PO SCH (21:15)
[2020-11-17] MEDS: hydrOXYzine PAMOATE 25 MG CAPSULE (FP) PO PRN ×2 (01:42→21:19)
[2020-11-17] MEDS ORDERED: methaDONE HCL 10 MG TABLET ONE (04:57)
[2020-11-17] MEDS ORDERED: methaDONE HCL 40 MG DISPERSABLE TABLET ONE (04:58)
[2020-11-17] MEDS: methaDONE 80 MG, methaDONE 10 MG PO SCH (06:10)
[2020-11-17] MEDS: GABAPENTIN 400 MG CAPSULE PO SCH ×3 (06:10→21:19)
[2020-11-17] MEDS: NICOTINE 7 MG/24 HOURS TOPICAL PATCH TD SCH (09:54)
[2020-11-17] MEDS: BUDESONIDE/FORMETEROL FUMARATE 80/4.5 mcg INHALER IH SCH ×2 (09:54→21:19)
[2020-11-17] MEDS: PRENATAL VITAMINS W/ FOLIC ACID TABLET (FP) PO SCH (09:54)
[2020-11-17] MEDS: QUEtiapine FUMARATE 50 MG TABLET PO SCH (09:54)
[2020-11-17] MEDS: amLODIPine BESYLATE 10 MG TABLET (FP) PO SCH (10:37)
[2020-11-17] MEDS: LISINOPRIL 20 MG TABLET PO SCH (10:37)
[2020-11-17] MEDS: DOCUSATE SODIUM 100 MG CAPSULE (FP) PO SCH ×2 (14:22→21:19)
[2020-11-17] MEDS: QUEtiapine FUMARATE 200 MG TABLET PO SCH (21:19)
[2020-11-17] MEDS: THIAMINE HCL 100 MG TABLET (FP) PO SCH (21:19)
[2020-11-17] MEDS: MELATONIN 5 MG TABLETS PO SCH (21:19)
[2020-11-17] MEDS: ATORVASTATIN CA 10 MG TABLET (FP) PO SCH (21:19)
[2020-11-18] MEDS ORDERED: methaDONE HCL 10 MG TABLET ONE (03:23)
[2020-11-18] MEDS ORDERED: methaDONE HCL 40 MG DISPERSABLE TABLET ONE (03:23)
[2020-11-18] MEDS: methaDONE 80 MG, methaDONE 10 MG PO SCH (06:06)
[2020-11-18] MEDS: GABAPENTIN 400 MG CAPSULE PO SCH ×3 (06:06→21:25)
[2020-11-18] MEDS: DOCUSATE SODIUM 100 MG CAPSULE (FP) PO SCH ×3 (06:07→21:25)
[2020-11-18] MEDS: amLODIPine BESYLATE 10 MG TABLET (FP) PO SCH (10:24)
[2020-11-18] MEDS: PRENATAL VITAMINS W/ FOLIC ACID TABLET (FP) PO SCH (10:24)
[2020-11-18] MEDS: hydrOXYzine PAMOATE 25 MG CAPSULE (FP) PO PRN ×2 (10:25→21:25)
[2020-11-18] MEDS: QUEtiapine FUMARATE 50 MG TABLET PO SCH (10:25)
[2020-11-18] MEDS: NICOTINE 7 MG/24 HOURS TOPICAL PATCH TD SCH (10:25)
[2020-11-18] MEDS: BUDESONIDE/FORMETEROL FUMARATE 80/4.5 mcg INHALER IH SCH ×2 (10:25→21:25)
[2020-11-18] MEDS: LISINOPRIL 20 MG TABLET PO SCH (10:25)
[2020-11-18] MEDS: MELATONIN 5 MG TABLETS PO SCH (21:25)
[2020-11-18] MEDS: THIAMINE HCL 100 MG TABLET (FP) PO SCH (21:25)
[2020-11-18] MEDS: QUEtiapine FUMARATE 200 MG TABLET PO SCH (21:25)
[2020-11-18] MEDS: ATORVASTATIN CA 10 MG TABLET (FP) PO SCH (21:25)
[2020-11-19] MEDS ORDERED: methaDONE HCL 40 MG DISPERSABLE TABLET ONE (03:52)
[2020-11-19] MEDS ORDERED: methaDONE HCL 10 MG TABLET ONE (03:52)
[2020-11-19] MEDS: methaDONE 80 MG, methaDONE 10 MG PO SCH (06:06)
[2020-11-19] MEDS: GABAPENTIN 400 MG CAPSULE PO SCH ×3 (06:06→21:26)
[2020-11-19] MEDS: DOCUSATE SODIUM 100 MG CAPSULE (FP) PO SCH ×3 (06:06→21:26)
[2020-11-19] MEDS: amLODIPine BESYLATE 10 MG TABLET (FP) PO SCH (10:13)
[2020-11-19] MEDS: LISINOPRIL 20 MG TABLET PO SCH (10:13)
[2020-11-19] MEDS: NICOTINE 7 MG/24 HOURS TOPICAL PATCH TD SCH (10:13)
[2020-11-19] MEDS: PRENATAL VITAMINS W/ FOLIC ACID TABLET (FP) PO SCH (10:13)
[2020-11-19] MEDS: QUEtiapine FUMARATE 50 MG TABLET PO SCH (10:13)
[2020-11-19] MEDS: BUDESONIDE/FORMETEROL FUMARATE 80/4.5 mcg INHALER IH SCH ×2 (10:15→21:25)
[2020-11-19] MEDS ORDERED: PT OWN MED DRAWER 7, Y5N ONE (18:33)
[2020-11-19] MEDS: ATORVASTATIN CA 10 MG TABLET (FP) PO SCH (21:26)
[2020-11-19] MEDS: THIAMINE HCL 100 MG TABLET (FP) PO SCH (21:26)
[2020-11-19] MEDS: QUEtiapine FUMARATE 200 MG TABLET PO SCH (21:26)
[2020-11-19] MEDS: MELATONIN 5 MG TABLETS PO SCH (21:26)
[2020-11-19] MEDS: hydrOXYzine PAMOATE 25 MG CAPSULE (FP) PO PRN (21:27)
[2020-11-20] MEDS ORDERED: methaDONE HCL 10 MG TABLET ONE (03:23)
[2020-11-20] MEDS ORDERED: methaDONE HCL 40 MG DISPERSABLE TABLET ONE (03:23)
[2020-11-20] MEDS: GABAPENTIN 400 MG CAPSULE PO SCH ×3 (06:06→21:48)
[2020-11-20] MEDS: methaDONE 80 MG, methaDONE 10 MG PO SCH (06:06)
[2020-11-20] MEDS: DOCUSATE SODIUM 100 MG CAPSULE (FP) PO SCH ×3 (06:06→21:48)
[2020-11-20] MEDS: BUDESONIDE/FORMETEROL FUMARATE 80/4.5 mcg INHALER IH SCH ×2 (10:32→21:47)
[2020-11-20] MEDS: amLODIPine BESYLATE 10 MG TABLET (FP) PO SCH (10:33)
[2020-11-20] MEDS: QUEtiapine FUMARATE 50 MG TABLET PO SCH (10:33)
[2020-11-20] MEDS: LISINOPRIL 20 MG TABLET PO SCH (10:33)
[2020-11-20] MEDS: PRENATAL VITAMINS W/ FOLIC ACID TABLET (FP) PO SCH (10:33)
[2020-11-20] MEDS: NICOTINE 7 MG/24 HOURS TOPICAL PATCH TD SCH (10:33)
[2020-11-20] MEDS: hydrOXYzine PAMOATE 25 MG CAPSULE (FP) PO PRN ×2 (10:34→21:48)
[2020-11-20] MEDS: ATORVASTATIN CA 10 MG TABLET (FP) PO SCH (21:48)
[2020-11-20] MEDS: QUEtiapine FUMARATE 200 MG TABLET PO SCH (21:48)
[2020-11-20] MEDS: THIAMINE HCL 100 MG TABLET (FP) PO SCH (21:48)
[2020-11-20] MEDS: MELATONIN 5 MG TABLETS PO SCH (21:48)
[2020-11-21] MEDS ORDERED: methaDONE HCL 40 MG DISPERSABLE TABLET ONE (02:49)
[2020-11-21] MEDS ORDERED: methaDONE HCL 10 MG TABLET ONE (02:49)
[2020-11-21] MEDS: methaDONE 80 MG, methaDONE 10 MG PO SCH (06:05)
[2020-11-21] MEDS: DOCUSATE SODIUM 100 MG CAPSULE (FP) PO SCH ×3 (06:05→21:45)
[2020-11-21] MEDS: GABAPENTIN 400 MG CAPSULE PO SCH ×3 (06:05→21:45)
[2020-11-21] MEDS: BUDESONIDE/FORMETEROL FUMARATE 80/4.5 mcg INHALER IH SCH ×2 (09:58→21:44)
[2020-11-21] MEDS: NICOTINE 7 MG/24 HOURS TOPICAL PATCH TD SCH (09:59)
[2020-11-21] MEDS: PRENATAL VITAMINS W/ FOLIC ACID TABLET (FP) PO SCH (09:59)
[2020-11-21] MEDS: LISINOPRIL 20 MG TABLET PO SCH ×2 (09:59→12:18)
[2020-11-21] MEDS: hydrOXYzine PAMOATE 25 MG CAPSULE (FP) PO PRN ×2 (09:59→16:10)
[2020-11-21] MEDS: QUEtiapine FUMARATE 50 MG TABLET PO SCH (10:00)
[2020-11-21] MEDS: amLODIPine BESYLATE 10 MG TABLET (FP) PO SCH (12:16)
[2020-11-21] MEDS: MELATONIN 5 MG TABLETS PO SCH (21:44)
[2020-11-21] MEDS: QUEtiapine FUMARATE 200 MG TABLET PO SCH (21:45)
[2020-11-21] MEDS: ATORVASTATIN CA 10 MG TABLET (FP) PO SCH (21:45)
[2020-11-21] MEDS: THIAMINE HCL 100 MG TABLET (FP) PO SCH (21:45)
[2020-11-22] MEDS ORDERED: methaDONE HCL 10 MG TABLET ONE (03:40)
[2020-11-22] MEDS ORDERED: methaDONE HCL 40 MG DISPERSABLE TABLET ONE (03:40)
[2020-11-22] MEDS: DOCUSATE SODIUM 100 MG CAPSULE (FP) PO SCH ×3 (05:40→21:26)
[2020-11-22] MEDS: methaDONE 80 MG, methaDONE 10 MG PO SCH (05:41)
[2020-11-22] MEDS: GABAPENTIN 400 MG CAPSULE PO SCH ×3 (05:41→21:25)
[2020-11-22] MEDS ORDERED: PT OWN MED DRAWER 7, Y5N ONE (08:55)
[2020-11-22] MEDS: NICOTINE 7 MG/24 HOURS TOPICAL PATCH TD SCH (10:16)
[2020-11-22] MEDS: amLODIPine BESYLATE 10 MG TABLET (FP) PO SCH (10:16)
[2020-11-22] MEDS: PRENATAL VITAMINS W/ FOLIC ACID TABLET (FP) PO SCH (10:16)
[2020-11-22] MEDS: BUDESONIDE/FORMETEROL FUMARATE 80/4.5 mcg INHALER IH SCH ×2 (10:17→21:26)
[2020-11-22] MEDS: LISINOPRIL 20 MG TABLET PO SCH (10:17)
[2020-11-22] MEDS: QUEtiapine FUMARATE 50 MG TABLET PO SCH (10:17)
[2020-11-22] MEDS: ACETAMINOPHEN 325 MG TABLET (FP) PO PRN (10:18)
[2020-11-22] MEDS: valACYclovir HCL 500 MG TABLET (FP) PO SCH ×2 (14:26→21:26)
[2020-11-22] MEDS: ATORVASTATIN CA 10 MG TABLET (FP) PO SCH (21:25)
[2020-11-22] MEDS: QUEtiapine FUMARATE 200 MG TABLET PO SCH (21:25)
[2020-11-22] MEDS: THIAMINE HCL 100 MG TABLET (FP) PO SCH (21:25)
[2020-11-22] MEDS: MELATONIN 5 MG TABLETS PO SCH (21:26)
[2020-11-23] MEDS ORDERED: methaDONE HCL 10 MG TABLET ONE (03:38)
[2020-11-23] MEDS ORDERED: methaDONE HCL 40 MG DISPERSABLE TABLET ONE (03:38)
[2020-11-23] MEDS: DOCUSATE SODIUM 100 MG CAPSULE (FP) PO SCH (06:21)
[2020-11-23] MEDS: GABAPENTIN 400 MG CAPSULE PO SCH (06:21)
[2020-11-23] MEDS: methaDONE 80 MG, methaDONE 10 MG PO SCH (06:21)
[2020-11-23] MEDS: valACYclovir HCL 500 MG TABLET (FP) PO SCH (06:23)
[2020-11-23 08:37] VITALS: BP 140/73; PULSE 96; TEMP 97.5
[2020-11-23] MEDS: QUEtiapine FUMARATE 50 MG TABLET PO SCH (09:15)
[2020-11-23] MEDS: LISINOPRIL 20 MG TABLET PO SCH (09:15)
[2020-11-23] MEDS: PRENATAL VITAMINS W/ FOLIC ACID TABLET (FP) PO SCH (09:16)
[2020-11-23] MEDS: NICOTINE 7 MG/24 HOURS TOPICAL PATCH TD SCH (09:16)
[2020-11-23] MEDS: amLODIPine BESYLATE 10 MG TABLET (FP) PO SCH (09:16)
[2020-11-23] MEDS: BUDESONIDE/FORMETEROL FUMARATE 80/4.5 mcg INHALER IH SCH (09:17)
== END 2020-11-23 09:45 | disposition home or self-care (01) | DRG 772 ==
LOC: YASAS 12:46 → Y5N 12:51
PROVIDERS: ADMIT Allergy & Immunology; ATTEND Allergy & Immunology
PROC: HZ42ZZZ Group Counseling for Substance Abuse Treatment, Cognitive-Behavioral (ICD-10-PCS; principal; 2020-11-09)
DX: F10.20 Alcohol dependence, uncomplicated (principal); F11.20 Opioid dependence, uncomplicated; F14.20 Cocaine dependence, uncomplicated; F13.20 Sedative, hypnotic or anxiolytic dependence, uncomplicated; F17.210 Nicotine dependence, cigarettes, uncomplicated; F19.282 Other psychoactive substance dependence with psychoactive substance-induced sleep disorder; F31.9 Bipolar disorder, unspecified; I10 Essential (primary) hypertension; I25.2 Old myocardial infarction; J44.9 Chronic obstructive pulmonary disease, unspecified; B02.9 Zoster without complications; B35.3 Tinea pedis; M54.5 Low back pain; G89.29 Other chronic pain; Z86.010 Personal history of colon polyps; Z91.018 Allergy to other foods; Z91.013 Allergy to seafood

== ENCOUNTER 2021-03-31 17:30 | Inpatient (IN) | payer OTHER ==
[2021-03-31 18:35] VITALS: BMI 24.6
[2021-03-31] MEDS ORDERED: ACETAMINOPHEN 325 MG TABLET (FP) PO PRN ×2 (18:53)
[2021-03-31] MEDS ORDERED: MAG HYDROX/AL HYDROX/SIMETH 30 ML UNIT-DOSE CUP PO PRN (18:53)
[2021-03-31] MEDS ORDERED: MAGNESIUM CITRATE 300 ML BOTTLE PO PRN (18:53)
[2021-03-31] MEDS ORDERED: ONDANSETRON *ODT* 4 MG TABLET SL PRN (18:53)
[2021-03-31] MEDS ORDERED: IBUPROFEN 400 MG TABLET (FP) PO PRN (18:53)
[2021-03-31] MEDS ORDERED: BISMUTH SUBSALICYLATE 524 MG/30 ML PO PRN (18:53)
[2021-03-31] MEDS ORDERED: MAGNESIUM HYDROX 2400MG/30ML ORAL SUSPENSION 30 ML CUP PO PRN (18:53)
[2021-03-31] MEDS ORDERED: METHOCARBAMOL 500 MG TABLET PO PRN (18:53)
[2021-03-31] MEDS ORDERED: NICOTINE 10 MG CARTRIDGE (INHALER) IH PRN (18:53)
[2021-03-31] MEDS ORDERED: MENTHOL/PHENOL 1 EACH UD MM PRN (18:53)
[2021-03-31] MEDS ORDERED: ALBUTEROL SO4 HFA INHALER IH PRN (18:55)
[2021-03-31] MEDS ORDERED: MELATONIN 5 MG TABLETS PO SCH (22:00)
[2021-03-31] MEDS: FAMOTIDINE 20 MG TABLET PO SCH (22:11)
[2021-03-31] MEDS: ATORVASTATIN CA 20 MG TABLET (FP) PO SCH (22:11)
[2021-03-31] MEDS: hydrOXYzine PAMOATE 25 MG CAPSULE (FP) PO SCH (22:11)
[2021-03-31] MEDS: THIAMINE HCL 100 MG TABLET (FP) PO SCH (22:12)
[2021-03-31] MEDS: chlordiazePOXIDE HCL 25 MG CAPSULE PO SCH (22:13)
[2021-03-31] MEDS: BUDESONIDE/FORMETEROL FUMARATE 80/4.5 mcg INHALER IH SCH (22:40)
[2021-04-01] MEDS: chlordiazePOXIDE HCL 25 MG CAPSULE PO SCH ×4 (05:57→22:41)
[2021-04-01] MEDS: hydrOXYzine PAMOATE 25 MG CAPSULE (FP) PO SCH (05:58)
[2021-04-01] MEDS ORDERED: methaDONE HCL 10 MG TABLET PO SCH (08:00)
[2021-04-01] MEDS ORDERED: hydrOXYzine PAMOATE 25 MG CAPSULE (FP) PO PRN (08:41)
[2021-04-01] MEDS: methaDONE 80 MG, methaDONE 10 MG PO SCH (09:04)
[2021-04-01] MEDS ORDERED: methaDONE HCL 40 MG DISPERSABLE TABLET ONE (09:04)
[2021-04-01] MEDS ORDERED: methaDONE HCL 10 MG TABLET ONE (09:04)
[2021-04-01] MEDS ORDERED: PATIENT'S OWN MEDICATION (NON-FORMULARY) (Lisinopril [Lisinopril] 40 MG Tablet) PO SCH (10:00)
[2021-04-01] MEDS: BUDESONIDE/FORMETEROL FUMARATE 80/4.5 mcg INHALER IH SCH ×2 (10:39→23:15)
[2021-04-01] MEDS: LISINOPRIL 10 MG TABLET PO SCH (10:39)
[2021-04-01] MEDS: amLODIPine BESYLATE 10 MG TABLET (FP) PO SCH (10:40)
[2021-04-01] MEDS: QUEtiapine FUMARATE 50 MG TABLET PO SCH (10:40)
[2021-04-01] MEDS: NICOTINE 7 MG/24 HOURS TOPICAL PATCH TD SCH (10:40)
[2021-04-01] MEDS: FAMOTIDINE 20 MG TABLET PO SCH ×2 (10:40→22:08)
[2021-04-01] MEDS: PRENATAL VITAMINS W/ FOLIC ACID TABLET (FP) PO SCH (10:40)
[2021-04-01 11:47] LABS: HEMATOCRIT 38.4 % (35.4-49); HEMOGLOBIN 13.1 GM/dL (11.7-16.9); MCH 32.7 pg (25.7-33.7); MCHC 34.2 g/dl (32.0-35.9); MEAN CELL VOLUME 95.5 fl (80-96); MEAN PLT VOLUME 7.9 fl (7.5-11.1); PLATELET COUNT 162 10^3/uL (134-434); RBC 4.02 M/mm3 (4.00-5.60); RDW 14.1 % (11.9-15.9); WHITE BLOOD COUNT 5.2 K/mm3 (4.0-10.0)
[2021-04-01 11:56] LABS: CALCIUM 8.3 mg/dL (8.5-10.1)
[2021-04-01 11:57] LABS: ALBUMIN 2.8 g/dl (3.4-5.0); BLOOD UREA NITROGEN 12.4 mg/dL (7-18)
[2021-04-01 12:00] LABS: CREATININE 0.6 mg/dL (0.55-1.3)
[2021-04-01 12:01] LABS: BILIRUBIN,TOTAL 0.6 mg/dL (0.2-1)
[2021-04-01 12:02] LABS: TOT PROT 6.2 g/dl (6.4-8.2)
[2021-04-01] MEDS: chlordiazePOXIDE HCL 25 MG CAPSULE PO PRN ×2 (14:26→19:35)
[2021-04-01] MEDS: GABAPENTIN 400 MG CAPSULE PO SCH ×2 (14:26→22:07)
[2021-04-01] MEDS ORDERED: QUEtiapine FUMARATE 200 MG TABLET PO SCH (22:00)
[2021-04-01] MEDS ORDERED: QUEtiapine FUMARATE 100 MG TABLET (FP) PO SCH (22:00)
[2021-04-01] MEDS: THIAMINE HCL 100 MG TABLET (FP) PO SCH (22:07)
[2021-04-01] MEDS: ATORVASTATIN CA 20 MG TABLET (FP) PO SCH (22:07)
[2021-04-02] MEDS ORDERED: methaDONE HCL 40 MG DISPERSABLE TABLET ONE (05:11)
[2021-04-02] MEDS ORDERED: methaDONE HCL 10 MG TABLET ONE (05:11)
[2021-04-02] MEDS: GABAPENTIN 400 MG CAPSULE PO SCH ×3 (05:57→22:04)
[2021-04-02] MEDS: methaDONE 80 MG, methaDONE 10 MG PO SCH (05:58)
[2021-04-02] MEDS: chlordiazePOXIDE HCL 25 MG CAPSULE PO SCH ×4 (05:59→22:04)
[2021-04-02] MEDS: PRENATAL VITAMINS W/ FOLIC ACID TABLET (FP) PO SCH (10:23)
[2021-04-02] MEDS: FAMOTIDINE 20 MG TABLET PO SCH ×2 (10:24→22:04)
[2021-04-02] MEDS: NICOTINE 7 MG/24 HOURS TOPICAL PATCH TD SCH (10:24)
[2021-04-02] MEDS: QUEtiapine FUMARATE 50 MG TABLET PO SCH (10:24)
[2021-04-02] MEDS: LISINOPRIL 10 MG TABLET PO SCH (10:24)
[2021-04-02] MEDS: amLODIPine BESYLATE 10 MG TABLET (FP) PO SCH (10:24)
[2021-04-02] MEDS: BUDESONIDE/FORMETEROL FUMARATE 80/4.5 mcg INHALER IH SCH ×2 (10:25→22:05)
[2021-04-02] MEDS: MINERAL OIL/PETROLAT/WATER TOPICAL CREAM 113 GM JAR TP SCH ×2 (14:26→22:07)
[2021-04-02] MEDS: chlordiazePOXIDE HCL 25 MG CAPSULE PO PRN (15:28)
[2021-04-02] MEDS: QUEtiapine FUMARATE 200 MG TABLET PO SCH (22:04)
[2021-04-02] MEDS: ATORVASTATIN CA 20 MG TABLET (FP) PO SCH (22:04)
[2021-04-02] MEDS: THIAMINE HCL 100 MG TABLET (FP) PO SCH (22:07)
[2021-04-03] MEDS ORDERED: chlordiazePOXIDE HCL 10 MG CAPSULE PO PRN
[2021-04-03] MEDS ORDERED: methaDONE HCL 10 MG TABLET ONE (05:05)
[2021-04-03] MEDS ORDERED: methaDONE HCL 40 MG DISPERSABLE TABLET ONE (05:05)
[2021-04-03] MEDS: GABAPENTIN 400 MG CAPSULE PO SCH ×3 (06:00→22:04)
[2021-04-03] MEDS: chlordiazePOXIDE HCL 10 MG CAPSULE PO SCH ×4 (06:01→22:05)
[2021-04-03] MEDS: methaDONE 80 MG, methaDONE 10 MG PO SCH (06:02)
[2021-04-03] MEDS: PRENATAL VITAMINS W/ FOLIC ACID TABLET (FP) PO SCH (10:09)
[2021-04-03] MEDS: LISINOPRIL 10 MG TABLET PO SCH (10:09)
[2021-04-03] MEDS: QUEtiapine FUMARATE 50 MG TABLET PO SCH (10:09)
[2021-04-03] MEDS: amLODIPine BESYLATE 10 MG TABLET (FP) PO SCH (10:09)
[2021-04-03] MEDS: FAMOTIDINE 20 MG TABLET PO SCH ×2 (10:09→22:04)
[2021-04-03] MEDS: MINERAL OIL/PETROLAT/WATER TOPICAL CREAM 113 GM JAR TP SCH ×2 (10:10→22:06)
[2021-04-03] MEDS: BUDESONIDE/FORMETEROL FUMARATE 80/4.5 mcg INHALER IH SCH ×2 (10:10→22:04)
[2021-04-03] MEDS: NICOTINE 7 MG/24 HOURS TOPICAL PATCH TD SCH (10:10)
[2021-04-03] MEDS: THIAMINE HCL 100 MG TABLET (FP) PO SCH (22:04)
[2021-04-03] MEDS: ATORVASTATIN CA 20 MG TABLET (FP) PO SCH (22:04)
[2021-04-03] MEDS: QUEtiapine FUMARATE 200 MG TABLET PO SCH (22:04)
[2021-04-04] MEDS ORDERED: methaDONE HCL 10 MG TABLET ONE (04:51)
[2021-04-04] MEDS ORDERED: methaDONE HCL 40 MG DISPERSABLE TABLET ONE (04:52)
[2021-04-04] MEDS: methaDONE 80 MG, methaDONE 10 MG PO SCH (06:15)
[2021-04-04] MEDS: chlordiazePOXIDE HCL 10 MG CAPSULE PO SCH ×2 (06:15→17:38)
[2021-04-04] MEDS: GABAPENTIN 400 MG CAPSULE PO SCH ×3 (06:21→22:12)
[2021-04-04] MEDS: NICOTINE 7 MG/24 HOURS TOPICAL PATCH TD SCH (10:40)
[2021-04-04] MEDS: BUDESONIDE/FORMETEROL FUMARATE 80/4.5 mcg INHALER IH SCH ×2 (10:40→22:13)
[2021-04-04] MEDS: PRENATAL VITAMINS W/ FOLIC ACID TABLET (FP) PO SCH (10:40)
[2021-04-04] MEDS: MINERAL OIL/PETROLAT/WATER TOPICAL CREAM 113 GM JAR TP SCH ×2 (10:40→22:13)
[2021-04-04] MEDS: amLODIPine BESYLATE 10 MG TABLET (FP) PO SCH (10:41)
[2021-04-04] MEDS: QUEtiapine FUMARATE 50 MG TABLET PO SCH (10:41)
[2021-04-04] MEDS: FAMOTIDINE 20 MG TABLET PO SCH ×2 (10:41→22:12)
[2021-04-04] MEDS: LISINOPRIL 10 MG TABLET PO SCH (10:41)
[2021-04-04] MEDS: ATORVASTATIN CA 20 MG TABLET (FP) PO SCH (22:12)
[2021-04-04] MEDS: QUEtiapine FUMARATE 200 MG TABLET PO SCH (22:13)
[2021-04-04] MEDS: THIAMINE HCL 100 MG TABLET (FP) PO SCH (22:13)
[2021-04-05] MEDS ORDERED: methaDONE HCL 40 MG DISPERSABLE TABLET ONE ×2 (04:59→12:30)
[2021-04-05] MEDS ORDERED: methaDONE HCL 10 MG TABLET ONE ×2 (04:59→12:29)
[2021-04-05] MEDS ORDERED: chlordiazePOXIDE HCL 10 MG CAPSULE PO ONE ×2 (05:00→09:28)
[2021-04-05] MEDS: GABAPENTIN 400 MG CAPSULE PO SCH (06:05)
[2021-04-05] MEDS: methaDONE 80 MG, methaDONE 10 MG PO SCH (06:05)
[2021-04-05 07:18] VITALS: PULSE 88
[2021-04-05 10:04] VITALS: BP 107/53; TEMP 97.8
[2021-04-05] MEDS: BUDESONIDE/FORMETEROL FUMARATE 80/4.5 mcg INHALER IH SCH (10:47)
[2021-04-05] MEDS: PRENATAL VITAMINS W/ FOLIC ACID TABLET (FP) PO SCH (10:53)
[2021-04-05] MEDS: NICOTINE 7 MG/24 HOURS TOPICAL PATCH TD SCH (10:53)
[2021-04-05] MEDS: amLODIPine BESYLATE 10 MG TABLET (FP) PO SCH (10:53)
[2021-04-05] MEDS: QUEtiapine FUMARATE 50 MG TABLET PO SCH (10:53)
[2021-04-05] MEDS: FAMOTIDINE 20 MG TABLET PO SCH (10:53)
[2021-04-05] MEDS: MINERAL OIL/PETROLAT/WATER TOPICAL CREAM 113 GM JAR TP SCH (10:53)
[2021-04-05] MEDS: LISINOPRIL 10 MG TABLET PO SCH (10:53)
[2021-04-05] MEDS ORDERED: methaDONE HCL 10 MG TABLET PO ONE (12:00)
[2021-04-05] MEDS ORDERED: methaDONE 80 MG, methaDONE 10 MG PO ONE (12:22)
== END 2021-04-05 13:01 | disposition other institution (70) | DRG 773 ==
LOC: YASAS 17:30 → Y6N 19:20
PROVIDERS: ADMIT Allergy & Immunology; ATTEND Allergy & Immunology
PROC: HZ2ZZZZ Detoxification Services for Substance Abuse Treatment (ICD-10-PCS; principal; 2021-03-31)
DX: F10.230 Alcohol dependence with withdrawal, uncomplicated (principal); F11.20 Opioid dependence, uncomplicated; F13.20 Sedative, hypnotic or anxiolytic dependence, uncomplicated; F14.20 Cocaine dependence, uncomplicated; F17.210 Nicotine dependence, cigarettes, uncomplicated; F25.9 Schizoaffective disorder, unspecified; F43.10 Post-traumatic stress disorder, unspecified; F19.24 Other psychoactive substance dependence with psychoactive substance-induced mood disorder; F19.282 Other psychoactive substance dependence with psychoactive substance-induced sleep disorder; I10 Essential (primary) hypertension; E78.5 Hyperlipidemia, unspecified; J44.9 Chronic obstructive pulmonary disease, unspecified; K21.9 Gastro-esophageal reflux disease without esophagitis; R74.01 Elevation of levels of liver transaminase levels; R73.09 Other abnormal glucose; M54.59 Other low back pain; G89.29 Other chronic pain; K74.60 Unspecified cirrhosis of liver; Z91.013 Allergy to seafood; Z91.018 Allergy to other foods; Z56.0 Unemployment, unspecified
CPT/HCPCS: 36415; 80053; 82962; 85027; 86780; C9803; U0003; U0005

== ENCOUNTER 2021-04-05 13:19 | Inpatient (IN) | payer OTHER ==
[2021-04-05] MEDS ORDERED: ACETAMINOPHEN 325 MG TABLET (FP) PO PRN (14:10)
[2021-04-05] MEDS ORDERED: LOPERAMIDE HCL 2 MG CAPSULE PO PRN (14:10)
[2021-04-05] MEDS ORDERED: guaiFENesin 200 MG/10 ML 10 ML UNIT-DOSE CUPS PO PRN (14:10)
[2021-04-05] MEDS ORDERED: MAGNESIUM CITRATE 300 ML BOTTLE PO PRN (14:10)
[2021-04-05] MEDS ORDERED: MAGNESIUM HYDROX 2400MG/30ML ORAL SUSPENSION 30 ML CUP PO PRN (14:10)
[2021-04-05] MEDS ORDERED: P-EPHED 60MG/TRIPROLIDI 2.5MG TABLET PO PRN (14:10)
[2021-04-05] MEDS ORDERED: MENTHOL/PHENOL 1 EACH UD MM PRN (14:10)
[2021-04-05] MEDS ORDERED: MAG HYDROX/AL HYDROX/SIMETH 30 ML UNIT-DOSE CUP PO PRN (14:10)
[2021-04-05] MEDS ORDERED: IBUPROFEN 400 MG TABLET (FP) PO PRN (14:10)
[2021-04-05] MEDS ORDERED: ALBUTEROL SO4 HFA INHALER IH PRN (14:13)
[2021-04-05] MEDS: NICOTINE 10 MG CARTRIDGE (INHALER) IH PRN (17:21)
[2021-04-05] MEDS: BUDESONIDE/FORMETEROL FUMARATE 80/4.5 mcg INHALER IH SCH (21:21)
[2021-04-05] MEDS: THIAMINE HCL 100 MG TABLET (FP) PO SCH (21:22)
[2021-04-05] MEDS: FAMOTIDINE 20 MG TABLET PO SCH (21:24)
[2021-04-05] MEDS: ATORVASTATIN CA 10 MG TABLET (FP) PO SCH (21:24)
[2021-04-05] MEDS ORDERED: MELATONIN 5 MG TABLETS PO SCH (22:00)
[2021-04-06] MEDS: hydrOXYzine PAMOATE 25 MG CAPSULE (FP) PO PRN ×2 (01:00→07:07)
[2021-04-06] MEDS ORDERED: methaDONE HCL 40 MG DISPERSABLE TABLET PO SCH (07:00)
[2021-04-06] MEDS ORDERED: methaDONE HCL 40 MG DISPERSABLE TABLET ONE (07:06)
[2021-04-06] MEDS ORDERED: methaDONE HCL 10 MG TABLET ONE (07:06)
[2021-04-06] MEDS: methaDONE 80 MG, methaDONE 10 MG PO SCH (07:07)
[2021-04-06] MEDS: NICOTINE 10 MG CARTRIDGE (INHALER) IH PRN ×3 (07:08→16:28)
[2021-04-06] MEDS: PRENATAL VITAMINS W/ FOLIC ACID TABLET (FP) PO SCH (10:01)
[2021-04-06] MEDS: NICOTINE 14 MG/24 HOURS TOPICAL PATCH TD SCH (10:02)
[2021-04-06] MEDS: BUDESONIDE/FORMETEROL FUMARATE 80/4.5 mcg INHALER IH SCH ×2 (10:02→21:09)
[2021-04-06] MEDS: FAMOTIDINE 20 MG TABLET PO SCH ×2 (10:03→21:10)
[2021-04-06] MEDS: amLODIPine BESYLATE 10 MG TABLET (FP) PO SCH (11:00)
[2021-04-06] MEDS: LISINOPRIL 20 MG TABLET PO SCH (11:00)
[2021-04-06] MEDS: GABAPENTIN 400 MG CAPSULE PO SCH ×2 (14:17→21:10)
[2021-04-06] MEDS: ATORVASTATIN CA 10 MG TABLET (FP) PO SCH (21:10)
[2021-04-06] MEDS: THIAMINE HCL 100 MG TABLET (FP) PO SCH (21:11)
[2021-04-06] MEDS: PRAZOSIN HCL 1 MG CAPSULE PO SCH (22:27)
[2021-04-06] MEDS: QUEtiapine FUMARATE 200 MG TABLET PO SCH (22:28)
[2021-04-07] MEDS ORDERED: methaDONE HCL 10 MG TABLET ONE (03:34)
[2021-04-07] MEDS ORDERED: methaDONE HCL 40 MG DISPERSABLE TABLET ONE (03:34)
[2021-04-07] MEDS: GABAPENTIN 400 MG CAPSULE PO SCH ×3 (06:11→21:14)
[2021-04-07] MEDS: methaDONE 80 MG, methaDONE 10 MG PO SCH (06:11)
[2021-04-07] MEDS: NICOTINE 10 MG CARTRIDGE (INHALER) IH PRN ×3 (06:34→17:43)
[2021-04-07] MEDS: PRENATAL VITAMINS W/ FOLIC ACID TABLET (FP) PO SCH (09:49)
[2021-04-07] MEDS: BUDESONIDE/FORMETEROL FUMARATE 80/4.5 mcg INHALER IH SCH ×2 (09:49→21:14)
[2021-04-07] MEDS: LISINOPRIL 20 MG TABLET PO SCH (09:50)
[2021-04-07] MEDS: QUEtiapine FUMARATE 50 MG TABLET PO SCH (09:50)
[2021-04-07] MEDS: amLODIPine BESYLATE 10 MG TABLET (FP) PO SCH (09:50)
[2021-04-07] MEDS: FAMOTIDINE 20 MG TABLET PO SCH ×2 (09:50→21:14)
[2021-04-07] MEDS: NICOTINE 14 MG/24 HOURS TOPICAL PATCH TD SCH (09:51)
[2021-04-07] MEDS: PRAZOSIN HCL 1 MG CAPSULE PO SCH (21:14)
[2021-04-07] MEDS: ATORVASTATIN CA 10 MG TABLET (FP) PO SCH (21:14)
[2021-04-07] MEDS: QUEtiapine FUMARATE 200 MG TABLET PO SCH (21:14)
[2021-04-07] MEDS: THIAMINE HCL 100 MG TABLET (FP) PO SCH (21:14)
[2021-04-08] MEDS ORDERED: methaDONE HCL 10 MG TABLET ONE (03:26)
[2021-04-08] MEDS ORDERED: methaDONE HCL 40 MG DISPERSABLE TABLET ONE (03:26)
[2021-04-08] MEDS: GABAPENTIN 400 MG CAPSULE PO SCH ×3 (06:02→21:07)
[2021-04-08] MEDS: methaDONE 80 MG, methaDONE 10 MG PO SCH (06:02)
[2021-04-08] MEDS: amLODIPine BESYLATE 10 MG TABLET (FP) PO SCH (10:11)
[2021-04-08] MEDS: LISINOPRIL 20 MG TABLET PO SCH (10:11)
[2021-04-08] MEDS: PRENATAL VITAMINS W/ FOLIC ACID TABLET (FP) PO SCH (10:11)
[2021-04-08] MEDS: QUEtiapine FUMARATE 50 MG TABLET PO SCH (10:11)
[2021-04-08] MEDS: FAMOTIDINE 20 MG TABLET PO SCH ×2 (10:11→21:07)
[2021-04-08] MEDS: BUDESONIDE/FORMETEROL FUMARATE 80/4.5 mcg INHALER IH SCH ×2 (10:11→21:06)
[2021-04-08] MEDS: NICOTINE 14 MG/24 HOURS TOPICAL PATCH TD SCH (10:12)
[2021-04-08] MEDS: NICOTINE 10 MG CARTRIDGE (INHALER) IH PRN ×2 (10:13→17:08)
[2021-04-08] MEDS: PRAZOSIN HCL 1 MG CAPSULE PO SCH (21:06)
[2021-04-08] MEDS: ATORVASTATIN CA 10 MG TABLET (FP) PO SCH (21:07)
[2021-04-08] MEDS: THIAMINE HCL 100 MG TABLET (FP) PO SCH (21:07)
[2021-04-08] MEDS: QUEtiapine FUMARATE 200 MG TABLET PO SCH (21:07)
[2021-04-08] MEDS: TOLNAFTATE 1% CREAM 15 GM TUBE TP SCH (21:09)
[2021-04-09] MEDS ORDERED: methaDONE HCL 40 MG DISPERSABLE TABLET ONE (04:01)
[2021-04-09] MEDS ORDERED: methaDONE HCL 10 MG TABLET ONE (04:01)
[2021-04-09] MEDS: methaDONE 80 MG, methaDONE 10 MG PO SCH (06:00)
[2021-04-09] MEDS: GABAPENTIN 400 MG CAPSULE PO SCH ×3 (06:04→21:05)
[2021-04-09] MEDS: QUEtiapine FUMARATE 50 MG TABLET PO SCH (09:40)
[2021-04-09] MEDS: PRENATAL VITAMINS W/ FOLIC ACID TABLET (FP) PO SCH (09:40)
[2021-04-09] MEDS: amLODIPine BESYLATE 10 MG TABLET (FP) PO SCH (09:40)
[2021-04-09] MEDS: LISINOPRIL 20 MG TABLET PO SCH ×2 (09:40)
[2021-04-09] MEDS: FAMOTIDINE 20 MG TABLET PO SCH ×2 (09:40→21:07)
[2021-04-09] MEDS: NICOTINE 14 MG/24 HOURS TOPICAL PATCH TD SCH (09:40)
[2021-04-09] MEDS: BUDESONIDE/FORMETEROL FUMARATE 80/4.5 mcg INHALER IH SCH ×2 (09:41→21:08)
[2021-04-09] MEDS: TOLNAFTATE 1% CREAM 15 GM TUBE TP SCH ×2 (09:41→21:05)
[2021-04-09] MEDS: NICOTINE 10 MG CARTRIDGE (INHALER) IH PRN ×2 (12:39→18:49)
[2021-04-09] MEDS: hydrOXYzine PAMOATE 25 MG CAPSULE (FP) PO PRN (17:27)
[2021-04-09] MEDS ORDERED: PT OWN MED DRAWER 7, Y5N ONE ×2 (20:37→21:07)
[2021-04-09] MEDS: QUEtiapine FUMARATE 200 MG TABLET PO SCH (21:05)
[2021-04-09] MEDS: THIAMINE HCL 100 MG TABLET (FP) PO SCH (21:05)
[2021-04-09] MEDS: ATORVASTATIN CA 10 MG TABLET (FP) PO SCH (21:05)
[2021-04-09] MEDS: PRAZOSIN HCL 1 MG CAPSULE PO SCH (21:06)
[2021-04-10] MEDS ORDERED: methaDONE HCL 40 MG DISPERSABLE TABLET ONE (03:55)
[2021-04-10] MEDS ORDERED: methaDONE HCL 10 MG TABLET ONE (03:55)
[2021-04-10] MEDS: GABAPENTIN 400 MG CAPSULE PO SCH ×3 (06:13→21:15)
[2021-04-10] MEDS: methaDONE 80 MG, methaDONE 10 MG PO SCH (06:13)
[2021-04-10] MEDS: NICOTINE 10 MG CARTRIDGE (INHALER) IH PRN ×2 (06:15→18:51)
[2021-04-10] MEDS: PRENATAL VITAMINS W/ FOLIC ACID TABLET (FP) PO SCH (09:47)
[2021-04-10] MEDS: FAMOTIDINE 20 MG TABLET PO SCH ×2 (09:47→21:15)
[2021-04-10] MEDS: amLODIPine BESYLATE 10 MG TABLET (FP) PO SCH (09:47)
[2021-04-10] MEDS: LISINOPRIL 20 MG TABLET PO SCH (09:47)
[2021-04-10] MEDS: NICOTINE 14 MG/24 HOURS TOPICAL PATCH TD SCH (09:47)
[2021-04-10] MEDS: QUEtiapine FUMARATE 50 MG TABLET PO SCH (09:47)
[2021-04-10] MEDS: BUDESONIDE/FORMETEROL FUMARATE 80/4.5 mcg INHALER IH SCH ×2 (09:48→21:17)
[2021-04-10] MEDS: TOLNAFTATE 1% CREAM 15 GM TUBE TP SCH ×2 (09:48→21:16)
[2021-04-10] MEDS: ATORVASTATIN CA 10 MG TABLET (FP) PO SCH (21:15)
[2021-04-10] MEDS: THIAMINE HCL 100 MG TABLET (FP) PO SCH (21:15)
[2021-04-10] MEDS: QUEtiapine FUMARATE 200 MG TABLET PO SCH (21:15)
[2021-04-10] MEDS: PRAZOSIN HCL 1 MG CAPSULE PO SCH (21:16)
[2021-04-11] MEDS ORDERED: methaDONE HCL 10 MG TABLET ONE (03:09)
[2021-04-11] MEDS ORDERED: methaDONE HCL 40 MG DISPERSABLE TABLET ONE (03:09)
[2021-04-11] MEDS: NICOTINE 10 MG CARTRIDGE (INHALER) IH PRN ×3 (04:21→13:29)
[2021-04-11] MEDS: methaDONE 80 MG, methaDONE 10 MG PO SCH (06:29)
[2021-04-11] MEDS: GABAPENTIN 400 MG CAPSULE PO SCH ×3 (06:29→21:16)
[2021-04-11] MEDS: QUEtiapine FUMARATE 50 MG TABLET PO SCH (09:57)
[2021-04-11] MEDS: FAMOTIDINE 20 MG TABLET PO SCH ×2 (09:57→21:16)
[2021-04-11] MEDS: BUDESONIDE/FORMETEROL FUMARATE 80/4.5 mcg INHALER IH SCH ×2 (09:58→21:16)
[2021-04-11] MEDS: amLODIPine BESYLATE 10 MG TABLET (FP) PO SCH (09:58)
[2021-04-11] MEDS: PRENATAL VITAMINS W/ FOLIC ACID TABLET (FP) PO SCH (09:58)
[2021-04-11] MEDS: NICOTINE 14 MG/24 HOURS TOPICAL PATCH TD SCH (09:59)
[2021-04-11] MEDS: LISINOPRIL 20 MG TABLET PO SCH (10:00)
[2021-04-11] MEDS: TOLNAFTATE 1% CREAM 15 GM TUBE TP SCH ×2 (10:00→21:26)
[2021-04-11] MEDS: hydrOXYzine PAMOATE 25 MG CAPSULE (FP) PO PRN (13:28)
[2021-04-11] MEDS: THIAMINE HCL 100 MG TABLET (FP) PO SCH (21:15)
[2021-04-11] MEDS: ATORVASTATIN CA 10 MG TABLET (FP) PO SCH (21:16)
[2021-04-11] MEDS: QUEtiapine FUMARATE 200 MG TABLET PO SCH (21:16)
[2021-04-11] MEDS: PRAZOSIN HCL 1 MG CAPSULE PO SCH (21:18)
[2021-04-11] MEDS ORDERED: PT OWN MED DRAWER 7, Y5N ONE (21:18)
[2021-04-12] MEDS: hydrOXYzine PAMOATE 25 MG CAPSULE (FP) PO PRN ×2 (03:33→19:21)
[2021-04-12] MEDS ORDERED: methaDONE HCL 40 MG DISPERSABLE TABLET ONE (04:05)
[2021-04-12] MEDS ORDERED: methaDONE HCL 10 MG TABLET ONE (04:05)
[2021-04-12] MEDS: methaDONE 80 MG, methaDONE 10 MG PO SCH (06:01)
[2021-04-12] MEDS: GABAPENTIN 400 MG CAPSULE PO SCH ×3 (06:01→21:20)
[2021-04-12] MEDS ORDERED: PT OWN MED DRAWER 7, Y5N ONE (08:22)
[2021-04-12] MEDS: QUEtiapine FUMARATE 50 MG TABLET PO SCH (09:42)
[2021-04-12] MEDS: FAMOTIDINE 20 MG TABLET PO SCH ×2 (09:42→21:20)
[2021-04-12] MEDS: BUDESONIDE/FORMETEROL FUMARATE 80/4.5 mcg INHALER IH SCH ×2 (09:42→22:10)
[2021-04-12] MEDS: NICOTINE 14 MG/24 HOURS TOPICAL PATCH TD SCH (09:43)
[2021-04-12] MEDS: amLODIPine BESYLATE 10 MG TABLET (FP) PO SCH (09:43)
[2021-04-12] MEDS: TOLNAFTATE 1% CREAM 15 GM TUBE TP SCH ×2 (09:43→21:22)
[2021-04-12] MEDS: PRENATAL VITAMINS W/ FOLIC ACID TABLET (FP) PO SCH (09:43)
[2021-04-12] MEDS: LISINOPRIL 20 MG TABLET PO SCH (09:44)
[2021-04-12] MEDS: NICOTINE 10 MG CARTRIDGE (INHALER) IH PRN ×2 (09:47→20:53)
[2021-04-12] MEDS: ATORVASTATIN CA 10 MG TABLET (FP) PO SCH (21:20)
[2021-04-12] MEDS: PRAZOSIN HCL 1 MG CAPSULE PO SCH (21:20)
[2021-04-12] MEDS: THIAMINE HCL 100 MG TABLET (FP) PO SCH (21:20)
[2021-04-12] MEDS: QUEtiapine FUMARATE 200 MG TABLET PO SCH (21:21)
[2021-04-13] MEDS ORDERED: methaDONE HCL 10 MG TABLET ONE (05:59)
[2021-04-13] MEDS ORDERED: methaDONE HCL 40 MG DISPERSABLE TABLET ONE (06:00)
[2021-04-13] MEDS: GABAPENTIN 400 MG CAPSULE PO SCH ×3 (06:04→21:14)
[2021-04-13] MEDS: methaDONE 80 MG, methaDONE 10 MG PO SCH (06:04)
[2021-04-13] MEDS: BUDESONIDE/FORMETEROL FUMARATE 80/4.5 mcg INHALER IH SCH ×2 (09:34→21:11)
[2021-04-13] MEDS: PRENATAL VITAMINS W/ FOLIC ACID TABLET (FP) PO SCH (09:34)
[2021-04-13] MEDS: FAMOTIDINE 20 MG TABLET PO SCH ×2 (09:35→21:14)
[2021-04-13] MEDS: QUEtiapine FUMARATE 50 MG TABLET PO SCH (09:35)
[2021-04-13] MEDS: NICOTINE 14 MG/24 HOURS TOPICAL PATCH TD SCH (09:35)
[2021-04-13] MEDS: amLODIPine BESYLATE 10 MG TABLET (FP) PO SCH (09:35)
[2021-04-13] MEDS: LISINOPRIL 20 MG TABLET PO SCH (09:36)
[2021-04-13] MEDS: TOLNAFTATE 1% CREAM 15 GM TUBE TP SCH ×2 (09:36→22:18)
[2021-04-13] MEDS: NICOTINE 10 MG CARTRIDGE (INHALER) IH PRN ×2 (11:04→16:53)
[2021-04-13] MEDS: QUEtiapine FUMARATE 200 MG TABLET PO SCH (21:14)
[2021-04-13] MEDS: PRAZOSIN HCL 1 MG CAPSULE PO SCH (21:14)
[2021-04-13] MEDS: ATORVASTATIN CA 10 MG TABLET (FP) PO SCH (21:14)
[2021-04-13] MEDS: THIAMINE HCL 100 MG TABLET (FP) PO SCH (22:18)
[2021-04-14] MEDS ORDERED: methaDONE HCL 40 MG DISPERSABLE TABLET ONE (03:13)
[2021-04-14] MEDS ORDERED: methaDONE HCL 10 MG TABLET ONE (03:13)
[2021-04-14] MEDS: GABAPENTIN 400 MG CAPSULE PO SCH ×3 (06:01→21:16)
[2021-04-14] MEDS: methaDONE 80 MG, methaDONE 10 MG PO SCH (06:02)
[2021-04-14] MEDS: NICOTINE 10 MG CARTRIDGE (INHALER) IH PRN ×4 (06:03→21:47)
[2021-04-14] MEDS: LISINOPRIL 20 MG TABLET PO SCH (09:45)
[2021-04-14] MEDS: PRENATAL VITAMINS W/ FOLIC ACID TABLET (FP) PO SCH (09:45)
[2021-04-14] MEDS: NICOTINE 14 MG/24 HOURS TOPICAL PATCH TD SCH (09:46)
[2021-04-14] MEDS: FAMOTIDINE 20 MG TABLET PO SCH ×2 (09:46→21:16)
[2021-04-14] MEDS: BUDESONIDE/FORMETEROL FUMARATE 80/4.5 mcg INHALER IH SCH ×2 (09:46→21:18)
[2021-04-14] MEDS: amLODIPine BESYLATE 10 MG TABLET (FP) PO SCH (09:46)
[2021-04-14] MEDS: QUEtiapine FUMARATE 50 MG TABLET PO SCH (09:46)
[2021-04-14] MEDS: TOLNAFTATE 1% CREAM 15 GM TUBE TP SCH ×2 (09:47→21:18)
[2021-04-14] MEDS: PRAZOSIN HCL 1 MG CAPSULE PO SCH (21:16)
[2021-04-14] MEDS: QUEtiapine FUMARATE 200 MG TABLET PO SCH (21:16)
[2021-04-14] MEDS: THIAMINE HCL 100 MG TABLET (FP) PO SCH (21:16)
[2021-04-14] MEDS: ATORVASTATIN CA 10 MG TABLET (FP) PO SCH (21:16)
[2021-04-15] MEDS ORDERED: methaDONE HCL 40 MG DISPERSABLE TABLET ONE (01:50)
[2021-04-15] MEDS ORDERED: methaDONE HCL 10 MG TABLET ONE (01:50)
[2021-04-15] MEDS: GABAPENTIN 400 MG CAPSULE PO SCH ×3 (06:05→21:09)
[2021-04-15] MEDS: methaDONE 80 MG, methaDONE 10 MG PO SCH (06:05)
[2021-04-15] MEDS: NICOTINE 10 MG CARTRIDGE (INHALER) IH PRN ×3 (06:06→17:26)
[2021-04-15] MEDS: BUDESONIDE/FORMETEROL FUMARATE 80/4.5 mcg INHALER IH SCH ×2 (09:49→21:09)
[2021-04-15] MEDS: QUEtiapine FUMARATE 50 MG TABLET PO SCH (09:50)
[2021-04-15] MEDS: FAMOTIDINE 20 MG TABLET PO SCH ×2 (09:50→21:09)
[2021-04-15] MEDS: TOLNAFTATE 1% CREAM 15 GM TUBE TP SCH ×2 (09:50→23:29)
[2021-04-15] MEDS: PRENATAL VITAMINS W/ FOLIC ACID TABLET (FP) PO SCH (09:50)
[2021-04-15] MEDS: LISINOPRIL 20 MG TABLET PO SCH (09:50)
[2021-04-15] MEDS: NICOTINE 14 MG/24 HOURS TOPICAL PATCH TD SCH (09:50)
[2021-04-15] MEDS: amLODIPine BESYLATE 10 MG TABLET (FP) PO SCH (09:50)
[2021-04-15] MEDS: hydrOXYzine PAMOATE 25 MG CAPSULE (FP) PO PRN ×2 (17:27→21:09)
[2021-04-15] MEDS: ATORVASTATIN CA 10 MG TABLET (FP) PO SCH (21:08)
[2021-04-15] MEDS: PRAZOSIN HCL 1 MG CAPSULE PO SCH (21:09)
[2021-04-15] MEDS: QUEtiapine FUMARATE 200 MG TABLET PO SCH (21:09)
[2021-04-15] MEDS: THIAMINE HCL 100 MG TABLET (FP) PO SCH (21:09)
[2021-04-16] MEDS: hydrOXYzine PAMOATE 25 MG CAPSULE (FP) PO PRN ×2 (01:26→21:09)
[2021-04-16] MEDS: NICOTINE 10 MG CARTRIDGE (INHALER) IH PRN ×3 (01:26→20:23)
[2021-04-16] MEDS ORDERED: methaDONE HCL 10 MG TABLET ONE (04:08)
[2021-04-16] MEDS ORDERED: methaDONE HCL 40 MG DISPERSABLE TABLET ONE (04:08)
[2021-04-16] MEDS: methaDONE 80 MG, methaDONE 10 MG PO SCH (06:00)
[2021-04-16] MEDS: GABAPENTIN 400 MG CAPSULE PO SCH ×3 (06:00→21:09)
[2021-04-16] MEDS: FAMOTIDINE 20 MG TABLET PO SCH ×2 (09:53→21:09)
[2021-04-16] MEDS: TOLNAFTATE 1% CREAM 15 GM TUBE TP SCH ×2 (09:53→22:07)
[2021-04-16] MEDS: BUDESONIDE/FORMETEROL FUMARATE 80/4.5 mcg INHALER IH SCH ×2 (09:53→21:08)
[2021-04-16] MEDS: QUEtiapine FUMARATE 50 MG TABLET PO SCH (09:53)
[2021-04-16] MEDS: amLODIPine BESYLATE 10 MG TABLET (FP) PO SCH (09:54)
[2021-04-16] MEDS: PRENATAL VITAMINS W/ FOLIC ACID TABLET (FP) PO SCH (09:54)
[2021-04-16] MEDS: NICOTINE 14 MG/24 HOURS TOPICAL PATCH TD SCH (09:54)
[2021-04-16] MEDS: LISINOPRIL 20 MG TABLET PO SCH (09:55)
[2021-04-16] MEDS: QUEtiapine FUMARATE 200 MG TABLET PO SCH (21:09)
[2021-04-16] MEDS: THIAMINE HCL 100 MG TABLET (FP) PO SCH (21:09)
[2021-04-16] MEDS: PRAZOSIN HCL 1 MG CAPSULE PO SCH (21:09)
[2021-04-16] MEDS: ATORVASTATIN CA 10 MG TABLET (FP) PO SCH (22:07)
[2021-04-17] MEDS ORDERED: methaDONE HCL 10 MG TABLET ONE (03:23)
[2021-04-17] MEDS ORDERED: methaDONE HCL 40 MG DISPERSABLE TABLET ONE (03:24)
[2021-04-17] MEDS: methaDONE 80 MG, methaDONE 10 MG PO SCH (06:00)
[2021-04-17] MEDS: NICOTINE 10 MG CARTRIDGE (INHALER) IH PRN ×4 (06:00→20:25)
[2021-04-17] MEDS: GABAPENTIN 400 MG CAPSULE PO SCH ×3 (06:00→21:10)
[2021-04-17] MEDS: amLODIPine BESYLATE 10 MG TABLET (FP) PO SCH (10:01)
[2021-04-17] MEDS: FAMOTIDINE 20 MG TABLET PO SCH ×2 (10:01→21:10)
[2021-04-17] MEDS: BUDESONIDE/FORMETEROL FUMARATE 80/4.5 mcg INHALER IH SCH ×2 (10:01→21:10)
[2021-04-17] MEDS: PRENATAL VITAMINS W/ FOLIC ACID TABLET (FP) PO SCH (10:01)
[2021-04-17] MEDS: LISINOPRIL 20 MG TABLET PO SCH (10:02)
[2021-04-17] MEDS: NICOTINE 14 MG/24 HOURS TOPICAL PATCH TD SCH (10:02)
[2021-04-17] MEDS: QUEtiapine FUMARATE 50 MG TABLET PO SCH (10:03)
[2021-04-17] MEDS: TOLNAFTATE 1% CREAM 15 GM TUBE TP SCH ×2 (10:03→21:12)
[2021-04-17] MEDS: hydrOXYzine PAMOATE 25 MG CAPSULE (FP) PO PRN (14:21)
[2021-04-17] MEDS: THIAMINE HCL 100 MG TABLET (FP) PO SCH (21:10)
[2021-04-17] MEDS: ATORVASTATIN CA 10 MG TABLET (FP) PO SCH (21:10)
[2021-04-17] MEDS: QUEtiapine FUMARATE 200 MG TABLET PO SCH (21:10)
[2021-04-17] MEDS: PRAZOSIN HCL 1 MG CAPSULE PO SCH (21:10)
[2021-04-18] MEDS ORDERED: methaDONE HCL 40 MG DISPERSABLE TABLET ONE (02:10)
[2021-04-18] MEDS ORDERED: methaDONE HCL 10 MG TABLET ONE (02:10)
[2021-04-18] MEDS: GABAPENTIN 400 MG CAPSULE PO SCH ×3 (06:06→21:15)
[2021-04-18] MEDS: methaDONE 80 MG, methaDONE 10 MG PO SCH (06:06)
[2021-04-18] MEDS: NICOTINE 10 MG CARTRIDGE (INHALER) IH PRN ×4 (06:08→21:14)
[2021-04-18] MEDS: BUDESONIDE/FORMETEROL FUMARATE 80/4.5 mcg INHALER IH SCH ×2 (10:12→21:14)
[2021-04-18] MEDS: LISINOPRIL 20 MG TABLET PO SCH (10:12)
[2021-04-18] MEDS: QUEtiapine FUMARATE 50 MG TABLET PO SCH (10:12)
[2021-04-18] MEDS: FAMOTIDINE 20 MG TABLET PO SCH ×2 (10:13→21:15)
[2021-04-18] MEDS: PRENATAL VITAMINS W/ FOLIC ACID TABLET (FP) PO SCH (10:14)
[2021-04-18] MEDS: amLODIPine BESYLATE 10 MG TABLET (FP) PO SCH (10:14)
[2021-04-18] MEDS: TOLNAFTATE 1% CREAM 15 GM TUBE TP SCH ×2 (10:14→21:16)
[2021-04-18] MEDS: NICOTINE 14 MG/24 HOURS TOPICAL PATCH TD SCH (10:14)
[2021-04-18] MEDS: hydrOXYzine PAMOATE 25 MG CAPSULE (FP) PO PRN ×2 (16:01→21:16)
[2021-04-18] MEDS: QUEtiapine FUMARATE 200 MG TABLET PO SCH (21:15)
[2021-04-18] MEDS: THIAMINE HCL 100 MG TABLET (FP) PO SCH (21:15)
[2021-04-18] MEDS: PRAZOSIN HCL 1 MG CAPSULE PO SCH (21:15)
[2021-04-18] MEDS: ATORVASTATIN CA 10 MG TABLET (FP) PO SCH (21:16)
[2021-04-19] MEDS ORDERED: methaDONE HCL 40 MG DISPERSABLE TABLET ONE (03:06)
[2021-04-19] MEDS ORDERED: methaDONE HCL 10 MG TABLET ONE (03:06)
[2021-04-19] MEDS: hydrOXYzine PAMOATE 25 MG CAPSULE (FP) PO PRN ×4 (03:39→17:12)
[2021-04-19] MEDS: GABAPENTIN 400 MG CAPSULE PO SCH ×3 (06:08→21:23)
[2021-04-19] MEDS: methaDONE 80 MG, methaDONE 10 MG PO SCH (06:08)
[2021-04-19] MEDS: NICOTINE 10 MG CARTRIDGE (INHALER) IH PRN ×4 (06:10→21:25)
[2021-04-19] MEDS: PRENATAL VITAMINS W/ FOLIC ACID TABLET (FP) PO SCH (10:05)
[2021-04-19] MEDS: BUDESONIDE/FORMETEROL FUMARATE 80/4.5 mcg INHALER IH SCH ×2 (10:06→21:25)
[2021-04-19] MEDS: LISINOPRIL 20 MG TABLET PO SCH (10:07)
[2021-04-19] MEDS: NICOTINE 14 MG/24 HOURS TOPICAL PATCH TD SCH (10:07)
[2021-04-19] MEDS: FAMOTIDINE 20 MG TABLET PO SCH ×2 (10:07→21:23)
[2021-04-19] MEDS: QUEtiapine FUMARATE 50 MG TABLET PO SCH (10:07)
[2021-04-19] MEDS: amLODIPine BESYLATE 10 MG TABLET (FP) PO SCH (10:08)
[2021-04-19] MEDS: TOLNAFTATE 1% CREAM 15 GM TUBE TP SCH ×2 (10:08→21:25)
[2021-04-19] MEDS: QUEtiapine FUMARATE 200 MG TABLET PO SCH (21:23)
[2021-04-19] MEDS: ATORVASTATIN CA 10 MG TABLET (FP) PO SCH (21:23)
[2021-04-19] MEDS: PRAZOSIN HCL 1 MG CAPSULE PO SCH (21:23)
[2021-04-19] MEDS: THIAMINE HCL 100 MG TABLET (FP) PO SCH (21:23)
[2021-04-20] MEDS ORDERED: methaDONE HCL 10 MG TABLET ONE (03:21)
[2021-04-20] MEDS ORDERED: methaDONE HCL 40 MG DISPERSABLE TABLET ONE (03:21)
[2021-04-20] MEDS: hydrOXYzine PAMOATE 25 MG CAPSULE (FP) PO PRN ×4 (03:41→21:04)
[2021-04-20] MEDS: NICOTINE 10 MG CARTRIDGE (INHALER) IH PRN ×3 (06:01→18:21)
[2021-04-20] MEDS: GABAPENTIN 400 MG CAPSULE PO SCH ×3 (06:01→21:03)
[2021-04-20] MEDS: methaDONE 80 MG, methaDONE 10 MG PO SCH (06:29)
[2021-04-20] MEDS ORDERED: methaDONE HCL 10 MG TABLET PO SCH (06:30)
[2021-04-20] MEDS: PRENATAL VITAMINS W/ FOLIC ACID TABLET (FP) PO SCH (10:02)
[2021-04-20] MEDS: amLODIPine BESYLATE 10 MG TABLET (FP) PO SCH (10:03)
[2021-04-20] MEDS: FAMOTIDINE 20 MG TABLET PO SCH ×2 (10:03→21:03)
[2021-04-20] MEDS: QUEtiapine FUMARATE 50 MG TABLET PO SCH (10:03)
[2021-04-20] MEDS: BUDESONIDE/FORMETEROL FUMARATE 80/4.5 mcg INHALER IH SCH ×2 (10:03→21:07)
[2021-04-20] MEDS: LISINOPRIL 20 MG TABLET PO SCH (10:04)
[2021-04-20] MEDS: TOLNAFTATE 1% CREAM 15 GM TUBE TP SCH ×2 (10:04→21:07)
[2021-04-20] MEDS: NICOTINE 14 MG/24 HOURS TOPICAL PATCH TD SCH (10:04)
[2021-04-20] MEDS: THIAMINE HCL 100 MG TABLET (FP) PO SCH (21:03)
[2021-04-20] MEDS: ATORVASTATIN CA 10 MG TABLET (FP) PO SCH (21:03)
[2021-04-20] MEDS: PRAZOSIN HCL 1 MG CAPSULE PO SCH (21:03)
[2021-04-20] MEDS: QUEtiapine FUMARATE 200 MG TABLET PO SCH (21:05)
[2021-04-21] MEDS ORDERED: methaDONE HCL 40 MG DISPERSABLE TABLET ONE (02:57)
[2021-04-21] MEDS ORDERED: methaDONE HCL 10 MG TABLET ONE (02:57)
[2021-04-21] MEDS: methaDONE 80 MG, methaDONE 10 MG PO SCH (06:10)
[2021-04-21] MEDS: hydrOXYzine PAMOATE 25 MG CAPSULE (FP) PO PRN (06:10)
[2021-04-21] MEDS: GABAPENTIN 400 MG CAPSULE PO SCH (06:10)
[2021-04-21] MEDS: NICOTINE 10 MG CARTRIDGE (INHALER) IH PRN ×2 (06:11→09:54)
[2021-04-21 07:15] VITALS: BP 131/72; PULSE 95; TEMP 97.6
[2021-04-21] MEDS: QUEtiapine FUMARATE 50 MG TABLET PO SCH (09:51)
[2021-04-21] MEDS: FAMOTIDINE 20 MG TABLET PO SCH (09:51)
[2021-04-21] MEDS: amLODIPine BESYLATE 10 MG TABLET (FP) PO SCH (09:52)
[2021-04-21] MEDS: LISINOPRIL 20 MG TABLET PO SCH (09:52)
[2021-04-21] MEDS: PRENATAL VITAMINS W/ FOLIC ACID TABLET (FP) PO SCH (09:52)
[2021-04-21] MEDS: BUDESONIDE/FORMETEROL FUMARATE 80/4.5 mcg INHALER IH SCH (09:53)
[2021-04-21] MEDS: TOLNAFTATE 1% CREAM 15 GM TUBE TP SCH (09:54)
[2021-04-21] MEDS: NICOTINE 14 MG/24 HOURS TOPICAL PATCH TD SCH (09:56)
== END 2021-04-21 10:05 | disposition home or self-care (01) | DRG 772 ==
LOC: YASAS 13:19 → Y5N 13:21
PROVIDERS: ADMIT Allergy & Immunology; ATTEND Allergy & Immunology
PROC: HZ42ZZZ Group Counseling for Substance Abuse Treatment, Cognitive-Behavioral (ICD-10-PCS; principal; 2021-04-05)
DX: F10.20 Alcohol dependence, uncomplicated (principal); F11.20 Opioid dependence, uncomplicated; F13.20 Sedative, hypnotic or anxiolytic dependence, uncomplicated; F14.20 Cocaine dependence, uncomplicated; F17.210 Nicotine dependence, cigarettes, uncomplicated; F31.9 Bipolar disorder, unspecified; F25.9 Schizoaffective disorder, unspecified; F19.282 Other psychoactive substance dependence with psychoactive substance-induced sleep disorder; I10 Essential (primary) hypertension; J44.9 Chronic obstructive pulmonary disease, unspecified; K21.9 Gastro-esophageal reflux disease without esophagitis; E78.5 Hyperlipidemia, unspecified; M54.59 Other low back pain; G89.29 Other chronic pain; Z62.810 Personal history of physical and sexual abuse in childhood; Z56.0 Unemployment, unspecified
CPT/HCPCS: 82962; 83036

== ENCOUNTER 2021-08-29 14:59 | Inpatient (IN) | payer OTHER ==
[2021-08-29 16:33] VITALS: BMI 23.9
[2021-08-30] MEDS ORDERED: MAGNESIUM CITRATE 300 ML BOTTLE PO PRN (02:33)
[2021-08-30] MEDS ORDERED: BISMUTH SUBSALICYLATE 524 MG/30 ML PO PRN (02:33)
[2021-08-30] MEDS ORDERED: DICYCLOMINE HCL 10 MG CAPSULE PO PRN (02:33)
[2021-08-30] MEDS ORDERED: MAG HYDROX/AL HYDROX/SIMETH 30 ML UNIT-DOSE CUP PO PRN (02:33)
[2021-08-30] MEDS ORDERED: BENZOCAINE/MENTHOL (CHLORASEPTIC ) LOZENGE MM PRN (02:33)
[2021-08-30] MEDS ORDERED: ONDANSETRON *ODT* 4 MG TABLET SL PRN (02:33)
[2021-08-30] MEDS ORDERED: LOPERAMIDE HCL 2 MG CAPSULE PO PRN (02:33)
[2021-08-30] MEDS ORDERED: MAGNESIUM HYDROX 2400MG/30ML ORAL SUSPENSION 30 ML CUP PO PRN (02:33)
[2021-08-30] MEDS ORDERED: ACETAMINOPHEN 325 MG TABLET (FP) PO PRN ×2 (02:33)
[2021-08-30] MEDS: LORazepam 1 MG TABLET PO PRN ×2 (03:36→14:59)
[2021-08-30] MEDS: IBUPROFEN 400 MG TABLET (FP) PO PRN (03:37)
[2021-08-30] MEDS: METHOCARBAMOL 500 MG TABLET PO PRN ×2 (03:37→09:28)
[2021-08-30] MEDS: LORazepam 2 MG TABLET PO SCH ×4 (05:22→22:08)
[2021-08-30] MEDS ORDERED: methaDONE HCL 10 MG TABLET PO SCH (09:15)
[2021-08-30] MEDS ORDERED: methaDONE HCL 10 MG TABLET ONE (09:25)
[2021-08-30] MEDS ORDERED: methaDONE HCL 40 MG DISPERSABLE TABLET ONE (09:26)
[2021-08-30] MEDS: methaDONE 80 MG, methaDONE 10 MG PO SCH (09:27)
[2021-08-30] MEDS: PRENATAL VITAMINS W/ FOLIC ACID TABLET (FP) PO SCH (09:28)
[2021-08-30] MEDS: NICOTINE 21 MG/24 HOURS TOPICAL PATCH TD SCH (09:30)
[2021-08-30] MEDS ORDERED: QUEtiapine FUMARATE 25 MG TABLET PO ONE (10:34)
[2021-08-30] MEDS: NICOTINE 10 MG CARTRIDGE (INHALER) IH PRN ×2 (11:14→23:14)
[2021-08-30] MEDS: amLODIPine BESYLATE 10 MG TABLET (FP) PO SCH (12:55)
[2021-08-30] MEDS: LISINOPRIL 20 MG TABLET PO SCH (12:55)
[2021-08-30] MEDS: DOCUSATE SODIUM 100 MG CAPSULE (FP) PO SCH ×2 (13:00→21:25)
[2021-08-30 14:14] LABS: HEMATOCRIT 41.2 % (35.4-49); HEMOGLOBIN 13.8 GM/dL (11.7-16.9); MCHC 33.5 g/dl (32.0-35.9); MEAN CELL VOLUME 95.5 fl (80-96); MEAN PLT VOLUME 8.2 fl (7.5-11.1); PLATELET COUNT 194 10^3/uL (134-434); RBC 4.32 M/mm3 (4.00-5.60); RDW 14.5 % (11.9-15.9); WHITE BLOOD COUNT 5.8 K/mm3 (4.0-10.0)
[2021-08-30 14:19] LABS: CALCIUM 8.8 mg/dL (8.5-10.1)
[2021-08-30 14:20] LABS: ALBUMIN 3.5 g/dl (3.4-5.0); BLOOD UREA NITROGEN 14.7 mg/dL (7-18)
[2021-08-30 14:23] LABS: CREATININE 0.6 mg/dL (0.55-1.3)
[2021-08-30 14:25] LABS: BILIRUBIN,TOTAL 0.8 mg/dL (0.2-1); TOT PROT 6.6 g/dl (6.4-8.2)
[2021-08-30] MEDS: THIAMINE HCL 100 MG TABLET (FP) PO SCH (21:26)
[2021-08-30] MEDS: MELATONIN 5 MG TABLETS PO SCH (21:27)
[2021-08-30] MEDS: QUEtiapine FUMARATE 50 MG TABLET PO PRN (22:08)
[2021-08-31] MEDS: LORazepam 1 MG TABLET PO PRN ×2 (02:34→14:03)
[2021-08-31] MEDS ORDERED: methaDONE HCL 40 MG DISPERSABLE TABLET ONE (04:28)
[2021-08-31] MEDS ORDERED: methaDONE HCL 10 MG TABLET ONE (04:28)
[2021-08-31] MEDS: DOCUSATE SODIUM 100 MG CAPSULE (FP) PO SCH ×3 (05:11→22:02)
[2021-08-31] MEDS: methaDONE 80 MG, methaDONE 10 MG PO SCH (05:12)
[2021-08-31] MEDS: LORazepam 1 MG TABLET PO SCH ×4 (05:13→22:02)
[2021-08-31] MEDS: NICOTINE 10 MG CARTRIDGE (INHALER) IH PRN ×3 (05:19→22:01)
[2021-08-31] MEDS: PRENATAL VITAMINS W/ FOLIC ACID TABLET (FP) PO SCH (10:17)
[2021-08-31] MEDS: LISINOPRIL 20 MG TABLET PO SCH (10:18)
[2021-08-31] MEDS: QUEtiapine FUMARATE 25 MG TABLET PO SCH (10:18)
[2021-08-31] MEDS: amLODIPine BESYLATE 10 MG TABLET (FP) PO SCH (10:36)
[2021-08-31] MEDS: NICOTINE 21 MG/24 HOURS TOPICAL PATCH TD SCH (10:36)
[2021-08-31] MEDS: METHOCARBAMOL 500 MG TABLET PO PRN (14:03)
[2021-08-31] MEDS: QUEtiapine FUMARATE 50 MG TABLET PO PRN (22:02)
[2021-08-31] MEDS: MELATONIN 5 MG TABLETS PO SCH (22:02)
[2021-08-31] MEDS: THIAMINE HCL 100 MG TABLET (FP) PO SCH (22:02)
[2021-09-01] MEDS ORDERED: methaDONE HCL 10 MG TABLET ONE (04:46)
[2021-09-01] MEDS ORDERED: methaDONE HCL 40 MG DISPERSABLE TABLET ONE (04:47)
[2021-09-01] MEDS: methaDONE 80 MG, methaDONE 10 MG PO SCH (05:01)
[2021-09-01] MEDS: DOCUSATE SODIUM 100 MG CAPSULE (FP) PO SCH ×3 (05:01→22:00)
[2021-09-01] MEDS: LORazepam 0.5 MG TABLET PO SCH ×4 (05:01→22:00)
[2021-09-01] MEDS: NICOTINE 10 MG CARTRIDGE (INHALER) IH PRN ×2 (06:38→21:06)
[2021-09-01] MEDS: LORazepam 0.5 MG TABLET PO PRN ×2 (07:11→14:00)
[2021-09-01] MEDS: NICOTINE 21 MG/24 HOURS TOPICAL PATCH TD SCH (10:08)
[2021-09-01] MEDS: LISINOPRIL 20 MG TABLET PO SCH (10:08)
[2021-09-01] MEDS: QUEtiapine FUMARATE 25 MG TABLET PO SCH (10:09)
[2021-09-01] MEDS: amLODIPine BESYLATE 10 MG TABLET (FP) PO SCH (10:09)
[2021-09-01] MEDS: PRENATAL VITAMINS W/ FOLIC ACID TABLET (FP) PO SCH (10:11)
[2021-09-01 14:09] LABS: SARS-CoV-2 NAA Not Detected (Not Detected)
[2021-09-01] MEDS: METHOCARBAMOL 500 MG TABLET PO PRN (18:59)
[2021-09-01] MEDS: THIAMINE HCL 100 MG TABLET (FP) PO SCH (22:00)
[2021-09-01] MEDS: QUEtiapine FUMARATE 50 MG TABLET PO PRN (22:00)
[2021-09-01] MEDS: MELATONIN 5 MG TABLETS PO SCH (22:01)
[2021-09-02] MEDS ORDERED: methaDONE HCL 40 MG DISPERSABLE TABLET ONE (04:02)
[2021-09-02] MEDS ORDERED: methaDONE HCL 10 MG TABLET ONE (04:02)
[2021-09-02] MEDS ORDERED: LORazepam 0.5 MG TABLET PO ONE (05:00)
[2021-09-02] MEDS: DOCUSATE SODIUM 100 MG CAPSULE (FP) PO SCH (05:18)
[2021-09-02] MEDS: methaDONE 80 MG, methaDONE 10 MG PO SCH (05:18)
[2021-09-02] MEDS: METHOCARBAMOL 500 MG TABLET PO PRN ×2 (05:46→12:00)
[2021-09-02] MEDS: PRENATAL VITAMINS W/ FOLIC ACID TABLET (FP) PO SCH (10:16)
[2021-09-02] MEDS: NICOTINE 21 MG/24 HOURS TOPICAL PATCH TD SCH (10:16)
[2021-09-02] MEDS: amLODIPine BESYLATE 10 MG TABLET (FP) PO SCH (10:16)
[2021-09-02] MEDS: LISINOPRIL 20 MG TABLET PO SCH (10:16)
[2021-09-02] MEDS: QUEtiapine FUMARATE 25 MG TABLET PO SCH (10:16)
[2021-09-02] MEDS: IBUPROFEN 400 MG TABLET (FP) PO PRN (12:00)
[2021-09-02 12:54] VITALS: BP 128/83; PULSE 107; TEMP 97.5
== END 2021-09-02 12:34 | disposition other institution (70) | DRG 773 ==
LOC: YASAS 14:59 → Y3N 08-30 02:57
PROVIDERS: ADMIT Allergy & Immunology; ATTEND Allergy & Immunology
PROC: HZ2ZZZZ Detoxification Services for Substance Abuse Treatment (ICD-10-PCS; principal; 2021-08-30)
DX: F10.230 Alcohol dependence with withdrawal, uncomplicated (principal); F11.20 Opioid dependence, uncomplicated; F14.20 Cocaine dependence, uncomplicated; F13.230 Sedative, hypnotic or anxiolytic dependence with withdrawal, uncomplicated; F19.282 Other psychoactive substance dependence with psychoactive substance-induced sleep disorder; F31.9 Bipolar disorder, unspecified; I10 Essential (primary) hypertension; J45.909 Unspecified asthma, uncomplicated; K21.9 Gastro-esophageal reflux disease without esophagitis; M54.50 Low back pain, unspecified; G89.29 Other chronic pain
CPT/HCPCS: 36415; 80053; 83036; 85027; 86780; C9803-CS; U0003; U0005

== ENCOUNTER 2021-09-02 12:43 | Inpatient (IN) | payer OTHER ==
[2021-09-02] MEDS ORDERED: MAGNESIUM CITRATE 300 ML BOTTLE PO PRN (14:22)
[2021-09-02] MEDS ORDERED: MAG HYDROX/AL HYDROX/SIMETH 30 ML UNIT-DOSE CUP PO PRN (14:22)
[2021-09-02] MEDS ORDERED: guaiFENesin 200 MG/10 ML 10 ML UNIT-DOSE CUPS PO PRN (14:22)
[2021-09-02] MEDS ORDERED: P-EPHED 60MG/TRIPROLIDI 2.5MG TABLET PO PRN (14:22)
[2021-09-02] MEDS ORDERED: BENZOCAINE/MENTHOL (CHLORASEPTIC ) LOZENGE MM PRN (14:22)
[2021-09-02] MEDS ORDERED: LOPERAMIDE HCL 2 MG CAPSULE PO PRN (14:22)
[2021-09-02] MEDS ORDERED: ALBUTEROL SO4 HFA INHALER IH PRN (14:23)
[2021-09-02] MEDS: THIAMINE HCL 100 MG TABLET (FP) PO SCH (21:07)
[2021-09-02] MEDS: MELATONIN 5 MG TABLETS PO SCH (21:07)
[2021-09-02] MEDS: DOCUSATE SODIUM 100 MG CAPSULE (FP) PO SCH (21:07)
[2021-09-02] MEDS: BUDESONIDE/FORMETEROL FUMARATE 80/4.5 mcg INHALER IH SCH (21:07)
[2021-09-02] MEDS: IBUPROFEN 400 MG TABLET (FP) PO PRN (21:10)
[2021-09-02] MEDS: NICOTINE 10 MG CARTRIDGE (INHALER) IH PRN (21:54)
[2021-09-02] MEDS ORDERED: MELATONIN 5 MG TABLETS PO SCH (22:00)
[2021-09-02] MEDS: QUEtiapine FUMARATE 100 MG TABLET (FP) PO PRN (22:02)
[2021-09-03] MEDS ORDERED: methaDONE HCL 10 MG TABLET ONE (05:33)
[2021-09-03] MEDS ORDERED: methaDONE HCL 40 MG DISPERSABLE TABLET ONE (05:33)
[2021-09-03] MEDS: NICOTINE 10 MG CARTRIDGE (INHALER) IH PRN ×4 (05:52→21:31)
[2021-09-03] MEDS: methaDONE 80 MG, methaDONE 10 MG PO SCH (05:52)
[2021-09-03] MEDS: DOCUSATE SODIUM 100 MG CAPSULE (FP) PO SCH ×3 (05:53→21:31)
[2021-09-03] MEDS ORDERED: methaDONE HCL 10 MG TABLET PO SCH (06:00)
[2021-09-03] MEDS ORDERED: cloNIDine HCL 0.1 MG TABLET PO ONE (07:03)
[2021-09-03] MEDS: QUEtiapine FUMARATE 25 MG TABLET PO SCH (09:52)
[2021-09-03] MEDS: LISINOPRIL 20 MG TABLET PO SCH (09:52)
[2021-09-03] MEDS: amLODIPine BESYLATE 10 MG TABLET (FP) PO SCH (09:52)
[2021-09-03] MEDS: ACETAMINOPHEN 325 MG TABLET (FP) PO PRN ×2 (09:54→19:53)
[2021-09-03] MEDS: NICOTINE 7 MG/24 HOURS TOPICAL PATCH TD SCH (11:04)
[2021-09-03] MEDS: BUDESONIDE/FORMETEROL FUMARATE 80/4.5 mcg INHALER IH SCH ×2 (11:04→21:32)
[2021-09-03] MEDS: PRENATAL VITAMINS W/ FOLIC ACID TABLET (FP) PO SCH (11:05)
[2021-09-03] MEDS: THIAMINE HCL 100 MG TABLET (FP) PO SCH (21:31)
[2021-09-03] MEDS: QUEtiapine FUMARATE 100 MG TABLET (FP) PO PRN (21:32)
[2021-09-03] MEDS: MELATONIN 5 MG TABLETS PO SCH (21:32)
[2021-09-04] MEDS ORDERED: methaDONE HCL 40 MG DISPERSABLE TABLET ONE (04:56)
[2021-09-04] MEDS ORDERED: methaDONE HCL 10 MG TABLET ONE (04:56)
[2021-09-04] MEDS: methaDONE 80 MG, methaDONE 10 MG PO SCH (05:44)
[2021-09-04] MEDS: DOCUSATE SODIUM 100 MG CAPSULE (FP) PO SCH ×3 (05:44→21:46)
[2021-09-04] MEDS ORDERED: cloNIDine HCL 0.1 MG TABLET PO ONE (05:48)
[2021-09-04] MEDS: NICOTINE 10 MG CARTRIDGE (INHALER) IH PRN ×2 (06:51→14:51)
[2021-09-04] MEDS: QUEtiapine FUMARATE 25 MG TABLET PO SCH (09:47)
[2021-09-04] MEDS: PRENATAL VITAMINS W/ FOLIC ACID TABLET (FP) PO SCH (09:47)
[2021-09-04] MEDS: amLODIPine BESYLATE 10 MG TABLET (FP) PO SCH (09:47)
[2021-09-04] MEDS: LISINOPRIL 20 MG TABLET PO SCH (09:47)
[2021-09-04] MEDS: NICOTINE 7 MG/24 HOURS TOPICAL PATCH TD SCH (09:48)
[2021-09-04] MEDS: BUDESONIDE/FORMETEROL FUMARATE 80/4.5 mcg INHALER IH SCH ×2 (09:48→21:46)
[2021-09-04] MEDS: IBUPROFEN 400 MG TABLET (FP) PO PRN (18:24)
[2021-09-04] MEDS: THIAMINE HCL 100 MG TABLET (FP) PO SCH (21:46)
[2021-09-04] MEDS: MELATONIN 5 MG TABLETS PO SCH (21:47)
[2021-09-04] MEDS: QUEtiapine FUMARATE 100 MG TABLET (FP) PO PRN (21:48)
[2021-09-04] MEDS: cloNIDine HCL 0.1 MG TABLET PO SCH (22:52)
[2021-09-05] MEDS ORDERED: methaDONE HCL 40 MG DISPERSABLE TABLET ONE (02:51)
[2021-09-05] MEDS ORDERED: methaDONE HCL 10 MG TABLET ONE (02:51)
[2021-09-05] MEDS: DOCUSATE SODIUM 100 MG CAPSULE (FP) PO SCH ×3 (05:46→21:00)
[2021-09-05] MEDS: methaDONE 80 MG, methaDONE 10 MG PO SCH (05:46)
[2021-09-05] MEDS: NICOTINE 10 MG CARTRIDGE (INHALER) IH PRN ×3 (05:47→21:02)
[2021-09-05] MEDS: BUDESONIDE/FORMETEROL FUMARATE 80/4.5 mcg INHALER IH SCH ×2 (09:46→21:00)
[2021-09-05] MEDS: NICOTINE 7 MG/24 HOURS TOPICAL PATCH TD SCH (09:46)
[2021-09-05] MEDS: QUEtiapine FUMARATE 25 MG TABLET PO SCH (09:46)
[2021-09-05] MEDS: PRENATAL VITAMINS W/ FOLIC ACID TABLET (FP) PO SCH (09:46)
[2021-09-05] MEDS: cloNIDine HCL 0.1 MG TABLET PO SCH (09:47)
[2021-09-05] MEDS: amLODIPine BESYLATE 10 MG TABLET (FP) PO SCH (09:47)
[2021-09-05] MEDS: LISINOPRIL 20 MG TABLET PO SCH (09:47)
[2021-09-05] MEDS: MAGNESIUM HYDROX 2400MG/30ML ORAL SUSPENSION 30 ML CUP PO PRN (14:01)
[2021-09-05] MEDS: THIAMINE HCL 100 MG TABLET (FP) PO SCH (21:00)
[2021-09-05] MEDS: MELATONIN 5 MG TABLETS PO SCH (21:00)
[2021-09-05] MEDS: QUEtiapine FUMARATE 100 MG TABLET (FP) PO PRN (21:00)
[2021-09-06] MEDS: METHOCARBAMOL 500 MG TABLET PO PRN ×4 (01:03→22:13)
[2021-09-06] MEDS ORDERED: methaDONE HCL 40 MG DISPERSABLE TABLET ONE (02:52)
[2021-09-06] MEDS ORDERED: methaDONE HCL 10 MG TABLET ONE (02:52)
[2021-09-06] MEDS: methaDONE 80 MG, methaDONE 10 MG PO SCH (05:46)
[2021-09-06] MEDS: DOCUSATE SODIUM 100 MG CAPSULE (FP) PO SCH ×3 (05:46→22:12)
[2021-09-06] MEDS: NICOTINE 10 MG CARTRIDGE (INHALER) IH PRN ×2 (05:52→14:28)
[2021-09-06] MEDS: PRENATAL VITAMINS W/ FOLIC ACID TABLET (FP) PO SCH (09:37)
[2021-09-06] MEDS: LISINOPRIL 20 MG TABLET PO SCH (09:37)
[2021-09-06] MEDS: BUDESONIDE/FORMETEROL FUMARATE 80/4.5 mcg INHALER IH SCH ×2 (09:37→22:12)
[2021-09-06] MEDS: NICOTINE 7 MG/24 HOURS TOPICAL PATCH TD SCH (09:37)
[2021-09-06] MEDS: amLODIPine BESYLATE 10 MG TABLET (FP) PO SCH (09:38)
[2021-09-06] MEDS: cloNIDine HCL 0.1 MG TABLET PO SCH (09:38)
[2021-09-06] MEDS: QUEtiapine FUMARATE 25 MG TABLET PO SCH (09:38)
[2021-09-06 16:17] LABS: SARS-CoV-2 NAA Not Detected (Not Detected)
[2021-09-06] MEDS: IBUPROFEN 400 MG TABLET (FP) PO PRN (19:15)
[2021-09-06] MEDS: THIAMINE HCL 100 MG TABLET (FP) PO SCH (22:11)
[2021-09-06] MEDS: MELATONIN 5 MG TABLETS PO SCH (22:12)
[2021-09-06] MEDS: QUEtiapine FUMARATE 100 MG TABLET (FP) PO PRN (22:13)
[2021-09-07] MEDS ORDERED: methaDONE HCL 10 MG TABLET ONE (03:37)
[2021-09-07] MEDS ORDERED: methaDONE HCL 40 MG DISPERSABLE TABLET ONE (03:37)
[2021-09-07] MEDS: methaDONE 80 MG, methaDONE 10 MG PO SCH (05:35)
[2021-09-07] MEDS: DOCUSATE SODIUM 100 MG CAPSULE (FP) PO SCH ×3 (05:35→21:14)
[2021-09-07] MEDS: NICOTINE 10 MG CARTRIDGE (INHALER) IH PRN ×3 (05:35→15:36)
[2021-09-07] MEDS: METHOCARBAMOL 500 MG TABLET PO PRN ×3 (07:07→21:14)
[2021-09-07] MEDS: NICOTINE 7 MG/24 HOURS TOPICAL PATCH TD SCH (09:35)
[2021-09-07] MEDS: PRENATAL VITAMINS W/ FOLIC ACID TABLET (FP) PO SCH (09:35)
[2021-09-07] MEDS: amLODIPine BESYLATE 10 MG TABLET (FP) PO SCH (09:36)
[2021-09-07] MEDS: LISINOPRIL 20 MG TABLET PO SCH (09:36)
[2021-09-07] MEDS: QUEtiapine FUMARATE 25 MG TABLET PO SCH (09:36)
[2021-09-07] MEDS: BUDESONIDE/FORMETEROL FUMARATE 80/4.5 mcg INHALER IH SCH ×2 (09:37→21:16)
[2021-09-07] MEDS: hydrOXYzine PAMOATE 25 MG CAPSULE (FP) PO PRN ×2 (09:37→17:58)
[2021-09-07] MEDS: METHYL SALICYLATE/MENTHOL OINT 30 GM TUBE TP SCH ×2 (10:34→21:16)
[2021-09-07] MEDS: THIAMINE HCL 100 MG TABLET (FP) PO SCH (21:14)
[2021-09-07] MEDS: QUEtiapine FUMARATE 100 MG TABLET (FP) PO PRN (21:14)
[2021-09-07] MEDS: cloNIDine HCL 0.1 MG TABLET PO PRN (21:15)
[2021-09-07] MEDS: MELATONIN 5 MG TABLETS PO SCH (21:15)
[2021-09-08] MEDS: hydrOXYzine PAMOATE 25 MG CAPSULE (FP) PO PRN ×2 (01:55→14:17)
[2021-09-08] MEDS ORDERED: methaDONE HCL 40 MG DISPERSABLE TABLET ONE (03:56)
[2021-09-08] MEDS ORDERED: methaDONE HCL 10 MG TABLET ONE (03:56)
[2021-09-08] MEDS: NICOTINE 10 MG CARTRIDGE (INHALER) IH PRN ×2 (05:43→14:17)
[2021-09-08] MEDS: DOCUSATE SODIUM 100 MG CAPSULE (FP) PO SCH ×3 (05:44→21:26)
[2021-09-08] MEDS: methaDONE 80 MG, methaDONE 10 MG PO SCH (05:44)
[2021-09-08] MEDS: cloNIDine HCL 0.1 MG TABLET PO PRN ×2 (07:11→21:26)
[2021-09-08] MEDS: BUDESONIDE/FORMETEROL FUMARATE 80/4.5 mcg INHALER IH SCH ×2 (10:10→21:27)
[2021-09-08] MEDS: LISINOPRIL 20 MG TABLET PO SCH (10:11)
[2021-09-08] MEDS: amLODIPine BESYLATE 10 MG TABLET (FP) PO SCH (10:11)
[2021-09-08] MEDS: QUEtiapine FUMARATE 25 MG TABLET PO SCH (10:11)
[2021-09-08] MEDS: PRENATAL VITAMINS W/ FOLIC ACID TABLET (FP) PO SCH (10:12)
[2021-09-08] MEDS: METHYL SALICYLATE/MENTHOL OINT 30 GM TUBE TP SCH ×2 (10:12→21:26)
[2021-09-08] MEDS: NICOTINE 7 MG/24 HOURS TOPICAL PATCH TD SCH (10:12)
[2021-09-08] MEDS: MAGNESIUM HYDROX 2400MG/30ML ORAL SUSPENSION 30 ML CUP PO PRN (17:39)
[2021-09-08] MEDS: METHOCARBAMOL 500 MG TABLET PO PRN ×2 (19:04→21:26)
[2021-09-08] MEDS: MELATONIN 5 MG TABLETS PO SCH (21:26)
[2021-09-08] MEDS: THIAMINE HCL 100 MG TABLET (FP) PO SCH (21:26)
[2021-09-08] MEDS: QUEtiapine FUMARATE 100 MG TABLET (FP) PO PRN (21:26)
[2021-09-09] MEDS: hydrOXYzine PAMOATE 25 MG CAPSULE (FP) PO PRN (02:53)
[2021-09-09] MEDS ORDERED: methaDONE HCL 40 MG DISPERSABLE TABLET ONE (03:53)
[2021-09-09] MEDS ORDERED: methaDONE HCL 10 MG TABLET ONE (03:53)
[2021-09-09] MEDS: DOCUSATE SODIUM 100 MG CAPSULE (FP) PO SCH ×3 (05:44→21:30)
[2021-09-09] MEDS: methaDONE 80 MG, methaDONE 10 MG PO SCH (05:44)
[2021-09-09] MEDS: METHOCARBAMOL 500 MG TABLET PO PRN ×3 (05:45→21:33)
[2021-09-09] MEDS: NICOTINE 10 MG CARTRIDGE (INHALER) IH PRN ×2 (05:46→13:25)
[2021-09-09] MEDS: PRENATAL VITAMINS W/ FOLIC ACID TABLET (FP) PO SCH (09:53)
[2021-09-09] MEDS: BUDESONIDE/FORMETEROL FUMARATE 80/4.5 mcg INHALER IH SCH ×2 (09:54→21:30)
[2021-09-09] MEDS: METHYL SALICYLATE/MENTHOL OINT 30 GM TUBE TP SCH ×2 (09:54→21:29)
[2021-09-09] MEDS: LISINOPRIL 20 MG TABLET PO SCH (09:54)
[2021-09-09] MEDS: amLODIPine BESYLATE 10 MG TABLET (FP) PO SCH (09:54)
[2021-09-09] MEDS: QUEtiapine FUMARATE 25 MG TABLET PO SCH (09:54)
[2021-09-09] MEDS: NICOTINE 7 MG/24 HOURS TOPICAL PATCH TD SCH (09:55)
[2021-09-09] MEDS: MAGNESIUM HYDROX 2400MG/30ML ORAL SUSPENSION 30 ML CUP PO PRN (19:11)
[2021-09-09] MEDS: THIAMINE HCL 100 MG TABLET (FP) PO SCH (21:30)
[2021-09-09] MEDS: MELATONIN 5 MG TABLETS PO SCH (21:30)
[2021-09-09] MEDS: cloNIDine HCL 0.1 MG TABLET PO PRN (21:31)
[2021-09-10] MEDS: hydrOXYzine PAMOATE 25 MG CAPSULE (FP) PO PRN ×2 (02:35→19:04)
[2021-09-10] MEDS ORDERED: methaDONE HCL 40 MG DISPERSABLE TABLET ONE (03:39)
[2021-09-10] MEDS ORDERED: methaDONE HCL 10 MG TABLET ONE (03:39)
[2021-09-10] MEDS: DOCUSATE SODIUM 100 MG CAPSULE (FP) PO SCH ×3 (06:02→21:15)
[2021-09-10] MEDS: methaDONE 80 MG, methaDONE 10 MG PO SCH (06:02)
[2021-09-10] MEDS: NICOTINE 10 MG CARTRIDGE (INHALER) IH PRN ×2 (06:04→15:56)
[2021-09-10] MEDS: PRENATAL VITAMINS W/ FOLIC ACID TABLET (FP) PO SCH (10:04)
[2021-09-10] MEDS: LISINOPRIL 20 MG TABLET PO SCH (10:05)
[2021-09-10] MEDS: QUEtiapine FUMARATE 25 MG TABLET PO SCH (10:05)
[2021-09-10] MEDS: NICOTINE 7 MG/24 HOURS TOPICAL PATCH TD SCH (10:05)
[2021-09-10] MEDS: BUDESONIDE/FORMETEROL FUMARATE 80/4.5 mcg INHALER IH SCH ×2 (10:05→21:19)
[2021-09-10] MEDS: amLODIPine BESYLATE 10 MG TABLET (FP) PO SCH (10:05)
[2021-09-10] MEDS: METHYL SALICYLATE/MENTHOL OINT 30 GM TUBE TP SCH ×2 (10:06→21:18)
[2021-09-10] MEDS: METHOCARBAMOL 500 MG TABLET PO PRN ×2 (14:21→21:17)
[2021-09-10] MEDS: IBUPROFEN 400 MG TABLET (FP) PO PRN (14:22)
[2021-09-10] MEDS: MELATONIN 5 MG TABLETS PO SCH (21:15)
[2021-09-10] MEDS: THIAMINE HCL 100 MG TABLET (FP) PO SCH (21:15)
[2021-09-10] MEDS: cloNIDine HCL 0.1 MG TABLET PO PRN (21:17)
[2021-09-10] MEDS: MAGNESIUM HYDROX 2400MG/30ML ORAL SUSPENSION 30 ML CUP PO PRN (21:17)
[2021-09-11] MEDS: hydrOXYzine PAMOATE 25 MG CAPSULE (FP) PO PRN ×2 (01:22→19:46)
[2021-09-11] MEDS ORDERED: methaDONE HCL 10 MG TABLET ONE (03:14)
[2021-09-11] MEDS ORDERED: methaDONE HCL 40 MG DISPERSABLE TABLET ONE (03:14)
[2021-09-11] MEDS: DOCUSATE SODIUM 100 MG CAPSULE (FP) PO SCH ×3 (05:40→22:03)
[2021-09-11] MEDS: methaDONE 80 MG, methaDONE 10 MG PO SCH (05:41)
[2021-09-11] MEDS: NICOTINE 10 MG CARTRIDGE (INHALER) IH PRN (06:06)
[2021-09-11] MEDS: BUDESONIDE/FORMETEROL FUMARATE 80/4.5 mcg INHALER IH SCH ×2 (09:50→22:04)
[2021-09-11] MEDS: amLODIPine BESYLATE 10 MG TABLET (FP) PO SCH (09:50)
[2021-09-11] MEDS: QUEtiapine FUMARATE 25 MG TABLET PO SCH (09:50)
[2021-09-11] MEDS: LISINOPRIL 20 MG TABLET PO SCH (09:50)
[2021-09-11] MEDS: METHYL SALICYLATE/MENTHOL OINT 30 GM TUBE TP SCH ×2 (09:50→22:03)
[2021-09-11] MEDS: NICOTINE 7 MG/24 HOURS TOPICAL PATCH TD SCH (09:50)
[2021-09-11] MEDS: PRENATAL VITAMINS W/ FOLIC ACID TABLET (FP) PO SCH (09:51)
[2021-09-11] MEDS: METHOCARBAMOL 500 MG TABLET PO PRN ×2 (09:51→17:40)
[2021-09-11] MEDS: QUEtiapine FUMARATE 100 MG TABLET (FP) PO PRN (22:03)
[2021-09-11] MEDS: THIAMINE HCL 100 MG TABLET (FP) PO SCH (22:03)
[2021-09-11] MEDS: MELATONIN 5 MG TABLETS PO SCH (22:04)
[2021-09-12] MEDS: cloNIDine HCL 0.1 MG TABLET PO PRN ×2 (00:17→22:15)
[2021-09-12] MEDS ORDERED: methaDONE HCL 10 MG TABLET ONE (05:32)
[2021-09-12] MEDS ORDERED: methaDONE HCL 40 MG DISPERSABLE TABLET ONE (05:32)
[2021-09-12] MEDS: methaDONE 80 MG, methaDONE 10 MG PO SCH (06:16)
[2021-09-12] MEDS: DOCUSATE SODIUM 100 MG CAPSULE (FP) PO SCH ×3 (06:18→22:15)
[2021-09-12] MEDS: NICOTINE 10 MG CARTRIDGE (INHALER) IH PRN ×2 (06:37→13:49)
[2021-09-12] MEDS: METHOCARBAMOL 500 MG TABLET PO PRN ×2 (10:23→16:51)
[2021-09-12] MEDS: amLODIPine BESYLATE 10 MG TABLET (FP) PO SCH (10:23)
[2021-09-12] MEDS: LISINOPRIL 20 MG TABLET PO SCH (10:23)
[2021-09-12] MEDS: BUDESONIDE/FORMETEROL FUMARATE 80/4.5 mcg INHALER IH SCH ×2 (10:23→22:16)
[2021-09-12] MEDS: NICOTINE 7 MG/24 HOURS TOPICAL PATCH TD SCH (10:24)
[2021-09-12] MEDS: QUEtiapine FUMARATE 25 MG TABLET PO SCH (10:24)
[2021-09-12] MEDS: PRENATAL VITAMINS W/ FOLIC ACID TABLET (FP) PO SCH (10:24)
[2021-09-12] MEDS: METHYL SALICYLATE/MENTHOL OINT 30 GM TUBE TP SCH ×2 (10:25→22:16)
[2021-09-12] MEDS: THIAMINE HCL 100 MG TABLET (FP) PO SCH (22:15)
[2021-09-12] MEDS: QUEtiapine FUMARATE 100 MG TABLET (FP) PO PRN (22:15)
[2021-09-12] MEDS: MELATONIN 5 MG TABLETS PO SCH (22:16)
[2021-09-13] MEDS: hydrOXYzine PAMOATE 25 MG CAPSULE (FP) PO PRN ×2 (01:51→19:33)
[2021-09-13] MEDS ORDERED: methaDONE HCL 10 MG TABLET ONE (04:53)
[2021-09-13] MEDS ORDERED: methaDONE HCL 40 MG DISPERSABLE TABLET ONE (04:53)
[2021-09-13] MEDS: methaDONE 80 MG, methaDONE 10 MG PO SCH (06:04)
[2021-09-13] MEDS: DOCUSATE SODIUM 100 MG CAPSULE (FP) PO SCH ×3 (06:04→21:25)
[2021-09-13] MEDS: NICOTINE 10 MG CARTRIDGE (INHALER) IH PRN ×2 (07:14→13:22)
[2021-09-13] MEDS: BUDESONIDE/FORMETEROL FUMARATE 80/4.5 mcg INHALER IH SCH ×2 (10:20→21:26)
[2021-09-13] MEDS: QUEtiapine FUMARATE 25 MG TABLET PO SCH (10:20)
[2021-09-13] MEDS: NICOTINE 7 MG/24 HOURS TOPICAL PATCH TD SCH (10:20)
[2021-09-13] MEDS: LISINOPRIL 20 MG TABLET PO SCH (10:20)
[2021-09-13] MEDS: amLODIPine BESYLATE 10 MG TABLET (FP) PO SCH (10:20)
[2021-09-13] MEDS: METHYL SALICYLATE/MENTHOL OINT 30 GM TUBE TP SCH ×2 (10:21→21:25)
[2021-09-13] MEDS: PRENATAL VITAMINS W/ FOLIC ACID TABLET (FP) PO SCH (10:21)
[2021-09-13] MEDS: METHOCARBAMOL 500 MG TABLET PO PRN ×2 (10:22→16:18)
[2021-09-13] MEDS: MELATONIN 5 MG TABLETS PO SCH (21:26)
[2021-09-13] MEDS: THIAMINE HCL 100 MG TABLET (FP) PO SCH (21:26)
[2021-09-13] MEDS: cloNIDine HCL 0.1 MG TABLET PO PRN (21:29)
[2021-09-14] MEDS: hydrOXYzine PAMOATE 25 MG CAPSULE (FP) PO PRN ×2 (02:29→14:41)
[2021-09-14] MEDS ORDERED: methaDONE HCL 10 MG TABLET ONE (04:05)
[2021-09-14] MEDS ORDERED: methaDONE HCL 40 MG DISPERSABLE TABLET ONE (04:05)
[2021-09-14] MEDS: DOCUSATE SODIUM 100 MG CAPSULE (FP) PO SCH ×3 (05:41→21:18)
[2021-09-14] MEDS: methaDONE 80 MG, methaDONE 10 MG PO SCH (05:41)
[2021-09-14] MEDS: NICOTINE 10 MG CARTRIDGE (INHALER) IH PRN ×2 (05:49→15:57)
[2021-09-14] MEDS: PRENATAL VITAMINS W/ FOLIC ACID TABLET (FP) PO SCH (09:54)
[2021-09-14] MEDS: QUEtiapine FUMARATE 25 MG TABLET PO SCH (09:55)
[2021-09-14] MEDS: BUDESONIDE/FORMETEROL FUMARATE 80/4.5 mcg INHALER IH SCH ×2 (09:55→21:18)
[2021-09-14] MEDS: METHYL SALICYLATE/MENTHOL OINT 30 GM TUBE TP SCH ×2 (09:55→21:19)
[2021-09-14] MEDS: LISINOPRIL 20 MG TABLET PO SCH (09:55)
[2021-09-14] MEDS: NICOTINE 7 MG/24 HOURS TOPICAL PATCH TD SCH (09:55)
[2021-09-14] MEDS: amLODIPine BESYLATE 10 MG TABLET (FP) PO SCH (09:55)
[2021-09-14] MEDS: METHOCARBAMOL 500 MG TABLET PO PRN ×2 (09:57→17:39)
[2021-09-14] MEDS: IBUPROFEN 400 MG TABLET (FP) PO PRN (13:31)
[2021-09-14] MEDS: QUEtiapine FUMARATE 100 MG TABLET (FP) PO PRN (21:18)
[2021-09-14] MEDS: THIAMINE HCL 100 MG TABLET (FP) PO SCH (21:18)
[2021-09-14] MEDS: cloNIDine HCL 0.1 MG TABLET PO PRN (21:18)
[2021-09-14] MEDS: MELATONIN 5 MG TABLETS PO SCH (21:19)
[2021-09-15] MEDS: hydrOXYzine PAMOATE 25 MG CAPSULE (FP) PO PRN ×2 (01:45→23:43)
[2021-09-15] MEDS ORDERED: methaDONE HCL 10 MG TABLET ONE (03:07)
[2021-09-15] MEDS ORDERED: methaDONE HCL 40 MG DISPERSABLE TABLET ONE (03:07)
[2021-09-15] MEDS: methaDONE 80 MG, methaDONE 10 MG PO SCH (05:50)
[2021-09-15] MEDS: DOCUSATE SODIUM 100 MG CAPSULE (FP) PO SCH ×3 (05:51→21:18)
[2021-09-15] MEDS: NICOTINE 10 MG CARTRIDGE (INHALER) IH PRN ×2 (05:52→16:09)
[2021-09-15] MEDS: NICOTINE 7 MG/24 HOURS TOPICAL PATCH TD SCH (09:50)
[2021-09-15] MEDS: PRENATAL VITAMINS W/ FOLIC ACID TABLET (FP) PO SCH (09:50)
[2021-09-15] MEDS: METHYL SALICYLATE/MENTHOL OINT 30 GM TUBE TP SCH ×2 (09:51→21:19)
[2021-09-15] MEDS: LISINOPRIL 20 MG TABLET PO SCH (09:51)
[2021-09-15] MEDS: BUDESONIDE/FORMETEROL FUMARATE 80/4.5 mcg INHALER IH SCH ×2 (09:51→21:18)
[2021-09-15] MEDS: amLODIPine BESYLATE 10 MG TABLET (FP) PO SCH (09:51)
[2021-09-15] MEDS: QUEtiapine FUMARATE 25 MG TABLET PO SCH (09:51)
[2021-09-15] MEDS: METHOCARBAMOL 500 MG TABLET PO PRN ×2 (09:52→21:18)
[2021-09-15] MEDS: THIAMINE HCL 100 MG TABLET (FP) PO SCH (21:18)
[2021-09-15] MEDS: QUEtiapine FUMARATE 100 MG TABLET (FP) PO PRN (21:18)
[2021-09-15] MEDS: cloNIDine HCL 0.1 MG TABLET PO PRN (21:18)
[2021-09-15] MEDS: MELATONIN 5 MG TABLETS PO SCH (21:19)
[2021-09-16] MEDS ORDERED: methaDONE HCL 10 MG TABLET ONE (03:29)
[2021-09-16] MEDS ORDERED: methaDONE HCL 40 MG DISPERSABLE TABLET ONE (03:29)
[2021-09-16] MEDS: METHOCARBAMOL 500 MG TABLET PO PRN ×3 (05:59→21:21)
[2021-09-16] MEDS: methaDONE 80 MG, methaDONE 10 MG PO SCH (05:59)
[2021-09-16] MEDS: DOCUSATE SODIUM 100 MG CAPSULE (FP) PO SCH ×3 (05:59→21:21)
[2021-09-16] MEDS: hydrOXYzine PAMOATE 25 MG CAPSULE (FP) PO PRN ×2 (06:00→13:36)
[2021-09-16] MEDS: BUDESONIDE/FORMETEROL FUMARATE 80/4.5 mcg INHALER IH SCH ×2 (09:51→21:22)
[2021-09-16] MEDS: amLODIPine BESYLATE 10 MG TABLET (FP) PO SCH (09:51)
[2021-09-16] MEDS: PRENATAL VITAMINS W/ FOLIC ACID TABLET (FP) PO SCH (09:51)
[2021-09-16] MEDS: QUEtiapine FUMARATE 25 MG TABLET PO SCH (09:51)
[2021-09-16] MEDS: NICOTINE 10 MG CARTRIDGE (INHALER) IH PRN ×2 (09:52→18:06)
[2021-09-16] MEDS: METHYL SALICYLATE/MENTHOL OINT 30 GM TUBE TP SCH ×2 (09:52→21:37)
[2021-09-16] MEDS: NICOTINE 7 MG/24 HOURS TOPICAL PATCH TD SCH (09:52)
[2021-09-16] MEDS: LISINOPRIL 20 MG TABLET PO SCH (09:52)
[2021-09-16] MEDS: cloNIDine HCL 0.1 MG TABLET PO PRN ×2 (13:36→21:21)
[2021-09-16] MEDS: MELATONIN 5 MG TABLETS PO SCH (21:21)
[2021-09-16] MEDS: THIAMINE HCL 100 MG TABLET (FP) PO SCH (21:21)
[2021-09-16] MEDS: QUEtiapine FUMARATE 100 MG TABLET (FP) PO PRN (21:21)
[2021-09-17] MEDS ORDERED: methaDONE HCL 40 MG DISPERSABLE TABLET ONE (05:59)
[2021-09-17] MEDS ORDERED: methaDONE HCL 10 MG TABLET ONE (05:59)
[2021-09-17] MEDS: METHOCARBAMOL 500 MG TABLET PO PRN ×3 (06:00→21:17)
[2021-09-17] MEDS: hydrOXYzine PAMOATE 25 MG CAPSULE (FP) PO PRN ×2 (06:00→13:14)
[2021-09-17] MEDS: DOCUSATE SODIUM 100 MG CAPSULE (FP) PO SCH ×3 (06:00→21:17)
[2021-09-17] MEDS: methaDONE 80 MG, methaDONE 10 MG PO SCH (06:00)
[2021-09-17] MEDS: cloNIDine HCL 0.1 MG TABLET PO PRN ×2 (06:01→21:17)
[2021-09-17] MEDS: BUDESONIDE/FORMETEROL FUMARATE 80/4.5 mcg INHALER IH SCH ×2 (09:53→21:16)
[2021-09-17] MEDS: amLODIPine BESYLATE 10 MG TABLET (FP) PO SCH (09:54)
[2021-09-17] MEDS: LISINOPRIL 20 MG TABLET PO SCH (09:54)
[2021-09-17] MEDS: QUEtiapine FUMARATE 25 MG TABLET PO SCH (09:54)
[2021-09-17] MEDS: PRENATAL VITAMINS W/ FOLIC ACID TABLET (FP) PO SCH (09:54)
[2021-09-17] MEDS: NICOTINE 10 MG CARTRIDGE (INHALER) IH PRN ×2 (09:56→23:42)
[2021-09-17] MEDS: METHYL SALICYLATE/MENTHOL OINT 30 GM TUBE TP SCH ×2 (09:56→21:16)
[2021-09-17] MEDS: NICOTINE 7 MG/24 HOURS TOPICAL PATCH TD SCH (09:56)
[2021-09-17] MEDS: MELATONIN 5 MG TABLETS PO SCH (21:17)
[2021-09-17] MEDS: QUEtiapine FUMARATE 100 MG TABLET (FP) PO PRN (21:17)
[2021-09-17] MEDS: THIAMINE HCL 100 MG TABLET (FP) PO SCH (21:17)
[2021-09-18] MEDS ORDERED: methaDONE HCL 40 MG DISPERSABLE TABLET ONE (03:29)
[2021-09-18] MEDS ORDERED: methaDONE HCL 10 MG TABLET ONE (03:29)
[2021-09-18] MEDS: methaDONE 80 MG, methaDONE 10 MG PO SCH (06:08)
[2021-09-18] MEDS: METHOCARBAMOL 500 MG TABLET PO PRN ×3 (06:09→21:58)
[2021-09-18] MEDS: DOCUSATE SODIUM 100 MG CAPSULE (FP) PO SCH ×3 (06:09→21:58)
[2021-09-18] MEDS: hydrOXYzine PAMOATE 25 MG CAPSULE (FP) PO PRN ×3 (06:10→18:41)
[2021-09-18] MEDS: BUDESONIDE/FORMETEROL FUMARATE 80/4.5 mcg INHALER IH SCH ×2 (09:50→21:58)
[2021-09-18] MEDS: PRENATAL VITAMINS W/ FOLIC ACID TABLET (FP) PO SCH (09:50)
[2021-09-18] MEDS: LISINOPRIL 20 MG TABLET PO SCH (09:51)
[2021-09-18] MEDS: QUEtiapine FUMARATE 25 MG TABLET PO SCH (09:51)
[2021-09-18] MEDS: NICOTINE 7 MG/24 HOURS TOPICAL PATCH TD SCH (09:51)
[2021-09-18] MEDS: METHYL SALICYLATE/MENTHOL OINT 30 GM TUBE TP SCH ×2 (09:51→21:58)
[2021-09-18] MEDS: amLODIPine BESYLATE 10 MG TABLET (FP) PO SCH (09:53)
[2021-09-18] MEDS: NICOTINE 10 MG CARTRIDGE (INHALER) IH PRN ×2 (13:31→16:56)
[2021-09-18] MEDS: QUEtiapine FUMARATE 100 MG TABLET (FP) PO PRN (21:58)
[2021-09-18] MEDS: MELATONIN 5 MG TABLETS PO SCH (21:58)
[2021-09-18] MEDS: THIAMINE HCL 100 MG TABLET (FP) PO SCH (21:59)
[2021-09-19] MEDS: hydrOXYzine PAMOATE 25 MG CAPSULE (FP) PO PRN ×3 (01:56→23:45)
[2021-09-19] MEDS ORDERED: methaDONE HCL 10 MG TABLET ONE (03:06)
[2021-09-19] MEDS ORDERED: methaDONE HCL 40 MG DISPERSABLE TABLET ONE (03:06)
[2021-09-19] MEDS: NICOTINE 10 MG CARTRIDGE (INHALER) IH PRN ×3 (05:39→18:20)
[2021-09-19] MEDS: methaDONE 80 MG, methaDONE 10 MG PO SCH (05:41)
[2021-09-19] MEDS: DOCUSATE SODIUM 100 MG CAPSULE (FP) PO SCH ×3 (05:41→21:11)
[2021-09-19] MEDS: METHOCARBAMOL 500 MG TABLET PO PRN ×2 (07:25→18:02)
[2021-09-19] MEDS: PRENATAL VITAMINS W/ FOLIC ACID TABLET (FP) PO SCH (10:01)
[2021-09-19] MEDS: METHYL SALICYLATE/MENTHOL OINT 30 GM TUBE TP SCH ×2 (10:01→21:12)
[2021-09-19] MEDS: BUDESONIDE/FORMETEROL FUMARATE 80/4.5 mcg INHALER IH SCH ×2 (10:02→21:10)
[2021-09-19] MEDS: QUEtiapine FUMARATE 25 MG TABLET PO SCH (10:02)
[2021-09-19] MEDS: LISINOPRIL 20 MG TABLET PO SCH (10:02)
[2021-09-19] MEDS: NICOTINE 7 MG/24 HOURS TOPICAL PATCH TD SCH (10:02)
[2021-09-19] MEDS: amLODIPine BESYLATE 10 MG TABLET (FP) PO SCH (10:03)
[2021-09-19] MEDS: MELATONIN 5 MG TABLETS PO SCH (21:11)
[2021-09-19] MEDS: THIAMINE HCL 100 MG TABLET (FP) PO SCH (21:11)
[2021-09-19] MEDS: QUEtiapine FUMARATE 100 MG TABLET (FP) PO PRN (21:11)
[2021-09-19] MEDS: cloNIDine HCL 0.1 MG TABLET PO PRN (21:13)
[2021-09-20] MEDS ORDERED: methaDONE HCL 40 MG DISPERSABLE TABLET ONE (05:35)
[2021-09-20] MEDS ORDERED: methaDONE HCL 10 MG TABLET ONE (05:35)
[2021-09-20] MEDS: DOCUSATE SODIUM 100 MG CAPSULE (FP) PO SCH ×3 (06:38→21:12)
[2021-09-20] MEDS: methaDONE 80 MG, methaDONE 10 MG PO SCH (06:38)
[2021-09-20] MEDS: LISINOPRIL 20 MG TABLET PO SCH (10:26)
[2021-09-20] MEDS: BUDESONIDE/FORMETEROL FUMARATE 80/4.5 mcg INHALER IH SCH ×2 (10:26→21:16)
[2021-09-20] MEDS: METHYL SALICYLATE/MENTHOL OINT 30 GM TUBE TP SCH ×2 (10:26→21:13)
[2021-09-20] MEDS: NICOTINE 7 MG/24 HOURS TOPICAL PATCH TD SCH (10:26)
[2021-09-20] MEDS: amLODIPine BESYLATE 10 MG TABLET (FP) PO SCH (10:26)
[2021-09-20] MEDS: PRENATAL VITAMINS W/ FOLIC ACID TABLET (FP) PO SCH (10:26)
[2021-09-20] MEDS: QUEtiapine FUMARATE 25 MG TABLET PO SCH (10:26)
[2021-09-20] MEDS: NICOTINE 10 MG CARTRIDGE (INHALER) IH PRN (10:27)
[2021-09-20] MEDS: METHOCARBAMOL 500 MG TABLET PO PRN ×2 (10:29→21:14)
[2021-09-20] MEDS: hydrOXYzine PAMOATE 25 MG CAPSULE (FP) PO PRN (13:56)
[2021-09-20] MEDS: ACETAMINOPHEN 325 MG TABLET (FP) PO PRN ×2 (13:56→18:49)
[2021-09-20] MEDS: MELATONIN 5 MG TABLETS PO SCH (21:12)
[2021-09-20] MEDS: THIAMINE HCL 100 MG TABLET (FP) PO SCH (21:12)
[2021-09-20] MEDS: QUEtiapine FUMARATE 100 MG TABLET (FP) PO PRN (21:12)
[2021-09-20] MEDS: cloNIDine HCL 0.1 MG TABLET PO PRN (21:14)
[2021-09-20] MEDS: HYDROCORTISONE 1% TOPICAL CREAM 30 GM TUBE TP SCH (21:15)
[2021-09-21] MEDS: hydrOXYzine PAMOATE 25 MG CAPSULE (FP) PO PRN ×2 (01:48→13:10)
[2021-09-21] MEDS ORDERED: methaDONE HCL 10 MG TABLET ONE (04:11)
[2021-09-21] MEDS ORDERED: methaDONE HCL 40 MG DISPERSABLE TABLET ONE (04:11)
[2021-09-21] MEDS: DOCUSATE SODIUM 100 MG CAPSULE (FP) PO SCH ×3 (06:42→21:16)
[2021-09-21] MEDS: methaDONE 80 MG, methaDONE 10 MG PO SCH (06:42)
[2021-09-21] MEDS: cloNIDine HCL 0.1 MG TABLET PO PRN ×2 (06:42→21:19)
[2021-09-21] MEDS: NICOTINE 7 MG/24 HOURS TOPICAL PATCH TD SCH (09:57)
[2021-09-21] MEDS: PRENATAL VITAMINS W/ FOLIC ACID TABLET (FP) PO SCH (09:57)
[2021-09-21] MEDS: METHYL SALICYLATE/MENTHOL OINT 30 GM TUBE TP SCH ×2 (09:57→21:15)
[2021-09-21] MEDS: QUEtiapine FUMARATE 25 MG TABLET PO SCH (09:58)
[2021-09-21] MEDS: NICOTINE 10 MG CARTRIDGE (INHALER) IH PRN ×2 (09:58→14:49)
[2021-09-21] MEDS: BUDESONIDE/FORMETEROL FUMARATE 80/4.5 mcg INHALER IH SCH ×2 (09:58→21:17)
[2021-09-21] MEDS: LISINOPRIL 20 MG TABLET PO SCH (09:58)
[2021-09-21] MEDS: amLODIPine BESYLATE 10 MG TABLET (FP) PO SCH (09:58)
[2021-09-21] MEDS: HYDROCORTISONE 1% TOPICAL CREAM 30 GM TUBE TP SCH ×2 (09:59→21:16)
[2021-09-21] MEDS ORDERED: QUEtiapine FUMARATE 50 MG TABLET PO PRN (16:36)
[2021-09-21] MEDS: IBUPROFEN 400 MG TABLET (FP) PO PRN (17:42)
[2021-09-21] MEDS: THIAMINE HCL 100 MG TABLET (FP) PO SCH (21:17)
[2021-09-21] MEDS: MELATONIN 5 MG TABLETS PO SCH (21:17)
[2021-09-22] MEDS: METHOCARBAMOL 500 MG TABLET PO PRN ×2 (01:04→13:59)
[2021-09-22] MEDS: hydrOXYzine PAMOATE 25 MG CAPSULE (FP) PO PRN ×3 (01:04→19:24)
[2021-09-22] MEDS ORDERED: methaDONE HCL 10 MG TABLET ONE (03:39)
[2021-09-22] MEDS ORDERED: methaDONE HCL 40 MG DISPERSABLE TABLET ONE (03:39)
[2021-09-22] MEDS: MAGNESIUM HYDROX 2400MG/30ML ORAL SUSPENSION 30 ML CUP PO PRN (03:51)
[2021-09-22] MEDS: methaDONE 80 MG, methaDONE 10 MG PO SCH (05:44)
[2021-09-22] MEDS: DOCUSATE SODIUM 100 MG CAPSULE (FP) PO SCH ×3 (05:45→21:14)
[2021-09-22] MEDS: NICOTINE 10 MG CARTRIDGE (INHALER) IH PRN ×2 (05:46→09:52)
[2021-09-22] MEDS: METHYL SALICYLATE/MENTHOL OINT 30 GM TUBE TP SCH ×2 (09:50→21:14)
[2021-09-22] MEDS: BUDESONIDE/FORMETEROL FUMARATE 80/4.5 mcg INHALER IH SCH ×2 (09:50→21:41)
[2021-09-22] MEDS: PRENATAL VITAMINS W/ FOLIC ACID TABLET (FP) PO SCH (09:50)
[2021-09-22] MEDS: NICOTINE 7 MG/24 HOURS TOPICAL PATCH TD SCH (09:51)
[2021-09-22] MEDS: LISINOPRIL 20 MG TABLET PO SCH (09:51)
[2021-09-22] MEDS: QUEtiapine FUMARATE 50 MG TABLET PO SCH (09:51)
[2021-09-22] MEDS: amLODIPine BESYLATE 10 MG TABLET (FP) PO SCH (09:51)
[2021-09-22] MEDS: HYDROCORTISONE 1% TOPICAL CREAM 30 GM TUBE TP SCH ×2 (09:52→21:14)
[2021-09-22] MEDS: IBUPROFEN 400 MG TABLET (FP) PO PRN (16:06)
[2021-09-22] MEDS: cloNIDine HCL 0.1 MG TABLET PO PRN (21:15)
[2021-09-22] MEDS: MELATONIN 5 MG TABLETS PO SCH (21:15)
[2021-09-22] MEDS: THIAMINE HCL 100 MG TABLET (FP) PO SCH (21:15)
[2021-09-22] MEDS: QUEtiapine FUMARATE 50 MG TABLET PO PRN (21:16)
[2021-09-23] MEDS: hydrOXYzine PAMOATE 25 MG CAPSULE (FP) PO PRN (02:44)
[2021-09-23] MEDS ORDERED: methaDONE HCL 10 MG TABLET ONE (04:23)
[2021-09-23] MEDS ORDERED: methaDONE HCL 40 MG DISPERSABLE TABLET ONE (04:23)
[2021-09-23] MEDS: METHOCARBAMOL 500 MG TABLET PO PRN ×3 (06:26→18:57)
[2021-09-23] MEDS: DOCUSATE SODIUM 100 MG CAPSULE (FP) PO SCH ×3 (06:26→21:23)
[2021-09-23] MEDS: methaDONE 80 MG, methaDONE 10 MG PO SCH (06:26)
[2021-09-23] MEDS: NICOTINE 10 MG CARTRIDGE (INHALER) IH PRN ×2 (06:40→09:43)
[2021-09-23] MEDS: PRENATAL VITAMINS W/ FOLIC ACID TABLET (FP) PO SCH (09:39)
[2021-09-23] MEDS: METHYL SALICYLATE/MENTHOL OINT 30 GM TUBE TP SCH ×2 (09:39→21:23)
[2021-09-23] MEDS: NICOTINE 7 MG/24 HOURS TOPICAL PATCH TD SCH (09:39)
[2021-09-23] MEDS: QUEtiapine FUMARATE 50 MG TABLET PO SCH (09:40)
[2021-09-23] MEDS: LISINOPRIL 20 MG TABLET PO SCH (09:40)
[2021-09-23] MEDS: HYDROCORTISONE 1% TOPICAL CREAM 30 GM TUBE TP SCH ×2 (09:40→21:25)
[2021-09-23] MEDS: amLODIPine BESYLATE 10 MG TABLET (FP) PO SCH (09:40)
[2021-09-23] MEDS: BUDESONIDE/FORMETEROL FUMARATE 80/4.5 mcg INHALER IH SCH ×2 (09:41→21:23)
[2021-09-23] MEDS: MELATONIN 5 MG TABLETS PO SCH (21:23)
[2021-09-23] MEDS: THIAMINE HCL 100 MG TABLET (FP) PO SCH (21:24)
[2021-09-23] MEDS: cloNIDine HCL 0.1 MG TABLET PO PRN (21:24)
[2021-09-23] MEDS: QUEtiapine FUMARATE 50 MG TABLET PO PRN (21:24)
[2021-09-24] MEDS: hydrOXYzine PAMOATE 25 MG CAPSULE (FP) PO PRN ×3 (00:55→15:52)
[2021-09-24] MEDS ORDERED: methaDONE HCL 10 MG TABLET ONE (04:04)
[2021-09-24] MEDS ORDERED: methaDONE HCL 40 MG DISPERSABLE TABLET ONE (04:04)
[2021-09-24] MEDS: methaDONE 80 MG, methaDONE 10 MG PO SCH (05:42)
[2021-09-24] MEDS: DOCUSATE SODIUM 100 MG CAPSULE (FP) PO SCH ×3 (05:42→21:05)
[2021-09-24] MEDS: NICOTINE 10 MG CARTRIDGE (INHALER) IH PRN ×3 (05:44→17:50)
[2021-09-24] MEDS: METHOCARBAMOL 500 MG TABLET PO PRN ×3 (08:29→21:04)
[2021-09-24] MEDS: PRENATAL VITAMINS W/ FOLIC ACID TABLET (FP) PO SCH (09:50)
[2021-09-24] MEDS: METHYL SALICYLATE/MENTHOL OINT 30 GM TUBE TP SCH ×2 (09:50→21:07)
[2021-09-24] MEDS: BUDESONIDE/FORMETEROL FUMARATE 80/4.5 mcg INHALER IH SCH ×2 (09:51→21:08)
[2021-09-24] MEDS: QUEtiapine FUMARATE 50 MG TABLET PO SCH (09:51)
[2021-09-24] MEDS: HYDROCORTISONE 1% TOPICAL CREAM 30 GM TUBE TP SCH ×2 (09:51→21:07)
[2021-09-24] MEDS: amLODIPine BESYLATE 10 MG TABLET (FP) PO SCH (09:51)
[2021-09-24] MEDS: NICOTINE 7 MG/24 HOURS TOPICAL PATCH TD SCH (09:51)
[2021-09-24] MEDS: LISINOPRIL 20 MG TABLET PO SCH (09:51)
[2021-09-24] MEDS: QUEtiapine FUMARATE 50 MG TABLET PO PRN (21:04)
[2021-09-24] MEDS: cloNIDine HCL 0.1 MG TABLET PO PRN (21:04)
[2021-09-24] MEDS: THIAMINE HCL 100 MG TABLET (FP) PO SCH (21:05)
[2021-09-24] MEDS: MELATONIN 5 MG TABLETS PO SCH (21:05)
[2021-09-25] MEDS: hydrOXYzine PAMOATE 25 MG CAPSULE (FP) PO PRN ×3 (01:58→18:07)
[2021-09-25] MEDS ORDERED: methaDONE HCL 40 MG DISPERSABLE TABLET ONE (03:08)
[2021-09-25] MEDS ORDERED: methaDONE HCL 10 MG TABLET ONE (03:08)
[2021-09-25] MEDS: methaDONE 80 MG, methaDONE 10 MG PO SCH (06:05)
[2021-09-25] MEDS: DOCUSATE SODIUM 100 MG CAPSULE (FP) PO SCH ×3 (06:05→21:02)
[2021-09-25] MEDS: NICOTINE 10 MG CARTRIDGE (INHALER) IH PRN ×2 (06:07→15:29)
[2021-09-25] MEDS: PRENATAL VITAMINS W/ FOLIC ACID TABLET (FP) PO SCH (09:56)
[2021-09-25] MEDS: HYDROCORTISONE 1% TOPICAL CREAM 30 GM TUBE TP SCH (09:56)
[2021-09-25] MEDS: NICOTINE 7 MG/24 HOURS TOPICAL PATCH TD SCH (09:56)
[2021-09-25] MEDS: BUDESONIDE/FORMETEROL FUMARATE 80/4.5 mcg INHALER IH SCH ×2 (09:57→21:02)
[2021-09-25] MEDS: LISINOPRIL 20 MG TABLET PO SCH (09:57)
[2021-09-25] MEDS: amLODIPine BESYLATE 10 MG TABLET (FP) PO SCH (09:57)
[2021-09-25] MEDS: METHYL SALICYLATE/MENTHOL OINT 30 GM TUBE TP SCH ×2 (09:57→21:03)
[2021-09-25] MEDS: QUEtiapine FUMARATE 50 MG TABLET PO SCH (09:57)
[2021-09-25] MEDS: METHOCARBAMOL 500 MG TABLET PO PRN ×2 (09:58→18:07)
[2021-09-25] MEDS: MELATONIN 5 MG TABLETS PO SCH (21:03)
[2021-09-25] MEDS: THIAMINE HCL 100 MG TABLET (FP) PO SCH (21:03)
[2021-09-25] MEDS: cloNIDine HCL 0.1 MG TABLET PO PRN (21:04)
[2021-09-26] MEDS: hydrOXYzine PAMOATE 25 MG CAPSULE (FP) PO PRN ×2 (00:31→13:57)
[2021-09-26] MEDS ORDERED: methaDONE HCL 40 MG DISPERSABLE TABLET ONE (03:55)
[2021-09-26] MEDS ORDERED: methaDONE HCL 10 MG TABLET ONE (03:55)
[2021-09-26] MEDS: methaDONE 80 MG, methaDONE 10 MG PO SCH (05:39)
[2021-09-26] MEDS: DOCUSATE SODIUM 100 MG CAPSULE (FP) PO SCH ×3 (05:40→21:15)
[2021-09-26] MEDS: NICOTINE 10 MG CARTRIDGE (INHALER) IH PRN ×2 (05:43→10:02)
[2021-09-26] MEDS: METHOCARBAMOL 500 MG TABLET PO PRN ×2 (06:48→17:38)
[2021-09-26] MEDS ORDERED: HYDROCORTISONE 0.5% TOPICAL CREAM 30 GM TUBE TP PRN (09:11)
[2021-09-26] MEDS: METHYL SALICYLATE/MENTHOL OINT 30 GM TUBE TP SCH ×2 (10:01→21:14)
[2021-09-26] MEDS: PRENATAL VITAMINS W/ FOLIC ACID TABLET (FP) PO SCH (10:01)
[2021-09-26] MEDS: amLODIPine BESYLATE 10 MG TABLET (FP) PO SCH (10:02)
[2021-09-26] MEDS: NICOTINE 7 MG/24 HOURS TOPICAL PATCH TD SCH (10:02)
[2021-09-26] MEDS: BUDESONIDE/FORMETEROL FUMARATE 80/4.5 mcg INHALER IH SCH ×2 (10:02→21:15)
[2021-09-26] MEDS: QUEtiapine FUMARATE 50 MG TABLET PO SCH (10:02)
[2021-09-26] MEDS: LISINOPRIL 20 MG TABLET PO SCH (10:02)
[2021-09-26] MEDS: FOLIC ACID 1 MG TABLET (FP) PO SCH (10:03)
[2021-09-26] MEDS: ASCORBIC ACID 250 MG TABLET (FP) PO SCH (13:57)
[2021-09-26] MEDS: THIAMINE HCL 100 MG TABLET (FP) PO SCH (21:15)
[2021-09-26] MEDS: QUEtiapine FUMARATE 50 MG TABLET PO PRN (21:15)
[2021-09-26] MEDS: ATORVASTATIN CA 10 MG TABLET (FP) PO SCH (21:16)
[2021-09-26] MEDS: cloNIDine HCL 0.1 MG TABLET PO PRN (21:16)
[2021-09-26] MEDS: MELATONIN 5 MG TABLETS PO SCH (21:17)
[2021-09-27] MEDS: hydrOXYzine PAMOATE 25 MG CAPSULE (FP) PO PRN ×3 (01:10→19:44)
[2021-09-27] MEDS ORDERED: methaDONE HCL 10 MG TABLET ONE (03:47)
[2021-09-27] MEDS ORDERED: methaDONE HCL 40 MG DISPERSABLE TABLET ONE (03:47)
[2021-09-27] MEDS: methaDONE 80 MG, methaDONE 10 MG PO SCH (06:23)
[2021-09-27] MEDS: DOCUSATE SODIUM 100 MG CAPSULE (FP) PO SCH ×3 (06:24→21:03)
[2021-09-27] MEDS: METHOCARBAMOL 500 MG TABLET PO PRN ×2 (06:25→15:45)
[2021-09-27] MEDS: NICOTINE 10 MG CARTRIDGE (INHALER) IH PRN ×2 (08:30→15:45)
[2021-09-27] MEDS: METHYL SALICYLATE/MENTHOL OINT 30 GM TUBE TP SCH ×2 (09:48→21:03)
[2021-09-27] MEDS: PRENATAL VITAMINS W/ FOLIC ACID TABLET (FP) PO SCH (09:48)
[2021-09-27] MEDS: BUDESONIDE/FORMETEROL FUMARATE 80/4.5 mcg INHALER IH SCH ×2 (09:48→21:04)
[2021-09-27] MEDS: FOLIC ACID 1 MG TABLET (FP) PO SCH (09:49)
[2021-09-27] MEDS: amLODIPine BESYLATE 10 MG TABLET (FP) PO SCH (09:49)
[2021-09-27] MEDS: LISINOPRIL 20 MG TABLET PO SCH (09:49)
[2021-09-27] MEDS: QUEtiapine FUMARATE 50 MG TABLET PO SCH (09:49)
[2021-09-27] MEDS: ASCORBIC ACID 250 MG TABLET (FP) PO SCH (09:49)
[2021-09-27] MEDS: NICOTINE 7 MG/24 HOURS TOPICAL PATCH TD SCH (09:50)
[2021-09-27] MEDS: IBUPROFEN 400 MG TABLET (FP) PO PRN (16:40)
[2021-09-27] MEDS: THIAMINE HCL 100 MG TABLET (FP) PO SCH (21:03)
[2021-09-27] MEDS: ATORVASTATIN CA 10 MG TABLET (FP) PO SCH (21:03)
[2021-09-27] MEDS: MELATONIN 5 MG TABLETS PO SCH (21:04)
[2021-09-27] MEDS: QUEtiapine FUMARATE 50 MG TABLET PO PRN (22:26)
[2021-09-28] MEDS: METHOCARBAMOL 500 MG TABLET PO PRN ×2 (00:51→17:17)
[2021-09-28] MEDS ORDERED: methaDONE HCL 40 MG DISPERSABLE TABLET ONE (03:04)
[2021-09-28] MEDS ORDERED: methaDONE HCL 10 MG TABLET ONE (03:04)
[2021-09-28] MEDS: hydrOXYzine PAMOATE 25 MG CAPSULE (FP) PO PRN ×2 (03:45→12:39)
[2021-09-28] MEDS: methaDONE 80 MG, methaDONE 10 MG PO SCH (06:36)
[2021-09-28] MEDS: NICOTINE 10 MG CARTRIDGE (INHALER) IH PRN ×3 (06:37→18:17)
[2021-09-28] MEDS: DOCUSATE SODIUM 100 MG CAPSULE (FP) PO SCH ×3 (07:05→21:23)
[2021-09-28] MEDS: PRENATAL VITAMINS W/ FOLIC ACID TABLET (FP) PO SCH (09:51)
[2021-09-28] MEDS: amLODIPine BESYLATE 10 MG TABLET (FP) PO SCH (09:51)
[2021-09-28] MEDS: FOLIC ACID 1 MG TABLET (FP) PO SCH (09:51)
[2021-09-28] MEDS: QUEtiapine FUMARATE 50 MG TABLET PO SCH (09:52)
[2021-09-28] MEDS: NICOTINE 7 MG/24 HOURS TOPICAL PATCH TD SCH (09:52)
[2021-09-28] MEDS: LISINOPRIL 20 MG TABLET PO SCH (09:52)
[2021-09-28] MEDS: BUDESONIDE/FORMETEROL FUMARATE 80/4.5 mcg INHALER IH SCH ×2 (09:52→21:24)
[2021-09-28] MEDS: ASCORBIC ACID 250 MG TABLET (FP) PO SCH (09:53)
[2021-09-28] MEDS: METHYL SALICYLATE/MENTHOL OINT 30 GM TUBE TP SCH ×2 (09:53→21:23)
[2021-09-28] MEDS: IBUPROFEN 400 MG TABLET (FP) PO PRN (14:21)
[2021-09-28] MEDS: ATORVASTATIN CA 10 MG TABLET (FP) PO SCH (21:23)
[2021-09-28] MEDS: MELATONIN 5 MG TABLETS PO SCH (21:23)
[2021-09-28] MEDS: THIAMINE HCL 100 MG TABLET (FP) PO SCH (21:24)
[2021-09-28] MEDS: cloNIDine HCL 0.1 MG TABLET PO PRN (21:26)
[2021-09-29] MEDS: QUEtiapine FUMARATE 50 MG TABLET PO PRN (00:06)
[2021-09-29] MEDS: hydrOXYzine PAMOATE 25 MG CAPSULE (FP) PO PRN ×2 (03:41→10:06)
[2021-09-29] MEDS ORDERED: methaDONE HCL 40 MG DISPERSABLE TABLET ONE (03:53)
[2021-09-29] MEDS ORDERED: methaDONE HCL 10 MG TABLET ONE (03:53)
[2021-09-29] MEDS: methaDONE 80 MG, methaDONE 10 MG PO SCH (06:33)
[2021-09-29] MEDS: DOCUSATE SODIUM 100 MG CAPSULE (FP) PO SCH (06:33)
[2021-09-29] MEDS: NICOTINE 10 MG CARTRIDGE (INHALER) IH PRN ×2 (06:35→10:07)
[2021-09-29] MEDS: METHOCARBAMOL 500 MG TABLET PO PRN (07:12)
[2021-09-29 07:18] VITALS: TEMP 97.5
[2021-09-29] MEDS: amLODIPine BESYLATE 10 MG TABLET (FP) PO SCH (10:03)
[2021-09-29] MEDS: FOLIC ACID 1 MG TABLET (FP) PO SCH (10:03)
[2021-09-29] MEDS: PRENATAL VITAMINS W/ FOLIC ACID TABLET (FP) PO SCH (10:04)
[2021-09-29] MEDS: LISINOPRIL 20 MG TABLET PO SCH (10:04)
[2021-09-29] MEDS: QUEtiapine FUMARATE 50 MG TABLET PO SCH (10:04)
[2021-09-29] MEDS: cloNIDine HCL 0.1 MG TABLET PO PRN (10:05)
[2021-09-29] MEDS: METHYL SALICYLATE/MENTHOL OINT 30 GM TUBE TP SCH (10:29)
[2021-09-29] MEDS: BUDESONIDE/FORMETEROL FUMARATE 80/4.5 mcg INHALER IH SCH (10:30)
[2021-09-29] MEDS: NICOTINE 7 MG/24 HOURS TOPICAL PATCH TD SCH (10:30)
[2021-09-29] MEDS: ASCORBIC ACID 250 MG TABLET (FP) PO SCH (10:30)
[2021-09-29 11:17] VITALS: BP 125/75; PULSE 109
== END 2021-09-29 10:15 | disposition home or self-care (01) | DRG 772 ==
LOC: YASAS 12:43 → Y5N 12:44
PROVIDERS: ADMIT Allergy & Immunology; ATTEND Allergy & Immunology
PROC: HZ42ZZZ Group Counseling for Substance Abuse Treatment, Cognitive-Behavioral (ICD-10-PCS; principal; 2021-09-02)
DX: F10.20 Alcohol dependence, uncomplicated (principal); F11.20 Opioid dependence, uncomplicated; F13.20 Sedative, hypnotic or anxiolytic dependence, uncomplicated; F14.20 Cocaine dependence, uncomplicated; F17.210 Nicotine dependence, cigarettes, uncomplicated; F19.282 Other psychoactive substance dependence with psychoactive substance-induced sleep disorder; F31.9 Bipolar disorder, unspecified; E78.5 Hyperlipidemia, unspecified; I10 Essential (primary) hypertension; J44.9 Chronic obstructive pulmonary disease, unspecified; K21.9 Gastro-esophageal reflux disease without esophagitis; M54.50 Low back pain, unspecified; G89.29 Other chronic pain; R21 Rash and other nonspecific skin eruption
CPT/HCPCS: C9803-CS; J0735; U0003; U0005

== ENCOUNTER 2022-01-29 14:12 | Inpatient (IN) | payer OTHER ==
[2022-01-29 18:10] VITALS: BMI 23.6
[2022-01-29] MEDS ORDERED: ONDANSETRON *ODT* 4 MG TABLET SL PRN (18:11)
[2022-01-29] MEDS ORDERED: NALOXONE HCL (KLOXXADO) 8 MG SPRAY NS PRN (18:11)
[2022-01-29] MEDS ORDERED: ACETAMINOPHEN 325 MG TABLET (FP) PO PRN ×2 (18:11)
[2022-01-29] MEDS ORDERED: DICYCLOMINE HCL 10 MG CAPSULE PO PRN (18:11)
[2022-01-29] MEDS ORDERED: MAGNESIUM CITRATE 300 ML BOTTLE PO PRN (18:11)
[2022-01-29] MEDS ORDERED: LOPERAMIDE HCL 2 MG CAPSULE PO PRN (18:11)
[2022-01-29] MEDS ORDERED: MAGNESIUM HYDROX 2400MG/30ML ORAL SUSPENSION 30 ML CUP PO PRN (18:11)
[2022-01-29] MEDS ORDERED: BISMUTH SUBSALICYLATE 524 MG/30 ML PO PRN (18:11)
[2022-01-29] MEDS ORDERED: IBUPROFEN 600 MG TABLET (FP) PO PRN (18:11)
[2022-01-29] MEDS ORDERED: MAG HYDROX/AL HYDROX/SIMETH 30 ML UNIT-DOSE CUP PO PRN (18:11)
[2022-01-29] MEDS ORDERED: IBUPROFEN 400 MG TABLET (FP) PO PRN (18:11)
[2022-01-29] MEDS ORDERED: BENZOCAINE/MENTHOL (CHLORASEPTIC ) LOZENGE MM PRN (18:11)
[2022-01-29] MEDS: METHOCARBAMOL 500 MG TABLET PO PRN (19:36)
[2022-01-29] MEDS: LORazepam 1 MG TABLET PO PRN (19:36)
[2022-01-29] MEDS: hydrOXYzine PAMOATE 25 MG CAPSULE (FP) PO SCH (22:00)
[2022-01-29] MEDS: THIAMINE HCL 100 MG TABLET (FP) PO SCH (22:00)
[2022-01-29] MEDS: LORazepam 2 MG TABLET PO SCH (22:00)
[2022-01-29] MEDS: MELATONIN 5 MG TABLETS PO SCH (22:02)
[2022-01-30] MEDS: LORazepam 1 MG TABLET PO PRN (01:29)
[2022-01-30] MEDS: LORazepam 2 MG TABLET PO SCH ×4 (05:56→22:09)
[2022-01-30] MEDS: hydrOXYzine PAMOATE 25 MG CAPSULE (FP) PO SCH ×5 (05:57→22:09)
[2022-01-30] MEDS ORDERED: methaDONE HCL 10 MG TABLET PO SCH (08:00)
[2022-01-30] MEDS ORDERED: methaDONE 80 MG, methaDONE 10 MG PO ONE (08:15)
[2022-01-30 09:37] LABS: HEMATOCRIT 41.3 % (35.4-49); HEMOGLOBIN 13.5 GM/dL (11.7-16.9); MCH 30.6 pg (25.7-33.7); MCHC 32.7 g/dl (32.0-35.9); MEAN CELL VOLUME 93.7 fl (80-96); MEAN PLT VOLUME 8.4 fl (7.5-11.1); PLATELET COUNT 218 10^3/uL (134-434); RBC 4.41 M/mm3 (4.00-5.60); RDW 14.3 % (11.9-15.9); WHITE BLOOD COUNT 6.1 K/mm3 (4.0-10.0)
[2022-01-30 09:49] LABS: ALBUMIN 3.2 g/dl (3.4-5.0); BLOOD UREA NITROGEN 14.1 mg/dL (7-18); CALCIUM 8.6 mg/dL (8.5-10.1)
[2022-01-30 09:52] LABS: CREATININE 0.5 mg/dL (0.55-1.3)
[2022-01-30 09:54] LABS: BILIRUBIN,TOTAL 0.4 mg/dL (0.2-1); TOT PROT 6.5 g/dl (6.4-8.2)
[2022-01-30] MEDS: NICOTINE 10 MG CARTRIDGE (INHALER) IH PRN ×2 (10:17→20:27)
[2022-01-30] MEDS: PRENATAL VITAMINS W/ FOLIC ACID TABLET (FP) PO SCH (10:17)
[2022-01-30] MEDS: NICOTINE 7 MG/24 HOURS TOPICAL PATCH TD SCH (10:17)
[2022-01-30] MEDS ORDERED: ALBUTEROL SO4 HFA INHALER IH PRN (12:04)
[2022-01-30] MEDS: BUDESONIDE/FORMETEROL FUMARATE 80/4.5 mcg INHALER IH SCH ×2 (13:16→22:10)
[2022-01-30] MEDS: GABAPENTIN 400 MG CAPSULE PO SCH ×2 (13:16→22:09)
[2022-01-30] MEDS: amLODIPine BESYLATE 10 MG TABLET (FP) PO SCH (13:16)
[2022-01-30] MEDS: DOCUSATE SODIUM 100 MG CAPSULE (FP) PO SCH ×2 (14:37→22:09)
[2022-01-30] MEDS ORDERED: QUEtiapine FUMARATE 200 MG TABLET PO SCH (22:00)
[2022-01-30] MEDS ORDERED: PRAZOSIN HCL 1 MG CAPSULE PO SCH (22:00)
[2022-01-30] MEDS: ATORVASTATIN CA 10 MG TABLET (FP) PO SCH (22:09)
[2022-01-30] MEDS: THIAMINE HCL 100 MG TABLET (FP) PO SCH (22:09)
[2022-01-30] MEDS: FAMOTIDINE 20 MG TABLET PO SCH (22:09)
[2022-01-30] MEDS: QUEtiapine FUMARATE 100 MG TABLET (FP) PO SCH (22:09)
[2022-01-30] MEDS: MELATONIN 5 MG TABLETS PO SCH (22:10)
[2022-01-30] MEDS: METHOCARBAMOL 500 MG TABLET PO PRN (22:47)
[2022-01-31] MEDS: LORazepam 1 MG TABLET PO SCH ×4 (05:37→22:01)
[2022-01-31] MEDS: GABAPENTIN 400 MG CAPSULE PO SCH ×3 (05:37→22:00)
[2022-01-31] MEDS: methaDONE 80 MG, methaDONE 10 MG PO SCH (05:37)
[2022-01-31] MEDS: hydrOXYzine PAMOATE 25 MG CAPSULE (FP) PO SCH ×5 (05:37→22:01)
[2022-01-31] MEDS: DOCUSATE SODIUM 100 MG CAPSULE (FP) PO SCH ×3 (05:38→22:00)
[2022-01-31] MEDS: NICOTINE 10 MG CARTRIDGE (INHALER) IH PRN ×3 (05:40→17:44)
[2022-01-31] MEDS: LISINOPRIL 20 MG TABLET PO SCH (10:07)
[2022-01-31] MEDS: PRENATAL VITAMINS W/ FOLIC ACID TABLET (FP) PO SCH (10:07)
[2022-01-31] MEDS: QUEtiapine FUMARATE 50 MG TABLET PO SCH (10:07)
[2022-01-31] MEDS: FAMOTIDINE 20 MG TABLET PO SCH ×2 (10:08→22:00)
[2022-01-31] MEDS: amLODIPine BESYLATE 10 MG TABLET (FP) PO SCH (10:08)
[2022-01-31] MEDS: BUDESONIDE/FORMETEROL FUMARATE 80/4.5 mcg INHALER IH SCH ×2 (10:12→22:00)
[2022-01-31] MEDS: NICOTINE 7 MG/24 HOURS TOPICAL PATCH TD SCH (10:12)
[2022-01-31] MEDS ORDERED: methaDONE HCL 10 MG TABLET PO SCH (10:15)
[2022-01-31] MEDS: METHOCARBAMOL 500 MG TABLET PO PRN ×2 (14:11→20:23)
[2022-01-31] MEDS: QUEtiapine FUMARATE 100 MG TABLET (FP) PO SCH (21:59)
[2022-01-31] MEDS: THIAMINE HCL 100 MG TABLET (FP) PO SCH (21:59)
[2022-01-31] MEDS: MELATONIN 5 MG TABLETS PO SCH (21:59)
[2022-01-31] MEDS: ATORVASTATIN CA 10 MG TABLET (FP) PO SCH (22:00)
[2022-02-01] MEDS ORDERED: LORazepam 0.5 MG TABLET PO PRN
[2022-02-01] MEDS: GABAPENTIN 400 MG CAPSULE PO SCH ×3 (05:42→22:12)
[2022-02-01] MEDS: hydrOXYzine PAMOATE 25 MG CAPSULE (FP) PO SCH ×5 (05:42→22:13)
[2022-02-01] MEDS: LORazepam 0.5 MG TABLET PO SCH ×4 (05:42→22:13)
[2022-02-01] MEDS: DOCUSATE SODIUM 100 MG CAPSULE (FP) PO SCH ×3 (05:43→22:12)
[2022-02-01] MEDS: methaDONE 80 MG, methaDONE 10 MG PO SCH (05:43)
[2022-02-01] MEDS: NICOTINE 10 MG CARTRIDGE (INHALER) IH PRN ×2 (05:46→22:20)
[2022-02-01] MEDS: METHOCARBAMOL 500 MG TABLET PO PRN ×2 (07:17→19:49)
[2022-02-01] MEDS: BUDESONIDE/FORMETEROL FUMARATE 80/4.5 mcg INHALER IH SCH ×2 (10:08→22:12)
[2022-02-01] MEDS: QUEtiapine FUMARATE 50 MG TABLET PO SCH (10:09)
[2022-02-01] MEDS: PRENATAL VITAMINS W/ FOLIC ACID TABLET (FP) PO SCH (10:09)
[2022-02-01] MEDS: amLODIPine BESYLATE 10 MG TABLET (FP) PO SCH (10:09)
[2022-02-01] MEDS: LISINOPRIL 20 MG TABLET PO SCH (10:09)
[2022-02-01] MEDS: FAMOTIDINE 20 MG TABLET PO SCH ×2 (10:09→22:12)
[2022-02-01] MEDS: NICOTINE 7 MG/24 HOURS TOPICAL PATCH TD SCH (10:12)
[2022-02-01] MEDS: THIAMINE HCL 100 MG TABLET (FP) PO SCH (22:12)
[2022-02-01] MEDS: ATORVASTATIN CA 10 MG TABLET (FP) PO SCH (22:13)
[2022-02-01] MEDS: MELATONIN 5 MG TABLETS PO SCH (22:13)
[2022-02-01] MEDS: QUEtiapine FUMARATE 100 MG TABLET (FP) PO SCH (22:13)
[2022-02-02] MEDS: METHOCARBAMOL 500 MG TABLET PO PRN ×2 (03:23→10:24)
[2022-02-02] MEDS ORDERED: LORazepam 0.5 MG TABLET PO ONE (05:00)
[2022-02-02] MEDS: hydrOXYzine PAMOATE 25 MG CAPSULE (FP) PO SCH ×2 (05:34→10:23)
[2022-02-02] MEDS: GABAPENTIN 400 MG CAPSULE PO SCH (05:34)
[2022-02-02] MEDS: methaDONE 80 MG, methaDONE 10 MG PO SCH (05:34)
[2022-02-02] MEDS: DOCUSATE SODIUM 100 MG CAPSULE (FP) PO SCH (05:34)
[2022-02-02] MEDS: NICOTINE 10 MG CARTRIDGE (INHALER) IH PRN (08:37)
[2022-02-02] MEDS: BUDESONIDE/FORMETEROL FUMARATE 80/4.5 mcg INHALER IH SCH (10:22)
[2022-02-02] MEDS: NICOTINE 7 MG/24 HOURS TOPICAL PATCH TD SCH (10:23)
[2022-02-02] MEDS: LISINOPRIL 20 MG TABLET PO SCH (10:23)
[2022-02-02] MEDS: QUEtiapine FUMARATE 50 MG TABLET PO SCH (10:23)
[2022-02-02] MEDS: amLODIPine BESYLATE 10 MG TABLET (FP) PO SCH (10:23)
[2022-02-02] MEDS: PRENATAL VITAMINS W/ FOLIC ACID TABLET (FP) PO SCH (10:23)
[2022-02-02] MEDS: FAMOTIDINE 20 MG TABLET PO SCH (10:23)
[2022-02-02 13:17] VITALS: BP 109/65; PULSE 113; RESP 16; TEMP 98.6
== END 2022-02-02 13:14 | disposition other institution (70) | DRG 774 ==
LOC: YASAS 14:12 → Y3N 19:14
PROVIDERS: ADMIT Allergy & Immunology; ATTEND Surgery
PROC: HZ2ZZZZ Detoxification Services for Substance Abuse Treatment (ICD-10-PCS; principal; 2022-01-29)
DX: F10.230 Alcohol dependence with withdrawal, uncomplicated (principal); F14.20 Cocaine dependence, uncomplicated; F13.230 Sedative, hypnotic or anxiolytic dependence with withdrawal, uncomplicated; F17.210 Nicotine dependence, cigarettes, uncomplicated; F31.9 Bipolar disorder, unspecified; J43.9 Emphysema, unspecified; I10 Essential (primary) hypertension; M54.50 Low back pain, unspecified; G89.29 Other chronic pain; Z91.018 Allergy to other foods; Z91.013 Allergy to seafood
CPT/HCPCS: 36415; 80053; 85027; 86780; 87811; C9803-CS; U0003; U0005

== ENCOUNTER 2022-02-02 13:25 | Inpatient (IN) | payer OTHER ==
[2022-02-02] MEDS ORDERED: P-EPHED 60MG/TRIPROLIDI 2.5MG TABLET PO PRN (15:48)
[2022-02-02] MEDS ORDERED: LOPERAMIDE HCL 2 MG CAPSULE PO PRN (15:48)
[2022-02-02] MEDS ORDERED: MAGNESIUM CITRATE 300 ML BOTTLE PO PRN (15:48)
[2022-02-02] MEDS ORDERED: guaiFENesin 200 MG/10 ML 10 ML UNIT-DOSE CUPS PO PRN (15:48)
[2022-02-02] MEDS ORDERED: ALBUTEROL SO4 HFA INHALER IH PRN (15:52)
[2022-02-02] MEDS: NICOTINE 10 MG CARTRIDGE (INHALER) IH PRN ×2 (16:02→21:02)
[2022-02-02] MEDS: hydrOXYzine PAMOATE 25 MG CAPSULE (FP) PO SCH ×2 (18:00→21:03)
[2022-02-02] MEDS: METHOCARBAMOL 500 MG TABLET PO PRN (18:01)
[2022-02-02] MEDS: THIAMINE HCL 100 MG TABLET (FP) PO SCH (21:02)
[2022-02-02] MEDS: GABAPENTIN 400 MG CAPSULE PO SCH (21:02)
[2022-02-02] MEDS: DOCUSATE SODIUM 100 MG CAPSULE (FP) PO SCH (21:02)
[2022-02-02] MEDS: QUEtiapine FUMARATE 200 MG TABLET PO SCH (21:02)
[2022-02-02] MEDS: ATORVASTATIN CA 10 MG TABLET (FP) PO SCH (21:03)
[2022-02-02] MEDS: MELATONIN 5 MG TABLETS PO SCH (21:03)
[2022-02-02] MEDS ORDERED: PATIENT'S OWN MEDICATION (NON-FORMULARY) (Lisinopril [Lisinopril] 40 MG Tablet) PO SCH (22:00)
[2022-02-02] MEDS: BUDESONIDE/FORMETEROL FUMARATE 80/4.5 mcg INHALER IH SCH (22:33)
[2022-02-03] MEDS: methaDONE 80 MG, methaDONE 10 MG PO SCH (06:00)
[2022-02-03] MEDS: hydrOXYzine PAMOATE 25 MG CAPSULE (FP) PO SCH ×5 (06:00→21:56)
[2022-02-03] MEDS ORDERED: methaDONE HCL 10 MG TABLET PO SCH (06:00)
[2022-02-03] MEDS: GABAPENTIN 400 MG CAPSULE PO SCH ×3 (06:00→21:56)
[2022-02-03] MEDS: METHOCARBAMOL 500 MG TABLET PO PRN ×2 (06:00→21:57)
[2022-02-03] MEDS: NICOTINE 10 MG CARTRIDGE (INHALER) IH PRN ×3 (06:01→17:07)
[2022-02-03] MEDS: DOCUSATE SODIUM 100 MG CAPSULE (FP) PO SCH ×3 (06:01→21:56)
[2022-02-03] MEDS: amLODIPine BESYLATE 10 MG TABLET (FP) PO SCH (10:20)
[2022-02-03] MEDS: LISINOPRIL 20 MG TABLET PO SCH ×2 (10:20)
[2022-02-03] MEDS: PRENATAL VITAMINS W/ FOLIC ACID TABLET (FP) PO SCH (10:20)
[2022-02-03] MEDS: BUDESONIDE/FORMETEROL FUMARATE 80/4.5 mcg INHALER IH SCH ×2 (10:21→22:12)
[2022-02-03] MEDS: QUEtiapine FUMARATE 50 MG TABLET PO SCH (10:21)
[2022-02-03] MEDS: NICOTINE 7 MG/24 HOURS TOPICAL PATCH TD SCH (10:23)
[2022-02-03 11:50] LABS: HIV INTERPRETATION NEGATIVE (NEGATIVE)
[2022-02-03] MEDS: ASCORBIC ACID 250 MG TABLET (FP) PO SCH (12:28)
[2022-02-03] MEDS: MAGNESIUM HYDROX 2400MG/30ML ORAL SUSPENSION 30 ML CUP PO PRN (13:56)
[2022-02-03 15:02] LABS: EPI CELLS 7 /uL (0-25.1); HYALINE CASTS 1 /uL (0-3.1); URINE APPEARANCE CLOUDY; URINE BACTERIA 5 /uL (0-1359); URINE BILIRUBIN NEGATIVE (NEGATIVE); URINE COLOR YELLOW; URINE GLUCOSE (UA) NEGATIVE (NEGATIVE); URINE KETONE NEGATIVE (NEGATIVE); URINE LEUK ESTERASE 1+ (NEGATIVE); URINE NITRITE NEGATIVE (NEGATIVE); URINE PROTEIN NEGATIVE (NEGATIVE); URINE RBC 4 /uL (0-23.9); URINE WBC 27 /uL (0-25.8)
[2022-02-03] MEDS: MELATONIN 5 MG TABLETS PO SCH (21:56)
[2022-02-03] MEDS: QUEtiapine FUMARATE 200 MG TABLET PO SCH (21:56)
[2022-02-03] MEDS: THIAMINE HCL 100 MG TABLET (FP) PO SCH (21:56)
[2022-02-03] MEDS: ATORVASTATIN CA 10 MG TABLET (FP) PO SCH (21:56)
[2022-02-04] MEDS: DOCUSATE SODIUM 100 MG CAPSULE (FP) PO SCH ×3 (06:09→22:16)
[2022-02-04] MEDS: GABAPENTIN 400 MG CAPSULE PO SCH ×3 (06:09→22:15)
[2022-02-04] MEDS: hydrOXYzine PAMOATE 25 MG CAPSULE (FP) PO SCH ×5 (06:09→22:16)
[2022-02-04] MEDS: methaDONE 80 MG, methaDONE 10 MG PO SCH (06:11)
[2022-02-04] MEDS: NICOTINE 10 MG CARTRIDGE (INHALER) IH PRN (06:14)
[2022-02-04] MEDS: PRENATAL VITAMINS W/ FOLIC ACID TABLET (FP) PO SCH (10:33)
[2022-02-04] MEDS: QUEtiapine FUMARATE 50 MG TABLET PO SCH (10:34)
[2022-02-04] MEDS: amLODIPine BESYLATE 10 MG TABLET (FP) PO SCH (10:34)
[2022-02-04] MEDS: NICOTINE 7 MG/24 HOURS TOPICAL PATCH TD SCH (10:34)
[2022-02-04] MEDS: LISINOPRIL 20 MG TABLET PO SCH (10:35)
[2022-02-04] MEDS: ASCORBIC ACID 250 MG TABLET (FP) PO SCH (10:35)
[2022-02-04] MEDS: BUDESONIDE/FORMETEROL FUMARATE 80/4.5 mcg INHALER IH SCH ×2 (10:36→22:15)
[2022-02-04] MEDS: METHOCARBAMOL 500 MG TABLET PO PRN ×3 (10:37→22:16)
[2022-02-04] MEDS: MAGNESIUM HYDROX 2400MG/30ML ORAL SUSPENSION 30 ML CUP PO PRN (11:01)
[2022-02-04] MEDS: QUEtiapine FUMARATE 200 MG TABLET PO SCH (22:16)
[2022-02-04] MEDS: THIAMINE HCL 100 MG TABLET (FP) PO SCH (22:16)
[2022-02-04] MEDS: ATORVASTATIN CA 10 MG TABLET (FP) PO SCH (22:16)
[2022-02-04] MEDS: MELATONIN 5 MG TABLETS PO SCH (22:16)
[2022-02-05] MEDS: hydrOXYzine PAMOATE 25 MG CAPSULE (FP) PO SCH ×5 (06:03→21:44)
[2022-02-05] MEDS: methaDONE 80 MG, methaDONE 10 MG PO SCH (06:03)
[2022-02-05] MEDS: DOCUSATE SODIUM 100 MG CAPSULE (FP) PO SCH ×3 (06:03→21:44)
[2022-02-05] MEDS: METHOCARBAMOL 500 MG TABLET PO PRN ×2 (06:03→21:44)
[2022-02-05] MEDS: GABAPENTIN 400 MG CAPSULE PO SCH ×3 (06:05→23:18)
[2022-02-05] MEDS: NICOTINE 10 MG CARTRIDGE (INHALER) IH PRN ×2 (06:06→15:27)
[2022-02-05] MEDS: PRENATAL VITAMINS W/ FOLIC ACID TABLET (FP) PO SCH (10:19)
[2022-02-05] MEDS: NICOTINE 7 MG/24 HOURS TOPICAL PATCH TD SCH (10:20)
[2022-02-05] MEDS: amLODIPine BESYLATE 10 MG TABLET (FP) PO SCH (10:20)
[2022-02-05] MEDS: QUEtiapine FUMARATE 50 MG TABLET PO SCH (10:20)
[2022-02-05] MEDS: ASCORBIC ACID 250 MG TABLET (FP) PO SCH (10:21)
[2022-02-05] MEDS: BUDESONIDE/FORMETEROL FUMARATE 80/4.5 mcg INHALER IH SCH ×2 (10:22→21:44)
[2022-02-05] MEDS: LISINOPRIL 20 MG TABLET PO SCH (10:22)
[2022-02-05] MEDS: THIAMINE HCL 100 MG TABLET (FP) PO SCH (21:44)
[2022-02-05] MEDS: ATORVASTATIN CA 10 MG TABLET (FP) PO SCH (21:44)
[2022-02-05] MEDS: QUEtiapine FUMARATE 200 MG TABLET PO SCH (21:44)
[2022-02-05] MEDS: MELATONIN 5 MG TABLETS PO SCH (21:45)
[2022-02-06] MEDS: GABAPENTIN 400 MG CAPSULE PO SCH ×3 (06:22→21:42)
[2022-02-06] MEDS: methaDONE 80 MG, methaDONE 10 MG PO SCH (06:22)
[2022-02-06] MEDS: DOCUSATE SODIUM 100 MG CAPSULE (FP) PO SCH ×3 (06:22→21:42)
[2022-02-06] MEDS: hydrOXYzine PAMOATE 25 MG CAPSULE (FP) PO SCH ×2 (06:24→10:05)
[2022-02-06] MEDS: NICOTINE 10 MG CARTRIDGE (INHALER) IH PRN ×2 (06:58→13:57)
[2022-02-06] MEDS: METHOCARBAMOL 500 MG TABLET PO PRN ×2 (07:20→21:43)
[2022-02-06] MEDS: PRENATAL VITAMINS W/ FOLIC ACID TABLET (FP) PO SCH (10:03)
[2022-02-06] MEDS: BUDESONIDE/FORMETEROL FUMARATE 80/4.5 mcg INHALER IH SCH ×2 (10:03→22:11)
[2022-02-06] MEDS: LISINOPRIL 20 MG TABLET PO SCH (10:03)
[2022-02-06] MEDS: QUEtiapine FUMARATE 50 MG TABLET PO SCH (10:03)
[2022-02-06] MEDS: amLODIPine BESYLATE 10 MG TABLET (FP) PO SCH (10:03)
[2022-02-06] MEDS: NICOTINE 7 MG/24 HOURS TOPICAL PATCH TD SCH (10:04)
[2022-02-06] MEDS: ASCORBIC ACID 250 MG TABLET (FP) PO SCH (10:08)
[2022-02-06] MEDS: hydrOXYzine PAMOATE 25 MG CAPSULE (FP) PO PRN ×2 (13:57→21:43)
[2022-02-06] MEDS: MAG HYDROX/AL HYDROX/SIMETH 30 ML UNIT-DOSE CUP PO PRN (14:26)
[2022-02-06] MEDS: IBUPROFEN 400 MG TABLET (FP) PO PRN (16:47)
[2022-02-06] MEDS: ATORVASTATIN CA 10 MG TABLET (FP) PO SCH (21:42)
[2022-02-06] MEDS: QUEtiapine FUMARATE 200 MG TABLET PO SCH (21:42)
[2022-02-06] MEDS: THIAMINE HCL 100 MG TABLET (FP) PO SCH (21:42)
[2022-02-06] MEDS: MELATONIN 5 MG TABLETS PO SCH (22:11)
[2022-02-07] MEDS: hydrOXYzine PAMOATE 25 MG CAPSULE (FP) PO PRN ×2 (02:01→06:01)
[2022-02-07] MEDS: DOCUSATE SODIUM 100 MG CAPSULE (FP) PO SCH ×3 (06:00→21:23)
[2022-02-07] MEDS: methaDONE 80 MG, methaDONE 10 MG PO SCH (06:00)
[2022-02-07] MEDS: GABAPENTIN 400 MG CAPSULE PO SCH ×3 (06:00→21:24)
[2022-02-07] MEDS: QUEtiapine FUMARATE 50 MG TABLET PO SCH (10:20)
[2022-02-07] MEDS: PRENATAL VITAMINS W/ FOLIC ACID TABLET (FP) PO SCH (10:20)
[2022-02-07] MEDS: amLODIPine BESYLATE 10 MG TABLET (FP) PO SCH (10:20)
[2022-02-07] MEDS: BUDESONIDE/FORMETEROL FUMARATE 80/4.5 mcg INHALER IH SCH ×2 (10:20→21:25)
[2022-02-07] MEDS: ASCORBIC ACID 250 MG TABLET (FP) PO SCH (10:21)
[2022-02-07] MEDS: NICOTINE 7 MG/24 HOURS TOPICAL PATCH TD SCH (10:21)
[2022-02-07] MEDS: LISINOPRIL 20 MG TABLET PO SCH (10:21)
[2022-02-07] MEDS: ATORVASTATIN CA 10 MG TABLET (FP) PO SCH (21:23)
[2022-02-07] MEDS: QUEtiapine FUMARATE 200 MG TABLET PO SCH (21:23)
[2022-02-07] MEDS: THIAMINE HCL 100 MG TABLET (FP) PO SCH (21:24)
[2022-02-07] MEDS: MELATONIN 5 MG TABLETS PO SCH (21:24)
[2022-02-08] MEDS: hydrOXYzine PAMOATE 25 MG CAPSULE (FP) PO PRN ×3 (02:50→21:47)
[2022-02-08] MEDS: GABAPENTIN 400 MG CAPSULE PO SCH ×3 (06:43→21:47)
[2022-02-08] MEDS: DOCUSATE SODIUM 100 MG CAPSULE (FP) PO SCH ×3 (06:43→21:47)
[2022-02-08] MEDS: methaDONE 80 MG, methaDONE 10 MG PO SCH (06:43)
[2022-02-08] MEDS: PRENATAL VITAMINS W/ FOLIC ACID TABLET (FP) PO SCH (09:03)
[2022-02-08] MEDS: NICOTINE 7 MG/24 HOURS TOPICAL PATCH TD SCH (09:03)
[2022-02-08] MEDS: QUEtiapine FUMARATE 50 MG TABLET PO SCH (09:05)
[2022-02-08] MEDS: METHOCARBAMOL 500 MG TABLET PO PRN ×2 (09:05→21:47)
[2022-02-08] MEDS: LISINOPRIL 20 MG TABLET PO SCH (09:05)
[2022-02-08] MEDS: amLODIPine BESYLATE 10 MG TABLET (FP) PO SCH (09:05)
[2022-02-08] MEDS: ACETAMINOPHEN 325 MG TABLET (FP) PO PRN (09:05)
[2022-02-08] MEDS: NICOTINE 10 MG CARTRIDGE (INHALER) IH PRN ×2 (09:07→18:36)
[2022-02-08] MEDS: BUDESONIDE/FORMETEROL FUMARATE 80/4.5 mcg INHALER IH SCH ×2 (09:15→21:48)
[2022-02-08] MEDS: ASCORBIC ACID 250 MG TABLET (FP) PO SCH (10:00)
[2022-02-08] MEDS: QUEtiapine FUMARATE 200 MG TABLET PO SCH (21:47)
[2022-02-08] MEDS: ATORVASTATIN CA 10 MG TABLET (FP) PO SCH (21:47)
[2022-02-08] MEDS: MELATONIN 5 MG TABLETS PO SCH (21:47)
[2022-02-08] MEDS: THIAMINE HCL 100 MG TABLET (FP) PO SCH (21:47)
[2022-02-08] MEDS: MAG HYDROX/AL HYDROX/SIMETH 30 ML UNIT-DOSE CUP PO PRN (22:41)
[2022-02-09] MEDS: hydrOXYzine PAMOATE 25 MG CAPSULE (FP) PO PRN ×4 (04:56→21:33)
[2022-02-09] MEDS: methaDONE 80 MG, methaDONE 10 MG PO SCH (06:13)
[2022-02-09] MEDS: GABAPENTIN 400 MG CAPSULE PO SCH ×3 (06:13→21:34)
[2022-02-09] MEDS: DOCUSATE SODIUM 100 MG CAPSULE (FP) PO SCH ×3 (06:13→21:33)
[2022-02-09] MEDS: NICOTINE 10 MG CARTRIDGE (INHALER) IH PRN (06:19)
[2022-02-09] MEDS: METHOCARBAMOL 500 MG TABLET PO PRN ×2 (07:25→21:34)
[2022-02-09] MEDS: ASCORBIC ACID 250 MG TABLET (FP) PO SCH (10:32)
[2022-02-09] MEDS: QUEtiapine FUMARATE 50 MG TABLET PO SCH (10:32)
[2022-02-09] MEDS: PRENATAL VITAMINS W/ FOLIC ACID TABLET (FP) PO SCH (10:32)
[2022-02-09] MEDS: BUDESONIDE/FORMETEROL FUMARATE 80/4.5 mcg INHALER IH SCH ×2 (10:32→21:33)
[2022-02-09] MEDS: NICOTINE 7 MG/24 HOURS TOPICAL PATCH TD SCH (10:33)
[2022-02-09] MEDS: LISINOPRIL 20 MG TABLET PO SCH (10:33)
[2022-02-09] MEDS: amLODIPine BESYLATE 10 MG TABLET (FP) PO SCH (10:33)
[2022-02-09] MEDS: ATORVASTATIN CA 10 MG TABLET (FP) PO SCH (21:33)
[2022-02-09] MEDS: THIAMINE HCL 100 MG TABLET (FP) PO SCH (21:34)
[2022-02-09] MEDS: QUEtiapine FUMARATE 200 MG TABLET PO SCH (21:34)
[2022-02-09] MEDS: MELATONIN 5 MG TABLETS PO SCH (21:34)
[2022-02-10] MEDS: hydrOXYzine PAMOATE 25 MG CAPSULE (FP) PO PRN ×3 (01:41→21:10)
[2022-02-10] MEDS: NICOTINE 10 MG CARTRIDGE (INHALER) IH PRN (07:00)
[2022-02-10] MEDS: DOCUSATE SODIUM 100 MG CAPSULE (FP) PO SCH ×3 (07:01→21:10)
[2022-02-10] MEDS: GABAPENTIN 400 MG CAPSULE PO SCH ×3 (07:02→21:10)
[2022-02-10] MEDS: METHOCARBAMOL 500 MG TABLET PO PRN ×2 (07:03→18:24)
[2022-02-10] MEDS ORDERED: methaDONE HCL 40 MG DISPERSABLE TABLET PO SCH (10:00)
[2022-02-10] MEDS: amLODIPine BESYLATE 10 MG TABLET (FP) PO SCH (10:41)
[2022-02-10] MEDS: BUDESONIDE/FORMETEROL FUMARATE 80/4.5 mcg INHALER IH SCH ×2 (10:41→21:20)
[2022-02-10] MEDS: PRENATAL VITAMINS W/ FOLIC ACID TABLET (FP) PO SCH (10:41)
[2022-02-10] MEDS: LISINOPRIL 20 MG TABLET PO SCH (10:41)
[2022-02-10] MEDS: NICOTINE 7 MG/24 HOURS TOPICAL PATCH TD SCH (10:41)
[2022-02-10] MEDS: QUEtiapine FUMARATE 50 MG TABLET PO SCH (10:41)
[2022-02-10] MEDS: ASCORBIC ACID 250 MG TABLET (FP) PO SCH (10:42)
[2022-02-10] MEDS: ATORVASTATIN CA 10 MG TABLET (FP) PO SCH (21:10)
[2022-02-10] MEDS: MELATONIN 5 MG TABLETS PO SCH (21:10)
[2022-02-10] MEDS: THIAMINE HCL 100 MG TABLET (FP) PO SCH (21:10)
[2022-02-10] MEDS: QUEtiapine FUMARATE 200 MG TABLET PO SCH (21:11)
[2022-02-11] MEDS: hydrOXYzine PAMOATE 25 MG CAPSULE (FP) PO PRN ×3 (02:43→21:27)
[2022-02-11] MEDS: methaDONE HCL 40 MG DISPERSABLE TABLET PO SCH (06:05)
[2022-02-11] MEDS: DOCUSATE SODIUM 100 MG CAPSULE (FP) PO SCH ×3 (06:06→21:27)
[2022-02-11] MEDS: GABAPENTIN 400 MG CAPSULE PO SCH ×3 (06:06→21:26)
[2022-02-11] MEDS: NICOTINE 10 MG CARTRIDGE (INHALER) IH PRN ×2 (06:10→19:01)
[2022-02-11] MEDS: PRENATAL VITAMINS W/ FOLIC ACID TABLET (FP) PO SCH (10:21)
[2022-02-11] MEDS: NICOTINE 7 MG/24 HOURS TOPICAL PATCH TD SCH (10:21)
[2022-02-11] MEDS: BUDESONIDE/FORMETEROL FUMARATE 80/4.5 mcg INHALER IH SCH ×2 (10:22→22:27)
[2022-02-11] MEDS: LISINOPRIL 20 MG TABLET PO SCH (10:22)
[2022-02-11] MEDS: amLODIPine BESYLATE 10 MG TABLET (FP) PO SCH (10:22)
[2022-02-11] MEDS: QUEtiapine FUMARATE 50 MG TABLET PO SCH (10:22)
[2022-02-11] MEDS: ASCORBIC ACID 250 MG TABLET (FP) PO SCH (10:22)
[2022-02-11] MEDS: METHOCARBAMOL 500 MG TABLET PO PRN ×2 (10:24→21:28)
[2022-02-11] MEDS: IBUPROFEN 400 MG TABLET (FP) PO PRN (19:00)
[2022-02-11] MEDS: QUEtiapine FUMARATE 200 MG TABLET PO SCH (21:26)
[2022-02-11] MEDS: ATORVASTATIN CA 10 MG TABLET (FP) PO SCH (21:27)
[2022-02-11] MEDS: THIAMINE HCL 100 MG TABLET (FP) PO SCH (21:27)
[2022-02-11] MEDS: MELATONIN 5 MG TABLETS PO SCH (21:28)
[2022-02-12] MEDS: hydrOXYzine PAMOATE 25 MG CAPSULE (FP) PO PRN ×4 (02:47→21:23)
[2022-02-12] MEDS: DOCUSATE SODIUM 100 MG CAPSULE (FP) PO SCH ×3 (06:12→21:22)
[2022-02-12] MEDS: methaDONE HCL 40 MG DISPERSABLE TABLET PO SCH (06:12)
[2022-02-12] MEDS: GABAPENTIN 400 MG CAPSULE PO SCH ×3 (06:12→21:22)
[2022-02-12] MEDS: NICOTINE 10 MG CARTRIDGE (INHALER) IH PRN (06:13)
[2022-02-12] MEDS: MAGNESIUM HYDROX 2400MG/30ML ORAL SUSPENSION 30 ML CUP PO PRN (07:31)
[2022-02-12] MEDS: BUDESONIDE/FORMETEROL FUMARATE 80/4.5 mcg INHALER IH SCH ×2 (09:40→22:25)
[2022-02-12] MEDS: PRENATAL VITAMINS W/ FOLIC ACID TABLET (FP) PO SCH (09:40)
[2022-02-12] MEDS: ASCORBIC ACID 250 MG TABLET (FP) PO SCH (09:40)
[2022-02-12] MEDS: NICOTINE 7 MG/24 HOURS TOPICAL PATCH TD SCH (09:40)
[2022-02-12] MEDS: METHOCARBAMOL 500 MG TABLET PO PRN ×2 (09:41→21:23)
[2022-02-12] MEDS: amLODIPine BESYLATE 10 MG TABLET (FP) PO SCH (09:41)
[2022-02-12] MEDS: QUEtiapine FUMARATE 50 MG TABLET PO SCH (09:41)
[2022-02-12] MEDS: LISINOPRIL 20 MG TABLET PO SCH (09:41)
[2022-02-12] MEDS: QUEtiapine FUMARATE 200 MG TABLET PO SCH (21:22)
[2022-02-12] MEDS: ATORVASTATIN CA 10 MG TABLET (FP) PO SCH (21:22)
[2022-02-12] MEDS: MELATONIN 5 MG TABLETS PO SCH (21:22)
[2022-02-12] MEDS: THIAMINE HCL 100 MG TABLET (FP) PO SCH (21:23)
[2022-02-13] MEDS: hydrOXYzine PAMOATE 25 MG CAPSULE (FP) PO PRN ×2 (02:54→21:20)
[2022-02-13] MEDS: methaDONE HCL 40 MG DISPERSABLE TABLET PO SCH (05:59)
[2022-02-13] MEDS: NICOTINE 10 MG CARTRIDGE (INHALER) IH PRN ×3 (05:59→17:43)
[2022-02-13] MEDS: GABAPENTIN 400 MG CAPSULE PO SCH ×3 (06:00→21:18)
[2022-02-13] MEDS: DOCUSATE SODIUM 100 MG CAPSULE (FP) PO SCH ×3 (06:01→21:18)
[2022-02-13] MEDS: METHOCARBAMOL 500 MG TABLET PO PRN ×2 (06:59→21:18)
[2022-02-13] MEDS: PRENATAL VITAMINS W/ FOLIC ACID TABLET (FP) PO SCH (10:10)
[2022-02-13] MEDS: amLODIPine BESYLATE 10 MG TABLET (FP) PO SCH (10:11)
[2022-02-13] MEDS: BUDESONIDE/FORMETEROL FUMARATE 80/4.5 mcg INHALER IH SCH ×2 (10:11→21:17)
[2022-02-13] MEDS: QUEtiapine FUMARATE 50 MG TABLET PO SCH (10:11)
[2022-02-13] MEDS: LISINOPRIL 20 MG TABLET PO SCH (10:11)
[2022-02-13] MEDS: ASCORBIC ACID 250 MG TABLET (FP) PO SCH (10:11)
[2022-02-13] MEDS: NICOTINE 7 MG/24 HOURS TOPICAL PATCH TD SCH (10:12)
[2022-02-13] MEDS: IBUPROFEN 400 MG TABLET (FP) PO PRN (13:24)
[2022-02-13] MEDS: MELATONIN 5 MG TABLETS PO SCH (21:18)
[2022-02-13] MEDS: THIAMINE HCL 100 MG TABLET (FP) PO SCH (21:18)
[2022-02-13] MEDS: ATORVASTATIN CA 10 MG TABLET (FP) PO SCH (21:18)
[2022-02-13] MEDS: QUEtiapine FUMARATE 200 MG TABLET PO SCH (21:18)
[2022-02-13 22:54] VITALS: RESP 18
[2022-02-14] MEDS: hydrOXYzine PAMOATE 25 MG CAPSULE (FP) PO PRN ×3 (02:37→19:22)
[2022-02-14] MEDS: NICOTINE 10 MG CARTRIDGE (INHALER) IH PRN (06:13)
[2022-02-14] MEDS: methaDONE HCL 40 MG DISPERSABLE TABLET PO SCH (06:13)
[2022-02-14] MEDS: METHOCARBAMOL 500 MG TABLET PO PRN ×2 (06:14→21:27)
[2022-02-14] MEDS: GABAPENTIN 400 MG CAPSULE PO SCH ×3 (06:14→21:27)
[2022-02-14] MEDS: DOCUSATE SODIUM 100 MG CAPSULE (FP) PO SCH ×3 (06:14→21:27)
[2022-02-14] MEDS: amLODIPine BESYLATE 10 MG TABLET (FP) PO SCH (10:18)
[2022-02-14] MEDS: BUDESONIDE/FORMETEROL FUMARATE 80/4.5 mcg INHALER IH SCH ×2 (10:18→21:28)
[2022-02-14] MEDS: ASCORBIC ACID 250 MG TABLET (FP) PO SCH (10:18)
[2022-02-14] MEDS: QUEtiapine FUMARATE 50 MG TABLET PO SCH (10:18)
[2022-02-14] MEDS: LISINOPRIL 20 MG TABLET PO SCH (10:19)
[2022-02-14] MEDS: NICOTINE 7 MG/24 HOURS TOPICAL PATCH TD SCH (10:19)
[2022-02-14] MEDS: PRENATAL VITAMINS W/ FOLIC ACID TABLET (FP) PO SCH (10:19)
[2022-02-14] MEDS ORDERED: ASCORBIC ACID 500 MG TABLET (FP) PO SCH (10:45)
[2022-02-14] MEDS: ASCORBIC ACID 500 MG TABLET (FP) PO SCH (13:41)
[2022-02-14] MEDS: IBUPROFEN 400 MG TABLET (FP) PO PRN (19:22)
[2022-02-14] MEDS: MELATONIN 5 MG TABLETS PO SCH (21:27)
[2022-02-14] MEDS: ATORVASTATIN CA 10 MG TABLET (FP) PO SCH (21:27)
[2022-02-14] MEDS: QUEtiapine FUMARATE 200 MG TABLET PO SCH (21:27)
[2022-02-14] MEDS: THIAMINE HCL 100 MG TABLET (FP) PO SCH (21:27)
[2022-02-15] MEDS: NICOTINE 10 MG CARTRIDGE (INHALER) IH PRN ×2 (06:12→16:29)
[2022-02-15] MEDS: methaDONE HCL 40 MG DISPERSABLE TABLET PO SCH (06:13)
[2022-02-15] MEDS: GABAPENTIN 400 MG CAPSULE PO SCH ×3 (06:13→21:22)
[2022-02-15] MEDS: DOCUSATE SODIUM 100 MG CAPSULE (FP) PO SCH ×3 (06:13→21:22)
[2022-02-15] MEDS: PRENATAL VITAMINS W/ FOLIC ACID TABLET (FP) PO SCH (09:48)
[2022-02-15] MEDS: LISINOPRIL 20 MG TABLET PO SCH (09:48)
[2022-02-15] MEDS: BUDESONIDE/FORMETEROL FUMARATE 80/4.5 mcg INHALER IH SCH ×2 (09:48→21:22)
[2022-02-15] MEDS: QUEtiapine FUMARATE 50 MG TABLET PO SCH (09:48)
[2022-02-15] MEDS: ASCORBIC ACID 500 MG TABLET (FP) PO SCH (09:49)
[2022-02-15] MEDS: NICOTINE 7 MG/24 HOURS TOPICAL PATCH TD SCH (09:49)
[2022-02-15] MEDS: amLODIPine BESYLATE 10 MG TABLET (FP) PO SCH (09:49)
[2022-02-15] MEDS: METHOCARBAMOL 500 MG TABLET PO PRN ×2 (09:51→19:17)
[2022-02-15] MEDS: ACETAMINOPHEN 325 MG TABLET (FP) PO PRN (14:12)
[2022-02-15] MEDS: MELATONIN 5 MG TABLETS PO SCH (21:21)
[2022-02-15] MEDS: hydrOXYzine PAMOATE 25 MG CAPSULE (FP) PO PRN (21:21)
[2022-02-15] MEDS: ATORVASTATIN CA 10 MG TABLET (FP) PO SCH (21:21)
[2022-02-15] MEDS: THIAMINE HCL 100 MG TABLET (FP) PO SCH (21:22)
[2022-02-15] MEDS: QUEtiapine FUMARATE 200 MG TABLET PO SCH (21:22)
[2022-02-16] MEDS: hydrOXYzine PAMOATE 25 MG CAPSULE (FP) PO PRN ×2 (01:34→21:19)
[2022-02-16] MEDS: NICOTINE 10 MG CARTRIDGE (INHALER) IH PRN ×2 (06:00→10:07)
[2022-02-16] MEDS: methaDONE HCL 40 MG DISPERSABLE TABLET PO SCH (06:01)
[2022-02-16] MEDS: GABAPENTIN 400 MG CAPSULE PO SCH ×3 (06:01→21:19)
[2022-02-16] MEDS: DOCUSATE SODIUM 100 MG CAPSULE (FP) PO SCH ×3 (06:01→21:19)
[2022-02-16] MEDS: METHOCARBAMOL 500 MG TABLET PO PRN ×2 (07:22→21:20)
[2022-02-16] MEDS: PRENATAL VITAMINS W/ FOLIC ACID TABLET (FP) PO SCH (10:05)
[2022-02-16] MEDS: NICOTINE 7 MG/24 HOURS TOPICAL PATCH TD SCH (10:05)
[2022-02-16] MEDS: amLODIPine BESYLATE 10 MG TABLET (FP) PO SCH (10:05)
[2022-02-16] MEDS: QUEtiapine FUMARATE 50 MG TABLET PO SCH (10:05)
[2022-02-16] MEDS: BUDESONIDE/FORMETEROL FUMARATE 80/4.5 mcg INHALER IH SCH ×2 (10:05→21:48)
[2022-02-16] MEDS: ASCORBIC ACID 500 MG TABLET (FP) PO SCH (10:07)
[2022-02-16] MEDS: LISINOPRIL 20 MG TABLET PO SCH (10:07)
[2022-02-16] MEDS: THIAMINE HCL 100 MG TABLET (FP) PO SCH (21:19)
[2022-02-16] MEDS: QUEtiapine FUMARATE 200 MG TABLET PO SCH (21:19)
[2022-02-16] MEDS: ATORVASTATIN CA 10 MG TABLET (FP) PO SCH (21:20)
[2022-02-16] MEDS: SUVOREXANT 10 MG TABLET PO PRN (21:21)
[2022-02-17] MEDS: hydrOXYzine PAMOATE 25 MG CAPSULE (FP) PO PRN ×2 (03:27→14:28)
[2022-02-17] MEDS: NICOTINE 10 MG CARTRIDGE (INHALER) IH PRN ×3 (05:52→21:24)
[2022-02-17] MEDS: DOCUSATE SODIUM 100 MG CAPSULE (FP) PO SCH ×3 (05:53→21:22)
[2022-02-17] MEDS: GABAPENTIN 400 MG CAPSULE PO SCH ×3 (05:53→21:22)
[2022-02-17] MEDS: methaDONE HCL 40 MG DISPERSABLE TABLET PO SCH (05:53)
[2022-02-17] MEDS: METHOCARBAMOL 500 MG TABLET PO PRN ×3 (06:58→21:22)
[2022-02-17] MEDS: PRENATAL VITAMINS W/ FOLIC ACID TABLET (FP) PO SCH (09:53)
[2022-02-17] MEDS: NICOTINE 7 MG/24 HOURS TOPICAL PATCH TD SCH (09:53)
[2022-02-17] MEDS: ACETAMINOPHEN 325 MG TABLET (FP) PO PRN (09:54)
[2022-02-17] MEDS: QUEtiapine FUMARATE 50 MG TABLET PO SCH (09:54)
[2022-02-17] MEDS: amLODIPine BESYLATE 10 MG TABLET (FP) PO SCH (09:54)
[2022-02-17] MEDS: BUDESONIDE/FORMETEROL FUMARATE 80/4.5 mcg INHALER IH SCH ×2 (09:55→21:26)
[2022-02-17] MEDS: LISINOPRIL 20 MG TABLET PO SCH (09:55)
[2022-02-17] MEDS: ASCORBIC ACID 500 MG TABLET (FP) PO SCH (09:56)
[2022-02-17] MEDS: IBUPROFEN 400 MG TABLET (FP) PO PRN (14:28)
[2022-02-17] MEDS: ATORVASTATIN CA 10 MG TABLET (FP) PO SCH (21:22)
[2022-02-17] MEDS: QUEtiapine FUMARATE 200 MG TABLET PO SCH (21:22)
[2022-02-17] MEDS: THIAMINE HCL 100 MG TABLET (FP) PO SCH (21:22)
[2022-02-17] MEDS: SUVOREXANT 10 MG TABLET PO PRN (21:23)
[2022-02-18] MEDS: DOCUSATE SODIUM 100 MG CAPSULE (FP) PO SCH ×3 (06:19→21:18)
[2022-02-18] MEDS: NICOTINE 10 MG CARTRIDGE (INHALER) IH PRN ×2 (06:19→21:18)
[2022-02-18] MEDS: GABAPENTIN 400 MG CAPSULE PO SCH ×3 (06:19→21:18)
[2022-02-18] MEDS: methaDONE HCL 40 MG DISPERSABLE TABLET PO SCH (06:19)
[2022-02-18] MEDS: METHOCARBAMOL 500 MG TABLET PO PRN ×2 (08:05→17:51)
[2022-02-18] MEDS: PRENATAL VITAMINS W/ FOLIC ACID TABLET (FP) PO SCH (10:05)
[2022-02-18] MEDS: BUDESONIDE/FORMETEROL FUMARATE 80/4.5 mcg INHALER IH SCH ×2 (10:06→21:18)
[2022-02-18] MEDS: QUEtiapine FUMARATE 50 MG TABLET PO SCH (10:07)
[2022-02-18] MEDS: amLODIPine BESYLATE 10 MG TABLET (FP) PO SCH (10:07)
[2022-02-18] MEDS: NICOTINE 7 MG/24 HOURS TOPICAL PATCH TD SCH (10:08)
[2022-02-18] MEDS: ASCORBIC ACID 500 MG TABLET (FP) PO SCH (10:08)
[2022-02-18] MEDS: LISINOPRIL 20 MG TABLET PO SCH (10:08)
[2022-02-18] MEDS: QUEtiapine FUMARATE 200 MG TABLET PO SCH (21:18)
[2022-02-18] MEDS: THIAMINE HCL 100 MG TABLET (FP) PO SCH (21:18)
[2022-02-18] MEDS: ATORVASTATIN CA 10 MG TABLET (FP) PO SCH (21:19)
[2022-02-18] MEDS: SUVOREXANT 10 MG TABLET PO PRN (21:20)
[2022-02-19] MEDS: methaDONE HCL 40 MG DISPERSABLE TABLET PO SCH (06:02)
[2022-02-19] MEDS: NICOTINE 10 MG CARTRIDGE (INHALER) IH PRN ×4 (06:02→19:11)
[2022-02-19] MEDS: hydrOXYzine PAMOATE 25 MG CAPSULE (FP) PO PRN (06:03)
[2022-02-19] MEDS: DOCUSATE SODIUM 100 MG CAPSULE (FP) PO SCH ×3 (06:03→21:27)
[2022-02-19] MEDS: GABAPENTIN 400 MG CAPSULE PO SCH ×3 (06:03→21:27)
[2022-02-19] MEDS: METHOCARBAMOL 500 MG TABLET PO PRN ×2 (07:08→16:58)
[2022-02-19] MEDS: BUDESONIDE/FORMETEROL FUMARATE 80/4.5 mcg INHALER IH SCH ×2 (09:54→21:28)
[2022-02-19] MEDS: LISINOPRIL 20 MG TABLET PO SCH (09:54)
[2022-02-19] MEDS: QUEtiapine FUMARATE 50 MG TABLET PO SCH (09:54)
[2022-02-19] MEDS: amLODIPine BESYLATE 10 MG TABLET (FP) PO SCH (09:54)
[2022-02-19] MEDS: NICOTINE 7 MG/24 HOURS TOPICAL PATCH TD SCH (09:55)
[2022-02-19] MEDS: PRENATAL VITAMINS W/ FOLIC ACID TABLET (FP) PO SCH (09:55)
[2022-02-19] MEDS: ASCORBIC ACID 500 MG TABLET (FP) PO SCH (09:55)
[2022-02-19] MEDS: ATORVASTATIN CA 10 MG TABLET (FP) PO SCH (21:27)
[2022-02-19] MEDS: QUEtiapine FUMARATE 200 MG TABLET PO SCH (21:27)
[2022-02-19] MEDS: THIAMINE HCL 100 MG TABLET (FP) PO SCH (21:27)
[2022-02-19] MEDS: SUVOREXANT 10 MG TABLET PO PRN (21:28)
[2022-02-20] MEDS: GABAPENTIN 400 MG CAPSULE PO SCH ×3 (06:25→21:59)
[2022-02-20] MEDS: DOCUSATE SODIUM 100 MG CAPSULE (FP) PO SCH ×3 (06:25→21:58)
[2022-02-20] MEDS: methaDONE HCL 40 MG DISPERSABLE TABLET PO SCH (06:25)
[2022-02-20] MEDS: NICOTINE 10 MG CARTRIDGE (INHALER) IH PRN ×2 (06:28→11:16)
[2022-02-20] MEDS ORDERED: QUEtiapine FUMARATE 25 MG TABLET ONE (08:42)
[2022-02-20] MEDS: NICOTINE 7 MG/24 HOURS TOPICAL PATCH TD SCH (10:07)
[2022-02-20] MEDS: PRENATAL VITAMINS W/ FOLIC ACID TABLET (FP) PO SCH (10:07)
[2022-02-20] MEDS: LISINOPRIL 20 MG TABLET PO SCH (10:08)
[2022-02-20] MEDS: QUEtiapine FUMARATE 50 MG TABLET PO SCH (10:08)
[2022-02-20] MEDS: BUDESONIDE/FORMETEROL FUMARATE 80/4.5 mcg INHALER IH SCH ×2 (10:08→22:32)
[2022-02-20] MEDS: amLODIPine BESYLATE 10 MG TABLET (FP) PO SCH (10:08)
[2022-02-20] MEDS: ASCORBIC ACID 500 MG TABLET (FP) PO SCH (10:09)
[2022-02-20] MEDS: METHOCARBAMOL 500 MG TABLET PO PRN ×2 (10:10→22:03)
[2022-02-20] MEDS: IBUPROFEN 400 MG TABLET (FP) PO PRN (19:05)
[2022-02-20] MEDS: THIAMINE HCL 100 MG TABLET (FP) PO SCH (21:58)
[2022-02-20] MEDS: ATORVASTATIN CA 10 MG TABLET (FP) PO SCH (21:58)
[2022-02-20] MEDS: QUEtiapine FUMARATE 200 MG TABLET PO SCH (21:58)
[2022-02-20] MEDS: SUVOREXANT 10 MG TABLET PO PRN (22:02)
[2022-02-21] MEDS: hydrOXYzine PAMOATE 25 MG CAPSULE (FP) PO PRN (02:04)
[2022-02-21] MEDS: GABAPENTIN 400 MG CAPSULE PO SCH ×3 (06:10→21:12)
[2022-02-21] MEDS: methaDONE HCL 40 MG DISPERSABLE TABLET PO SCH (06:10)
[2022-02-21] MEDS: DOCUSATE SODIUM 100 MG CAPSULE (FP) PO SCH ×3 (06:10→21:12)
[2022-02-21] MEDS: NICOTINE 10 MG CARTRIDGE (INHALER) IH PRN ×3 (06:12→14:34)
[2022-02-21] MEDS: METHOCARBAMOL 500 MG TABLET PO PRN ×2 (06:44→21:15)
[2022-02-21] MEDS: NICOTINE 7 MG/24 HOURS TOPICAL PATCH TD SCH (09:53)
[2022-02-21] MEDS: BUDESONIDE/FORMETEROL FUMARATE 80/4.5 mcg INHALER IH SCH ×2 (09:53→21:16)
[2022-02-21] MEDS: amLODIPine BESYLATE 10 MG TABLET (FP) PO SCH (09:53)
[2022-02-21] MEDS: QUEtiapine FUMARATE 50 MG TABLET PO SCH (09:53)
[2022-02-21] MEDS: ASCORBIC ACID 500 MG TABLET (FP) PO SCH (09:54)
[2022-02-21] MEDS: PRENATAL VITAMINS W/ FOLIC ACID TABLET (FP) PO SCH (09:54)
[2022-02-21] MEDS: LISINOPRIL 20 MG TABLET PO SCH (10:53)
[2022-02-21] MEDS: ATORVASTATIN CA 10 MG TABLET (FP) PO SCH (21:12)
[2022-02-21] MEDS: THIAMINE HCL 100 MG TABLET (FP) PO SCH (21:12)
[2022-02-21] MEDS: QUEtiapine FUMARATE 200 MG TABLET PO SCH (21:12)
[2022-02-21] MEDS: SUVOREXANT 10 MG TABLET PO PRN (21:14)
[2022-02-22] MEDS: NICOTINE 10 MG CARTRIDGE (INHALER) IH PRN ×3 (05:54→14:34)
[2022-02-22] MEDS: METHOCARBAMOL 500 MG TABLET PO PRN ×2 (05:54→21:29)
[2022-02-22] MEDS: DOCUSATE SODIUM 100 MG CAPSULE (FP) PO SCH ×3 (05:54→21:29)
[2022-02-22] MEDS: GABAPENTIN 400 MG CAPSULE PO SCH ×3 (05:54→21:29)
[2022-02-22] MEDS: PRENATAL VITAMINS W/ FOLIC ACID TABLET (FP) PO SCH (09:51)
[2022-02-22] MEDS: NICOTINE 7 MG/24 HOURS TOPICAL PATCH TD SCH (09:52)
[2022-02-22] MEDS: methaDONE HCL 40 MG DISPERSABLE TABLET PO SCH (09:52)
[2022-02-22] MEDS: ASCORBIC ACID 500 MG TABLET (FP) PO SCH (09:55)
[2022-02-22] MEDS: LISINOPRIL 20 MG TABLET PO SCH (09:55)
[2022-02-22] MEDS: QUEtiapine FUMARATE 50 MG TABLET PO SCH (09:55)
[2022-02-22] MEDS: amLODIPine BESYLATE 10 MG TABLET (FP) PO SCH (09:55)
[2022-02-22] MEDS: BUDESONIDE/FORMETEROL FUMARATE 80/4.5 mcg INHALER IH SCH ×2 (09:55→21:28)
[2022-02-22] MEDS: ATORVASTATIN CA 10 MG TABLET (FP) PO SCH (21:29)
[2022-02-22] MEDS: THIAMINE HCL 100 MG TABLET (FP) PO SCH (21:29)
[2022-02-22] MEDS: QUEtiapine FUMARATE 200 MG TABLET PO SCH (21:29)
[2022-02-22] MEDS: SUVOREXANT 10 MG TABLET PO PRN (21:31)
[2022-02-22] MEDS: hydrOXYzine PAMOATE 25 MG CAPSULE (FP) PO PRN (21:31)
[2022-02-23] MEDS: hydrOXYzine PAMOATE 25 MG CAPSULE (FP) PO PRN (01:34)
[2022-02-23] MEDS: METHOCARBAMOL 500 MG TABLET PO PRN ×2 (05:53→19:00)
[2022-02-23] MEDS: DOCUSATE SODIUM 100 MG CAPSULE (FP) PO SCH ×3 (05:53→21:25)
[2022-02-23] MEDS: GABAPENTIN 400 MG CAPSULE PO SCH ×3 (05:53→21:25)
[2022-02-23] MEDS: NICOTINE 10 MG CARTRIDGE (INHALER) IH PRN ×2 (06:08→16:56)
[2022-02-23] MEDS: methaDONE HCL 40 MG DISPERSABLE TABLET PO SCH (10:37)
[2022-02-23] MEDS: PRENATAL VITAMINS W/ FOLIC ACID TABLET (FP) PO SCH (10:39)
[2022-02-23] MEDS: LISINOPRIL 20 MG TABLET PO SCH (10:39)
[2022-02-23] MEDS: amLODIPine BESYLATE 10 MG TABLET (FP) PO SCH (10:39)
[2022-02-23] MEDS: QUEtiapine FUMARATE 50 MG TABLET PO SCH (10:39)
[2022-02-23] MEDS: NICOTINE 7 MG/24 HOURS TOPICAL PATCH TD SCH (10:41)
[2022-02-23] MEDS: BUDESONIDE/FORMETEROL FUMARATE 80/4.5 mcg INHALER IH SCH ×2 (10:41→21:24)
[2022-02-23] MEDS: ASCORBIC ACID 500 MG TABLET (FP) PO SCH (10:42)
[2022-02-23] MEDS: SELENIUM SULFIDE 2.25% 180 ML SHAMPOO TP SCH (19:24)
[2022-02-23] MEDS: ATORVASTATIN CA 10 MG TABLET (FP) PO SCH (21:25)
[2022-02-23] MEDS: QUEtiapine FUMARATE 200 MG TABLET PO SCH (21:25)
[2022-02-23] MEDS: THIAMINE HCL 100 MG TABLET (FP) PO SCH (21:25)
[2022-02-23] MEDS: SUVOREXANT 10 MG TABLET PO PRN (21:26)
[2022-02-24] MEDS: DOCUSATE SODIUM 100 MG CAPSULE (FP) PO SCH ×3 (06:05→21:14)
[2022-02-24] MEDS: hydrOXYzine PAMOATE 25 MG CAPSULE (FP) PO PRN (06:05)
[2022-02-24] MEDS: GABAPENTIN 400 MG CAPSULE PO SCH ×3 (06:05→21:15)
[2022-02-24] MEDS: METHOCARBAMOL 500 MG TABLET PO PRN ×2 (06:08→21:14)
[2022-02-24] MEDS: NICOTINE 10 MG CARTRIDGE (INHALER) IH PRN (09:50)
[2022-02-24] MEDS: NICOTINE 7 MG/24 HOURS TOPICAL PATCH TD SCH (09:50)
[2022-02-24] MEDS: LISINOPRIL 20 MG TABLET PO SCH (09:50)
[2022-02-24] MEDS: QUEtiapine FUMARATE 50 MG TABLET PO SCH (09:50)
[2022-02-24] MEDS: methaDONE HCL 40 MG DISPERSABLE TABLET PO SCH (09:50)
[2022-02-24] MEDS: amLODIPine BESYLATE 10 MG TABLET (FP) PO SCH (09:51)
[2022-02-24] MEDS: PRENATAL VITAMINS W/ FOLIC ACID TABLET (FP) PO SCH (09:51)
[2022-02-24] MEDS: BUDESONIDE/FORMETEROL FUMARATE 80/4.5 mcg INHALER IH SCH ×2 (10:57→21:34)
[2022-02-24] MEDS: SELENIUM SULFIDE 2.25% 180 ML SHAMPOO TP SCH (10:58)
[2022-02-24] MEDS: ASCORBIC ACID 500 MG TABLET (FP) PO SCH (10:59)
[2022-02-24] MEDS: ACETAMINOPHEN 325 MG TABLET (FP) PO PRN (13:33)
[2022-02-24] MEDS: IBUPROFEN 400 MG TABLET (FP) PO PRN (16:54)
[2022-02-24] MEDS: THIAMINE HCL 100 MG TABLET (FP) PO SCH (21:14)
[2022-02-24] MEDS: QUEtiapine FUMARATE 200 MG TABLET PO SCH (21:14)
[2022-02-24] MEDS: ATORVASTATIN CA 10 MG TABLET (FP) PO SCH (21:15)
[2022-02-24] MEDS: SUVOREXANT 10 MG TABLET PO PRN (21:16)
[2022-02-25] MEDS: hydrOXYzine PAMOATE 25 MG CAPSULE (FP) PO PRN ×2 (00:51→21:12)
[2022-02-25] MEDS: NICOTINE 10 MG CARTRIDGE (INHALER) IH PRN ×3 (05:55→21:12)
[2022-02-25] MEDS: DOCUSATE SODIUM 100 MG CAPSULE (FP) PO SCH ×3 (05:55→21:11)
[2022-02-25] MEDS: GABAPENTIN 400 MG CAPSULE PO SCH ×3 (05:55→21:14)
[2022-02-25] MEDS: METHOCARBAMOL 500 MG TABLET PO PRN ×2 (05:55→21:11)
[2022-02-25] MEDS: PRENATAL VITAMINS W/ FOLIC ACID TABLET (FP) PO SCH (10:05)
[2022-02-25] MEDS: NICOTINE 7 MG/24 HOURS TOPICAL PATCH TD SCH (10:06)
[2022-02-25] MEDS: methaDONE HCL 40 MG DISPERSABLE TABLET PO SCH (10:06)
[2022-02-25] MEDS: amLODIPine BESYLATE 10 MG TABLET (FP) PO SCH (10:08)
[2022-02-25] MEDS: BUDESONIDE/FORMETEROL FUMARATE 80/4.5 mcg INHALER IH SCH ×2 (10:08→21:12)
[2022-02-25] MEDS: QUEtiapine FUMARATE 50 MG TABLET PO SCH (10:08)
[2022-02-25] MEDS: ASCORBIC ACID 500 MG TABLET (FP) PO SCH (10:09)
[2022-02-25] MEDS: LISINOPRIL 20 MG TABLET PO SCH (10:10)
[2022-02-25] MEDS: SELENIUM SULFIDE 2.25% 180 ML SHAMPOO TP SCH (10:10)
[2022-02-25] MEDS: SUVOREXANT 10 MG TABLET PO PRN (21:10)
[2022-02-25] MEDS: ATORVASTATIN CA 10 MG TABLET (FP) PO SCH (21:11)
[2022-02-25] MEDS: QUEtiapine FUMARATE 200 MG TABLET PO SCH (21:11)
[2022-02-25] MEDS: THIAMINE HCL 100 MG TABLET (FP) PO SCH (21:11)
[2022-02-26] MEDS: hydrOXYzine PAMOATE 25 MG CAPSULE (FP) PO PRN ×2 (02:32→21:15)
[2022-02-26] MEDS: NICOTINE 10 MG CARTRIDGE (INHALER) IH PRN ×3 (05:57→19:04)
[2022-02-26] MEDS: METHOCARBAMOL 500 MG TABLET PO PRN ×3 (05:58→21:16)
[2022-02-26] MEDS: GABAPENTIN 400 MG CAPSULE PO SCH ×3 (05:58→21:15)
[2022-02-26] MEDS: DOCUSATE SODIUM 100 MG CAPSULE (FP) PO SCH ×3 (05:58→21:15)
[2022-02-26] MEDS: methaDONE HCL 40 MG DISPERSABLE TABLET PO SCH (09:54)
[2022-02-26] MEDS: PRENATAL VITAMINS W/ FOLIC ACID TABLET (FP) PO SCH (09:54)
[2022-02-26] MEDS: NICOTINE 7 MG/24 HOURS TOPICAL PATCH TD SCH (09:56)
[2022-02-26] MEDS: LISINOPRIL 20 MG TABLET PO SCH (09:57)
[2022-02-26] MEDS: BUDESONIDE/FORMETEROL FUMARATE 80/4.5 mcg INHALER IH SCH ×2 (09:57→21:22)
[2022-02-26] MEDS: QUEtiapine FUMARATE 50 MG TABLET PO SCH (09:57)
[2022-02-26] MEDS: amLODIPine BESYLATE 10 MG TABLET (FP) PO SCH (09:57)
[2022-02-26] MEDS: ASCORBIC ACID 500 MG TABLET (FP) PO SCH (09:57)
[2022-02-26] MEDS: SELENIUM SULFIDE 2.25% 180 ML SHAMPOO TP SCH (09:59)
[2022-02-26] MEDS: SUVOREXANT 10 MG TABLET PO PRN (21:15)
[2022-02-26] MEDS: THIAMINE HCL 100 MG TABLET (FP) PO SCH (21:15)
[2022-02-26] MEDS: ATORVASTATIN CA 10 MG TABLET (FP) PO SCH (21:15)
[2022-02-26] MEDS: QUEtiapine FUMARATE 200 MG TABLET PO SCH (21:15)
[2022-02-27] MEDS: hydrOXYzine PAMOATE 25 MG CAPSULE (FP) PO PRN ×2 (02:52→21:17)
[2022-02-27] MEDS: METHOCARBAMOL 500 MG TABLET PO PRN ×3 (05:49→21:17)
[2022-02-27] MEDS: DOCUSATE SODIUM 100 MG CAPSULE (FP) PO SCH ×3 (05:49→21:17)
[2022-02-27] MEDS: NICOTINE 10 MG CARTRIDGE (INHALER) IH PRN ×2 (05:49→10:51)
[2022-02-27] MEDS: GABAPENTIN 400 MG CAPSULE PO SCH ×3 (05:49→21:17)
[2022-02-27] MEDS: methaDONE HCL 40 MG DISPERSABLE TABLET PO SCH (10:06)
[2022-02-27] MEDS: PRENATAL VITAMINS W/ FOLIC ACID TABLET (FP) PO SCH (10:06)
[2022-02-27] MEDS: amLODIPine BESYLATE 10 MG TABLET (FP) PO SCH (10:07)
[2022-02-27] MEDS: QUEtiapine FUMARATE 50 MG TABLET PO SCH (10:07)
[2022-02-27] MEDS: LISINOPRIL 20 MG TABLET PO SCH (10:08)
[2022-02-27] MEDS: ASCORBIC ACID 500 MG TABLET (FP) PO SCH (10:08)
[2022-02-27] MEDS: NICOTINE 7 MG/24 HOURS TOPICAL PATCH TD SCH (10:08)
[2022-02-27] MEDS: BUDESONIDE/FORMETEROL FUMARATE 80/4.5 mcg INHALER IH SCH ×2 (10:11→21:16)
[2022-02-27] MEDS: SELENIUM SULFIDE 2.25% 180 ML SHAMPOO TP SCH (10:12)
[2022-02-27] MEDS: IBUPROFEN 400 MG TABLET (FP) PO PRN (10:50)
[2022-02-27] MEDS: QUEtiapine FUMARATE 200 MG TABLET PO SCH (21:17)
[2022-02-27] MEDS: THIAMINE HCL 100 MG TABLET (FP) PO SCH (21:17)
[2022-02-27] MEDS: ATORVASTATIN CA 10 MG TABLET (FP) PO SCH (21:17)
[2022-02-27] MEDS: SUVOREXANT 10 MG TABLET PO PRN (21:18)
[2022-02-27] MEDS: ACETAMINOPHEN 325 MG TABLET (FP) PO PRN (21:19)
[2022-02-28] MEDS: hydrOXYzine PAMOATE 25 MG CAPSULE (FP) PO PRN (06:12)
[2022-02-28] MEDS: GABAPENTIN 400 MG CAPSULE PO SCH (06:12)
[2022-02-28] MEDS: METHOCARBAMOL 500 MG TABLET PO PRN (06:12)
[2022-02-28] MEDS: DOCUSATE SODIUM 100 MG CAPSULE (FP) PO SCH (06:12)
[2022-02-28] MEDS: NICOTINE 10 MG CARTRIDGE (INHALER) IH PRN (06:13)
[2022-02-28 07:05] VITALS: BP 155/81; PULSE 86; TEMP 97.8
[2022-02-28] MEDS: PRENATAL VITAMINS W/ FOLIC ACID TABLET (FP) PO SCH (09:01)
[2022-02-28] MEDS: LISINOPRIL 20 MG TABLET PO SCH (09:01)
[2022-02-28] MEDS: amLODIPine BESYLATE 10 MG TABLET (FP) PO SCH (09:01)
[2022-02-28] MEDS: methaDONE HCL 40 MG DISPERSABLE TABLET PO SCH (09:01)
[2022-02-28] MEDS: QUEtiapine FUMARATE 50 MG TABLET PO SCH (09:01)
[2022-02-28] MEDS: SELENIUM SULFIDE 2.25% 180 ML SHAMPOO TP SCH (09:02)
[2022-02-28] MEDS: NICOTINE 7 MG/24 HOURS TOPICAL PATCH TD SCH (09:02)
[2022-02-28] MEDS: BUDESONIDE/FORMETEROL FUMARATE 80/4.5 mcg INHALER IH SCH (09:02)
[2022-02-28] MEDS: ASCORBIC ACID 500 MG TABLET (FP) PO SCH (09:02)
== END 2022-02-28 11:10 | disposition home or self-care (01) | DRG 772 ==
LOC: YASAS 13:25 → Y5N 13:28
PROVIDERS: ADMIT Allergy & Immunology; ATTEND Psychiatry & Neurology Psychiatry
PROC: HZ42ZZZ Group Counseling for Substance Abuse Treatment, Cognitive-Behavioral (ICD-10-PCS; principal; 2022-02-02)
DX: F10.20 Alcohol dependence, uncomplicated (principal); F13.20 Sedative, hypnotic or anxiolytic dependence, uncomplicated; F11.20 Opioid dependence, uncomplicated; F14.20 Cocaine dependence, uncomplicated; F17.210 Nicotine dependence, cigarettes, uncomplicated; F19.282 Other psychoactive substance dependence with psychoactive substance-induced sleep disorder; F31.9 Bipolar disorder, unspecified; I10 Essential (primary) hypertension; K74.60 Unspecified cirrhosis of liver; J43.9 Emphysema, unspecified; K21.9 Gastro-esophageal reflux disease without esophagitis; M54.50 Low back pain, unspecified; G89.29 Other chronic pain; Z86.010 Personal history of colon polyps; Z87.448 Personal history of other diseases of urinary system; Z91.018 Allergy to other foods; Z91.013 Allergy to seafood
CPT/HCPCS: 36415; 81003; 86803; 87086; 87389

== ENCOUNTER 2022-09-16 12:01 | Inpatient (IN) | payer OTHER ==
[2022-09-16 12:30] VITALS: BMI 24.0
[2022-09-16] MEDS ORDERED: METHOCARBAMOL 500 MG TABLET PO PRN (13:56)
[2022-09-16] MEDS ORDERED: IBUPROFEN 400 MG TABLET (FP) PO PRN (13:56)
[2022-09-16] MEDS ORDERED: BISMUTH SUBSALICYLATE 524 MG/30 ML PO PRN (13:56)
[2022-09-16] MEDS ORDERED: NALOXONE HCL 0.4 MG/ML VIAL IM PRN (13:56)
[2022-09-16] MEDS ORDERED: MAG HYDROX/AL HYDROX/SIMETH 30 ML UNIT-DOSE CUP PO PRN (13:56)
[2022-09-16] MEDS ORDERED: guaiFENesin 600 MG TABLET.ER (FP) PO PRN (13:56)
[2022-09-16] MEDS ORDERED: MAGNESIUM HYDROX 2400MG/30ML ORAL SUSPENSION 30 ML CUP PO PRN (13:56)
[2022-09-16] MEDS ORDERED: hydrOXYzine PAMOATE 25 MG CAPSULE (FP) PO PRN (13:56)
[2022-09-16] MEDS ORDERED: ONDANSETRON *ODT* 4 MG TABLET SL PRN (13:56)
[2022-09-16] MEDS ORDERED: ACETAMINOPHEN 325 MG TABLET (FP) PO PRN (13:56)
[2022-09-16] MEDS ORDERED: LOPERAMIDE HCL 2 MG CAPSULE PO PRN (13:56)
[2022-09-16] MEDS ORDERED: BENZONATATE 200 MG CAPSULE PO PRN (13:56)
[2022-09-16] MEDS ORDERED: DICYCLOMINE HCL 10 MG CAPSULE PO PRN (13:56)
[2022-09-16] MEDS ORDERED: BENZOCAINE/MENTHOL (CHLORASEPTIC ) LOZENGE MM PRN (13:56)
[2022-09-16] MEDS ORDERED: POLYETHYLENE GLYCOL (HEALTHYLAX) 3350 17 GM PACKET PO PRN (13:56)
[2022-09-16] MEDS ORDERED: chlordiazePOXIDE HCL 25 MG CAPSULE PO PRN (13:56)
[2022-09-16] MEDS ORDERED: NALOXONE HCL (KLOXXADO) 8 MG SPRAY NS PRN (13:56)
[2022-09-16] MEDS: chlordiazePOXIDE HCL 25 MG CAPSULE PO SCH ×2 (16:48→21:59)
[2022-09-16] MEDS ORDERED: ALBUTEROL SO4 HFA INHALER IH PRN (16:51)
[2022-09-16] MEDS: METHOCARBAMOL 500 MG TABLET PO PRN (19:50)
[2022-09-16] MEDS: THIAMINE HCL 100 MG TABLET (FP) PO SCH (21:49)
[2022-09-16] MEDS: ATORVASTATIN CA 10 MG TABLET (FP) PO SCH (21:51)
[2022-09-16] MEDS: DOCUSATE SODIUM 100 MG CAPSULE (FP) PO SCH (21:52)
[2022-09-16] MEDS ORDERED: MELATONIN 5 MG TABLETS PO SCH (22:00)
[2022-09-16] MEDS: BUDESONIDE/FORMETEROL FUMARATE 80/4.5 mcg INHALER IH SCH (23:06)
[2022-09-17] MEDS: DOCUSATE SODIUM 100 MG CAPSULE (FP) PO SCH ×3 (05:24→21:47)
[2022-09-17] MEDS: METHOCARBAMOL 500 MG TABLET PO PRN ×2 (05:24→17:05)
[2022-09-17] MEDS: chlordiazePOXIDE HCL 25 MG CAPSULE PO SCH (05:24)
[2022-09-17] MEDS ORDERED: methaDONE HCL 40 MG DISPERSABLE TABLET PO ONE (06:00)
[2022-09-17] MEDS: BUDESONIDE/FORMETEROL FUMARATE 80/4.5 mcg INHALER IH SCH ×2 (10:40→21:53)
[2022-09-17] MEDS: QUEtiapine FUMARATE 50 MG TABLET PO SCH (10:41)
[2022-09-17] MEDS: LISINOPRIL 20 MG TABLET PO SCH (10:41)
[2022-09-17] MEDS: PRENATAL VITAMINS W/ FOLIC ACID TABLET (FP) PO SCH (10:43)
[2022-09-17] MEDS ORDERED: LORazepam 1 MG TABLET PO PRN (10:49)
[2022-09-17] MEDS ORDERED: NICOTINE 10 MG CARTRIDGE (INHALER) IH PRN (10:54)
[2022-09-17] MEDS: LORazepam 2 MG TABLET PO SCH ×3 (11:00→22:08)
[2022-09-17] MEDS: LIDOCAINE 5% TOPICAL PATCH TP SCH (11:19)
[2022-09-17] MEDS: GABAPENTIN 100 MG CAPSULE PO SCH ×2 (13:21→21:47)
[2022-09-17] MEDS: CLOTRIMAZOLE 1% CREAM TP SCH ×2 (13:22→21:49)
[2022-09-17] MEDS: IBUPROFEN 600 MG TABLET (FP) PO PRN (17:05)
[2022-09-17 17:48] LABS: HEMOGLOBIN 13.2 GM/dL (11.7-16.9); MCH 31.3 pg (25.7-33.7); MCHC 33.7 g/dl (32.0-35.9); MEAN CELL VOLUME 92.8 fl (80-96); MEAN PLT VOLUME 8.4 fl (7.5-11.1); PLATELET COUNT 197 10^3/uL (134-434); RDW 14.2 % (11.9-15.9); WHITE BLOOD COUNT 5.6 K/mm3 (4.0-10.0)
[2022-09-17 18:02] LABS: CALCIUM 8.5 mg/dL (8.5-10.1)
[2022-09-17 18:04] LABS: ALBUMIN 3.3 g/dl (3.4-5.0); BLOOD UREA NITROGEN 11.5 mg/dL (7-18)
[2022-09-17 18:06] LABS: CREATININE 0.7 mg/dL (0.55-1.3)
[2022-09-17 18:08] LABS: TOT PROT 6.6 g/dl (6.4-8.2)
[2022-09-17 18:11] LABS: BILIRUBIN,TOTAL 0.4 mg/dL (0.2-1)
[2022-09-17] MEDS: ATORVASTATIN CA 10 MG TABLET (FP) PO SCH (21:47)
[2022-09-17] MEDS: THIAMINE HCL 100 MG TABLET (FP) PO SCH (21:47)
[2022-09-17] MEDS: QUEtiapine FUMARATE 200 MG TABLET PO SCH (21:48)
[2022-09-17] MEDS: PRAZOSIN HCL 1 MG CAPSULE PO SCH (22:00)
[2022-09-17] MEDS: LIDOCAINE PATCH REMOVAL MC SCH (22:08)
[2022-09-18] MEDS ORDERED: chlordiazePOXIDE HCL 25 MG CAPSULE PO SCH (05:00)
[2022-09-18] MEDS: DOCUSATE SODIUM 100 MG CAPSULE (FP) PO SCH ×3 (05:07→21:56)
[2022-09-18] MEDS: GABAPENTIN 100 MG CAPSULE PO SCH ×3 (05:07→21:57)
[2022-09-18] MEDS: LORazepam 2 MG TABLET PO SCH ×4 (05:07→23:20)
[2022-09-18] MEDS: methaDONE HCL 40 MG DISPERSABLE TABLET PO SCH (06:55)
[2022-09-18] MEDS ORDERED: QUEtiapine FUMARATE 25 MG TABLET ONE (09:20)
[2022-09-18] MEDS: amLODIPine BESYLATE 5 MG TABLET (FP) PO SCH (10:15)
[2022-09-18] MEDS: LISINOPRIL 20 MG TABLET PO SCH (10:15)
[2022-09-18] MEDS: FAMOTIDINE 20 MG TABLET PO SCH ×2 (10:15→21:56)
[2022-09-18] MEDS: PRENATAL VITAMINS W/ FOLIC ACID TABLET (FP) PO SCH (10:15)
[2022-09-18] MEDS: BUDESONIDE/FORMETEROL FUMARATE 80/4.5 mcg INHALER IH SCH ×2 (10:15→21:56)
[2022-09-18] MEDS: QUEtiapine FUMARATE 50 MG TABLET PO SCH (10:16)
[2022-09-18] MEDS: CLOTRIMAZOLE 1% CREAM TP SCH ×2 (10:16→21:59)
[2022-09-18] MEDS: LIDOCAINE 5% TOPICAL PATCH TP SCH (10:18)
[2022-09-18] MEDS: FOLIC ACID 1 MG TABLET (FP) PO SCH (10:50)
[2022-09-18] MEDS: ASCORBIC ACID 250 MG TABLET (FP) PO SCH (10:50)
[2022-09-18] MEDS: ATORVASTATIN CA 10 MG TABLET (FP) PO SCH (21:57)
[2022-09-18] MEDS: QUEtiapine FUMARATE 200 MG TABLET PO SCH (21:57)
[2022-09-18] MEDS: PRAZOSIN HCL 1 MG CAPSULE PO SCH (22:01)
[2022-09-18] MEDS: LIDOCAINE PATCH REMOVAL MC SCH (22:04)
[2022-09-18] MEDS: THIAMINE HCL 100 MG TABLET (FP) PO SCH (22:04)
[2022-09-19] MEDS ORDERED: chlordiazePOXIDE HCL 10 MG CAPSULE PO PRN
[2022-09-19] MEDS: IBUPROFEN 600 MG TABLET (FP) PO PRN (00:50)
[2022-09-19] MEDS ORDERED: chlordiazePOXIDE HCL 10 MG CAPSULE PO SCH (05:00)
[2022-09-19] MEDS: GABAPENTIN 100 MG CAPSULE PO SCH ×3 (05:15→22:10)
[2022-09-19] MEDS: methaDONE HCL 40 MG DISPERSABLE TABLET PO SCH (05:15)
[2022-09-19] MEDS: DOCUSATE SODIUM 100 MG CAPSULE (FP) PO SCH ×3 (05:15→22:11)
[2022-09-19] MEDS: LORazepam 1 MG TABLET PO SCH ×4 (05:15→22:09)
[2022-09-19] MEDS: FOLIC ACID 1 MG TABLET (FP) PO SCH (10:08)
[2022-09-19] MEDS: FAMOTIDINE 20 MG TABLET PO SCH ×2 (10:08→22:10)
[2022-09-19] MEDS: QUEtiapine FUMARATE 50 MG TABLET PO SCH (10:08)
[2022-09-19] MEDS: LISINOPRIL 20 MG TABLET PO SCH (10:08)
[2022-09-19] MEDS: LIDOCAINE 5% TOPICAL PATCH TP SCH (10:08)
[2022-09-19] MEDS: BUDESONIDE/FORMETEROL FUMARATE 80/4.5 mcg INHALER IH SCH ×2 (10:08→22:16)
[2022-09-19] MEDS: ASCORBIC ACID 250 MG TABLET (FP) PO SCH (10:08)
[2022-09-19] MEDS: amLODIPine BESYLATE 5 MG TABLET (FP) PO SCH (10:08)
[2022-09-19] MEDS: CLOTRIMAZOLE 1% CREAM TP SCH ×2 (10:13→22:17)
[2022-09-19] MEDS: PRENATAL VITAMINS W/ FOLIC ACID TABLET (FP) PO SCH (10:14)
[2022-09-19] MEDS: ATORVASTATIN CA 10 MG TABLET (FP) PO SCH (22:10)
[2022-09-19] MEDS: QUEtiapine FUMARATE 200 MG TABLET PO SCH (22:11)
[2022-09-19] MEDS: PRAZOSIN HCL 1 MG CAPSULE PO SCH (22:11)
[2022-09-19] MEDS: THIAMINE HCL 100 MG TABLET (FP) PO SCH (22:12)
[2022-09-19] MEDS: BACITRACIN 0.9 GM PACKET TP SCH (22:12)
[2022-09-19] MEDS: LIDOCAINE PATCH REMOVAL MC SCH (22:17)
[2022-09-20] MEDS ORDERED: LORazepam 0.5 MG TABLET PO PRN
[2022-09-20] MEDS ORDERED: chlordiazePOXIDE HCL 10 MG CAPSULE PO SCH (05:00)
[2022-09-20] MEDS: methaDONE HCL 40 MG DISPERSABLE TABLET PO SCH (05:07)
[2022-09-20] MEDS: DOCUSATE SODIUM 100 MG CAPSULE (FP) PO SCH ×3 (05:08→22:06)
[2022-09-20] MEDS: LORazepam 0.5 MG TABLET PO SCH ×4 (05:08→22:09)
[2022-09-20] MEDS: IBUPROFEN 600 MG TABLET (FP) PO PRN (05:26)
[2022-09-20] MEDS: GABAPENTIN 100 MG CAPSULE PO SCH ×3 (06:30→22:05)
[2022-09-20] MEDS: PRENATAL VITAMINS W/ FOLIC ACID TABLET (FP) PO SCH (10:12)
[2022-09-20] MEDS: FAMOTIDINE 20 MG TABLET PO SCH ×2 (10:12→22:04)
[2022-09-20] MEDS: LISINOPRIL 20 MG TABLET PO SCH (10:12)
[2022-09-20] MEDS: LIDOCAINE 5% TOPICAL PATCH TP SCH (10:12)
[2022-09-20] MEDS: amLODIPine BESYLATE 5 MG TABLET (FP) PO SCH (10:12)
[2022-09-20] MEDS: QUEtiapine FUMARATE 50 MG TABLET PO SCH (10:12)
[2022-09-20] MEDS: BUDESONIDE/FORMETEROL FUMARATE 80/4.5 mcg INHALER IH SCH ×2 (10:12→23:19)
[2022-09-20] MEDS: BACITRACIN 0.9 GM PACKET TP SCH ×2 (10:13→22:04)
[2022-09-20] MEDS: ASCORBIC ACID 250 MG TABLET (FP) PO SCH (10:13)
[2022-09-20] MEDS: CLOTRIMAZOLE 1% CREAM TP SCH ×2 (10:13→22:06)
[2022-09-20] MEDS: FOLIC ACID 1 MG TABLET (FP) PO SCH (10:13)
[2022-09-20] MEDS: QUEtiapine FUMARATE 200 MG TABLET PO SCH (22:04)
[2022-09-20] MEDS: THIAMINE HCL 100 MG TABLET (FP) PO SCH (22:05)
[2022-09-20] MEDS: ATORVASTATIN CA 10 MG TABLET (FP) PO SCH (22:05)
[2022-09-20] MEDS: LIDOCAINE PATCH REMOVAL MC SCH (22:06)
[2022-09-20] MEDS: PRAZOSIN HCL 1 MG CAPSULE PO SCH (22:09)
[2022-09-21] MEDS: METHOCARBAMOL 500 MG TABLET PO PRN (01:41)
[2022-09-21] MEDS: IBUPROFEN 600 MG TABLET (FP) PO PRN (01:41)
[2022-09-21] MEDS ORDERED: LORazepam 0.5 MG TABLET PO ONE (05:00)
[2022-09-21] MEDS ORDERED: chlordiazePOXIDE HCL 10 MG CAPSULE PO ONE (05:00)
[2022-09-21] MEDS: GABAPENTIN 100 MG CAPSULE PO SCH (05:07)
[2022-09-21] MEDS: methaDONE HCL 40 MG DISPERSABLE TABLET PO SCH (05:07)
[2022-09-21] MEDS: DOCUSATE SODIUM 100 MG CAPSULE (FP) PO SCH (05:07)
[2022-09-21] MEDS: LIDOCAINE 5% TOPICAL PATCH TP SCH (09:34)
[2022-09-21 09:53] VITALS: BP 130/82; PULSE 96; RESP 16; TEMP 97.5
[2022-09-21] MEDS: BUDESONIDE/FORMETEROL FUMARATE 80/4.5 mcg INHALER IH SCH (10:21)
[2022-09-21] MEDS: ASCORBIC ACID 250 MG TABLET (FP) PO SCH (10:21)
[2022-09-21] MEDS: PRENATAL VITAMINS W/ FOLIC ACID TABLET (FP) PO SCH (10:21)
[2022-09-21] MEDS: FAMOTIDINE 20 MG TABLET PO SCH (10:22)
[2022-09-21] MEDS: LISINOPRIL 20 MG TABLET PO SCH (10:22)
[2022-09-21] MEDS: amLODIPine BESYLATE 5 MG TABLET (FP) PO SCH (10:22)
[2022-09-21] MEDS: FOLIC ACID 1 MG TABLET (FP) PO SCH (10:23)
[2022-09-21] MEDS: BACITRACIN 0.9 GM PACKET TP SCH (10:23)
[2022-09-21] MEDS: CLOTRIMAZOLE 1% CREAM TP SCH (10:23)
[2022-09-21] MEDS: QUEtiapine FUMARATE 50 MG TABLET PO SCH (10:27)
== END 2022-09-21 10:55 | disposition home or self-care (01) | DRG 773 ==
LOC: YASAS 12:01 → Y6N 14:54
PROVIDERS: ADMIT Allergy & Immunology; ATTEND Surgery
PROC: HZ2ZZZZ Detoxification Services for Substance Abuse Treatment (ICD-10-PCS; principal; 2022-09-16)
DX: F10.230 Alcohol dependence with withdrawal, uncomplicated (principal); F11.20 Opioid dependence, uncomplicated; F14.20 Cocaine dependence, uncomplicated; F17.210 Nicotine dependence, cigarettes, uncomplicated; F19.282 Other psychoactive substance dependence with psychoactive substance-induced sleep disorder; I10 Essential (primary) hypertension; J45.909 Unspecified asthma, uncomplicated; B35.6 Tinea cruris; B35.3 Tinea pedis; B35.1 Tinea unguium; R26.89 Other abnormalities of gait and mobility; Z99.89 Dependence on other enabling machines and devices; Z86.59 Personal history of other mental and behavioral disorders
CPT/HCPCS: 36415; 80053; 82962; 85027; 86780; 93005; 93010; C9803-CS; U0003; U0005

== ENCOUNTER 2022-09-30 11:34 | Inpatient (IN) | payer OTHER ==
[2022-09-30 13:08] VITALS: BMI 22.8
[2022-09-30] MEDS ORDERED: IBUPROFEN 400 MG TABLET (FP) PO PRN (18:53)
[2022-09-30] MEDS ORDERED: NALOXONE HCL 0.4 MG/ML VIAL IM PRN (18:53)
[2022-09-30] MEDS ORDERED: BENZONATATE 200 MG CAPSULE PO PRN (18:53)
[2022-09-30] MEDS ORDERED: POLYETHYLENE GLYCOL (HEALTHYLAX) 3350 17 GM PACKET PO PRN (18:53)
[2022-09-30] MEDS ORDERED: MAG HYDROX/AL HYDROX/SIMETH 30 ML UNIT-DOSE CUP PO PRN (18:53)
[2022-09-30] MEDS ORDERED: BENZOCAINE/MENTHOL (CHLORASEPTIC ) LOZENGE MM PRN (18:53)
[2022-09-30] MEDS ORDERED: ONDANSETRON *ODT* 4 MG TABLET SL PRN (18:53)
[2022-09-30] MEDS ORDERED: MAGNESIUM HYDROX 2400MG/30ML ORAL SUSPENSION 30 ML CUP PO PRN (18:53)
[2022-09-30] MEDS ORDERED: NALOXONE HCL (KLOXXADO) 8 MG SPRAY NS PRN (18:53)
[2022-09-30] MEDS ORDERED: ACETAMINOPHEN 325 MG TABLET (FP) PO PRN (18:53)
[2022-09-30] MEDS ORDERED: NICOTINE 10 MG CARTRIDGE (INHALER) IH PRN (18:53)
[2022-09-30] MEDS ORDERED: BISMUTH SUBSALICYLATE 524 MG/30 ML PO PRN (18:53)
[2022-09-30] MEDS ORDERED: LOPERAMIDE HCL 2 MG CAPSULE PO PRN (18:53)
[2022-09-30] MEDS ORDERED: guaiFENesin 600 MG TABLET.ER (FP) PO PRN (18:53)
[2022-09-30] MEDS ORDERED: DICYCLOMINE HCL 10 MG CAPSULE PO PRN (18:53)
[2022-09-30] MEDS ORDERED: hydrOXYzine PAMOATE 25 MG CAPSULE (FP) PO PRN (18:53)
[2022-09-30] MEDS ORDERED: ALBUTEROL SO4 HFA INHALER IH PRN (18:55)
[2022-09-30] MEDS: LORazepam 1 MG TABLET PO PRN (19:31)
[2022-09-30] MEDS: BUDESONIDE/FORMETEROL FUMARATE 80/4.5 mcg INHALER IH SCH (21:57)
[2022-09-30] MEDS ORDERED: MELATONIN 5 MG TABLETS PO SCH (22:00)
[2022-09-30] MEDS ORDERED: QUEtiapine FUMARATE 50 MG TABLET PO SCH (22:00)
[2022-09-30] MEDS: LORazepam 2 MG TABLET PO SCH (22:01)
[2022-09-30] MEDS: METHOCARBAMOL 500 MG TABLET PO PRN (22:02)
[2022-09-30] MEDS: FAMOTIDINE 20 MG TABLET PO SCH (22:03)
[2022-09-30] MEDS: THIAMINE HCL 100 MG TABLET (FP) PO SCH (22:03)
[2022-09-30] MEDS: ATORVASTATIN CA 10 MG TABLET (FP) PO SCH (22:03)
[2022-10-01] MEDS: IBUPROFEN 600 MG TABLET (FP) PO PRN (01:37)
[2022-10-01] MEDS: LORazepam 2 MG TABLET PO SCH ×4 (05:22→22:26)
[2022-10-01] MEDS: METHOCARBAMOL 500 MG TABLET PO PRN (05:24)
[2022-10-01] MEDS: LISINOPRIL 20 MG TABLET PO SCH (10:14)
[2022-10-01] MEDS: amLODIPine BESYLATE 10 MG TABLET (FP) PO SCH (10:14)
[2022-10-01] MEDS: FAMOTIDINE 20 MG TABLET PO SCH ×2 (10:14→22:25)
[2022-10-01] MEDS: PRENATAL VITAMINS W/ FOLIC ACID TABLET (FP) PO SCH (10:14)
[2022-10-01] MEDS: BUDESONIDE/FORMETEROL FUMARATE 80/4.5 mcg INHALER IH SCH ×2 (10:15→22:24)
[2022-10-01 11:07] LABS: HEMATOCRIT 40.2 % (35.4-49); HEMOGLOBIN 13.7 GM/dL (11.7-16.9); MCH 31.2 pg (25.7-33.7); MCHC 34.1 g/dl (32.0-35.9); MEAN CELL VOLUME 91.5 fl (80-96); MEAN PLT VOLUME 8.1 fl (7.5-11.1); PLATELET COUNT 261 10^3/uL (134-434); POTASSIUM 4.7 mmol/L (3.5-5.1); RBC 4.39 M/mm3 (4.00-5.60); RDW 14.3 % (11.9-15.9); WHITE BLOOD COUNT 5.1 K/mm3 (4.0-10.0)
[2022-10-01 11:11] LABS: CALCIUM 8.8 mg/dL (8.5-10.1)
[2022-10-01 11:12] LABS: ALBUMIN 3.3 g/dl (3.4-5.0); BLOOD UREA NITROGEN 9.7 mg/dL (7-18)
[2022-10-01 11:15] LABS: CREATININE 0.5 mg/dL (0.55-1.3)
[2022-10-01 11:16] LABS: BILIRUBIN,TOTAL 0.6 mg/dL (0.2-1); TOT PROT 6.8 g/dl (6.4-8.2)
[2022-10-01] MEDS ORDERED: methaDONE HCL 10 MG TABLET PO ONE (12:30)
[2022-10-01] MEDS: LORazepam 1 MG TABLET PO PRN ×2 (13:12→20:20)
[2022-10-01] MEDS: busPIRone HCL 10 MG TABLET (FP) PO SCH (22:24)
[2022-10-01] MEDS: GABAPENTIN 100 MG CAPSULE PO SCH (22:24)
[2022-10-01] MEDS: PRAZOSIN HCL 1 MG CAPSULE PO SCH (22:25)
[2022-10-01] MEDS: THIAMINE HCL 100 MG TABLET (FP) PO SCH (22:25)
[2022-10-01] MEDS: ATORVASTATIN CA 10 MG TABLET (FP) PO SCH (22:25)
[2022-10-01] MEDS: QUEtiapine FUMARATE 100 MG TABLET (FP) PO SCH (22:25)
[2022-10-02] MEDS: GABAPENTIN 100 MG CAPSULE PO SCH ×3 (05:04→22:01)
[2022-10-02] MEDS: LORazepam 1 MG TABLET PO SCH ×4 (05:05→22:03)
[2022-10-02] MEDS: methaDONE HCL 40 MG DISPERSABLE TABLET PO SCH (07:59)
[2022-10-02] MEDS: METHOCARBAMOL 500 MG TABLET PO PRN ×2 (08:47→19:56)
[2022-10-02] MEDS: PRENATAL VITAMINS W/ FOLIC ACID TABLET (FP) PO SCH (10:09)
[2022-10-02] MEDS: LISINOPRIL 20 MG TABLET PO SCH (10:10)
[2022-10-02] MEDS: busPIRone HCL 10 MG TABLET (FP) PO SCH ×2 (10:10→22:01)
[2022-10-02] MEDS: QUEtiapine FUMARATE 50 MG TABLET PO SCH (10:11)
[2022-10-02] MEDS: BUDESONIDE/FORMETEROL FUMARATE 80/4.5 mcg INHALER IH SCH ×2 (10:11→22:03)
[2022-10-02] MEDS: FAMOTIDINE 20 MG TABLET PO SCH ×2 (10:11→22:00)
[2022-10-02] MEDS: amLODIPine BESYLATE 10 MG TABLET (FP) PO SCH (10:11)
[2022-10-02] MEDS: LORazepam 1 MG TABLET PO PRN ×2 (12:54→19:58)
[2022-10-02] MEDS: LIDOCAINE 5% TOPICAL PATCH TP SCH (12:55)
[2022-10-02] MEDS: THIAMINE HCL 100 MG TABLET (FP) PO SCH (21:59)
[2022-10-02] MEDS: QUEtiapine FUMARATE 100 MG TABLET (FP) PO SCH (21:59)
[2022-10-02] MEDS: PRAZOSIN HCL 1 MG CAPSULE PO SCH (22:00)
[2022-10-02] MEDS: ATORVASTATIN CA 10 MG TABLET (FP) PO SCH (22:02)
[2022-10-02] MEDS: LIDOCAINE PATCH REMOVAL MC SCH (22:03)
[2022-10-03] MEDS: IBUPROFEN 600 MG TABLET (FP) PO PRN (01:12)
[2022-10-03] MEDS: LORazepam 0.5 MG TABLET PO PRN ×3 (03:05→20:01)
[2022-10-03] MEDS: methaDONE HCL 40 MG DISPERSABLE TABLET PO SCH (05:38)
[2022-10-03] MEDS: GABAPENTIN 100 MG CAPSULE PO SCH ×3 (05:39→21:59)
[2022-10-03] MEDS: LORazepam 0.5 MG TABLET PO SCH ×4 (05:39→22:00)
[2022-10-03] MEDS: METHOCARBAMOL 500 MG TABLET PO PRN ×2 (05:41→18:16)
[2022-10-03] MEDS: LISINOPRIL 20 MG TABLET PO SCH (10:02)
[2022-10-03] MEDS: QUEtiapine FUMARATE 50 MG TABLET PO SCH (10:02)
[2022-10-03] MEDS: PRENATAL VITAMINS W/ FOLIC ACID TABLET (FP) PO SCH (10:02)
[2022-10-03] MEDS: FAMOTIDINE 20 MG TABLET PO SCH ×2 (10:02→21:59)
[2022-10-03] MEDS: busPIRone HCL 10 MG TABLET (FP) PO SCH ×2 (10:03→21:58)
[2022-10-03] MEDS: LIDOCAINE 5% TOPICAL PATCH TP SCH (10:03)
[2022-10-03] MEDS: amLODIPine BESYLATE 10 MG TABLET (FP) PO SCH (10:03)
[2022-10-03] MEDS: BUDESONIDE/FORMETEROL FUMARATE 80/4.5 mcg INHALER IH SCH ×2 (10:06→22:02)
[2022-10-03] MEDS: NYSTATIN 100,000 UNIT/GM TOPICAL CREAM 15 GM TUBE TP SCH ×2 (13:09→22:02)
[2022-10-03] MEDS: PRAZOSIN HCL 1 MG CAPSULE PO SCH (21:58)
[2022-10-03] MEDS: QUEtiapine FUMARATE 100 MG TABLET (FP) PO SCH (21:58)
[2022-10-03] MEDS: THIAMINE HCL 100 MG TABLET (FP) PO SCH (21:58)
[2022-10-03] MEDS: LIDOCAINE PATCH REMOVAL MC SCH (21:58)
[2022-10-03] MEDS: ATORVASTATIN CA 10 MG TABLET (FP) PO SCH (21:59)
[2022-10-04] MEDS: IBUPROFEN 600 MG TABLET (FP) PO PRN (01:05)
[2022-10-04] MEDS: METHOCARBAMOL 500 MG TABLET PO PRN ×2 (01:05→06:54)
[2022-10-04] MEDS ORDERED: LORazepam 0.5 MG TABLET PO ONE (05:00)
[2022-10-04] MEDS: GABAPENTIN 100 MG CAPSULE PO SCH (05:39)
[2022-10-04] MEDS: methaDONE HCL 40 MG DISPERSABLE TABLET PO SCH (05:40)
[2022-10-04 06:28] VITALS: RESP 16
[2022-10-04 09:13] VITALS: BP 149/86; PULSE 90; TEMP 97.7
[2022-10-04] MEDS: FAMOTIDINE 20 MG TABLET PO SCH (09:57)
[2022-10-04] MEDS: LISINOPRIL 20 MG TABLET PO SCH (09:57)
[2022-10-04] MEDS: PRENATAL VITAMINS W/ FOLIC ACID TABLET (FP) PO SCH (09:57)
[2022-10-04] MEDS: QUEtiapine FUMARATE 50 MG TABLET PO SCH (09:57)
[2022-10-04] MEDS: amLODIPine BESYLATE 10 MG TABLET (FP) PO SCH (09:57)
[2022-10-04] MEDS: LIDOCAINE 5% TOPICAL PATCH TP SCH (09:57)
[2022-10-04] MEDS: BUDESONIDE/FORMETEROL FUMARATE 80/4.5 mcg INHALER IH SCH (09:58)
[2022-10-04] MEDS: NYSTATIN 100,000 UNIT/GM TOPICAL CREAM 15 GM TUBE TP SCH (09:58)
[2022-10-04] MEDS: busPIRone HCL 10 MG TABLET (FP) PO SCH (09:58)
== END 2022-10-04 10:42 | disposition other institution (70) | DRG 773 ==
LOC: YASAS 11:34 → Y3N 18:40
PROVIDERS: ADMIT Allergy & Immunology; ATTEND Surgery
PROC: HZ2ZZZZ Detoxification Services for Substance Abuse Treatment (ICD-10-PCS; principal; 2022-09-30)
DX: F10.230 Alcohol dependence with withdrawal, uncomplicated (principal); F11.20 Opioid dependence, uncomplicated; F14.20 Cocaine dependence, uncomplicated; F13.20 Sedative, hypnotic or anxiolytic dependence, uncomplicated; F17.210 Nicotine dependence, cigarettes, uncomplicated; F31.9 Bipolar disorder, unspecified; E78.00 Pure hypercholesterolemia, unspecified; I10 Essential (primary) hypertension; J43.0 Unilateral pulmonary emphysema [MacLeod's syndrome]; K21.9 Gastro-esophageal reflux disease without esophagitis; M54.50 Low back pain, unspecified; G89.29 Other chronic pain; R63.4 Abnormal weight loss; Z68.22 Body mass index [BMI] 22.0-22.9, adult; R26.89 Other abnormalities of gait and mobility; Z99.89 Dependence on other enabling machines and devices
CPT/HCPCS: 36415; 80053; 85027; 86780; 87635

== ENCOUNTER 2022-10-04 10:46 | Inpatient (IN) | payer OTHER ==
[2022-10-04] MEDS ORDERED: BENZONATATE 200 MG CAPSULE PO PRN (11:45)
[2022-10-04] MEDS ORDERED: MAGNESIUM HYDROX 2400MG/30ML ORAL SUSPENSION 30 ML CUP PO PRN (11:45)
[2022-10-04] MEDS ORDERED: guaiFENesin 600 MG TABLET.ER (FP) PO PRN (11:45)
[2022-10-04] MEDS ORDERED: MAG HYDROX/AL HYDROX/SIMETH 30 ML UNIT-DOSE CUP PO PRN (11:45)
[2022-10-04] MEDS ORDERED: NALOXONE HCL 0.4 MG/ML VIAL IVPUSH PRN (11:45)
[2022-10-04] MEDS ORDERED: POLYETHYLENE GLYCOL (HEALTHYLAX) 3350 17 GM PACKET PO PRN (11:45)
[2022-10-04] MEDS ORDERED: ACETAMINOPHEN 325 MG TABLET (FP) PO PRN (11:45)
[2022-10-04] MEDS ORDERED: NALOXONE HCL (KLOXXADO) 8 MG SPRAY NS PRN (11:45)
[2022-10-04] MEDS ORDERED: AMMONIUM LACTATE 12% LOTION 225 GM BOTTLE TP PRN (11:45)
[2022-10-04] MEDS ORDERED: LOPERAMIDE HCL 2 MG CAPSULE PO PRN (11:45)
[2022-10-04] MEDS ORDERED: NICOTINE 14 MG/24 HOURS TOPICAL PATCH TD PRN (11:45)
[2022-10-04] MEDS ORDERED: DOCUSATE SODIUM 100 MG CAPSULE (FP) PO PRN (11:55)
[2022-10-04] MEDS: TOLNAFTATE 1% CREAM 15 GM TUBE TP SCH ×2 (13:00→21:33)
[2022-10-04] MEDS: GABAPENTIN 100 MG CAPSULE PO SCH ×2 (13:16→21:31)
[2022-10-04] MEDS: BACLOFEN 10 MG TABLET (FP) PO PRN (13:17)
[2022-10-04] MEDS: NICOTINE POLACRILEX 4 MG GUM BUC PRN (13:18)
[2022-10-04] MEDS: clonazePAM 0.5 MG ODT TABLETS SL SCH (14:44)
[2022-10-04] MEDS: MELATONIN 5 MG TABLETS PO SCH (21:30)
[2022-10-04] MEDS: THIAMINE HCL 100 MG TABLET (FP) PO SCH (21:30)
[2022-10-04] MEDS: ATORVASTATIN CA 10 MG TABLET (FP) PO SCH (21:31)
[2022-10-04] MEDS: FAMOTIDINE 20 MG TABLET PO SCH (21:31)
[2022-10-04] MEDS: QUEtiapine FUMARATE 200 MG TABLET PO SCH (21:32)
[2022-10-04] MEDS: PRAZOSIN HCL 1 MG CAPSULE PO SCH (21:32)
[2022-10-04] MEDS: BUDESONIDE/FORMETEROL FUMARATE 80/4.5 mcg INHALER IH SCH (21:33)
[2022-10-05] MEDS: IBUPROFEN 600 MG TABLET (FP) PO PRN (02:08)
[2022-10-05] MEDS: methaDONE HCL 40 MG DISPERSABLE TABLET PO SCH (05:45)
[2022-10-05] MEDS: GABAPENTIN 100 MG CAPSULE PO SCH ×3 (05:45→21:07)
[2022-10-05] MEDS: BACLOFEN 10 MG TABLET (FP) PO PRN ×3 (05:47→21:05)
[2022-10-05] MEDS: FAMOTIDINE 20 MG TABLET PO SCH ×2 (09:46→21:05)
[2022-10-05] MEDS: PRENATAL VITAMINS W/ FOLIC ACID TABLET (FP) PO SCH (09:46)
[2022-10-05] MEDS: clonazePAM 0.5 MG ODT TABLETS SL SCH (09:47)
[2022-10-05] MEDS: BUDESONIDE/FORMETEROL FUMARATE 80/4.5 mcg INHALER IH SCH ×2 (09:47→21:06)
[2022-10-05] MEDS: amLODIPine BESYLATE 10 MG TABLET (FP) PO SCH (09:47)
[2022-10-05] MEDS: TOLNAFTATE 1% CREAM 15 GM TUBE TP SCH ×2 (09:47→21:07)
[2022-10-05] MEDS: LISINOPRIL 20 MG TABLET PO SCH (09:47)
[2022-10-05] MEDS: QUEtiapine FUMARATE 50 MG TABLET PO SCH (09:47)
[2022-10-05] MEDS: LIDOCAINE 5% TOPICAL PATCH TP PRN (09:49)
[2022-10-05] MEDS: QUEtiapine FUMARATE 200 MG TABLET PO SCH (21:06)
[2022-10-05] MEDS: THIAMINE HCL 100 MG TABLET (FP) PO SCH (21:07)
[2022-10-05] MEDS: PRAZOSIN HCL 1 MG CAPSULE PO SCH (21:08)
[2022-10-05] MEDS: LIDOCAINE PATCH REMOVAL MC SCH (21:08)
[2022-10-05] MEDS: ATORVASTATIN CA 10 MG TABLET (FP) PO SCH (21:08)
[2022-10-05] MEDS: MELATONIN 5 MG TABLETS PO SCH (21:09)
[2022-10-06] MEDS: IBUPROFEN 600 MG TABLET (FP) PO PRN (02:54)
[2022-10-06] MEDS: GABAPENTIN 100 MG CAPSULE PO SCH ×3 (05:47→21:06)
[2022-10-06] MEDS: methaDONE HCL 40 MG DISPERSABLE TABLET PO SCH (05:47)
[2022-10-06] MEDS: BACLOFEN 10 MG TABLET (FP) PO PRN ×2 (07:18→15:54)
[2022-10-06] MEDS: BUDESONIDE/FORMETEROL FUMARATE 80/4.5 mcg INHALER IH SCH ×2 (10:27→21:08)
[2022-10-06] MEDS: amLODIPine BESYLATE 10 MG TABLET (FP) PO SCH (10:28)
[2022-10-06] MEDS: clonazePAM 0.5 MG ODT TABLETS SL SCH (10:28)
[2022-10-06] MEDS: FAMOTIDINE 20 MG TABLET PO SCH ×2 (10:28→21:06)
[2022-10-06] MEDS: LISINOPRIL 20 MG TABLET PO SCH (10:28)
[2022-10-06] MEDS: QUEtiapine FUMARATE 50 MG TABLET PO SCH (10:28)
[2022-10-06] MEDS: PRENATAL VITAMINS W/ FOLIC ACID TABLET (FP) PO SCH (10:28)
[2022-10-06] MEDS: TOLNAFTATE 1% CREAM 15 GM TUBE TP SCH ×2 (10:30→21:07)
[2022-10-06] MEDS: NICOTINE 10 MG CARTRIDGE (INHALER) IH PRN ×3 (11:02→21:07)
[2022-10-06] MEDS: BACITRACIN 0.9 GM PACKET TP SCH ×3 (14:26→21:06)
[2022-10-06] MEDS: THIAMINE HCL 100 MG TABLET (FP) PO SCH (21:06)
[2022-10-06] MEDS: ATORVASTATIN CA 10 MG TABLET (FP) PO SCH (21:06)
[2022-10-06] MEDS: QUEtiapine FUMARATE 200 MG TABLET PO SCH (21:06)
[2022-10-06] MEDS: PRAZOSIN HCL 1 MG CAPSULE PO SCH (21:07)
[2022-10-06] MEDS: LIDOCAINE PATCH REMOVAL MC SCH (21:07)
[2022-10-06] MEDS: MELATONIN 5 MG TABLETS PO SCH (21:09)
[2022-10-07] MEDS: IBUPROFEN 600 MG TABLET (FP) PO PRN (00:36)
[2022-10-07] MEDS: BACLOFEN 10 MG TABLET (FP) PO PRN ×3 (00:36→14:54)
[2022-10-07] MEDS: NICOTINE 10 MG CARTRIDGE (INHALER) IH PRN ×2 (05:53→14:54)
[2022-10-07] MEDS: GABAPENTIN 100 MG CAPSULE PO SCH ×3 (05:53→21:18)
[2022-10-07] MEDS: methaDONE HCL 40 MG DISPERSABLE TABLET PO SCH (05:53)
[2022-10-07] MEDS: TOLNAFTATE 1% CREAM 15 GM TUBE TP SCH ×2 (09:28→21:18)
[2022-10-07] MEDS: PRENATAL VITAMINS W/ FOLIC ACID TABLET (FP) PO SCH (09:28)
[2022-10-07] MEDS: BUDESONIDE/FORMETEROL FUMARATE 80/4.5 mcg INHALER IH SCH ×2 (09:28→21:19)
[2022-10-07] MEDS: clonazePAM 0.5 MG ODT TABLETS SL SCH (09:29)
[2022-10-07] MEDS: FAMOTIDINE 20 MG TABLET PO SCH ×2 (09:29→21:18)
[2022-10-07] MEDS: QUEtiapine FUMARATE 50 MG TABLET PO SCH (09:29)
[2022-10-07] MEDS: BACITRACIN 0.9 GM PACKET TP SCH ×2 (09:31→21:19)
[2022-10-07] MEDS: amLODIPine BESYLATE 10 MG TABLET (FP) PO SCH (11:00)
[2022-10-07] MEDS: LISINOPRIL 20 MG TABLET PO SCH (11:00)
[2022-10-07] MEDS: LIDOCAINE 5% TOPICAL PATCH TP PRN (14:54)
[2022-10-07] MEDS: MELATONIN 5 MG TABLETS PO SCH (21:17)
[2022-10-07] MEDS: THIAMINE HCL 100 MG TABLET (FP) PO SCH (21:17)
[2022-10-07] MEDS: QUEtiapine FUMARATE 200 MG TABLET PO SCH (21:18)
[2022-10-07] MEDS: PRAZOSIN HCL 1 MG CAPSULE PO SCH (21:18)
[2022-10-07] MEDS: ATORVASTATIN CA 10 MG TABLET (FP) PO SCH (21:18)
[2022-10-07] MEDS: LIDOCAINE PATCH REMOVAL MC SCH (21:20)
[2022-10-08] MEDS: NICOTINE 10 MG CARTRIDGE (INHALER) IH PRN ×4 (00:58→19:01)
[2022-10-08] MEDS: P-EPHED 60MG/TRIPROLIDI 2.5MG TABLET PO PRN (01:29)
[2022-10-08] MEDS: methaDONE HCL 40 MG DISPERSABLE TABLET PO SCH (05:51)
[2022-10-08] MEDS: GABAPENTIN 100 MG CAPSULE PO SCH ×3 (05:51→21:15)
[2022-10-08] MEDS: clonazePAM 0.5 MG ODT TABLETS SL SCH (09:48)
[2022-10-08] MEDS: LISINOPRIL 20 MG TABLET PO SCH (09:48)
[2022-10-08] MEDS: BACLOFEN 10 MG TABLET (FP) PO PRN (09:48)
[2022-10-08] MEDS: BACITRACIN 0.9 GM PACKET TP SCH ×2 (09:49→21:16)
[2022-10-08] MEDS: FAMOTIDINE 20 MG TABLET PO SCH ×2 (09:49→21:15)
[2022-10-08] MEDS: amLODIPine BESYLATE 10 MG TABLET (FP) PO SCH (09:49)
[2022-10-08] MEDS: PRENATAL VITAMINS W/ FOLIC ACID TABLET (FP) PO SCH (09:49)
[2022-10-08] MEDS: TOLNAFTATE 1% CREAM 15 GM TUBE TP SCH ×2 (09:50→21:16)
[2022-10-08] MEDS: BUDESONIDE/FORMETEROL FUMARATE 80/4.5 mcg INHALER IH SCH ×2 (09:50→21:17)
[2022-10-08] MEDS: QUEtiapine FUMARATE 50 MG TABLET PO SCH (09:53)
[2022-10-08] MEDS: LIDOCAINE 5% TOPICAL PATCH TP PRN (09:53)
[2022-10-08] MEDS: ATORVASTATIN CA 10 MG TABLET (FP) PO SCH (21:15)
[2022-10-08] MEDS: THIAMINE HCL 100 MG TABLET (FP) PO SCH (21:15)
[2022-10-08] MEDS: QUEtiapine FUMARATE 200 MG TABLET PO SCH (21:16)
[2022-10-08] MEDS: PRAZOSIN HCL 1 MG CAPSULE PO SCH (21:16)
[2022-10-08] MEDS: MELATONIN 5 MG TABLETS PO SCH (21:16)
[2022-10-08] MEDS: LIDOCAINE PATCH REMOVAL MC SCH (21:17)
[2022-10-09] MEDS: IBUPROFEN 600 MG TABLET (FP) PO PRN (02:59)
[2022-10-09] MEDS: hydrOXYzine PAMOATE 25 MG CAPSULE (FP) PO PRN ×2 (02:59→16:50)
[2022-10-09] MEDS: BACLOFEN 10 MG TABLET (FP) PO PRN ×2 (03:00→13:08)
[2022-10-09] MEDS: P-EPHED 60MG/TRIPROLIDI 2.5MG TABLET PO PRN (03:01)
[2022-10-09] MEDS: NICOTINE 10 MG CARTRIDGE (INHALER) IH PRN (05:49)
[2022-10-09] MEDS: methaDONE HCL 40 MG DISPERSABLE TABLET PO SCH (05:49)
[2022-10-09] MEDS: GABAPENTIN 100 MG CAPSULE PO SCH ×3 (06:37→21:28)
[2022-10-09] MEDS: BUDESONIDE/FORMETEROL FUMARATE 80/4.5 mcg INHALER IH SCH ×2 (10:26→21:30)
[2022-10-09] MEDS: PRENATAL VITAMINS W/ FOLIC ACID TABLET (FP) PO SCH (10:26)
[2022-10-09] MEDS: LISINOPRIL 20 MG TABLET PO SCH (10:27)
[2022-10-09] MEDS: QUEtiapine FUMARATE 50 MG TABLET PO SCH (10:27)
[2022-10-09] MEDS: FAMOTIDINE 20 MG TABLET PO SCH ×2 (10:27→21:28)
[2022-10-09] MEDS: clonazePAM 0.5 MG ODT TABLETS SL SCH (10:27)
[2022-10-09] MEDS: BACITRACIN 0.9 GM PACKET TP SCH ×2 (10:27→21:31)
[2022-10-09] MEDS: amLODIPine BESYLATE 10 MG TABLET (FP) PO SCH (10:28)
[2022-10-09] MEDS: TOLNAFTATE 1% CREAM 15 GM TUBE TP SCH ×2 (10:30→21:48)
[2022-10-09] MEDS: LIDOCAINE 5% TOPICAL PATCH TP PRN (12:44)
[2022-10-09] MEDS: MELATONIN 5 MG TABLETS PO SCH (21:27)
[2022-10-09] MEDS: PRAZOSIN HCL 1 MG CAPSULE PO SCH (21:27)
[2022-10-09] MEDS: THIAMINE HCL 100 MG TABLET (FP) PO SCH (21:27)
[2022-10-09] MEDS: ATORVASTATIN CA 10 MG TABLET (FP) PO SCH (21:28)
[2022-10-09] MEDS: LIDOCAINE PATCH REMOVAL MC SCH (21:28)
[2022-10-09] MEDS: QUEtiapine FUMARATE 100 MG TABLET (FP) PO SCH (21:29)
[2022-10-10] MEDS: hydrOXYzine PAMOATE 25 MG CAPSULE (FP) PO PRN ×2 (01:04→23:49)
[2022-10-10] MEDS: P-EPHED 60MG/TRIPROLIDI 2.5MG TABLET PO PRN (01:04)
[2022-10-10] MEDS: NICOTINE 10 MG CARTRIDGE (INHALER) IH PRN ×2 (06:33→14:26)
[2022-10-10] MEDS: GABAPENTIN 100 MG CAPSULE PO SCH ×2 (06:33→14:26)
[2022-10-10] MEDS: methaDONE HCL 40 MG DISPERSABLE TABLET PO SCH (06:33)
[2022-10-10] MEDS: COLLOIDAL OATMEAL 1 BAR EACH TP PRN (07:55)
[2022-10-10] MEDS: BACITRACIN 0.9 GM PACKET TP SCH ×2 (09:44→21:20)
[2022-10-10] MEDS: clonazePAM 0.5 MG ODT TABLETS SL SCH (09:44)
[2022-10-10] MEDS: amLODIPine BESYLATE 10 MG TABLET (FP) PO SCH (09:44)
[2022-10-10] MEDS: QUEtiapine FUMARATE 50 MG TABLET PO SCH (09:44)
[2022-10-10] MEDS: LISINOPRIL 20 MG TABLET PO SCH (09:44)
[2022-10-10] MEDS: PRENATAL VITAMINS W/ FOLIC ACID TABLET (FP) PO SCH (09:44)
[2022-10-10] MEDS: FAMOTIDINE 20 MG TABLET PO SCH ×2 (09:44→21:18)
[2022-10-10] MEDS: BUDESONIDE/FORMETEROL FUMARATE 80/4.5 mcg INHALER IH SCH ×2 (09:45→21:19)
[2022-10-10] MEDS: TOLNAFTATE 1% CREAM 15 GM TUBE TP SCH ×2 (09:45→21:20)
[2022-10-10] MEDS: LIDOCAINE 5% TOPICAL PATCH TP PRN (09:48)
[2022-10-10] MEDS: PRAZOSIN HCL 1 MG CAPSULE PO SCH (21:18)
[2022-10-10] MEDS: THIAMINE HCL 100 MG TABLET (FP) PO SCH (21:18)
[2022-10-10] MEDS: ATORVASTATIN CA 10 MG TABLET (FP) PO SCH (21:18)
[2022-10-10] MEDS: GABAPENTIN 300 MG CAPSULE PO SCH (21:18)
[2022-10-10] MEDS: QUEtiapine FUMARATE 100 MG TABLET (FP) PO SCH (21:19)
[2022-10-10] MEDS: MELATONIN 5 MG TABLETS PO SCH (21:19)
[2022-10-10] MEDS: LIDOCAINE PATCH REMOVAL MC SCH (21:20)
[2022-10-11] MEDS: GABAPENTIN 300 MG CAPSULE PO SCH ×3 (06:08→21:05)
[2022-10-11] MEDS: methaDONE HCL 40 MG DISPERSABLE TABLET PO SCH (06:08)
[2022-10-11] MEDS: NICOTINE 10 MG CARTRIDGE (INHALER) IH PRN ×2 (06:47→17:41)
[2022-10-11] MEDS: NICOTINE POLACRILEX 4 MG GUM BUC PRN (06:48)
[2022-10-11] MEDS: amLODIPine BESYLATE 10 MG TABLET (FP) PO SCH (10:38)
[2022-10-11] MEDS: FAMOTIDINE 20 MG TABLET PO SCH ×2 (10:39→21:05)
[2022-10-11] MEDS: BACITRACIN 0.9 GM PACKET TP SCH ×2 (10:39→21:07)
[2022-10-11] MEDS: clonazePAM 0.5 MG ODT TABLETS SL SCH (10:39)
[2022-10-11] MEDS: LISINOPRIL 20 MG TABLET PO SCH (10:39)
[2022-10-11] MEDS: QUEtiapine FUMARATE 50 MG TABLET PO SCH (10:40)
[2022-10-11] MEDS: BUDESONIDE/FORMETEROL FUMARATE 80/4.5 mcg INHALER IH SCH ×2 (10:40→21:06)
[2022-10-11] MEDS: PRENATAL VITAMINS W/ FOLIC ACID TABLET (FP) PO SCH (10:40)
[2022-10-11] MEDS: TOLNAFTATE 1% CREAM 15 GM TUBE TP SCH ×2 (10:57→21:05)
[2022-10-11] MEDS: LIDOCAINE 5% TOPICAL PATCH TP PRN (11:25)
[2022-10-11] MEDS: BACLOFEN 10 MG TABLET (FP) PO PRN (15:34)
[2022-10-11] MEDS: hydrOXYzine PAMOATE 25 MG CAPSULE (FP) PO PRN (21:05)
[2022-10-11] MEDS: QUEtiapine FUMARATE 100 MG TABLET (FP) PO SCH (21:05)
[2022-10-11] MEDS: MELATONIN 5 MG TABLETS PO SCH (21:05)
[2022-10-11] MEDS: PRAZOSIN HCL 1 MG CAPSULE PO SCH (21:05)
[2022-10-11] MEDS: ATORVASTATIN CA 10 MG TABLET (FP) PO SCH (21:05)
[2022-10-11] MEDS: THIAMINE HCL 100 MG TABLET (FP) PO SCH (21:05)
[2022-10-11] MEDS: LIDOCAINE PATCH REMOVAL MC SCH (21:07)
[2022-10-12] MEDS: BACLOFEN 10 MG TABLET (FP) PO PRN ×2 (06:04→14:05)
[2022-10-12] MEDS: NICOTINE 10 MG CARTRIDGE (INHALER) IH PRN ×3 (06:04→18:52)
[2022-10-12] MEDS: GABAPENTIN 300 MG CAPSULE PO SCH ×3 (06:05→21:03)
[2022-10-12] MEDS: methaDONE HCL 40 MG DISPERSABLE TABLET PO SCH (06:05)
[2022-10-12] MEDS: BUDESONIDE/FORMETEROL FUMARATE 80/4.5 mcg INHALER IH SCH ×2 (09:57→21:04)
[2022-10-12] MEDS: QUEtiapine FUMARATE 50 MG TABLET PO SCH (09:57)
[2022-10-12] MEDS: amLODIPine BESYLATE 10 MG TABLET (FP) PO SCH (09:57)
[2022-10-12] MEDS: PRENATAL VITAMINS W/ FOLIC ACID TABLET (FP) PO SCH (09:57)
[2022-10-12] MEDS: FAMOTIDINE 20 MG TABLET PO SCH ×2 (09:57→21:03)
[2022-10-12] MEDS: LISINOPRIL 20 MG TABLET PO SCH (09:57)
[2022-10-12] MEDS: clonazePAM 0.5 MG ODT TABLETS SL SCH (09:57)
[2022-10-12] MEDS: TOLNAFTATE 1% CREAM 15 GM TUBE TP SCH ×2 (09:58→21:05)
[2022-10-12] MEDS: hydrOXYzine PAMOATE 25 MG CAPSULE (FP) PO PRN ×2 (10:00→21:03)
[2022-10-12] MEDS: BACITRACIN 0.9 GM PACKET TP SCH ×2 (10:03→21:04)
[2022-10-12] MEDS: LIDOCAINE 5% TOPICAL PATCH TP PRN (10:52)
[2022-10-12] MEDS: NICOTINE POLACRILEX 4 MG GUM BUC PRN (15:41)
[2022-10-12] MEDS: MELATONIN 5 MG TABLETS PO SCH (21:03)
[2022-10-12] MEDS: ATORVASTATIN CA 10 MG TABLET (FP) PO SCH (21:03)
[2022-10-12] MEDS: PRAZOSIN HCL 1 MG CAPSULE PO SCH (21:03)
[2022-10-12] MEDS: THIAMINE HCL 100 MG TABLET (FP) PO SCH (21:03)
[2022-10-12] MEDS: QUEtiapine FUMARATE 100 MG TABLET (FP) PO SCH (21:04)
[2022-10-12] MEDS: LIDOCAINE PATCH REMOVAL MC SCH (21:05)
[2022-10-12] MEDS: IBUPROFEN 600 MG TABLET (FP) PO PRN (22:34)
[2022-10-13] MEDS: NICOTINE 10 MG CARTRIDGE (INHALER) IH PRN ×3 (05:51→15:47)
[2022-10-13] MEDS: hydrOXYzine PAMOATE 25 MG CAPSULE (FP) PO PRN ×2 (05:52→15:45)
[2022-10-13] MEDS: BACLOFEN 10 MG TABLET (FP) PO PRN ×2 (05:52→13:03)
[2022-10-13] MEDS: GABAPENTIN 300 MG CAPSULE PO SCH ×3 (05:52→21:18)
[2022-10-13] MEDS: methaDONE HCL 40 MG DISPERSABLE TABLET PO SCH (05:52)
[2022-10-13] MEDS: clonazePAM 0.5 MG ODT TABLETS SL SCH (09:55)
[2022-10-13] MEDS: BUDESONIDE/FORMETEROL FUMARATE 80/4.5 mcg INHALER IH SCH ×2 (09:55→21:19)
[2022-10-13] MEDS: LISINOPRIL 20 MG TABLET PO SCH (09:55)
[2022-10-13] MEDS: QUEtiapine FUMARATE 50 MG TABLET PO SCH (09:55)
[2022-10-13] MEDS: PRENATAL VITAMINS W/ FOLIC ACID TABLET (FP) PO SCH (09:55)
[2022-10-13] MEDS: BACITRACIN 0.9 GM PACKET TP SCH (09:55)
[2022-10-13] MEDS: amLODIPine BESYLATE 10 MG TABLET (FP) PO SCH (09:56)
[2022-10-13] MEDS: FAMOTIDINE 20 MG TABLET PO SCH ×2 (09:56→21:18)
[2022-10-13] MEDS: TOLNAFTATE 1% CREAM 15 GM TUBE TP SCH ×2 (09:57→21:20)
[2022-10-13] MEDS: LIDOCAINE 5% TOPICAL PATCH TP PRN (10:00)
[2022-10-13] MEDS: NICOTINE POLACRILEX 4 MG GUM BUC PRN (13:04)
[2022-10-13] MEDS: ATORVASTATIN CA 10 MG TABLET (FP) PO SCH (21:17)
[2022-10-13] MEDS: QUEtiapine FUMARATE 100 MG TABLET (FP) PO SCH (21:18)
[2022-10-13] MEDS: PRAZOSIN HCL 1 MG CAPSULE PO SCH (21:18)
[2022-10-13] MEDS: LIDOCAINE PATCH REMOVAL MC SCH (21:19)
[2022-10-13] MEDS: MELATONIN 5 MG TABLETS PO SCH (21:19)
[2022-10-13] MEDS: THIAMINE HCL 100 MG TABLET (FP) PO SCH (21:19)
[2022-10-14] MEDS: ALBUTEROL SO4 HFA INHALER IH PRN (01:08)
[2022-10-14] MEDS: P-EPHED 60MG/TRIPROLIDI 2.5MG TABLET PO PRN ×4 (01:09→19:08)
[2022-10-14] MEDS: BACLOFEN 10 MG TABLET (FP) PO PRN ×3 (01:09→21:04)
[2022-10-14] MEDS: BENZOCAINE/MENTHOL (CHLORASEPTIC ) LOZENGE MM PRN (01:11)
[2022-10-14] MEDS: hydrOXYzine PAMOATE 25 MG CAPSULE (FP) PO PRN ×2 (01:11→13:16)
[2022-10-14] MEDS: methaDONE HCL 40 MG DISPERSABLE TABLET PO SCH (05:59)
[2022-10-14] MEDS: GABAPENTIN 300 MG CAPSULE PO SCH ×3 (05:59→21:05)
[2022-10-14] MEDS: NICOTINE POLACRILEX 4 MG GUM BUC PRN (06:00)
[2022-10-14] MEDS: NICOTINE 10 MG CARTRIDGE (INHALER) IH PRN ×2 (06:00→09:54)
[2022-10-14] MEDS: IBUPROFEN 600 MG TABLET (FP) PO PRN ×2 (06:23→10:27)
[2022-10-14] MEDS: clonazePAM 0.5 MG ODT TABLETS SL SCH (09:52)
[2022-10-14] MEDS: PRENATAL VITAMINS W/ FOLIC ACID TABLET (FP) PO SCH (09:52)
[2022-10-14] MEDS: amLODIPine BESYLATE 10 MG TABLET (FP) PO SCH (09:52)
[2022-10-14] MEDS: QUEtiapine FUMARATE 50 MG TABLET PO SCH (09:53)
[2022-10-14] MEDS: BUDESONIDE/FORMETEROL FUMARATE 80/4.5 mcg INHALER IH SCH ×2 (09:53→21:06)
[2022-10-14] MEDS: FAMOTIDINE 20 MG TABLET PO SCH ×2 (09:53→21:05)
[2022-10-14] MEDS: LISINOPRIL 20 MG TABLET PO SCH (09:53)
[2022-10-14] MEDS: LIDOCAINE 5% TOPICAL PATCH TP PRN (09:56)
[2022-10-14] MEDS: TOLNAFTATE 1% CREAM 15 GM TUBE TP SCH ×2 (10:16→21:08)
[2022-10-14] MEDS: ATORVASTATIN CA 10 MG TABLET (FP) PO SCH (21:04)
[2022-10-14] MEDS: THIAMINE HCL 100 MG TABLET (FP) PO SCH (21:05)
[2022-10-14] MEDS: QUEtiapine FUMARATE 100 MG TABLET (FP) PO SCH (21:06)
[2022-10-14] MEDS: MELATONIN 5 MG TABLETS PO SCH (21:07)
[2022-10-14] MEDS: LIDOCAINE PATCH REMOVAL MC SCH (21:07)
[2022-10-14] MEDS: PRAZOSIN HCL 1 MG CAPSULE PO SCH (21:25)
[2022-10-14] MEDS: IBUPROFEN 400 MG TABLET (FP) PO PRN (21:52)
[2022-10-15] MEDS: ALBUTEROL SO4 HFA INHALER IH PRN (02:59)
[2022-10-15] MEDS: IBUPROFEN 600 MG TABLET (FP) PO PRN (02:59)
[2022-10-15] MEDS: hydrOXYzine PAMOATE 25 MG CAPSULE (FP) PO PRN ×3 (03:00→21:08)
[2022-10-15] MEDS: BENZOCAINE/MENTHOL (CHLORASEPTIC ) LOZENGE MM PRN (03:01)
[2022-10-15] MEDS: P-EPHED 60MG/TRIPROLIDI 2.5MG TABLET PO PRN ×2 (03:01→19:08)
[2022-10-15] MEDS: BACLOFEN 10 MG TABLET (FP) PO PRN ×2 (05:38→19:08)
[2022-10-15] MEDS: GABAPENTIN 300 MG CAPSULE PO SCH ×3 (05:38→21:06)
[2022-10-15] MEDS: methaDONE HCL 40 MG DISPERSABLE TABLET PO SCH (05:39)
[2022-10-15] MEDS: NICOTINE 10 MG CARTRIDGE (INHALER) IH PRN ×3 (05:39→19:08)
[2022-10-15] MEDS: COLLOIDAL OATMEAL 1 BAR EACH TP PRN (07:12)
[2022-10-15] MEDS: FAMOTIDINE 20 MG TABLET PO SCH ×2 (09:43→21:06)
[2022-10-15] MEDS: clonazePAM 0.5 MG ODT TABLETS SL SCH (09:43)
[2022-10-15] MEDS: LISINOPRIL 20 MG TABLET PO SCH (09:43)
[2022-10-15] MEDS: QUEtiapine FUMARATE 50 MG TABLET PO SCH (09:43)
[2022-10-15] MEDS: amLODIPine BESYLATE 10 MG TABLET (FP) PO SCH (09:43)
[2022-10-15] MEDS: PRENATAL VITAMINS W/ FOLIC ACID TABLET (FP) PO SCH (09:44)
[2022-10-15] MEDS: TOLNAFTATE 1% CREAM 15 GM TUBE TP SCH ×2 (09:44→21:08)
[2022-10-15] MEDS: BUDESONIDE/FORMETEROL FUMARATE 80/4.5 mcg INHALER IH SCH ×2 (09:44→21:07)
[2022-10-15] MEDS: NICOTINE POLACRILEX 4 MG GUM BUC PRN (19:09)
[2022-10-15] MEDS: QUEtiapine FUMARATE 100 MG TABLET (FP) PO SCH (21:06)
[2022-10-15] MEDS: ATORVASTATIN CA 10 MG TABLET (FP) PO SCH (21:06)
[2022-10-15] MEDS: PRAZOSIN HCL 1 MG CAPSULE PO SCH (21:07)
[2022-10-15] MEDS: THIAMINE HCL 100 MG TABLET (FP) PO SCH (21:08)
[2022-10-15] MEDS: MELATONIN 5 MG TABLETS PO SCH (21:55)
[2022-10-15] MEDS: LIDOCAINE PATCH REMOVAL MC SCH (21:55)
[2022-10-16] MEDS: hydrOXYzine PAMOATE 25 MG CAPSULE (FP) PO PRN ×4 (01:37→21:07)
[2022-10-16] MEDS: P-EPHED 60MG/TRIPROLIDI 2.5MG TABLET PO PRN ×2 (01:38→21:07)
[2022-10-16] MEDS: BENZOCAINE/MENTHOL (CHLORASEPTIC ) LOZENGE MM PRN (01:39)
[2022-10-16] MEDS: methaDONE HCL 40 MG DISPERSABLE TABLET PO SCH (06:20)
[2022-10-16] MEDS: GABAPENTIN 300 MG CAPSULE PO SCH ×3 (06:20→21:04)
[2022-10-16] MEDS: NICOTINE 10 MG CARTRIDGE (INHALER) IH PRN ×2 (06:20→21:07)
[2022-10-16] MEDS: BACLOFEN 10 MG TABLET (FP) PO PRN ×2 (08:46→21:07)
[2022-10-16] MEDS: IBUPROFEN 600 MG TABLET (FP) PO PRN (08:46)
[2022-10-16] MEDS: LIDOCAINE 5% TOPICAL PATCH TP PRN (10:10)
[2022-10-16] MEDS: FAMOTIDINE 20 MG TABLET PO SCH ×2 (10:10→21:05)
[2022-10-16] MEDS: amLODIPine BESYLATE 10 MG TABLET (FP) PO SCH (10:10)
[2022-10-16] MEDS: LISINOPRIL 20 MG TABLET PO SCH (10:11)
[2022-10-16] MEDS: clonazePAM 0.5 MG ODT TABLETS SL SCH (10:11)
[2022-10-16] MEDS: BUDESONIDE/FORMETEROL FUMARATE 80/4.5 mcg INHALER IH SCH ×2 (10:11→21:06)
[2022-10-16] MEDS: PRENATAL VITAMINS W/ FOLIC ACID TABLET (FP) PO SCH (10:11)
[2022-10-16] MEDS: QUEtiapine FUMARATE 50 MG TABLET PO SCH (10:11)
[2022-10-16] MEDS: TOLNAFTATE 1% CREAM 15 GM TUBE TP SCH ×2 (10:12→21:05)
[2022-10-16] MEDS: PRAZOSIN HCL 1 MG CAPSULE PO SCH (21:04)
[2022-10-16] MEDS: MELATONIN 5 MG TABLETS PO SCH (21:04)
[2022-10-16] MEDS: ATORVASTATIN CA 10 MG TABLET (FP) PO SCH (21:05)
[2022-10-16] MEDS: LIDOCAINE PATCH REMOVAL MC SCH (21:05)
[2022-10-16] MEDS: QUEtiapine FUMARATE 100 MG TABLET (FP) PO SCH (21:05)
[2022-10-16] MEDS: THIAMINE HCL 100 MG TABLET (FP) PO SCH (21:06)
[2022-10-17] MEDS: IBUPROFEN 600 MG TABLET (FP) PO PRN ×2 (04:02→22:30)
[2022-10-17] MEDS: hydrOXYzine PAMOATE 25 MG CAPSULE (FP) PO PRN ×3 (04:02→21:12)
[2022-10-17] MEDS: methaDONE HCL 40 MG DISPERSABLE TABLET PO SCH (05:59)
[2022-10-17] MEDS: GABAPENTIN 300 MG CAPSULE PO SCH ×3 (05:59→21:10)
[2022-10-17] MEDS: NICOTINE 10 MG CARTRIDGE (INHALER) IH PRN ×3 (06:00→21:12)
[2022-10-17] MEDS: BACLOFEN 10 MG TABLET (FP) PO PRN (07:06)
[2022-10-17] MEDS: BUDESONIDE/FORMETEROL FUMARATE 80/4.5 mcg INHALER IH SCH ×2 (09:03→21:10)
[2022-10-17] MEDS: clonazePAM 0.5 MG ODT TABLETS SL SCH (09:03)
[2022-10-17] MEDS: LISINOPRIL 20 MG TABLET PO SCH (09:03)
[2022-10-17] MEDS: amLODIPine BESYLATE 10 MG TABLET (FP) PO SCH (09:03)
[2022-10-17] MEDS: QUEtiapine FUMARATE 50 MG TABLET PO SCH (09:04)
[2022-10-17] MEDS: FAMOTIDINE 20 MG TABLET PO SCH ×2 (09:04→21:10)
[2022-10-17] MEDS: PRENATAL VITAMINS W/ FOLIC ACID TABLET (FP) PO SCH (09:04)
[2022-10-17] MEDS: TOLNAFTATE 1% CREAM 15 GM TUBE TP SCH ×2 (09:04→21:13)
[2022-10-17] MEDS: LIDOCAINE 5% TOPICAL PATCH TP PRN (09:04)
[2022-10-17] MEDS: NICOTINE POLACRILEX 4 MG GUM BUC PRN (15:43)
[2022-10-17] MEDS: P-EPHED 60MG/TRIPROLIDI 2.5MG TABLET PO PRN (15:44)
[2022-10-17] MEDS: ATORVASTATIN CA 10 MG TABLET (FP) PO SCH (21:10)
[2022-10-17] MEDS: MELATONIN 5 MG TABLETS PO SCH (21:11)
[2022-10-17] MEDS: PRAZOSIN HCL 1 MG CAPSULE PO SCH (21:11)
[2022-10-17] MEDS: QUEtiapine FUMARATE 100 MG TABLET (FP) PO SCH (21:12)
[2022-10-17] MEDS: LIDOCAINE PATCH REMOVAL MC SCH (21:12)
[2022-10-17] MEDS: THIAMINE HCL 100 MG TABLET (FP) PO SCH (21:13)
[2022-10-18] MEDS: ALBUTEROL SO4 HFA INHALER IH PRN (02:42)
[2022-10-18] MEDS: P-EPHED 60MG/TRIPROLIDI 2.5MG TABLET PO PRN ×2 (02:42→13:14)
[2022-10-18] MEDS: BACLOFEN 10 MG TABLET (FP) PO PRN ×2 (02:43→21:31)
[2022-10-18] MEDS: BENZOCAINE/MENTHOL (CHLORASEPTIC ) LOZENGE MM PRN (02:44)
[2022-10-18] MEDS: hydrOXYzine PAMOATE 25 MG CAPSULE (FP) PO PRN ×3 (02:44→21:33)
[2022-10-18] MEDS: methaDONE HCL 40 MG DISPERSABLE TABLET PO SCH (06:22)
[2022-10-18] MEDS: IBUPROFEN 600 MG TABLET (FP) PO PRN (06:22)
[2022-10-18] MEDS: NICOTINE 10 MG CARTRIDGE (INHALER) IH PRN ×3 (06:23→18:32)
[2022-10-18] MEDS: GABAPENTIN 300 MG CAPSULE PO SCH ×3 (06:23→21:31)
[2022-10-18] MEDS: clonazePAM 0.5 MG ODT TABLETS SL SCH (10:08)
[2022-10-18] MEDS: FAMOTIDINE 20 MG TABLET PO SCH ×2 (10:08→21:31)
[2022-10-18] MEDS: PRENATAL VITAMINS W/ FOLIC ACID TABLET (FP) PO SCH (10:08)
[2022-10-18] MEDS: QUEtiapine FUMARATE 50 MG TABLET PO SCH (10:08)
[2022-10-18] MEDS: TOLNAFTATE 1% CREAM 15 GM TUBE TP SCH ×2 (10:09→21:34)
[2022-10-18] MEDS: BUDESONIDE/FORMETEROL FUMARATE 80/4.5 mcg INHALER IH SCH ×2 (10:09→21:30)
[2022-10-18] MEDS: LISINOPRIL 20 MG TABLET PO SCH (10:31)
[2022-10-18] MEDS: amLODIPine BESYLATE 10 MG TABLET (FP) PO SCH (10:31)
[2022-10-18] MEDS: LIDOCAINE 5% TOPICAL PATCH TP PRN (11:36)
[2022-10-18] MEDS: THIAMINE HCL 100 MG TABLET (FP) PO SCH (21:30)
[2022-10-18] MEDS: PRAZOSIN HCL 1 MG CAPSULE PO SCH (21:30)
[2022-10-18] MEDS: ATORVASTATIN CA 10 MG TABLET (FP) PO SCH (21:31)
[2022-10-18] MEDS: QUEtiapine FUMARATE 100 MG TABLET (FP) PO SCH (21:31)
[2022-10-18] MEDS: MELATONIN 5 MG TABLETS PO SCH (21:31)
[2022-10-18] MEDS: busPIRone HCL 10 MG TABLET (FP) PO SCH (21:32)
[2022-10-18] MEDS: LIDOCAINE PATCH REMOVAL MC SCH (21:33)
[2022-10-19] MEDS: BENZOCAINE/MENTHOL (CHLORASEPTIC ) LOZENGE MM PRN (00:54)
[2022-10-19] MEDS: P-EPHED 60MG/TRIPROLIDI 2.5MG TABLET PO PRN (00:55)
[2022-10-19] MEDS: IBUPROFEN 600 MG TABLET (FP) PO PRN ×2 (00:55→13:12)
[2022-10-19] MEDS: hydrOXYzine PAMOATE 25 MG CAPSULE (FP) PO PRN ×2 (00:56→21:04)
[2022-10-19] MEDS: BACLOFEN 10 MG TABLET (FP) PO PRN (00:56)
[2022-10-19] MEDS: ALBUTEROL SO4 HFA INHALER IH PRN (00:57)
[2022-10-19] MEDS: GABAPENTIN 300 MG CAPSULE PO SCH ×3 (06:33→21:04)
[2022-10-19] MEDS: methaDONE HCL 40 MG DISPERSABLE TABLET PO SCH (06:33)
[2022-10-19] MEDS: NICOTINE 10 MG CARTRIDGE (INHALER) IH PRN ×4 (07:11→21:06)
[2022-10-19] MEDS: BUDESONIDE/FORMETEROL FUMARATE 80/4.5 mcg INHALER IH SCH ×2 (09:44→21:04)
[2022-10-19] MEDS: FAMOTIDINE 20 MG TABLET PO SCH ×2 (09:44→21:04)
[2022-10-19] MEDS: amLODIPine BESYLATE 10 MG TABLET (FP) PO SCH (09:44)
[2022-10-19] MEDS: QUEtiapine FUMARATE 50 MG TABLET PO SCH (09:44)
[2022-10-19] MEDS: busPIRone HCL 10 MG TABLET (FP) PO SCH ×2 (09:44→21:04)
[2022-10-19] MEDS: TOLNAFTATE 1% CREAM 15 GM TUBE TP SCH ×2 (09:45→21:06)
[2022-10-19] MEDS: LISINOPRIL 20 MG TABLET PO SCH (09:45)
[2022-10-19] MEDS: PRENATAL VITAMINS W/ FOLIC ACID TABLET (FP) PO SCH (09:45)
[2022-10-19] MEDS: LIDOCAINE 5% TOPICAL PATCH TP PRN (09:46)
[2022-10-19] MEDS: clonazePAM 0.5 MG ODT TABLETS SL SCH (13:12)
[2022-10-19] MEDS: THIAMINE HCL 100 MG TABLET (FP) PO SCH (21:04)
[2022-10-19] MEDS: PRAZOSIN HCL 1 MG CAPSULE PO SCH (21:04)
[2022-10-19] MEDS: ATORVASTATIN CA 10 MG TABLET (FP) PO SCH (21:04)
[2022-10-19] MEDS: MELATONIN 5 MG TABLETS PO SCH (21:05)
[2022-10-19] MEDS: QUEtiapine FUMARATE 100 MG TABLET (FP) PO SCH (21:05)
[2022-10-19] MEDS: LIDOCAINE PATCH REMOVAL MC SCH (21:06)
[2022-10-20] MEDS: P-EPHED 60MG/TRIPROLIDI 2.5MG TABLET PO PRN (03:33)
[2022-10-20] MEDS: LIDOCAINE 5% TOPICAL PATCH TP PRN (05:54)
[2022-10-20] MEDS: GABAPENTIN 300 MG CAPSULE PO SCH ×3 (05:54→21:11)
[2022-10-20] MEDS: BACLOFEN 10 MG TABLET (FP) PO PRN ×2 (05:54→21:09)
[2022-10-20] MEDS: hydrOXYzine PAMOATE 25 MG CAPSULE (FP) PO PRN (05:54)
[2022-10-20] MEDS: NICOTINE 10 MG CARTRIDGE (INHALER) IH PRN ×2 (05:55→15:45)
[2022-10-20] MEDS: methaDONE HCL 40 MG DISPERSABLE TABLET PO SCH (06:29)
[2022-10-20] MEDS: busPIRone HCL 10 MG TABLET (FP) PO SCH ×2 (09:10→21:11)
[2022-10-20] MEDS: FAMOTIDINE 20 MG TABLET PO SCH ×2 (09:10→21:12)
[2022-10-20] MEDS: amLODIPine BESYLATE 10 MG TABLET (FP) PO SCH (09:10)
[2022-10-20] MEDS: QUEtiapine FUMARATE 50 MG TABLET PO SCH (09:10)
[2022-10-20] MEDS: LISINOPRIL 20 MG TABLET PO SCH (09:11)
[2022-10-20] MEDS: PRENATAL VITAMINS W/ FOLIC ACID TABLET (FP) PO SCH (09:11)
[2022-10-20] MEDS: BUDESONIDE/FORMETEROL FUMARATE 80/4.5 mcg INHALER IH SCH ×2 (09:11→21:11)
[2022-10-20] MEDS: BENZOCAINE/MENTHOL (CHLORASEPTIC ) LOZENGE MM PRN ×2 (09:13→13:04)
[2022-10-20] MEDS: TOLNAFTATE 1% CREAM 15 GM TUBE TP SCH ×2 (09:14→21:12)
[2022-10-20] MEDS: clonazePAM 0.5 MG ODT TABLETS SL SCH (13:04)
[2022-10-20] MEDS: IBUPROFEN 600 MG TABLET (FP) PO PRN (13:04)
[2022-10-20] MEDS: QUEtiapine FUMARATE 100 MG TABLET (FP) PO SCH (21:10)
[2022-10-20] MEDS: ATORVASTATIN CA 10 MG TABLET (FP) PO SCH (21:10)
[2022-10-20] MEDS: PRAZOSIN HCL 1 MG CAPSULE PO SCH (21:10)
[2022-10-20] MEDS: MELATONIN 5 MG TABLETS PO SCH (21:11)
[2022-10-20] MEDS: THIAMINE HCL 100 MG TABLET (FP) PO SCH (21:11)
[2022-10-20] MEDS: LIDOCAINE PATCH REMOVAL MC SCH (21:12)
[2022-10-21] MEDS: GABAPENTIN 300 MG CAPSULE PO SCH ×3 (06:19→21:39)
[2022-10-21] MEDS: NICOTINE 10 MG CARTRIDGE (INHALER) IH PRN ×3 (06:20→17:06)
[2022-10-21] MEDS: BENZOCAINE/MENTHOL (CHLORASEPTIC ) LOZENGE MM PRN ×2 (06:21→11:35)
[2022-10-21] MEDS: busPIRone HCL 10 MG TABLET (FP) PO SCH ×2 (09:42→21:39)
[2022-10-21] MEDS: QUEtiapine FUMARATE 50 MG TABLET PO SCH (09:42)
[2022-10-21] MEDS: LISINOPRIL 20 MG TABLET PO SCH (09:42)
[2022-10-21] MEDS: FAMOTIDINE 20 MG TABLET PO SCH ×2 (09:42→21:39)
[2022-10-21] MEDS: PRENATAL VITAMINS W/ FOLIC ACID TABLET (FP) PO SCH (09:43)
[2022-10-21] MEDS: BUDESONIDE/FORMETEROL FUMARATE 80/4.5 mcg INHALER IH SCH ×2 (09:43→21:41)
[2022-10-21] MEDS: methaDONE HCL 40 MG DISPERSABLE TABLET PO SCH (09:43)
[2022-10-21] MEDS: TOLNAFTATE 1% CREAM 15 GM TUBE TP SCH ×2 (09:43→21:42)
[2022-10-21] MEDS: amLODIPine BESYLATE 10 MG TABLET (FP) PO SCH (09:43)
[2022-10-21] MEDS: LIDOCAINE 5% TOPICAL PATCH TP PRN (09:44)
[2022-10-21] MEDS: BACLOFEN 10 MG TABLET (FP) PO PRN (11:33)
[2022-10-21] MEDS: clonazePAM 0.5 MG ODT TABLETS SL SCH (13:40)
[2022-10-21] MEDS: COLLOIDAL OATMEAL 1 BAR EACH TP PRN (15:42)
[2022-10-21] MEDS: hydrOXYzine PAMOATE 25 MG CAPSULE (FP) PO PRN ×2 (15:42→21:41)
[2022-10-21] MEDS: IBUPROFEN 400 MG TABLET (FP) PO PRN (17:04)
[2022-10-21] MEDS: THIAMINE HCL 100 MG TABLET (FP) PO SCH (21:39)
[2022-10-21] MEDS: PRAZOSIN HCL 1 MG CAPSULE PO SCH (21:39)
[2022-10-21] MEDS: MELATONIN 5 MG TABLETS PO SCH (21:39)
[2022-10-21] MEDS: QUEtiapine FUMARATE 100 MG TABLET (FP) PO SCH (21:41)
[2022-10-21] MEDS: ATORVASTATIN CA 10 MG TABLET (FP) PO SCH (21:41)
[2022-10-21] MEDS: LIDOCAINE PATCH REMOVAL MC SCH (21:42)
[2022-10-22] MEDS: NICOTINE 10 MG CARTRIDGE (INHALER) IH PRN (05:47)
[2022-10-22] MEDS: GABAPENTIN 300 MG CAPSULE PO SCH ×3 (05:47→21:06)
[2022-10-22] MEDS: LIDOCAINE 5% TOPICAL PATCH TP PRN (06:49)
[2022-10-22] MEDS: methaDONE HCL 40 MG DISPERSABLE TABLET PO SCH (10:10)
[2022-10-22] MEDS: BUDESONIDE/FORMETEROL FUMARATE 80/4.5 mcg INHALER IH SCH ×2 (10:11→21:06)
[2022-10-22] MEDS: amLODIPine BESYLATE 10 MG TABLET (FP) PO SCH (10:12)
[2022-10-22] MEDS: busPIRone HCL 10 MG TABLET (FP) PO SCH ×2 (10:14→21:06)
[2022-10-22] MEDS: LISINOPRIL 20 MG TABLET PO SCH (10:29)
[2022-10-22] MEDS: PRENATAL VITAMINS W/ FOLIC ACID TABLET (FP) PO SCH (10:29)
[2022-10-22] MEDS: FAMOTIDINE 20 MG TABLET PO SCH ×2 (10:35→21:06)
[2022-10-22] MEDS: TOLNAFTATE 1% CREAM 15 GM TUBE TP SCH ×2 (10:37→21:08)
[2022-10-22] MEDS: QUEtiapine FUMARATE 50 MG TABLET PO SCH (10:37)
[2022-10-22] MEDS: BACLOFEN 10 MG TABLET (FP) PO PRN (10:42)
[2022-10-22] MEDS: hydrOXYzine PAMOATE 25 MG CAPSULE (FP) PO PRN ×2 (13:41→21:08)
[2022-10-22] MEDS: IBUPROFEN 400 MG TABLET (FP) PO PRN (13:42)
[2022-10-22] MEDS: clonazePAM 0.5 MG ODT TABLETS SL SCH (13:42)
[2022-10-22] MEDS ORDERED: QUEtiapine FUMARATE 50 MG TABLET ONE (19:14)
[2022-10-22] MEDS: THIAMINE HCL 100 MG TABLET (FP) PO SCH (21:05)
[2022-10-22] MEDS: MELATONIN 5 MG TABLETS PO SCH (21:06)
[2022-10-22] MEDS: PRAZOSIN HCL 1 MG CAPSULE PO SCH (21:06)
[2022-10-22] MEDS: ATORVASTATIN CA 10 MG TABLET (FP) PO SCH (21:06)
[2022-10-22] MEDS: QUEtiapine FUMARATE 100 MG TABLET (FP) PO SCH (21:07)
[2022-10-22] MEDS: LIDOCAINE PATCH REMOVAL MC SCH (21:08)
[2022-10-23] MEDS: GABAPENTIN 300 MG CAPSULE PO SCH ×3 (05:53→21:49)
[2022-10-23] MEDS: NICOTINE 10 MG CARTRIDGE (INHALER) IH PRN ×2 (05:53→09:33)
[2022-10-23] MEDS: LIDOCAINE 5% TOPICAL PATCH TP PRN (05:55)
[2022-10-23] MEDS: PRENATAL VITAMINS W/ FOLIC ACID TABLET (FP) PO SCH (09:31)
[2022-10-23] MEDS: methaDONE HCL 40 MG DISPERSABLE TABLET PO SCH (09:31)
[2022-10-23] MEDS: BUDESONIDE/FORMETEROL FUMARATE 80/4.5 mcg INHALER IH SCH ×2 (09:32→21:50)
[2022-10-23] MEDS: busPIRone HCL 10 MG TABLET (FP) PO SCH ×2 (09:32→21:48)
[2022-10-23] MEDS: QUEtiapine FUMARATE 50 MG TABLET PO SCH (09:32)
[2022-10-23] MEDS: amLODIPine BESYLATE 10 MG TABLET (FP) PO SCH (09:32)
[2022-10-23] MEDS: LISINOPRIL 20 MG TABLET PO SCH (09:32)
[2022-10-23] MEDS: FAMOTIDINE 20 MG TABLET PO SCH ×2 (09:32→21:48)
[2022-10-23] MEDS: TOLNAFTATE 1% CREAM 15 GM TUBE TP SCH ×2 (09:33→21:50)
[2022-10-23] MEDS: IBUPROFEN 600 MG TABLET (FP) PO PRN (13:31)
[2022-10-23] MEDS: clonazePAM 0.5 MG ODT TABLETS SL SCH (13:31)
[2022-10-23] MEDS: hydrOXYzine PAMOATE 25 MG CAPSULE (FP) PO PRN (16:47)
[2022-10-23] MEDS: QUEtiapine FUMARATE 100 MG TABLET (FP) PO SCH (21:48)
[2022-10-23] MEDS: LIDOCAINE PATCH REMOVAL MC SCH (21:49)
[2022-10-23] MEDS: PRAZOSIN HCL 1 MG CAPSULE PO SCH (21:49)
[2022-10-23] MEDS: ATORVASTATIN CA 10 MG TABLET (FP) PO SCH (21:49)
[2022-10-23] MEDS: THIAMINE HCL 100 MG TABLET (FP) PO SCH (21:50)
[2022-10-23] MEDS: MELATONIN 5 MG TABLETS PO SCH (21:50)
[2022-10-24] MEDS: P-EPHED 60MG/TRIPROLIDI 2.5MG TABLET PO PRN (05:52)
[2022-10-24] MEDS: BACLOFEN 10 MG TABLET (FP) PO PRN (05:52)
[2022-10-24] MEDS: GABAPENTIN 300 MG CAPSULE PO SCH ×3 (05:52→22:32)
[2022-10-24] MEDS: LIDOCAINE 5% TOPICAL PATCH TP PRN (05:53)
[2022-10-24] MEDS: NICOTINE 10 MG CARTRIDGE (INHALER) IH PRN (05:56)
[2022-10-24] MEDS: IBUPROFEN 600 MG TABLET (FP) PO PRN (07:22)
[2022-10-24] MEDS: methaDONE HCL 40 MG DISPERSABLE TABLET PO SCH (10:34)
[2022-10-24] MEDS: amLODIPine BESYLATE 10 MG TABLET (FP) PO SCH (10:35)
[2022-10-24] MEDS: BUDESONIDE/FORMETEROL FUMARATE 80/4.5 mcg INHALER IH SCH ×2 (10:35→22:35)
[2022-10-24] MEDS: QUEtiapine FUMARATE 50 MG TABLET PO SCH (10:35)
[2022-10-24] MEDS: FAMOTIDINE 20 MG TABLET PO SCH ×2 (10:35→22:32)
[2022-10-24] MEDS: PRENATAL VITAMINS W/ FOLIC ACID TABLET (FP) PO SCH (10:35)
[2022-10-24] MEDS: busPIRone HCL 10 MG TABLET (FP) PO SCH ×2 (10:35→22:32)
[2022-10-24] MEDS: LISINOPRIL 20 MG TABLET PO SCH (10:35)
[2022-10-24] MEDS: TOLNAFTATE 1% CREAM 15 GM TUBE TP SCH ×2 (10:36→22:36)
[2022-10-24] MEDS: clonazePAM 0.5 MG ODT TABLETS SL SCH (13:18)
[2022-10-24] MEDS: hydrOXYzine PAMOATE 25 MG CAPSULE (FP) PO PRN (20:02)
[2022-10-24] MEDS: THIAMINE HCL 100 MG TABLET (FP) PO SCH (22:32)
[2022-10-24] MEDS: MELATONIN 5 MG TABLETS PO SCH (22:32)
[2022-10-24] MEDS: ATORVASTATIN CA 10 MG TABLET (FP) PO SCH (22:32)
[2022-10-24] MEDS: QUEtiapine FUMARATE 100 MG TABLET (FP) PO SCH (22:32)
[2022-10-24] MEDS: PRAZOSIN HCL 1 MG CAPSULE PO SCH (22:35)
[2022-10-24] MEDS: LIDOCAINE PATCH REMOVAL MC SCH (22:35)
[2022-10-25] MEDS: BACLOFEN 10 MG TABLET (FP) PO PRN (05:43)
[2022-10-25] MEDS: hydrOXYzine PAMOATE 25 MG CAPSULE (FP) PO PRN ×2 (05:43→19:11)
[2022-10-25] MEDS: IBUPROFEN 600 MG TABLET (FP) PO PRN ×2 (05:44→23:41)
[2022-10-25] MEDS: GABAPENTIN 300 MG CAPSULE PO SCH ×3 (05:44→21:02)
[2022-10-25] MEDS: NICOTINE 10 MG CARTRIDGE (INHALER) IH PRN ×2 (05:44→11:01)
[2022-10-25] MEDS: LIDOCAINE 5% TOPICAL PATCH TP PRN (05:45)
[2022-10-25] MEDS: P-EPHED 60MG/TRIPROLIDI 2.5MG TABLET PO PRN ×2 (05:45→21:03)
[2022-10-25] MEDS: PRENATAL VITAMINS W/ FOLIC ACID TABLET (FP) PO SCH (09:56)
[2022-10-25] MEDS: methaDONE HCL 40 MG DISPERSABLE TABLET PO SCH (09:57)
[2022-10-25] MEDS: BUDESONIDE/FORMETEROL FUMARATE 80/4.5 mcg INHALER IH SCH ×2 (09:59→21:03)
[2022-10-25] MEDS: busPIRone HCL 10 MG TABLET (FP) PO SCH ×2 (10:00→21:02)
[2022-10-25] MEDS: QUEtiapine FUMARATE 50 MG TABLET PO SCH (10:00)
[2022-10-25] MEDS: TOLNAFTATE 1% CREAM 15 GM TUBE TP SCH ×2 (10:00→21:04)
[2022-10-25] MEDS: amLODIPine BESYLATE 10 MG TABLET (FP) PO SCH (10:00)
[2022-10-25] MEDS: FAMOTIDINE 20 MG TABLET PO SCH ×2 (10:00→21:02)
[2022-10-25] MEDS: LISINOPRIL 20 MG TABLET PO SCH (10:53)
[2022-10-25] MEDS: COLLOIDAL OATMEAL 1 BAR EACH TP PRN (12:45)
[2022-10-25] MEDS: clonazePAM 0.5 MG ODT TABLETS SL SCH (13:49)
[2022-10-25] MEDS: THIAMINE HCL 100 MG TABLET (FP) PO SCH (21:02)
[2022-10-25] MEDS: PRAZOSIN HCL 1 MG CAPSULE PO SCH (21:02)
[2022-10-25] MEDS: MELATONIN 5 MG TABLETS PO SCH (21:02)
[2022-10-25] MEDS: ATORVASTATIN CA 10 MG TABLET (FP) PO SCH (21:02)
[2022-10-25] MEDS: LIDOCAINE PATCH REMOVAL MC SCH (21:03)
[2022-10-25] MEDS: QUEtiapine FUMARATE 100 MG TABLET (FP) PO SCH (21:04)
[2022-10-26] MEDS: P-EPHED 60MG/TRIPROLIDI 2.5MG TABLET PO PRN (05:56)
[2022-10-26] MEDS: hydrOXYzine PAMOATE 25 MG CAPSULE (FP) PO PRN (05:57)
[2022-10-26] MEDS: GABAPENTIN 300 MG CAPSULE PO SCH (05:57)
[2022-10-26] MEDS: LIDOCAINE 5% TOPICAL PATCH TP PRN (05:57)
[2022-10-26] MEDS: NICOTINE 10 MG CARTRIDGE (INHALER) IH PRN (05:58)
[2022-10-26 07:30] VITALS: RESP 16; TEMP 97.5
[2022-10-26] MEDS: PRENATAL VITAMINS W/ FOLIC ACID TABLET (FP) PO SCH (09:01)
[2022-10-26] MEDS: methaDONE HCL 40 MG DISPERSABLE TABLET PO SCH (09:01)
[2022-10-26] MEDS: FAMOTIDINE 20 MG TABLET PO SCH (09:02)
[2022-10-26] MEDS: QUEtiapine FUMARATE 50 MG TABLET PO SCH (09:02)
[2022-10-26] MEDS: busPIRone HCL 10 MG TABLET (FP) PO SCH (09:02)
[2022-10-26] MEDS: amLODIPine BESYLATE 10 MG TABLET (FP) PO SCH (09:02)
[2022-10-26] MEDS: BUDESONIDE/FORMETEROL FUMARATE 80/4.5 mcg INHALER IH SCH (09:03)
[2022-10-26] MEDS: TOLNAFTATE 1% CREAM 15 GM TUBE TP SCH (09:03)
[2022-10-26] MEDS: LISINOPRIL 20 MG TABLET PO SCH (09:03)
[2022-10-26 09:05] VITALS: BP 122/70; PULSE 95
[2022-10-26] MEDS ORDERED: clonazePAM 0.5 MG ODT TABLETS SL SCH (10:00)
== END 2022-10-26 09:33 | disposition home or self-care (01) | DRG 772 ==
LOC: YASAS 10:46 → Y3W 10:48
PROVIDERS: ADMIT Allergy & Immunology; ATTEND Psychiatry & Neurology Pain Medicine
PROC: HZ42ZZZ Group Counseling for Substance Abuse Treatment, Cognitive-Behavioral (ICD-10-PCS; principal; 2022-10-04)
DX: F11.20 Opioid dependence, uncomplicated (principal); F10.20 Alcohol dependence, uncomplicated; F14.20 Cocaine dependence, uncomplicated; F17.210 Nicotine dependence, cigarettes, uncomplicated; F31.9 Bipolar disorder, unspecified; F19.282 Other psychoactive substance dependence with psychoactive substance-induced sleep disorder; F41.9 Anxiety disorder, unspecified; G47.00 Insomnia, unspecified; J43.9 Emphysema, unspecified; K21.9 Gastro-esophageal reflux disease without esophagitis; K13.0 Diseases of lips; M54.50 Low back pain, unspecified; G89.29 Other chronic pain
CPT/HCPCS: 36415; 86803; J0475

== ENCOUNTER 2023-03-17 18:04 | Inpatient (IN) | payer OTHER ==
[2023-03-17 18:45] VITALS: BMI 23.1
[2023-03-17] MEDS ORDERED: NALOXONE HCL 0.4 MG/ML VIAL IM PRN (19:53)
[2023-03-17] MEDS ORDERED: POLYETHYLENE GLYCOL (HEALTHYLAX) 3350 17 GM PACKET PO PRN (19:53)
[2023-03-17] MEDS ORDERED: IBUPROFEN 400 MG TABLET (FP) PO PRN (19:53)
[2023-03-17] MEDS ORDERED: BENZOCAINE/MENTHOL (CHLORASEPTIC ) LOZENGE MM PRN (19:53)
[2023-03-17] MEDS ORDERED: guaiFENesin 600 MG TABLET.ER (FP) PO PRN (19:53)
[2023-03-17] MEDS ORDERED: BENZONATATE 200 MG CAPSULE PO PRN (19:53)
[2023-03-17] MEDS ORDERED: MAG HYDROX/AL HYDROX/SIMETH 30 ML UNIT-DOSE CUP PO PRN (19:53)
[2023-03-17] MEDS ORDERED: IBUPROFEN 600 MG TABLET (FP) PO PRN (19:53)
[2023-03-17] MEDS ORDERED: DICYCLOMINE HCL 10 MG CAPSULE PO PRN (19:53)
[2023-03-17] MEDS ORDERED: LOPERAMIDE HCL 2 MG CAPSULE PO PRN (19:53)
[2023-03-17] MEDS ORDERED: BISMUTH SUBSALICYLATE 524 MG/30 ML PO PRN (19:53)
[2023-03-17] MEDS ORDERED: MAGNESIUM HYDROX 2400MG/30ML ORAL SUSPENSION 30 ML CUP PO PRN (19:53)
[2023-03-17] MEDS ORDERED: ONDANSETRON *ODT* 4 MG TABLET SL PRN (19:53)
[2023-03-17] MEDS ORDERED: NALOXONE HCL (KLOXXADO) 8 MG SPRAY NS PRN (19:53)
[2023-03-17] MEDS ORDERED: cloNIDine HCL 0.1 MG TABLET PO ONE (21:14)
[2023-03-17] MEDS: hydrOXYzine PAMOATE 25 MG CAPSULE (FP) PO PRN (22:20)
[2023-03-17] MEDS: METHOCARBAMOL 500 MG TABLET PO PRN (22:20)
[2023-03-17] MEDS: MELATONIN 5 MG TABLETS PO SCH (22:21)
[2023-03-17] MEDS: THIAMINE HCL 100 MG TABLET (FP) PO SCH (22:21)
[2023-03-18] MEDS ORDERED: ALBUTEROL SO4 HFA INHALER IH PRN (09:26)
[2023-03-18] MEDS ORDERED: methaDONE HCL 40 MG DISPERSABLE TABLET PO ONE (10:09)
[2023-03-18] MEDS: METHOCARBAMOL 500 MG TABLET PO PRN (10:24)
[2023-03-18] MEDS: hydrOXYzine PAMOATE 25 MG CAPSULE (FP) PO PRN (10:24)
[2023-03-18] MEDS: ACETAMINOPHEN 325 MG TABLET (FP) PO PRN (10:25)
[2023-03-18] MEDS: PRENATAL VITAMINS W/ FOLIC ACID TABLET (FP) PO SCH (10:25)
[2023-03-18] MEDS: amLODIPine BESYLATE 10 MG TABLET (FP) PO SCH (10:25)
[2023-03-18] MEDS: BUDESONIDE/FORMETEROL FUMARATE 80/4.5 mcg INHALER IH SCH ×2 (10:26→22:09)
[2023-03-18] MEDS: LISINOPRIL 20 MG TABLET PO SCH (10:28)
[2023-03-18] MEDS ORDERED: LORazepam 2 MG TABLET PO ONE (12:03)
[2023-03-18] MEDS ORDERED: LORazepam 1 MG TABLET PO PRN (12:03)
[2023-03-18] MEDS: GABAPENTIN 300 MG CAPSULE PO SCH ×2 (14:08→22:07)
[2023-03-18] MEDS: DOCUSATE SODIUM 100 MG CAPSULE (FP) PO SCH ×2 (14:08→22:07)
[2023-03-18] MEDS: LORazepam 2 MG TABLET PO SCH ×2 (16:56→22:07)
[2023-03-18] MEDS ORDERED: QUEtiapine FUMARATE 100 MG TABLET (FP) PO SCH (22:00)
[2023-03-18] MEDS: MELATONIN 5 MG TABLETS PO SCH (22:07)
[2023-03-18] MEDS: THIAMINE HCL 100 MG TABLET (FP) PO SCH (22:07)
[2023-03-18] MEDS: PRAZOSIN HCL 1 MG CAPSULE PO SCH (22:09)
[2023-03-18] MEDS: FAMOTIDINE 20 MG TABLET PO SCH (22:09)
[2023-03-19] MEDS: METHOCARBAMOL 500 MG TABLET PO PRN (04:12)
[2023-03-19] MEDS: ACETAMINOPHEN 325 MG TABLET (FP) PO PRN (04:12)
[2023-03-19] MEDS: LORazepam 1 MG TABLET PO SCH ×4 (04:13→22:06)
[2023-03-19] MEDS: GABAPENTIN 300 MG CAPSULE PO SCH ×3 (05:05→22:05)
[2023-03-19] MEDS: DOCUSATE SODIUM 100 MG CAPSULE (FP) PO SCH ×3 (05:05→22:05)
[2023-03-19] MEDS ORDERED: LIDOCAINE PATCH REMOVAL MC PRN (09:04)
[2023-03-19] MEDS ORDERED: QUEtiapine FUMARATE 25 MG TABLET PO SCH (10:00)
[2023-03-19] MEDS: LISINOPRIL 20 MG TABLET PO SCH (10:06)
[2023-03-19] MEDS: FAMOTIDINE 20 MG TABLET PO SCH ×2 (10:06→22:05)
[2023-03-19] MEDS: PRENATAL VITAMINS W/ FOLIC ACID TABLET (FP) PO SCH (10:06)
[2023-03-19] MEDS: LIDOCAINE 4% PATCH TP SCH (10:06)
[2023-03-19] MEDS: amLODIPine BESYLATE 10 MG TABLET (FP) PO SCH (10:06)
[2023-03-19] MEDS: BUDESONIDE/FORMETEROL FUMARATE 80/4.5 mcg INHALER IH SCH ×2 (10:10→22:06)
[2023-03-19] MEDS ORDERED: methaDONE HCL 40 MG DISPERSABLE TABLET PO ONE (14:00)
[2023-03-19] MEDS ORDERED: LIDOCAINE PATCH REMOVAL MC SCH (22:00)
[2023-03-19] MEDS: PRAZOSIN HCL 1 MG CAPSULE PO SCH (22:04)
[2023-03-19] MEDS: QUEtiapine FUMARATE 200 MG TABLET PO SCH (22:05)
[2023-03-19] MEDS: THIAMINE HCL 100 MG TABLET (FP) PO SCH (22:05)
[2023-03-19] MEDS: LIDOCAINE PATCH REMOVAL MC SCH (22:06)
[2023-03-19] MEDS: MELATONIN 5 MG TABLETS PO SCH (22:07)
[2023-03-20] MEDS ORDERED: LORazepam 0.5 MG TABLET PO PRN
[2023-03-20] MEDS: methaDONE HCL 40 MG DISPERSABLE TABLET PO SCH (05:31)
[2023-03-20] MEDS: DOCUSATE SODIUM 100 MG CAPSULE (FP) PO SCH ×3 (05:31→22:06)
[2023-03-20] MEDS: GABAPENTIN 300 MG CAPSULE PO SCH ×3 (05:31→22:05)
[2023-03-20] MEDS: LORazepam 0.5 MG TABLET PO SCH ×4 (05:31→22:09)
[2023-03-20] MEDS: METHOCARBAMOL 500 MG TABLET PO PRN ×2 (05:32→17:22)
[2023-03-20] MEDS: hydrOXYzine PAMOATE 25 MG CAPSULE (FP) PO PRN ×2 (05:33→17:23)
[2023-03-20] MEDS: ACETAMINOPHEN 325 MG TABLET (FP) PO PRN (07:32)
[2023-03-20] MEDS: LIDOCAINE 4% PATCH TP SCH (10:04)
[2023-03-20] MEDS: amLODIPine BESYLATE 10 MG TABLET (FP) PO SCH (10:04)
[2023-03-20] MEDS: PRENATAL VITAMINS W/ FOLIC ACID TABLET (FP) PO SCH (10:04)
[2023-03-20] MEDS: FAMOTIDINE 20 MG TABLET PO SCH ×2 (10:04→22:06)
[2023-03-20] MEDS: LISINOPRIL 20 MG TABLET PO SCH (10:04)
[2023-03-20] MEDS: BUDESONIDE/FORMETEROL FUMARATE 80/4.5 mcg INHALER IH SCH ×2 (10:08→22:06)
[2023-03-20] MEDS: PRAZOSIN HCL 1 MG CAPSULE PO SCH (22:06)
[2023-03-20] MEDS: LIDOCAINE PATCH REMOVAL MC SCH (22:06)
[2023-03-20] MEDS: THIAMINE HCL 100 MG TABLET (FP) PO SCH (22:06)
[2023-03-20] MEDS: QUEtiapine FUMARATE 200 MG TABLET PO SCH (22:06)
[2023-03-20] MEDS: MELATONIN 5 MG TABLETS PO SCH (22:06)
[2023-03-21] MEDS ORDERED: LORazepam 0.5 MG TABLET PO ONE (05:00)
[2023-03-21] MEDS: GABAPENTIN 300 MG CAPSULE PO SCH ×3 (05:18→22:02)
[2023-03-21] MEDS: DOCUSATE SODIUM 100 MG CAPSULE (FP) PO SCH ×3 (05:18→22:03)
[2023-03-21] MEDS: LORazepam 0.5 MG TABLET PO SCH ×3 (05:19→22:00)
[2023-03-21] MEDS: methaDONE HCL 40 MG DISPERSABLE TABLET PO SCH (05:19)
[2023-03-21] MEDS ORDERED: LORazepam 0.5 MG TABLET PO SCH (06:00)
[2023-03-21] MEDS ORDERED: PSEUDOEPHEDRINE HCL 30 MG TABLET PO PRN (08:00)
[2023-03-21] MEDS: LIDOCAINE 4% PATCH TP SCH (09:12)
[2023-03-21] MEDS: amLODIPine BESYLATE 10 MG TABLET (FP) PO SCH (09:12)
[2023-03-21] MEDS: FAMOTIDINE 20 MG TABLET PO SCH ×2 (09:12→22:03)
[2023-03-21] MEDS: LISINOPRIL 20 MG TABLET PO SCH (09:13)
[2023-03-21] MEDS: PRENATAL VITAMINS W/ FOLIC ACID TABLET (FP) PO SCH (09:13)
[2023-03-21] MEDS: BUDESONIDE/FORMETEROL FUMARATE 80/4.5 mcg INHALER IH SCH ×2 (09:13→22:04)
[2023-03-21] MEDS: hydrOXYzine PAMOATE 25 MG CAPSULE (FP) PO PRN (19:34)
[2023-03-21] MEDS: THIAMINE HCL 100 MG TABLET (FP) PO SCH (22:02)
[2023-03-21] MEDS: PRAZOSIN HCL 1 MG CAPSULE PO SCH (22:03)
[2023-03-21] MEDS: QUEtiapine FUMARATE 200 MG TABLET PO SCH (22:03)
[2023-03-21] MEDS: ATORVASTATIN CA 10 MG TABLET (FP) PO SCH (22:03)
[2023-03-21] MEDS: MELATONIN 5 MG TABLETS PO SCH (22:03)
[2023-03-21] MEDS: LIDOCAINE PATCH REMOVAL MC SCH (22:04)
[2023-03-22] MEDS: hydrOXYzine PAMOATE 25 MG CAPSULE (FP) PO PRN ×4 (02:57→21:59)
[2023-03-22] MEDS: LORazepam 0.5 MG TABLET PO SCH ×2 (05:23→17:03)
[2023-03-22] MEDS: GABAPENTIN 300 MG CAPSULE PO SCH ×3 (05:23→21:59)
[2023-03-22] MEDS: DOCUSATE SODIUM 100 MG CAPSULE (FP) PO SCH ×3 (05:23→21:59)
[2023-03-22] MEDS: methaDONE HCL 40 MG DISPERSABLE TABLET PO SCH (05:23)
[2023-03-22] MEDS ORDERED: LORazepam 0.5 MG TABLET PO ONE (06:00)
[2023-03-22] MEDS: LISINOPRIL 20 MG TABLET PO SCH (09:29)
[2023-03-22] MEDS: FAMOTIDINE 20 MG TABLET PO SCH ×2 (09:29→22:00)
[2023-03-22] MEDS: amLODIPine BESYLATE 10 MG TABLET (FP) PO SCH (09:29)
[2023-03-22] MEDS: PRENATAL VITAMINS W/ FOLIC ACID TABLET (FP) PO SCH (09:29)
[2023-03-22] MEDS: LIDOCAINE 4% PATCH TP SCH (09:30)
[2023-03-22] MEDS: BUDESONIDE/FORMETEROL FUMARATE 80/4.5 mcg INHALER IH SCH ×2 (09:31→22:00)
[2023-03-22] MEDS: CLOTRIMAZOLE 1% CREAM TP SCH ×2 (10:20→22:44)
[2023-03-22] MEDS: PRAZOSIN HCL 1 MG CAPSULE PO SCH (21:59)
[2023-03-22] MEDS: MELATONIN 5 MG TABLETS PO SCH (21:59)
[2023-03-22] MEDS: LIDOCAINE PATCH REMOVAL MC SCH (22:00)
[2023-03-22] MEDS: QUEtiapine FUMARATE 200 MG TABLET PO SCH (22:00)
[2023-03-22] MEDS: ATORVASTATIN CA 10 MG TABLET (FP) PO SCH (22:00)
[2023-03-22] MEDS: THIAMINE HCL 100 MG TABLET (FP) PO SCH (22:01)
[2023-03-23] MEDS: ACETAMINOPHEN 325 MG TABLET (FP) PO PRN (02:05)
[2023-03-23] MEDS: methaDONE HCL 40 MG DISPERSABLE TABLET PO SCH (05:18)
[2023-03-23] MEDS: GABAPENTIN 300 MG CAPSULE PO SCH (05:19)
[2023-03-23] MEDS: DOCUSATE SODIUM 100 MG CAPSULE (FP) PO SCH (05:19)
[2023-03-23] MEDS ORDERED: LORazepam 0.5 MG TABLET PO ONE (06:00)
[2023-03-23 08:41] VITALS: BP 138/72; PULSE 90; RESP 18; TEMP 97.3
[2023-03-23] MEDS: PRENATAL VITAMINS W/ FOLIC ACID TABLET (FP) PO SCH (09:55)
[2023-03-23] MEDS: amLODIPine BESYLATE 10 MG TABLET (FP) PO SCH (09:55)
[2023-03-23] MEDS: LISINOPRIL 20 MG TABLET PO SCH (09:55)
[2023-03-23] MEDS: BUDESONIDE/FORMETEROL FUMARATE 80/4.5 mcg INHALER IH SCH (09:55)
[2023-03-23] MEDS: FAMOTIDINE 20 MG TABLET PO SCH (09:55)
[2023-03-23] MEDS: LIDOCAINE 4% PATCH TP SCH (09:57)
[2023-03-23] MEDS: CLOTRIMAZOLE 1% CREAM TP SCH (09:57)
== END 2023-03-23 12:03 | disposition home or self-care (01) | DRG 773 ==
LOC: YASAS 18:04 → Y6N 21:10
PROVIDERS: ADMIT Allergy & Immunology; ATTEND Surgery
PROC: HZ2ZZZZ Detoxification Services for Substance Abuse Treatment (ICD-10-PCS; principal; 2023-03-17)
DX: F10.230 Alcohol dependence with withdrawal, uncomplicated (principal); F11.20 Opioid dependence, uncomplicated; F13.20 Sedative, hypnotic or anxiolytic dependence, uncomplicated; F17.210 Nicotine dependence, cigarettes, uncomplicated; F31.9 Bipolar disorder, unspecified; I10 Essential (primary) hypertension; J43.9 Emphysema, unspecified; M25.561 Pain in right knee; M25.562 Pain in left knee; M54.50 Low back pain, unspecified; G89.29 Other chronic pain; Z99.89 Dependence on other enabling machines and devices; Z88.8 Allergy status to other drugs, medicaments and biological substances
CPT/HCPCS: 87635

== ENCOUNTER 2023-03-31 16:45 | Inpatient (IN) | payer OTHER ==
[2023-03-31 17:24] VITALS: BMI 24.0
[2023-03-31] MEDS ORDERED: NALOXONE HCL 0.4 MG/ML VIAL IM PRN (18:08)
[2023-03-31] MEDS ORDERED: ONDANSETRON *ODT* 4 MG TABLET SL PRN (18:08)
[2023-03-31] MEDS ORDERED: BENZONATATE 200 MG CAPSULE PO PRN (18:08)
[2023-03-31] MEDS ORDERED: MAGNESIUM HYDROX 2400MG/30ML ORAL SUSPENSION 30 ML CUP PO PRN (18:08)
[2023-03-31] MEDS ORDERED: guaiFENesin 600 MG TABLET.ER (FP) PO PRN (18:08)
[2023-03-31] MEDS ORDERED: DICYCLOMINE HCL 10 MG CAPSULE PO PRN (18:08)
[2023-03-31] MEDS ORDERED: BENZOCAINE/MENTHOL (CHLORASEPTIC ) LOZENGE MM PRN (18:08)
[2023-03-31] MEDS ORDERED: POLYETHYLENE GLYCOL (HEALTHYLAX) 3350 17 GM PACKET PO PRN (18:08)
[2023-03-31] MEDS ORDERED: LOPERAMIDE HCL 2 MG CAPSULE PO PRN (18:08)
[2023-03-31] MEDS ORDERED: ACETAMINOPHEN 325 MG TABLET (FP) PO PRN (18:08)
[2023-03-31] MEDS ORDERED: BISMUTH SUBSALICYLATE 524 MG/30 ML PO PRN (18:08)
[2023-03-31] MEDS ORDERED: MAG HYDROX/AL HYDROX/SIMETH 30 ML UNIT-DOSE CUP PO PRN (18:08)
[2023-03-31] MEDS ORDERED: IBUPROFEN 600 MG TABLET (FP) PO PRN (18:08)
[2023-03-31] MEDS ORDERED: IBUPROFEN 400 MG TABLET (FP) PO PRN (18:08)
[2023-03-31] MEDS ORDERED: NALOXONE HCL (KLOXXADO) 8 MG SPRAY NS PRN (18:08)
[2023-03-31] MEDS: MELATONIN 5 MG TABLETS PO SCH (22:45)
[2023-03-31] MEDS: THIAMINE HCL 100 MG TABLET (FP) PO SCH (22:45)
[2023-04-01] MEDS ORDERED: ALBUTEROL SO4 HFA INHALER IH PRN (09:07)
[2023-04-01] MEDS: diazePAM 5 MG TABLET PO SCH ×3 (10:06→22:14)
[2023-04-01] MEDS: FAMOTIDINE 20 MG TABLET PO SCH ×2 (10:07→22:12)
[2023-04-01] MEDS: LISINOPRIL 20 MG TABLET PO SCH (10:07)
[2023-04-01] MEDS: BUDESONIDE/FORMETEROL FUMARATE 80/4.5 mcg INHALER IH SCH ×2 (10:08→22:12)
[2023-04-01] MEDS: PRENATAL VITAMINS W/ FOLIC ACID TABLET (FP) PO SCH (10:08)
[2023-04-01] MEDS ORDERED: methaDONE HCL 40 MG DISPERSABLE TABLET PO ONE (11:31)
[2023-04-01] MEDS: diazePAM 5 MG TABLET PO PRN ×2 (12:52→19:49)
[2023-04-01] MEDS ORDERED: COLLOIDAL OATMEAL 1 BAR EACH TP PRN ×2 (15:13→19:33)
[2023-04-01] MEDS: hydrOXYzine PAMOATE 25 MG CAPSULE (FP) PO PRN (17:28)
[2023-04-01 18:00] LABS: HEMATOCRIT 42.5 % (35.4-49); HEMOGLOBIN 14.3 GM/dL (11.7-16.9); MCHC 33.6 g/dl (32.0-35.9); MEAN CELL VOLUME 92.4 fl (80-96); MEAN PLT VOLUME 8.2 fl (7.5-11.1); PLATELET COUNT 302 10^3/uL (134-434); WHITE BLOOD COUNT 7.1 K/mm3 (4.0-10.0)
[2023-04-01 18:03] LABS: CHLORIDE 103 mmol/L (98-107); POTASSIUM 4.2 mmol/L (3.5-5.1); SODIUM 140 mmol/L (136-145)
[2023-04-01 18:05] LABS: ALBUMIN 3.6 g/dl (3.4-5.0); ANION GAP 6 mmol/L (4-13); BLOOD UREA NITROGEN 14.4 mg/dL (7-18); CALCIUM 8.5 mg/dL (8.5-10.1); CO2 31 mmol/L (21-32); GLUCOSE,RANDOM 105 mg/dL (74-106)
[2023-04-01 18:08] LABS: CREATININE 0.6 mg/dL (0.55-1.3); SGOT/AST 25 U/L (15-37); SGPT/ALT 29 U/L (13-61)
[2023-04-01 18:10] LABS: BILIRUBIN,TOTAL 0.3 mg/dL (0.2-1); TOT PROT 7.4 g/dl (6.4-8.2)
[2023-04-01 18:11] LABS: ALK PHOS 113 U/L (45-117)
[2023-04-01] MEDS ORDERED: QUEtiapine FUMARATE 100 MG TABLET (FP) PO ONE (22:00)
[2023-04-01] MEDS ORDERED: ATORVASTATIN CA 10 MG TABLET (FP) PO SCH (22:00)
[2023-04-01] MEDS: DOCUSATE SODIUM 100 MG CAPSULE (FP) PO SCH (22:12)
[2023-04-01] MEDS: THIAMINE HCL 100 MG TABLET (FP) PO SCH (22:13)
[2023-04-01] MEDS: ATORVASTATIN CA 10 MG TABLET (FP) PO SCH (22:13)
[2023-04-01] MEDS: MELATONIN 5 MG TABLETS PO SCH (22:13)
[2023-04-02] MEDS: hydrOXYzine PAMOATE 25 MG CAPSULE (FP) PO PRN ×2 (02:05→05:15)
[2023-04-02] MEDS: diazePAM 5 MG TABLET PO SCH ×4 (05:14→22:06)
[2023-04-02] MEDS: methaDONE HCL 40 MG DISPERSABLE TABLET PO SCH (09:09)
[2023-04-02] MEDS: LIDOCAINE 4% PATCH TP SCH (10:02)
[2023-04-02] MEDS: LISINOPRIL 20 MG TABLET PO SCH (10:03)
[2023-04-02] MEDS: FAMOTIDINE 20 MG TABLET PO SCH ×2 (10:04→22:04)
[2023-04-02] MEDS: PRENATAL VITAMINS W/ FOLIC ACID TABLET (FP) PO SCH (10:04)
[2023-04-02] MEDS: BUDESONIDE/FORMETEROL FUMARATE 80/4.5 mcg INHALER IH SCH ×2 (10:05→22:03)
[2023-04-02] MEDS: diazePAM 5 MG TABLET PO PRN ×2 (12:36→19:22)
[2023-04-02] MEDS: MELATONIN 5 MG TABLETS PO SCH (22:03)
[2023-04-02] MEDS: THIAMINE HCL 100 MG TABLET (FP) PO SCH (22:04)
[2023-04-02] MEDS: DOCUSATE SODIUM 100 MG CAPSULE (FP) PO SCH (22:04)
[2023-04-02] MEDS: QUEtiapine FUMARATE 100 MG TABLET (FP) PO SCH (22:04)
[2023-04-02] MEDS: LIDOCAINE PATCH REMOVAL MC SCH (22:05)
[2023-04-02] MEDS: ATORVASTATIN CA 10 MG TABLET (FP) PO SCH (22:05)
[2023-04-02] MEDS: GABAPENTIN 100 MG CAPSULE PO SCH (22:09)
[2023-04-02] MEDS: PRAZOSIN HCL 1 MG CAPSULE PO SCH (22:09)
[2023-04-03] MEDS: methaDONE HCL 40 MG DISPERSABLE TABLET PO SCH (05:23)
[2023-04-03] MEDS: diazePAM 5 MG TABLET PO SCH ×3 (05:23→22:15)
[2023-04-03] MEDS: GABAPENTIN 100 MG CAPSULE PO SCH ×3 (05:24→22:14)
[2023-04-03] MEDS: diazePAM 5 MG TABLET PO PRN ×2 (08:16→17:28)
[2023-04-03] MEDS: LIDOCAINE 4% PATCH TP SCH (09:37)
[2023-04-03] MEDS: LISINOPRIL 20 MG TABLET PO SCH (09:37)
[2023-04-03] MEDS: FAMOTIDINE 20 MG TABLET PO SCH ×2 (09:38→22:14)
[2023-04-03] MEDS: QUEtiapine FUMARATE 50 MG TABLET PO SCH (09:38)
[2023-04-03] MEDS: BUDESONIDE/FORMETEROL FUMARATE 80/4.5 mcg INHALER IH SCH ×2 (09:38→22:16)
[2023-04-03] MEDS: PRENATAL VITAMINS W/ FOLIC ACID TABLET (FP) PO SCH (09:38)
[2023-04-03] MEDS ORDERED: BACITRACIN 0.9 GM PACKET TP PRN (15:06)
[2023-04-03] MEDS: MELATONIN 5 MG TABLETS PO SCH (22:13)
[2023-04-03] MEDS: PRAZOSIN HCL 1 MG CAPSULE PO SCH (22:13)
[2023-04-03] MEDS: QUEtiapine FUMARATE 100 MG TABLET (FP) PO SCH (22:14)
[2023-04-03] MEDS: THIAMINE HCL 100 MG TABLET (FP) PO SCH (22:14)
[2023-04-03] MEDS: LIDOCAINE PATCH REMOVAL MC SCH (22:15)
[2023-04-03] MEDS: ATORVASTATIN CA 10 MG TABLET (FP) PO SCH (22:15)
[2023-04-03] MEDS: DOCUSATE SODIUM 100 MG CAPSULE (FP) PO SCH (22:15)
[2023-04-04] MEDS: GABAPENTIN 100 MG CAPSULE PO SCH ×3 (05:28→22:09)
[2023-04-04] MEDS: methaDONE HCL 40 MG DISPERSABLE TABLET PO SCH (05:28)
[2023-04-04] MEDS: diazePAM 5 MG TABLET PO SCH ×2 (05:28→17:36)
[2023-04-04] MEDS: LIDOCAINE 4% PATCH TP SCH (10:16)
[2023-04-04] MEDS: PRENATAL VITAMINS W/ FOLIC ACID TABLET (FP) PO SCH (10:16)
[2023-04-04] MEDS: FAMOTIDINE 20 MG TABLET PO SCH ×2 (10:17→22:09)
[2023-04-04] MEDS: QUEtiapine FUMARATE 50 MG TABLET PO SCH (10:17)
[2023-04-04] MEDS: LISINOPRIL 20 MG TABLET PO SCH (10:17)
[2023-04-04] MEDS: BUDESONIDE/FORMETEROL FUMARATE 80/4.5 mcg INHALER IH SCH ×2 (10:18→22:08)
[2023-04-04] MEDS: hydrOXYzine PAMOATE 25 MG CAPSULE (FP) PO PRN ×2 (13:24→22:11)
[2023-04-04] MEDS: METHOCARBAMOL 500 MG TABLET PO PRN (19:24)
[2023-04-04] MEDS: MELATONIN 5 MG TABLETS PO SCH (22:08)
[2023-04-04] MEDS: QUEtiapine FUMARATE 100 MG TABLET (FP) PO SCH (22:09)
[2023-04-04] MEDS: THIAMINE HCL 100 MG TABLET (FP) PO SCH (22:09)
[2023-04-04] MEDS: ATORVASTATIN CA 10 MG TABLET (FP) PO SCH (22:09)
[2023-04-04] MEDS: DOCUSATE SODIUM 100 MG CAPSULE (FP) PO SCH (22:09)
[2023-04-04] MEDS: PRAZOSIN HCL 1 MG CAPSULE PO SCH (23:19)
[2023-04-04] MEDS: LIDOCAINE PATCH REMOVAL MC SCH (23:19)
[2023-04-05] MEDS: methaDONE HCL 40 MG DISPERSABLE TABLET PO SCH (05:43)
[2023-04-05] MEDS: GABAPENTIN 100 MG CAPSULE PO SCH ×2 (05:43→14:48)
[2023-04-05] MEDS: hydrOXYzine PAMOATE 25 MG CAPSULE (FP) PO PRN (05:47)
[2023-04-05] MEDS ORDERED: diazePAM 5 MG TABLET PO ONE (06:00)
[2023-04-05 06:50] VITALS: RESP 16
[2023-04-05] MEDS: BUDESONIDE/FORMETEROL FUMARATE 80/4.5 mcg INHALER IH SCH (10:13)
[2023-04-05] MEDS: FAMOTIDINE 20 MG TABLET PO SCH (10:14)
[2023-04-05] MEDS: PRENATAL VITAMINS W/ FOLIC ACID TABLET (FP) PO SCH (10:14)
[2023-04-05] MEDS: LISINOPRIL 20 MG TABLET PO SCH (10:14)
[2023-04-05] MEDS: QUEtiapine FUMARATE 50 MG TABLET PO SCH (10:14)
[2023-04-05] MEDS: METHOCARBAMOL 500 MG TABLET PO PRN (10:17)
[2023-04-05 13:57] VITALS: BP 131/90; PULSE 68; TEMP 98.1
== END 2023-04-05 14:51 | disposition other institution (70) | DRG 773 ==
LOC: YASAS 16:45 → Y3N 19:46
PROVIDERS: ADMIT Allergy & Immunology; ATTEND Surgery
PROC: HZ2ZZZZ Detoxification Services for Substance Abuse Treatment (ICD-10-PCS; principal; 2023-03-31)
DX: F10.230 Alcohol dependence with withdrawal, uncomplicated (principal); F11.20 Opioid dependence, uncomplicated; F14.20 Cocaine dependence, uncomplicated; F17.210 Nicotine dependence, cigarettes, uncomplicated; F31.9 Bipolar disorder, unspecified; E87.6 Hypokalemia; E78.00 Pure hypercholesterolemia, unspecified; I10 Essential (primary) hypertension; J43.9 Emphysema, unspecified; K21.9 Gastro-esophageal reflux disease without esophagitis; M54.50 Low back pain, unspecified; G89.29 Other chronic pain
CPT/HCPCS: 36415; 80053; 80307; 85027; 86780; 87635

== ENCOUNTER 2023-04-05 14:58 | Inpatient (IN) | payer OTHER ==
[2023-04-05] MEDS ORDERED: POLYETHYLENE GLYCOL (HEALTHYLAX) 3350 17 GM PACKET PO PRN (16:24)
[2023-04-05] MEDS ORDERED: guaiFENesin 600 MG TABLET.ER (FP) PO PRN (16:24)
[2023-04-05] MEDS ORDERED: NICOTINE 14 MG/24 HOURS TOPICAL PATCH TD PRN (16:24)
[2023-04-05] MEDS ORDERED: AMMONIUM LACTATE 12% LOTION 225 GM BOTTLE TP PRN (16:24)
[2023-04-05] MEDS ORDERED: BENZONATATE 200 MG CAPSULE PO PRN (16:24)
[2023-04-05] MEDS ORDERED: IBUPROFEN 400 MG TABLET (FP) PO PRN (16:24)
[2023-04-05] MEDS ORDERED: NALOXONE HCL 0.4 MG/ML VIAL IVPUSH PRN (16:24)
[2023-04-05] MEDS ORDERED: NALOXONE HCL (KLOXXADO) 8 MG SPRAY NS PRN (16:24)
[2023-04-05] MEDS ORDERED: BENZOCAINE/MENTHOL (CHLORASEPTIC ) LOZENGE MM PRN (16:24)
[2023-04-05] MEDS ORDERED: MAGNESIUM HYDROX 2400MG/30ML ORAL SUSPENSION 30 ML CUP PO PRN (16:24)
[2023-04-05] MEDS ORDERED: LOPERAMIDE HCL 2 MG CAPSULE PO PRN (16:24)
[2023-04-05] MEDS ORDERED: ALBUTEROL SO4 HFA INHALER IH PRN (16:29)
[2023-04-05] MEDS: COLLOIDAL OATMEAL 1 BAR EACH TP PRN (17:57)
[2023-04-05] MEDS: DOCUSATE SODIUM 100 MG CAPSULE (FP) PO SCH (21:40)
[2023-04-05] MEDS: METHOCARBAMOL 500 MG TABLET PO PRN (21:40)
[2023-04-05] MEDS: FAMOTIDINE 20 MG TABLET PO SCH (21:40)
[2023-04-05] MEDS: THIAMINE HCL 100 MG TABLET (FP) PO SCH (21:40)
[2023-04-05] MEDS: ATORVASTATIN CA 10 MG TABLET (FP) PO SCH (21:40)
[2023-04-05] MEDS: GABAPENTIN 100 MG CAPSULE PO SCH (21:40)
[2023-04-05] MEDS: MELATONIN 5 MG TABLETS PO SCH (21:41)
[2023-04-05] MEDS: PRAZOSIN HCL 1 MG CAPSULE PO SCH (21:42)
[2023-04-05] MEDS: IBUPROFEN 600 MG TABLET (FP) PO PRN (21:42)
[2023-04-05] MEDS: BUDESONIDE/FORMETEROL FUMARATE 80/4.5 mcg INHALER IH SCH (21:42)
[2023-04-05] MEDS: QUEtiapine FUMARATE 100 MG TABLET (FP) PO SCH (21:44)
[2023-04-06] MEDS: DOCUSATE SODIUM 100 MG CAPSULE (FP) PO SCH ×3 (05:56→21:03)
[2023-04-06] MEDS: methaDONE HCL 40 MG DISPERSABLE TABLET PO SCH (05:56)
[2023-04-06] MEDS: GABAPENTIN 100 MG CAPSULE PO SCH ×3 (05:56→21:02)
[2023-04-06] MEDS: hydrOXYzine PAMOATE 25 MG CAPSULE (FP) PO PRN ×2 (05:57→17:49)
[2023-04-06] MEDS: BUDESONIDE/FORMETEROL FUMARATE 80/4.5 mcg INHALER IH SCH ×2 (09:32→21:01)
[2023-04-06] MEDS: QUEtiapine FUMARATE 50 MG TABLET PO SCH (09:33)
[2023-04-06] MEDS: FAMOTIDINE 20 MG TABLET PO SCH ×2 (09:33→21:03)
[2023-04-06] MEDS: PRENATAL VITAMINS W/ FOLIC ACID TABLET (FP) PO SCH (09:33)
[2023-04-06] MEDS: amLODIPine BESYLATE 10 MG TABLET (FP) PO SCH (09:33)
[2023-04-06] MEDS: LISINOPRIL 20 MG TABLET PO SCH (09:33)
[2023-04-06] MEDS: TOLNAFTATE 1% CREAM 15 GM TUBE TP SCH ×2 (10:30→21:01)
[2023-04-06] MEDS ORDERED: LIDOCAINE 5% TOPICAL PATCH TP SCH (12:15)
[2023-04-06] MEDS: LACTULOSE 20 GM/30 ML UDC (FOR ORAL USE ONLY) PO SCH ×2 (13:03→21:01)
[2023-04-06] MEDS: LIDOCAINE 4% PATCH TP SCH (13:19)
[2023-04-06] MEDS: PRAZOSIN HCL 1 MG CAPSULE PO SCH (21:02)
[2023-04-06] MEDS: QUEtiapine FUMARATE 100 MG TABLET (FP) PO SCH (21:02)
[2023-04-06] MEDS: ATORVASTATIN CA 10 MG TABLET (FP) PO SCH (21:03)
[2023-04-06] MEDS: THIAMINE HCL 100 MG TABLET (FP) PO SCH (21:03)
[2023-04-06] MEDS: MELATONIN 5 MG TABLETS PO SCH (21:04)
[2023-04-06] MEDS: LIDOCAINE PATCH REMOVAL MC SCH (21:06)
[2023-04-07] MEDS: hydrOXYzine PAMOATE 25 MG CAPSULE (FP) PO PRN ×2 (03:39→12:34)
[2023-04-07] MEDS: LACTULOSE 20 GM/30 ML UDC (FOR ORAL USE ONLY) PO SCH ×3 (05:59→21:14)
[2023-04-07] MEDS: methaDONE HCL 40 MG DISPERSABLE TABLET PO SCH (06:00)
[2023-04-07] MEDS: DOCUSATE SODIUM 100 MG CAPSULE (FP) PO SCH ×3 (06:00→21:16)
[2023-04-07] MEDS: GABAPENTIN 100 MG CAPSULE PO SCH ×3 (06:00→21:14)
[2023-04-07] MEDS: METHOCARBAMOL 500 MG TABLET PO PRN (06:02)
[2023-04-07] MEDS: LIDOCAINE 4% PATCH TP SCH (09:39)
[2023-04-07] MEDS: amLODIPine BESYLATE 10 MG TABLET (FP) PO SCH (09:40)
[2023-04-07] MEDS: BUDESONIDE/FORMETEROL FUMARATE 80/4.5 mcg INHALER IH SCH ×2 (09:40→21:16)
[2023-04-07] MEDS: FAMOTIDINE 20 MG TABLET PO SCH ×2 (09:41→21:16)
[2023-04-07] MEDS: PRENATAL VITAMINS W/ FOLIC ACID TABLET (FP) PO SCH (09:41)
[2023-04-07] MEDS: TOLNAFTATE 1% CREAM 15 GM TUBE TP SCH ×2 (09:41→21:17)
[2023-04-07] MEDS: QUEtiapine FUMARATE 50 MG TABLET PO SCH (09:41)
[2023-04-07] MEDS: LISINOPRIL 20 MG TABLET PO SCH (09:41)
[2023-04-07] MEDS: PRAZOSIN HCL 1 MG CAPSULE PO SCH (21:14)
[2023-04-07] MEDS: QUEtiapine FUMARATE 100 MG TABLET (FP) PO SCH (21:14)
[2023-04-07] MEDS: THIAMINE HCL 100 MG TABLET (FP) PO SCH (21:14)
[2023-04-07] MEDS: ATORVASTATIN CA 10 MG TABLET (FP) PO SCH (21:16)
[2023-04-07] MEDS: LIDOCAINE PATCH REMOVAL MC SCH (21:16)
[2023-04-07] MEDS: MELATONIN 5 MG TABLETS PO SCH (21:16)
[2023-04-08] MEDS: hydrOXYzine PAMOATE 25 MG CAPSULE (FP) PO PRN ×2 (04:09→17:22)
[2023-04-08] MEDS: GABAPENTIN 100 MG CAPSULE PO SCH ×3 (06:03→21:08)
[2023-04-08] MEDS: DOCUSATE SODIUM 100 MG CAPSULE (FP) PO SCH ×3 (06:03→21:08)
[2023-04-08] MEDS: LACTULOSE 20 GM/30 ML UDC (FOR ORAL USE ONLY) PO SCH ×3 (06:03→22:21)
[2023-04-08] MEDS: methaDONE HCL 40 MG DISPERSABLE TABLET PO SCH (06:04)
[2023-04-08] MEDS: METHOCARBAMOL 500 MG TABLET PO PRN ×2 (06:04→21:10)
[2023-04-08] MEDS: TOLNAFTATE 1% CREAM 15 GM TUBE TP SCH ×3 (07:22→21:09)
[2023-04-08] MEDS: BUDESONIDE/FORMETEROL FUMARATE 80/4.5 mcg INHALER IH SCH ×2 (09:38→21:08)
[2023-04-08] MEDS: amLODIPine BESYLATE 10 MG TABLET (FP) PO SCH (09:39)
[2023-04-08] MEDS: QUEtiapine FUMARATE 50 MG TABLET PO SCH (09:39)
[2023-04-08] MEDS: clonazePAM 0.5 MG ODT TABLETS SL SCH (09:39)
[2023-04-08] MEDS: FAMOTIDINE 20 MG TABLET PO SCH ×2 (09:39→21:07)
[2023-04-08] MEDS: PRENATAL VITAMINS W/ FOLIC ACID TABLET (FP) PO SCH (09:39)
[2023-04-08] MEDS: LISINOPRIL 20 MG TABLET PO SCH (09:39)
[2023-04-08] MEDS: LIDOCAINE 4% PATCH TP SCH (09:41)
[2023-04-08] MEDS: IBUPROFEN 600 MG TABLET (FP) PO PRN (19:52)
[2023-04-08] MEDS: ATORVASTATIN CA 10 MG TABLET (FP) PO SCH (21:07)
[2023-04-08] MEDS: QUEtiapine FUMARATE 100 MG TABLET (FP) PO SCH (21:07)
[2023-04-08] MEDS: PRAZOSIN HCL 1 MG CAPSULE PO SCH (21:07)
[2023-04-08] MEDS: THIAMINE HCL 100 MG TABLET (FP) PO SCH (21:08)
[2023-04-08] MEDS: LIDOCAINE PATCH REMOVAL MC SCH (21:08)
[2023-04-08] MEDS: MELATONIN 5 MG TABLETS PO SCH (21:09)
[2023-04-09] MEDS: methaDONE HCL 40 MG DISPERSABLE TABLET PO SCH (05:35)
[2023-04-09] MEDS: DOCUSATE SODIUM 100 MG CAPSULE (FP) PO SCH ×3 (05:36→21:04)
[2023-04-09] MEDS: GABAPENTIN 100 MG CAPSULE PO SCH ×3 (05:36→21:04)
[2023-04-09] MEDS: LACTULOSE 20 GM/30 ML UDC (FOR ORAL USE ONLY) PO SCH ×3 (06:26→21:05)
[2023-04-09] MEDS: COLLOIDAL OATMEAL 1 BAR EACH TP PRN (06:51)
[2023-04-09] MEDS: BUDESONIDE/FORMETEROL FUMARATE 80/4.5 mcg INHALER IH SCH ×2 (10:01→21:01)
[2023-04-09] MEDS: PRENATAL VITAMINS W/ FOLIC ACID TABLET (FP) PO SCH (10:01)
[2023-04-09] MEDS: QUEtiapine FUMARATE 50 MG TABLET PO SCH (10:01)
[2023-04-09] MEDS: amLODIPine BESYLATE 10 MG TABLET (FP) PO SCH (10:01)
[2023-04-09] MEDS: clonazePAM 0.5 MG ODT TABLETS SL SCH (10:01)
[2023-04-09] MEDS: FAMOTIDINE 20 MG TABLET PO SCH ×2 (10:02→21:04)
[2023-04-09] MEDS: LISINOPRIL 20 MG TABLET PO SCH (10:02)
[2023-04-09] MEDS: LIDOCAINE 4% PATCH TP SCH (10:02)
[2023-04-09] MEDS: TOLNAFTATE 1% CREAM 15 GM TUBE TP SCH ×2 (10:03→21:43)
[2023-04-09] MEDS: WITCH HAZEL 50% (TUCKS) 40 PAD/JAR PAD TP SCH ×2 (12:58→21:44)
[2023-04-09] MEDS: ACAMPROSATE CALCIUM 333 MG TABLET.DR PO SCH ×2 (14:40→21:04)
[2023-04-09] MEDS: hydrOXYzine PAMOATE 25 MG CAPSULE (FP) PO PRN (19:02)
[2023-04-09] MEDS: HYDROCORTISONE 1% TOPICAL OINT 30 GM TUBE TP PRN (21:02)
[2023-04-09] MEDS: THIAMINE HCL 100 MG TABLET (FP) PO SCH (21:04)
[2023-04-09] MEDS: PRAZOSIN HCL 1 MG CAPSULE PO SCH (21:04)
[2023-04-09] MEDS: ATORVASTATIN CA 10 MG TABLET (FP) PO SCH (21:04)
[2023-04-09] MEDS: QUEtiapine FUMARATE 100 MG TABLET (FP) PO SCH (21:04)
[2023-04-09] MEDS: LIDOCAINE PATCH REMOVAL MC SCH (21:05)
[2023-04-09] MEDS: MELATONIN 5 MG TABLETS PO SCH (21:05)
[2023-04-10] MEDS: hydrOXYzine PAMOATE 25 MG CAPSULE (FP) PO PRN ×2 (01:56→16:24)
[2023-04-10] MEDS: ACAMPROSATE CALCIUM 333 MG TABLET.DR PO SCH ×3 (06:13→21:08)
[2023-04-10] MEDS: LACTULOSE 20 GM/30 ML UDC (FOR ORAL USE ONLY) PO SCH ×2 (06:13→13:07)
[2023-04-10] MEDS: GABAPENTIN 100 MG CAPSULE PO SCH ×3 (06:14→21:09)
[2023-04-10] MEDS: DOCUSATE SODIUM 100 MG CAPSULE (FP) PO SCH ×3 (06:14→21:08)
[2023-04-10] MEDS: methaDONE HCL 40 MG DISPERSABLE TABLET PO SCH (09:00)
[2023-04-10] MEDS: clonazePAM 0.5 MG ODT TABLETS SL SCH (09:43)
[2023-04-10] MEDS: FAMOTIDINE 20 MG TABLET PO SCH ×2 (09:44→21:08)
[2023-04-10] MEDS: QUEtiapine FUMARATE 50 MG TABLET PO SCH (09:44)
[2023-04-10] MEDS: LISINOPRIL 20 MG TABLET PO SCH (09:44)
[2023-04-10] MEDS: BUDESONIDE/FORMETEROL FUMARATE 80/4.5 mcg INHALER IH SCH ×2 (09:44→21:10)
[2023-04-10] MEDS: amLODIPine BESYLATE 10 MG TABLET (FP) PO SCH (09:44)
[2023-04-10] MEDS: LIDOCAINE 4% PATCH TP SCH (09:44)
[2023-04-10] MEDS: TOLNAFTATE 1% CREAM 15 GM TUBE TP SCH ×2 (09:45→22:13)
[2023-04-10] MEDS: WITCH HAZEL 50% (TUCKS) 40 PAD/JAR PAD TP SCH ×2 (10:39→22:18)
[2023-04-10] MEDS: PRENATAL VITAMINS W/ FOLIC ACID TABLET (FP) PO SCH (10:39)
[2023-04-10] MEDS: HYDROCORTISONE 1% TOPICAL OINT 30 GM TUBE TP PRN (13:08)
[2023-04-10] MEDS: ACETAMINOPHEN 325 MG TABLET (FP) PO PRN (16:24)
[2023-04-10] MEDS: ATORVASTATIN CA 10 MG TABLET (FP) PO SCH (21:09)
[2023-04-10] MEDS: MELATONIN 5 MG TABLETS PO SCH (21:09)
[2023-04-10] MEDS: THIAMINE HCL 100 MG TABLET (FP) PO SCH (21:10)
[2023-04-10] MEDS: LIDOCAINE PATCH REMOVAL MC SCH (22:12)
[2023-04-10] MEDS: PRAZOSIN HCL 1 MG CAPSULE PO SCH (22:13)
[2023-04-10] MEDS: QUEtiapine FUMARATE 100 MG TABLET (FP) PO SCH (22:17)
[2023-04-11] MEDS: hydrOXYzine PAMOATE 25 MG CAPSULE (FP) PO PRN ×2 (02:19→16:35)
[2023-04-11] MEDS: ACAMPROSATE CALCIUM 333 MG TABLET.DR PO SCH ×3 (05:37→21:08)
[2023-04-11] MEDS: GABAPENTIN 100 MG CAPSULE PO SCH ×3 (05:37→21:09)
[2023-04-11] MEDS: DOCUSATE SODIUM 100 MG CAPSULE (FP) PO SCH ×3 (05:38→21:08)
[2023-04-11] MEDS: methaDONE HCL 40 MG DISPERSABLE TABLET PO SCH (09:02)
[2023-04-11] MEDS: LIDOCAINE 4% PATCH TP SCH (09:05)
[2023-04-11] MEDS: LISINOPRIL 20 MG TABLET PO SCH (09:48)
[2023-04-11] MEDS: FAMOTIDINE 20 MG TABLET PO SCH ×2 (09:48→21:09)
[2023-04-11] MEDS: amLODIPine BESYLATE 10 MG TABLET (FP) PO SCH (09:48)
[2023-04-11] MEDS: QUEtiapine FUMARATE 50 MG TABLET PO SCH (09:48)
[2023-04-11] MEDS: BUDESONIDE/FORMETEROL FUMARATE 80/4.5 mcg INHALER IH SCH ×2 (09:48→21:09)
[2023-04-11] MEDS: PRENATAL VITAMINS W/ FOLIC ACID TABLET (FP) PO SCH (09:49)
[2023-04-11] MEDS: WITCH HAZEL 50% (TUCKS) 40 PAD/JAR PAD TP SCH ×2 (09:51→21:14)
[2023-04-11] MEDS: TOLNAFTATE 1% CREAM 15 GM TUBE TP SCH ×2 (09:51→21:10)
[2023-04-11] MEDS: clonazePAM 0.5 MG ODT TABLETS SL SCH (09:51)
[2023-04-11] MEDS: MELATONIN 5 MG TABLETS PO SCH (21:08)
[2023-04-11] MEDS: PRAZOSIN HCL 1 MG CAPSULE PO SCH (21:08)
[2023-04-11] MEDS: THIAMINE HCL 100 MG TABLET (FP) PO SCH (21:09)
[2023-04-11] MEDS: ATORVASTATIN CA 10 MG TABLET (FP) PO SCH (21:09)
[2023-04-11] MEDS: QUEtiapine FUMARATE 100 MG TABLET (FP) PO SCH (21:09)
[2023-04-11] MEDS: LIDOCAINE PATCH REMOVAL MC SCH (21:57)
[2023-04-12] MEDS: hydrOXYzine PAMOATE 25 MG CAPSULE (FP) PO PRN (01:22)
[2023-04-12] MEDS: GABAPENTIN 100 MG CAPSULE PO SCH ×3 (05:28→21:12)
[2023-04-12] MEDS: ACAMPROSATE CALCIUM 333 MG TABLET.DR PO SCH ×3 (05:28→21:13)
[2023-04-12] MEDS: clonazePAM 0.5 MG ODT TABLETS SL SCH (05:28)
[2023-04-12] MEDS: DOCUSATE SODIUM 100 MG CAPSULE (FP) PO SCH ×3 (05:28→21:12)
[2023-04-12] MEDS: TOLNAFTATE 1% CREAM 15 GM TUBE TP SCH ×3 (07:14→21:13)
[2023-04-12] MEDS: HYDROCORTISONE 1% TOPICAL OINT 30 GM TUBE TP PRN (07:14)
[2023-04-12] MEDS: LISINOPRIL 20 MG TABLET PO SCH (09:57)
[2023-04-12] MEDS: methaDONE HCL 40 MG DISPERSABLE TABLET PO SCH (09:57)
[2023-04-12] MEDS: QUEtiapine FUMARATE 50 MG TABLET PO SCH (09:57)
[2023-04-12] MEDS: PRENATAL VITAMINS W/ FOLIC ACID TABLET (FP) PO SCH (09:57)
[2023-04-12] MEDS: LIDOCAINE 4% PATCH TP SCH (09:57)
[2023-04-12] MEDS: BUDESONIDE/FORMETEROL FUMARATE 80/4.5 mcg INHALER IH SCH ×2 (09:57→21:11)
[2023-04-12] MEDS: amLODIPine BESYLATE 10 MG TABLET (FP) PO SCH (09:57)
[2023-04-12] MEDS: FAMOTIDINE 20 MG TABLET PO SCH ×2 (09:58→21:13)
[2023-04-12] MEDS: WITCH HAZEL 50% (TUCKS) 40 PAD/JAR PAD TP SCH ×2 (10:00→21:14)
[2023-04-12] MEDS: IBUPROFEN 600 MG TABLET (FP) PO PRN (13:35)
[2023-04-12] MEDS: MELATONIN 5 MG TABLETS PO SCH (21:10)
[2023-04-12] MEDS: PRAZOSIN HCL 1 MG CAPSULE PO SCH (21:11)
[2023-04-12] MEDS: ATORVASTATIN CA 10 MG TABLET (FP) PO SCH (21:12)
[2023-04-12] MEDS: LIDOCAINE PATCH REMOVAL MC SCH (21:13)
[2023-04-12] MEDS: QUEtiapine FUMARATE 100 MG TABLET (FP) PO SCH (21:13)
[2023-04-12] MEDS: THIAMINE HCL 100 MG TABLET (FP) PO SCH (21:14)
[2023-04-13] MEDS: hydrOXYzine PAMOATE 25 MG CAPSULE (FP) PO PRN (01:00)
[2023-04-13] MEDS: GABAPENTIN 100 MG CAPSULE PO SCH ×3 (06:06→21:04)
[2023-04-13] MEDS: ACAMPROSATE CALCIUM 333 MG TABLET.DR PO SCH ×3 (06:06→21:03)
[2023-04-13] MEDS: DOCUSATE SODIUM 100 MG CAPSULE (FP) PO SCH ×3 (06:06→21:04)
[2023-04-13] MEDS: clonazePAM 0.5 MG ODT TABLETS SL SCH (06:07)
[2023-04-13] MEDS: methaDONE HCL 40 MG DISPERSABLE TABLET PO SCH (09:42)
[2023-04-13] MEDS: amLODIPine BESYLATE 10 MG TABLET (FP) PO SCH (09:42)
[2023-04-13] MEDS: LISINOPRIL 20 MG TABLET PO SCH (09:42)
[2023-04-13] MEDS: FAMOTIDINE 20 MG TABLET PO SCH ×2 (09:42→21:04)
[2023-04-13] MEDS: QUEtiapine FUMARATE 50 MG TABLET PO SCH (09:42)
[2023-04-13] MEDS: PRENATAL VITAMINS W/ FOLIC ACID TABLET (FP) PO SCH (09:42)
[2023-04-13] MEDS: TOLNAFTATE 1% CREAM 15 GM TUBE TP SCH ×2 (09:43→21:03)
[2023-04-13] MEDS: WITCH HAZEL 50% (TUCKS) 40 PAD/JAR PAD TP SCH ×2 (09:43→21:05)
[2023-04-13] MEDS: LIDOCAINE 4% PATCH TP SCH (09:43)
[2023-04-13] MEDS: BUDESONIDE/FORMETEROL FUMARATE 80/4.5 mcg INHALER IH SCH ×2 (09:43→21:03)
[2023-04-13] MEDS: METHOCARBAMOL 500 MG TABLET PO PRN (18:40)
[2023-04-13] MEDS: MELATONIN 5 MG TABLETS PO SCH (21:03)
[2023-04-13] MEDS: ATORVASTATIN CA 10 MG TABLET (FP) PO SCH (21:04)
[2023-04-13] MEDS: PRAZOSIN HCL 1 MG CAPSULE PO SCH (21:04)
[2023-04-13] MEDS: QUEtiapine FUMARATE 100 MG TABLET (FP) PO SCH (21:04)
[2023-04-13] MEDS: THIAMINE HCL 100 MG TABLET (FP) PO SCH (21:04)
[2023-04-13] MEDS: LIDOCAINE PATCH REMOVAL MC SCH (21:05)
[2023-04-14] MEDS: METHOCARBAMOL 500 MG TABLET PO PRN ×2 (03:29→18:27)
[2023-04-14] MEDS: hydrOXYzine PAMOATE 25 MG CAPSULE (FP) PO PRN (03:29)
[2023-04-14] MEDS: clonazePAM 0.5 MG ODT TABLETS SL SCH (06:00)
[2023-04-14] MEDS: GABAPENTIN 100 MG CAPSULE PO SCH ×3 (06:00→21:00)
[2023-04-14] MEDS: ACAMPROSATE CALCIUM 333 MG TABLET.DR PO SCH ×3 (06:00→20:59)
[2023-04-14] MEDS: DOCUSATE SODIUM 100 MG CAPSULE (FP) PO SCH ×3 (06:00→21:01)
[2023-04-14] MEDS: NICOTINE POLACRILEX 4 MG GUM BUC PRN ×2 (06:01→12:26)
[2023-04-14] MEDS: FAMOTIDINE 20 MG TABLET PO SCH ×2 (09:29→21:01)
[2023-04-14] MEDS: BUDESONIDE/FORMETEROL FUMARATE 80/4.5 mcg INHALER IH SCH ×2 (09:29→20:59)
[2023-04-14] MEDS: LISINOPRIL 20 MG TABLET PO SCH (09:29)
[2023-04-14] MEDS: amLODIPine BESYLATE 10 MG TABLET (FP) PO SCH (09:29)
[2023-04-14] MEDS: methaDONE HCL 40 MG DISPERSABLE TABLET PO SCH (09:29)
[2023-04-14] MEDS: PRENATAL VITAMINS W/ FOLIC ACID TABLET (FP) PO SCH (09:29)
[2023-04-14] MEDS: QUEtiapine FUMARATE 50 MG TABLET PO SCH (09:29)
[2023-04-14] MEDS: LIDOCAINE 4% PATCH TP SCH (09:32)
[2023-04-14] MEDS: WITCH HAZEL 50% (TUCKS) 40 PAD/JAR PAD TP SCH ×2 (09:40→21:03)
[2023-04-14] MEDS: TOLNAFTATE 1% CREAM 15 GM TUBE TP SCH ×2 (09:40→21:03)
[2023-04-14] MEDS: HYDROCORTISONE 1% TOPICAL OINT 30 GM TUBE TP PRN (13:27)
[2023-04-14] MEDS: PRAZOSIN HCL 1 MG CAPSULE PO SCH (21:00)
[2023-04-14] MEDS: THIAMINE HCL 100 MG TABLET (FP) PO SCH (21:01)
[2023-04-14] MEDS: ATORVASTATIN CA 10 MG TABLET (FP) PO SCH (21:01)
[2023-04-14] MEDS: QUEtiapine FUMARATE 100 MG TABLET (FP) PO SCH (21:01)
[2023-04-14] MEDS: LIDOCAINE PATCH REMOVAL MC SCH (22:40)
[2023-04-15] MEDS: hydrOXYzine PAMOATE 25 MG CAPSULE (FP) PO PRN (02:22)
[2023-04-15] MEDS: GABAPENTIN 100 MG CAPSULE PO SCH ×3 (06:43→21:00)
[2023-04-15] MEDS: DOCUSATE SODIUM 100 MG CAPSULE (FP) PO SCH ×3 (06:43→21:00)
[2023-04-15] MEDS: clonazePAM 0.5 MG ODT TABLETS SL SCH (06:43)
[2023-04-15] MEDS: ACAMPROSATE CALCIUM 333 MG TABLET.DR PO SCH ×3 (06:43→22:00)
[2023-04-15] MEDS: amLODIPine BESYLATE 10 MG TABLET (FP) PO SCH (09:37)
[2023-04-15] MEDS: LISINOPRIL 20 MG TABLET PO SCH (09:37)
[2023-04-15] MEDS: QUEtiapine FUMARATE 50 MG TABLET PO SCH (09:37)
[2023-04-15] MEDS: methaDONE HCL 40 MG DISPERSABLE TABLET PO SCH (09:37)
[2023-04-15] MEDS: FAMOTIDINE 20 MG TABLET PO SCH ×2 (09:37→21:01)
[2023-04-15] MEDS: PRENATAL VITAMINS W/ FOLIC ACID TABLET (FP) PO SCH (09:37)
[2023-04-15] MEDS: BUDESONIDE/FORMETEROL FUMARATE 80/4.5 mcg INHALER IH SCH ×2 (09:38→21:02)
[2023-04-15] MEDS: TOLNAFTATE 1% CREAM 15 GM TUBE TP SCH ×2 (09:40→21:01)
[2023-04-15] MEDS: LIDOCAINE 4% PATCH TP SCH (10:12)
[2023-04-15] MEDS: WITCH HAZEL 50% (TUCKS) 40 PAD/JAR PAD TP SCH ×2 (10:12→21:01)
[2023-04-15] MEDS: PRAZOSIN HCL 1 MG CAPSULE PO SCH (21:00)
[2023-04-15] MEDS: QUEtiapine FUMARATE 100 MG TABLET (FP) PO SCH (21:01)
[2023-04-15] MEDS: ATORVASTATIN CA 10 MG TABLET (FP) PO SCH (21:01)
[2023-04-15] MEDS: THIAMINE HCL 100 MG TABLET (FP) PO SCH (21:01)
[2023-04-15] MEDS: LIDOCAINE PATCH REMOVAL MC SCH (21:02)
[2023-04-16] MEDS: hydrOXYzine PAMOATE 25 MG CAPSULE (FP) PO PRN ×2 (02:05→17:26)
[2023-04-16] MEDS: METHOCARBAMOL 500 MG TABLET PO PRN ×2 (02:05→21:08)
[2023-04-16] MEDS: ACAMPROSATE CALCIUM 333 MG TABLET.DR PO SCH ×3 (06:13→21:05)
[2023-04-16] MEDS: DOCUSATE SODIUM 100 MG CAPSULE (FP) PO SCH ×3 (06:13→21:05)
[2023-04-16] MEDS: clonazePAM 0.5 MG ODT TABLETS SL SCH (06:13)
[2023-04-16] MEDS: GABAPENTIN 100 MG CAPSULE PO SCH ×3 (06:13→21:05)
[2023-04-16] MEDS: ACETAMINOPHEN 325 MG TABLET (FP) PO PRN ×2 (08:38→17:24)
[2023-04-16] MEDS: methaDONE HCL 40 MG DISPERSABLE TABLET PO SCH (09:36)
[2023-04-16] MEDS: LISINOPRIL 20 MG TABLET PO SCH (09:37)
[2023-04-16] MEDS: FAMOTIDINE 20 MG TABLET PO SCH ×2 (09:37→21:04)
[2023-04-16] MEDS: BUDESONIDE/FORMETEROL FUMARATE 80/4.5 mcg INHALER IH SCH ×2 (09:37→21:04)
[2023-04-16] MEDS: QUEtiapine FUMARATE 50 MG TABLET PO SCH (09:37)
[2023-04-16] MEDS: LIDOCAINE 4% PATCH TP SCH (09:39)
[2023-04-16] MEDS: PRENATAL VITAMINS W/ FOLIC ACID TABLET (FP) PO SCH (09:40)
[2023-04-16] MEDS: WITCH HAZEL 50% (TUCKS) 40 PAD/JAR PAD TP SCH ×2 (09:41→21:06)
[2023-04-16] MEDS: TOLNAFTATE 1% CREAM 15 GM TUBE TP SCH ×2 (09:41→21:06)
[2023-04-16] MEDS: amLODIPine BESYLATE 10 MG TABLET (FP) PO SCH (09:42)
[2023-04-16] MEDS: QUEtiapine FUMARATE 100 MG TABLET (FP) PO SCH (21:04)
[2023-04-16] MEDS: ATORVASTATIN CA 10 MG TABLET (FP) PO SCH (21:04)
[2023-04-16] MEDS: PRAZOSIN HCL 1 MG CAPSULE PO SCH (21:05)
[2023-04-16] MEDS: LIDOCAINE PATCH REMOVAL MC SCH (21:05)
[2023-04-16] MEDS: THIAMINE HCL 100 MG TABLET (FP) PO SCH (21:57)
[2023-04-16] MEDS ORDERED: P-EPHED 60MG/TRIPROLIDI 2.5MG TABLET PO PRN (22:33)
[2023-04-17] MEDS: ACAMPROSATE CALCIUM 333 MG TABLET.DR PO SCH ×3 (06:07→21:07)
[2023-04-17] MEDS: hydrOXYzine PAMOATE 25 MG CAPSULE (FP) PO PRN ×2 (06:07→16:50)
[2023-04-17] MEDS: GABAPENTIN 100 MG CAPSULE PO SCH ×3 (06:08→21:07)
[2023-04-17] MEDS: DOCUSATE SODIUM 100 MG CAPSULE (FP) PO SCH ×3 (06:08→21:07)
[2023-04-17] MEDS: QUEtiapine FUMARATE 50 MG TABLET PO SCH (09:55)
[2023-04-17] MEDS: amLODIPine BESYLATE 10 MG TABLET (FP) PO SCH (09:55)
[2023-04-17] MEDS: FAMOTIDINE 20 MG TABLET PO SCH ×2 (09:55→21:08)
[2023-04-17] MEDS: PRENATAL VITAMINS W/ FOLIC ACID TABLET (FP) PO SCH (09:55)
[2023-04-17] MEDS: LIDOCAINE 4% PATCH TP SCH (09:55)
[2023-04-17] MEDS: BUDESONIDE/FORMETEROL FUMARATE 80/4.5 mcg INHALER IH SCH ×2 (09:55→21:07)
[2023-04-17] MEDS: LISINOPRIL 20 MG TABLET PO SCH (09:55)
[2023-04-17] MEDS: methaDONE HCL 40 MG DISPERSABLE TABLET PO SCH (09:56)
[2023-04-17] MEDS: TOLNAFTATE 1% CREAM 15 GM TUBE TP SCH ×2 (09:58→21:09)
[2023-04-17] MEDS: WITCH HAZEL 50% (TUCKS) 40 PAD/JAR PAD TP SCH ×2 (09:58→21:10)
[2023-04-17] MEDS: clonazePAM 0.5 MG ODT TABLETS SL SCH (13:59)
[2023-04-17] MEDS: COLLOIDAL OATMEAL 1 BAR EACH TP PRN (17:25)
[2023-04-17] MEDS: THIAMINE HCL 100 MG TABLET (FP) PO SCH (21:07)
[2023-04-17] MEDS: PRAZOSIN HCL 1 MG CAPSULE PO SCH (21:08)
[2023-04-17] MEDS: ATORVASTATIN CA 10 MG TABLET (FP) PO SCH (21:08)
[2023-04-17] MEDS: QUEtiapine FUMARATE 100 MG TABLET (FP) PO SCH (21:08)
[2023-04-17] MEDS: LIDOCAINE PATCH REMOVAL MC SCH (21:09)
[2023-04-18] MEDS: ACAMPROSATE CALCIUM 333 MG TABLET.DR PO SCH ×3 (05:57→21:03)
[2023-04-18] MEDS: GABAPENTIN 100 MG CAPSULE PO SCH ×3 (05:58→21:04)
[2023-04-18] MEDS: DOCUSATE SODIUM 100 MG CAPSULE (FP) PO SCH ×3 (05:58→21:03)
[2023-04-18] MEDS: hydrOXYzine PAMOATE 25 MG CAPSULE (FP) PO PRN (05:59)
[2023-04-18] MEDS: NICOTINE POLACRILEX 4 MG GUM BUC PRN (06:00)
[2023-04-18] MEDS: PRENATAL VITAMINS W/ FOLIC ACID TABLET (FP) PO SCH (09:34)
[2023-04-18] MEDS: LISINOPRIL 20 MG TABLET PO SCH (09:34)
[2023-04-18] MEDS: BUDESONIDE/FORMETEROL FUMARATE 80/4.5 mcg INHALER IH SCH ×2 (09:34→21:02)
[2023-04-18] MEDS: QUEtiapine FUMARATE 50 MG TABLET PO SCH (09:35)
[2023-04-18] MEDS: FAMOTIDINE 20 MG TABLET PO SCH ×2 (09:35→21:04)
[2023-04-18] MEDS: methaDONE HCL 40 MG DISPERSABLE TABLET PO SCH (09:36)
[2023-04-18] MEDS: LIDOCAINE 4% PATCH TP SCH (09:37)
[2023-04-18] MEDS: WITCH HAZEL 50% (TUCKS) 40 PAD/JAR PAD TP SCH ×2 (09:37→21:04)
[2023-04-18] MEDS: amLODIPine BESYLATE 10 MG TABLET (FP) PO SCH (09:38)
[2023-04-18] MEDS: TOLNAFTATE 1% CREAM 15 GM TUBE TP SCH ×2 (09:39→21:04)
[2023-04-18] MEDS: clonazePAM 0.5 MG ODT TABLETS SL SCH (14:11)
[2023-04-18] MEDS: METHOCARBAMOL 500 MG TABLET PO PRN (17:01)
[2023-04-18] MEDS: PRAZOSIN HCL 1 MG CAPSULE PO SCH (21:02)
[2023-04-18] MEDS: ATORVASTATIN CA 10 MG TABLET (FP) PO SCH (21:03)
[2023-04-18] MEDS: THIAMINE HCL 100 MG TABLET (FP) PO SCH (21:04)
[2023-04-18] MEDS: QUEtiapine FUMARATE 100 MG TABLET (FP) PO SCH (21:04)
[2023-04-18] MEDS: SUVOREXANT 5 MG TABLET PO PRN (21:08)
[2023-04-18] MEDS: LIDOCAINE PATCH REMOVAL MC SCH (21:50)
[2023-04-19] MEDS: hydrOXYzine PAMOATE 25 MG CAPSULE (FP) PO PRN ×2 (01:34→16:50)
[2023-04-19] MEDS: ACAMPROSATE CALCIUM 333 MG TABLET.DR PO SCH ×3 (06:04→21:00)
[2023-04-19] MEDS: GABAPENTIN 100 MG CAPSULE PO SCH ×3 (06:04→21:00)
[2023-04-19] MEDS: DOCUSATE SODIUM 100 MG CAPSULE (FP) PO SCH ×3 (06:04→21:01)
[2023-04-19] MEDS: METHOCARBAMOL 500 MG TABLET PO PRN (07:03)
[2023-04-19] MEDS: NICOTINE POLACRILEX 4 MG GUM BUC PRN (07:05)
[2023-04-19] MEDS: PRENATAL VITAMINS W/ FOLIC ACID TABLET (FP) PO SCH (09:47)
[2023-04-19] MEDS: amLODIPine BESYLATE 10 MG TABLET (FP) PO SCH (09:48)
[2023-04-19] MEDS: BUDESONIDE/FORMETEROL FUMARATE 80/4.5 mcg INHALER IH SCH ×2 (09:48→21:02)
[2023-04-19] MEDS: FAMOTIDINE 20 MG TABLET PO SCH ×2 (09:48→21:02)
[2023-04-19] MEDS: QUEtiapine FUMARATE 50 MG TABLET PO SCH (09:48)
[2023-04-19] MEDS: LISINOPRIL 20 MG TABLET PO SCH (09:48)
[2023-04-19] MEDS: methaDONE HCL 40 MG DISPERSABLE TABLET PO SCH (09:49)
[2023-04-19] MEDS: LIDOCAINE 4% PATCH TP SCH (09:49)
[2023-04-19] MEDS: TOLNAFTATE 1% CREAM 15 GM TUBE TP SCH ×2 (09:51→21:03)
[2023-04-19] MEDS: WITCH HAZEL 50% (TUCKS) 40 PAD/JAR PAD TP SCH ×2 (09:52→21:03)
[2023-04-19] MEDS: clonazePAM 0.5 MG ODT TABLETS SL SCH (14:15)
[2023-04-19] MEDS: PRAZOSIN HCL 1 MG CAPSULE PO SCH (21:00)
[2023-04-19] MEDS: QUEtiapine FUMARATE 100 MG TABLET (FP) PO SCH (21:01)
[2023-04-19] MEDS: ATORVASTATIN CA 10 MG TABLET (FP) PO SCH (21:01)
[2023-04-19] MEDS: THIAMINE HCL 100 MG TABLET (FP) PO SCH (21:02)
[2023-04-19] MEDS: LIDOCAINE PATCH REMOVAL MC SCH (21:03)
[2023-04-20] MEDS: ACAMPROSATE CALCIUM 333 MG TABLET.DR PO SCH ×3 (05:53→21:02)
[2023-04-20] MEDS: DOCUSATE SODIUM 100 MG CAPSULE (FP) PO SCH ×3 (05:53→21:01)
[2023-04-20] MEDS: GABAPENTIN 100 MG CAPSULE PO SCH ×3 (05:54→21:01)
[2023-04-20] MEDS: METHOCARBAMOL 500 MG TABLET PO PRN (05:55)
[2023-04-20] MEDS: MAG HYDROX/AL HYDROX/SIMETH 30 ML UNIT-DOSE CUP PO PRN ×2 (08:59→17:32)
[2023-04-20] MEDS: methaDONE HCL 40 MG DISPERSABLE TABLET PO SCH (09:35)
[2023-04-20] MEDS: FAMOTIDINE 20 MG TABLET PO SCH ×2 (09:36→21:01)
[2023-04-20] MEDS: BUDESONIDE/FORMETEROL FUMARATE 80/4.5 mcg INHALER IH SCH ×2 (09:36→21:00)
[2023-04-20] MEDS: LISINOPRIL 20 MG TABLET PO SCH (09:36)
[2023-04-20] MEDS: QUEtiapine FUMARATE 50 MG TABLET PO SCH (09:36)
[2023-04-20] MEDS: amLODIPine BESYLATE 10 MG TABLET (FP) PO SCH (09:36)
[2023-04-20] MEDS: LIDOCAINE 4% PATCH TP SCH (09:37)
[2023-04-20] MEDS: PRENATAL VITAMINS W/ FOLIC ACID TABLET (FP) PO SCH (09:37)
[2023-04-20] MEDS: TOLNAFTATE 1% CREAM 15 GM TUBE TP SCH ×2 (09:38→21:04)
[2023-04-20] MEDS: WITCH HAZEL 50% (TUCKS) 40 PAD/JAR PAD TP SCH ×2 (09:38→23:14)
[2023-04-20] MEDS: clonazePAM 0.5 MG ODT TABLETS SL SCH (13:03)
[2023-04-20] MEDS: hydrOXYzine PAMOATE 25 MG CAPSULE (FP) PO PRN (16:34)
[2023-04-20] MEDS: ATORVASTATIN CA 10 MG TABLET (FP) PO SCH (21:01)
[2023-04-20] MEDS: THIAMINE HCL 100 MG TABLET (FP) PO SCH (21:01)
[2023-04-20] MEDS: QUEtiapine FUMARATE 100 MG TABLET (FP) PO SCH (21:01)
[2023-04-20] MEDS: PRAZOSIN HCL 1 MG CAPSULE PO SCH (21:02)
[2023-04-20] MEDS: SUVOREXANT 5 MG TABLET PO PRN (21:02)
[2023-04-20] MEDS: LIDOCAINE PATCH REMOVAL MC SCH (21:02)
[2023-04-21] MEDS: DOCUSATE SODIUM 100 MG CAPSULE (FP) PO SCH ×3 (05:59→21:48)
[2023-04-21] MEDS: METHOCARBAMOL 500 MG TABLET PO PRN ×2 (06:00→16:32)
[2023-04-21] MEDS: hydrOXYzine PAMOATE 25 MG CAPSULE (FP) PO PRN ×2 (06:00→16:31)
[2023-04-21] MEDS: GABAPENTIN 100 MG CAPSULE PO SCH ×3 (06:00→21:48)
[2023-04-21] MEDS: ACAMPROSATE CALCIUM 333 MG TABLET.DR PO SCH ×3 (06:00→21:48)
[2023-04-21] MEDS: MAG HYDROX/AL HYDROX/SIMETH 30 ML UNIT-DOSE CUP PO PRN ×2 (07:34→12:54)
[2023-04-21] MEDS: FAMOTIDINE 20 MG TABLET PO SCH ×2 (10:05→21:48)
[2023-04-21] MEDS: amLODIPine BESYLATE 10 MG TABLET (FP) PO SCH (10:05)
[2023-04-21] MEDS: QUEtiapine FUMARATE 50 MG TABLET PO SCH (10:05)
[2023-04-21] MEDS: LISINOPRIL 20 MG TABLET PO SCH (10:05)
[2023-04-21] MEDS: PRENATAL VITAMINS W/ FOLIC ACID TABLET (FP) PO SCH (10:05)
[2023-04-21] MEDS: BUDESONIDE/FORMETEROL FUMARATE 80/4.5 mcg INHALER IH SCH ×2 (10:05→21:47)
[2023-04-21] MEDS: LIDOCAINE 4% PATCH TP SCH (10:06)
[2023-04-21] MEDS: methaDONE HCL 40 MG DISPERSABLE TABLET PO SCH (10:06)
[2023-04-21] MEDS: TOLNAFTATE 1% CREAM 15 GM TUBE TP SCH ×2 (10:07→21:49)
[2023-04-21] MEDS: WITCH HAZEL 50% (TUCKS) 40 PAD/JAR PAD TP SCH ×2 (10:07→21:50)
[2023-04-21] MEDS: clonazePAM 0.5 MG ODT TABLETS SL SCH (14:09)
[2023-04-21] MEDS: HYDROCORTISONE 1% TOPICAL OINT 30 GM TUBE TP PRN (21:48)
[2023-04-21] MEDS: QUEtiapine FUMARATE 100 MG TABLET (FP) PO SCH (21:48)
[2023-04-21] MEDS: PRAZOSIN HCL 1 MG CAPSULE PO SCH (21:49)
[2023-04-21] MEDS: ATORVASTATIN CA 10 MG TABLET (FP) PO SCH (21:49)
[2023-04-21] MEDS: THIAMINE HCL 100 MG TABLET (FP) PO SCH (21:49)
[2023-04-21] MEDS: LIDOCAINE PATCH REMOVAL MC SCH (23:10)
[2023-04-22] MEDS: hydrOXYzine PAMOATE 25 MG CAPSULE (FP) PO PRN ×3 (03:19→21:26)
[2023-04-22] MEDS: METHOCARBAMOL 500 MG TABLET PO PRN ×2 (03:19→15:32)
[2023-04-22] MEDS: DOCUSATE SODIUM 100 MG CAPSULE (FP) PO SCH ×3 (05:57→21:25)
[2023-04-22] MEDS: GABAPENTIN 100 MG CAPSULE PO SCH ×3 (05:57→21:24)
[2023-04-22] MEDS: ACAMPROSATE CALCIUM 333 MG TABLET.DR PO SCH ×3 (05:57→21:23)
[2023-04-22] MEDS: methaDONE HCL 40 MG DISPERSABLE TABLET PO SCH (10:10)
[2023-04-22] MEDS: BUDESONIDE/FORMETEROL FUMARATE 80/4.5 mcg INHALER IH SCH ×2 (10:12→21:27)
[2023-04-22] MEDS: WITCH HAZEL 50% (TUCKS) 40 PAD/JAR PAD TP SCH ×2 (10:12→21:27)
[2023-04-22] MEDS: QUEtiapine FUMARATE 50 MG TABLET PO SCH (10:12)
[2023-04-22] MEDS: FAMOTIDINE 20 MG TABLET PO SCH ×2 (10:12→21:26)
[2023-04-22] MEDS: LIDOCAINE 4% PATCH TP SCH (10:12)
[2023-04-22] MEDS: TOLNAFTATE 1% CREAM 15 GM TUBE TP SCH ×2 (10:12→21:28)
[2023-04-22] MEDS: PRENATAL VITAMINS W/ FOLIC ACID TABLET (FP) PO SCH (10:12)
[2023-04-22] MEDS: LISINOPRIL 20 MG TABLET PO SCH (10:12)
[2023-04-22] MEDS: amLODIPine BESYLATE 10 MG TABLET (FP) PO SCH (10:12)
[2023-04-22] MEDS: clonazePAM 0.5 MG ODT TABLETS SL SCH (13:08)
[2023-04-22] MEDS: IBUPROFEN 600 MG TABLET (FP) PO PRN (17:28)
[2023-04-22] MEDS: MAG HYDROX/AL HYDROX/SIMETH 30 ML UNIT-DOSE CUP PO PRN (20:10)
[2023-04-22] MEDS: ATORVASTATIN CA 10 MG TABLET (FP) PO SCH (21:24)
[2023-04-22] MEDS: QUEtiapine FUMARATE 100 MG TABLET (FP) PO SCH (21:24)
[2023-04-22] MEDS: PRAZOSIN HCL 1 MG CAPSULE PO SCH (21:26)
[2023-04-22] MEDS: LIDOCAINE PATCH REMOVAL MC SCH (21:28)
[2023-04-22] MEDS: THIAMINE HCL 100 MG TABLET (FP) PO SCH (21:28)
[2023-04-22] MEDS: SUVOREXANT 5 MG TABLET PO PRN (22:10)
[2023-04-23] MEDS: DOCUSATE SODIUM 100 MG CAPSULE (FP) PO SCH ×3 (06:16→21:29)
[2023-04-23] MEDS: ACAMPROSATE CALCIUM 333 MG TABLET.DR PO SCH ×3 (06:16→21:29)
[2023-04-23] MEDS: GABAPENTIN 100 MG CAPSULE PO SCH ×3 (06:17→21:29)
[2023-04-23] MEDS: PRENATAL VITAMINS W/ FOLIC ACID TABLET (FP) PO SCH (09:04)
[2023-04-23] MEDS: FAMOTIDINE 20 MG TABLET PO SCH ×2 (09:04→21:29)
[2023-04-23] MEDS: amLODIPine BESYLATE 10 MG TABLET (FP) PO SCH (09:04)
[2023-04-23] MEDS: LIDOCAINE 4% PATCH TP SCH (09:04)
[2023-04-23] MEDS: QUEtiapine FUMARATE 50 MG TABLET PO SCH (09:04)
[2023-04-23] MEDS: BUDESONIDE/FORMETEROL FUMARATE 80/4.5 mcg INHALER IH SCH ×2 (09:04→21:30)
[2023-04-23] MEDS: WITCH HAZEL 50% (TUCKS) 40 PAD/JAR PAD TP SCH ×2 (09:05→21:33)
[2023-04-23] MEDS: TOLNAFTATE 1% CREAM 15 GM TUBE TP SCH ×2 (09:05→21:33)
[2023-04-23] MEDS: methaDONE HCL 40 MG DISPERSABLE TABLET PO SCH (09:07)
[2023-04-23] MEDS: LISINOPRIL 20 MG TABLET PO SCH (10:13)
[2023-04-23] MEDS: clonazePAM 0.5 MG ODT TABLETS SL SCH (13:06)
[2023-04-23] MEDS: METHOCARBAMOL 500 MG TABLET PO PRN (19:12)
[2023-04-23] MEDS: THIAMINE HCL 100 MG TABLET (FP) PO SCH (21:29)
[2023-04-23] MEDS: PRAZOSIN HCL 1 MG CAPSULE PO SCH (21:29)
[2023-04-23] MEDS: QUEtiapine FUMARATE 100 MG TABLET (FP) PO SCH (21:29)
[2023-04-23] MEDS: ATORVASTATIN CA 10 MG TABLET (FP) PO SCH (21:30)
[2023-04-23] MEDS: LIDOCAINE PATCH REMOVAL MC SCH (21:30)
[2023-04-23] MEDS: SUVOREXANT 5 MG TABLET PO PRN (21:32)
[2023-04-24] MEDS: hydrOXYzine PAMOATE 25 MG CAPSULE (FP) PO PRN (03:40)
[2023-04-24] MEDS: ACETAMINOPHEN 325 MG TABLET (FP) PO PRN (05:58)
[2023-04-24] MEDS: DOCUSATE SODIUM 100 MG CAPSULE (FP) PO SCH ×3 (05:59→21:33)
[2023-04-24] MEDS: ACAMPROSATE CALCIUM 333 MG TABLET.DR PO SCH ×3 (06:00→21:30)
[2023-04-24] MEDS: GABAPENTIN 100 MG CAPSULE PO SCH ×3 (06:00→21:34)
[2023-04-24] MEDS: LISINOPRIL 20 MG TABLET PO SCH (10:10)
[2023-04-24] MEDS: amLODIPine BESYLATE 10 MG TABLET (FP) PO SCH (10:10)
[2023-04-24] MEDS: BUDESONIDE/FORMETEROL FUMARATE 80/4.5 mcg INHALER IH SCH ×2 (10:10→21:32)
[2023-04-24] MEDS: FAMOTIDINE 20 MG TABLET PO SCH ×2 (10:10→21:33)
[2023-04-24] MEDS: QUEtiapine FUMARATE 50 MG TABLET PO SCH (10:10)
[2023-04-24] MEDS: LIDOCAINE 4% PATCH TP SCH (10:10)
[2023-04-24] MEDS: PRENATAL VITAMINS W/ FOLIC ACID TABLET (FP) PO SCH (10:10)
[2023-04-24] MEDS: methaDONE HCL 40 MG DISPERSABLE TABLET PO SCH (10:11)
[2023-04-24] MEDS: WITCH HAZEL 50% (TUCKS) 40 PAD/JAR PAD TP SCH ×3 (10:12→22:33)
[2023-04-24] MEDS: TOLNAFTATE 1% CREAM 15 GM TUBE TP SCH ×2 (10:13→22:33)
[2023-04-24] MEDS: clonazePAM 0.5 MG ODT TABLETS SL SCH (13:22)
[2023-04-24] MEDS: HYDROCORTISONE 1% TOPICAL OINT 30 GM TUBE TP PRN (14:07)
[2023-04-24] MEDS: QUEtiapine FUMARATE 100 MG TABLET (FP) PO SCH (21:32)
[2023-04-24] MEDS: PRAZOSIN HCL 1 MG CAPSULE PO SCH (21:33)
[2023-04-24] MEDS: ATORVASTATIN CA 10 MG TABLET (FP) PO SCH (21:33)
[2023-04-24] MEDS: THIAMINE HCL 100 MG TABLET (FP) PO SCH (21:34)
[2023-04-24] MEDS ORDERED: SUVOREXANT 5 MG TABLET PO PRN (22:00)
[2023-04-24] MEDS: LIDOCAINE PATCH REMOVAL MC SCH (22:33)
[2023-04-25] MEDS: METHOCARBAMOL 500 MG TABLET PO PRN ×3 (02:41→21:09)
[2023-04-25] MEDS: hydrOXYzine PAMOATE 25 MG CAPSULE (FP) PO PRN ×3 (06:04→21:15)
[2023-04-25] MEDS: DOCUSATE SODIUM 100 MG CAPSULE (FP) PO SCH ×3 (06:04→21:09)
[2023-04-25] MEDS: GABAPENTIN 100 MG CAPSULE PO SCH ×3 (06:04→21:09)
[2023-04-25] MEDS: ACAMPROSATE CALCIUM 333 MG TABLET.DR PO SCH ×3 (06:04→21:09)
[2023-04-25] MEDS: LIDOCAINE 4% PATCH TP SCH (10:03)
[2023-04-25] MEDS: methaDONE HCL 40 MG DISPERSABLE TABLET PO SCH (10:06)
[2023-04-25] MEDS: LISINOPRIL 20 MG TABLET PO SCH (10:07)
[2023-04-25] MEDS: QUEtiapine FUMARATE 50 MG TABLET PO SCH (10:07)
[2023-04-25] MEDS: FAMOTIDINE 20 MG TABLET PO SCH ×2 (10:07→21:09)
[2023-04-25] MEDS: PRENATAL VITAMINS W/ FOLIC ACID TABLET (FP) PO SCH (10:08)
[2023-04-25] MEDS: amLODIPine BESYLATE 10 MG TABLET (FP) PO SCH (10:08)
[2023-04-25] MEDS: BUDESONIDE/FORMETEROL FUMARATE 80/4.5 mcg INHALER IH SCH ×2 (10:08→21:08)
[2023-04-25] MEDS: TOLNAFTATE 1% CREAM 15 GM TUBE TP SCH ×2 (10:09→21:10)
[2023-04-25] MEDS: HYDROCORTISONE 1% TOPICAL OINT 30 GM TUBE TP PRN (10:10)
[2023-04-25] MEDS: WITCH HAZEL 50% (TUCKS) 40 PAD/JAR PAD TP SCH ×2 (10:24→21:10)
[2023-04-25] MEDS: clonazePAM 0.5 MG ODT TABLETS SL SCH (13:31)
[2023-04-25] MEDS: PRAZOSIN HCL 1 MG CAPSULE PO SCH (21:08)
[2023-04-25] MEDS: ATORVASTATIN CA 10 MG TABLET (FP) PO SCH (21:09)
[2023-04-25] MEDS: QUEtiapine FUMARATE 100 MG TABLET (FP) PO SCH (21:09)
[2023-04-25] MEDS: LIDOCAINE PATCH REMOVAL MC SCH (21:10)
[2023-04-25] MEDS: THIAMINE HCL 100 MG TABLET (FP) PO SCH (21:11)
[2023-04-26] MEDS: ACAMPROSATE CALCIUM 333 MG TABLET.DR PO SCH (06:06)
[2023-04-26] MEDS: GABAPENTIN 100 MG CAPSULE PO SCH (06:06)
[2023-04-26] MEDS: METHOCARBAMOL 500 MG TABLET PO PRN (06:07)
[2023-04-26] MEDS: DOCUSATE SODIUM 100 MG CAPSULE (FP) PO SCH (06:07)
[2023-04-26] MEDS: hydrOXYzine PAMOATE 25 MG CAPSULE (FP) PO PRN (06:08)
[2023-04-26 06:43] VITALS: TEMP 97.7
[2023-04-26 09:23] VITALS: BP 142/80; PULSE 90; RESP 19
[2023-04-26] MEDS: BUDESONIDE/FORMETEROL FUMARATE 80/4.5 mcg INHALER IH SCH (09:58)
[2023-04-26] MEDS: methaDONE HCL 40 MG DISPERSABLE TABLET PO SCH (09:58)
[2023-04-26] MEDS: LISINOPRIL 20 MG TABLET PO SCH (09:59)
[2023-04-26] MEDS: FAMOTIDINE 20 MG TABLET PO SCH (09:59)
[2023-04-26] MEDS: PRENATAL VITAMINS W/ FOLIC ACID TABLET (FP) PO SCH (09:59)
[2023-04-26] MEDS: amLODIPine BESYLATE 10 MG TABLET (FP) PO SCH (09:59)
[2023-04-26] MEDS: TOLNAFTATE 1% CREAM 15 GM TUBE TP SCH (09:59)
[2023-04-26] MEDS: QUEtiapine FUMARATE 50 MG TABLET PO SCH (09:59)
[2023-04-26] MEDS: WITCH HAZEL 50% (TUCKS) 40 PAD/JAR PAD TP SCH (10:00)
[2023-04-26] MEDS: LIDOCAINE 4% PATCH TP SCH (10:00)
[2023-04-26] MEDS ORDERED: clonazePAM 0.5 MG ODT TABLETS SL SCH (12:00)
== END 2023-04-26 12:52 | disposition home or self-care (01) | DRG 772 ==
LOC: YASAS 14:58 → Y5N 15:01
PROVIDERS: ADMIT Allergy & Immunology; ATTEND Psychiatry & Neurology Pain Medicine
PROC: HZ42ZZZ Group Counseling for Substance Abuse Treatment, Cognitive-Behavioral (ICD-10-PCS; principal; 2023-04-05)
DX: F11.20 Opioid dependence, uncomplicated (principal); F10.20 Alcohol dependence, uncomplicated; F14.20 Cocaine dependence, uncomplicated; F17.210 Nicotine dependence, cigarettes, uncomplicated; F31.9 Bipolar disorder, unspecified; G47.00 Insomnia, unspecified; E78.00 Pure hypercholesterolemia, unspecified; I10 Essential (primary) hypertension; J43.9 Emphysema, unspecified; K21.9 Gastro-esophageal reflux disease without esophagitis; M54.50 Low back pain, unspecified; B35.3 Tinea pedis; G89.29 Other chronic pain; R26.89 Other abnormalities of gait and mobility; Z99.89 Dependence on other enabling machines and devices
CPT/HCPCS: 0241U-QW; 36415; 82140; 86803; 87635

== ENCOUNTER 2023-11-06 12:38 | Inpatient (IN) | payer OTHER ==
[2023-11-06 13:03] VITALS: BMI 24.6
[2023-11-06] MEDS ORDERED: MAG HYDROX/AL HYDROX/SIMETH 30 ML UNIT-DOSE CUP PO PRN (14:37)
[2023-11-06] MEDS ORDERED: ONDANSETRON *ODT* 4 MG TABLET SL PRN (14:37)
[2023-11-06] MEDS ORDERED: NALOXONE (NARCAN) HCL 4 MG/0.1 ML SPRAY NS PRN (14:37)
[2023-11-06] MEDS ORDERED: BISMUTH SUBSALICYLATE 262 MG/15 ML BTL PO PRN (14:37)
[2023-11-06] MEDS ORDERED: NALOXONE HCL 0.4 MG/ML VIAL IM PRN (14:37)
[2023-11-06] MEDS ORDERED: LOPERAMIDE HCL 2 MG CAPSULE PO PRN (14:37)
[2023-11-06] MEDS ORDERED: BENZOCAINE/MENTHOL (CHLORASEPTIC ) LOZENGE MM PRN (14:37)
[2023-11-06] MEDS ORDERED: POLYETHYLENE GLYCOL (HEALTHYLAX) 3350 17 GM PACKET PO PRN (14:37)
[2023-11-06] MEDS ORDERED: guaiFENesin 600 MG TABLET.ER (FP) PO PRN (14:37)
[2023-11-06] MEDS ORDERED: MAGNESIUM HYDROX 2400MG/30ML ORAL SUSPENSION 30 ML CUP PO PRN (14:37)
[2023-11-06] MEDS ORDERED: BENZONATATE 200 MG CAPSULE PO PRN (14:37)
[2023-11-06] MEDS ORDERED: NICOTINE POLACRILEX 2 MG GUM BUC PRN (14:37)
[2023-11-06] MEDS: LORazepam 2 MG TABLET PO SCH (17:48)
[2023-11-06] MEDS: LORazepam 1 MG TABLET PO PRN (17:52)
[2023-11-06] MEDS: MELATONIN 5 MG TABLETS PO SCH (22:20)
[2023-11-06] MEDS: LORazepam 1 MG TABLET PO SCH (22:20)
[2023-11-06] MEDS: THIAMINE 100 MG TABLET PO SCH (22:20)
[2023-11-07] MEDS: IBUPROFEN 400 MG TABLET (FP) PO PRN (06:19)
[2023-11-07] MEDS ORDERED: ALBUTEROL SO4 HFA INHALER IH PRN (08:29)
[2023-11-07] MEDS ORDERED: DOCUSATE SODIUM 100 MG CAPSULE (FP) PO PRN (08:30)
[2023-11-07] MEDS: amLODIPine BESYLATE 10 MG TABLET (FP) PO SCH (09:05)
[2023-11-07] MEDS: PRENATAL VITAMINS W/ FOLIC ACID TABLET (FP) PO SCH (09:05)
[2023-11-07] MEDS: BUDESONIDE/FORMETEROL FUMARATE 80/4.5 mcg INHALER IH SCH (09:05)
[2023-11-07] MEDS: NICOTINE 14 MG/24 HOURS TOPICAL PATCH TD SCH (09:05)
[2023-11-07] MEDS: LISINOPRIL 20 MG TABLET PO SCH (09:05)
[2023-11-07] MEDS: methaDONE HCL 40 MG DISPERSABLE TABLET PO ONE (09:06)
[2023-11-07] MEDS: FAMOTIDINE 20 MG TABLET PO SCH (10:07)
[2023-11-07] MEDS ORDERED: QUEtiapine FUMARATE 50 MG TABLET PO SCH (10:30)
[2023-11-07] MEDS: QUEtiapine FUMARATE 25 MG TABLET PO SCH (11:26)
[2023-11-07] MEDS: GABAPENTIN 400 MG CAPSULE PO SCH (11:26)
[2023-11-07 11:49] LABS: HEMATOCRIT 40.2 % (35.4-49); HEMOGLOBIN 13.3 GM/dL (11.7-16.9); MCH 30.5 pg (25.7-33.7); MCHC 33.1 g/dl (32.0-35.9); MEAN PLT VOLUME 8.8 fl (7.5-11.1); PLATELET COUNT 255 10^3/uL (134-434); RBC 4.37 M/mm3 (4.00-5.60); RDW 14.2 % (11.9-15.9); WHITE BLOOD COUNT 7.5 K/mm3 (4.0-10.0)
[2023-11-07 14:05] LABS: CHLORIDE 104 mmol/L (98-107); POTASSIUM 4.1 mmol/L (3.5-5.1); SODIUM 140 mmol/L (136-145)
[2023-11-07] MEDS: ACAMPROSATE CALCIUM 333 MG TABLET.DR PO SCH (14:12)
[2023-11-07 14:18] LABS: CALCIUM 8.7 mg/dL (8.5-10.1)
[2023-11-07 14:19] LABS: ALBUMIN 3.7 g/dl (3.4-5.0); BLOOD UREA NITROGEN 14.8 mg/dL (7-18); GLUCOSE,RANDOM 85 mg/dL (74-106); SGPT/ALT 43 U/L (13-61)
[2023-11-07 14:21] LABS: BILIRUBIN,TOTAL 0.4 mg/dL (0.2-1); TOT PROT 6.9 g/dl (6.4-8.2)
[2023-11-07 14:22] LABS: ALK PHOS 119 U/L (45-117); SGOT/AST 75 U/L (15-37)
[2023-11-07 14:25] LABS: CO2 31 mmol/L (21-32); CREATININE 0.5 mg/dL (0.55-1.3)
[2023-11-07] MEDS ORDERED: ACETAMINOPHEN 325 MG TABLET (FP) PO PRN (15:48)
[2023-11-07] MEDS: ACETAMINOPHEN 325 MG TABLET (FP) PO PRN (15:50)
[2023-11-07] MEDS: LIDOCAINE 4% PATCH TP SCH (16:55)
[2023-11-07] MEDS: QUEtiapine FUMARATE 200 MG TABLET PO SCH (22:35)
[2023-11-07] MEDS: ATORVASTATIN CA 10 MG TABLET (FP) PO SCH (22:35)
[2023-11-07] MEDS: LIDOCAINE PATCH REMOVAL MC SCH (22:37)
[2023-11-08] MEDS: LORazepam 1 MG TABLET PO SCH (05:47)
[2023-11-08] MEDS: methaDONE HCL 40 MG DISPERSABLE TABLET PO SCH (05:47)
[2023-11-08] MEDS: IBUPROFEN 600 MG TABLET (FP) PO PRN (05:50)
[2023-11-09] MEDS ORDERED: LORazepam 0.5 MG TABLET PO PRN
[2023-11-09] MEDS: LORazepam 0.5 MG TABLET PO SCH (05:29)
[2023-11-10] MEDS: LORazepam 0.5 MG TABLET PO ONE (05:41)
[2023-11-10 06:48] VITALS: RESP 16
[2023-11-10 08:42] VITALS: BP 102/66; PULSE 103; TEMP 98.6
== END 2023-11-10 10:11 | disposition home or self-care (01) | DRG 897 ==
LOC: YASAS 12:38 → Y6N 15:05
PROVIDERS: ADMIT Allergy & Immunology; ATTEND Surgery
PROC: HZ2ZZZZ Detoxification Services for Substance Abuse Treatment (ICD-10-PCS; principal; 2023-11-06)
DX: F11.23 Opioid dependence with withdrawal (principal); F14.20 Cocaine dependence, uncomplicated; F19.280 Other psychoactive substance dependence with psychoactive substance-induced anxiety disorder; F19.282 Other psychoactive substance dependence with psychoactive substance-induced sleep disorder; F10.230 Alcohol dependence with withdrawal, uncomplicated; F17.210 Nicotine dependence, cigarettes, uncomplicated; F25.9 Schizoaffective disorder, unspecified; F31.9 Bipolar disorder, unspecified; F41.9 Anxiety disorder, unspecified; E78.5 Hyperlipidemia, unspecified; I10 Essential (primary) hypertension; J43.9 Emphysema, unspecified; Z99.89 Dependence on other enabling machines and devices
CPT/HCPCS: 36415; 80053; 80305; 80307; 85027; 86780; 93005; 93010

== ENCOUNTER 2023-11-14 15:49 | Inpatient (IN) | payer OTHER ==
[2023-11-14 17:25] VITALS: BMI 25.1
[2023-11-14] MEDS ORDERED: NALOXONE (NARCAN) HCL 4 MG/0.1 ML SPRAY NS PRN (18:05)
[2023-11-14] MEDS ORDERED: NALOXONE HCL 0.4 MG/ML VIAL IVPUSH PRN (18:05)
[2023-11-14] MEDS ORDERED: POLYETHYLENE GLYCOL (HEALTHYLAX) 3350 17 GM PACKET PO PRN (18:05)
[2023-11-14] MEDS ORDERED: IBUPROFEN 400 MG TABLET (FP) PO PRN (18:05)
[2023-11-14] MEDS ORDERED: BENZONATATE 200 MG CAPSULE PO PRN (18:05)
[2023-11-14] MEDS ORDERED: DOCUSATE SODIUM 100 MG CAPSULE (FP) PO PRN (18:05)
[2023-11-14] MEDS ORDERED: P-EPHED 60MG/TRIPROLIDI 2.5MG TABLET PO PRN (18:05)
[2023-11-14] MEDS ORDERED: MAG HYDROX/AL HYDROX/SIMETH 30 ML UNIT-DOSE CUP PO PRN (18:05)
[2023-11-14] MEDS ORDERED: LOPERAMIDE HCL 2 MG CAPSULE PO PRN (18:05)
[2023-11-14] MEDS ORDERED: BENZOCAINE/MENTHOL (CHLORASEPTIC ) LOZENGE MM PRN (18:05)
[2023-11-14] MEDS ORDERED: guaiFENesin 600 MG TABLET.ER (FP) PO PRN (18:05)
[2023-11-14] MEDS ORDERED: MAGNESIUM HYDROX 2400MG/30ML ORAL SUSPENSION 30 ML CUP PO PRN (18:05)
[2023-11-14] MEDS ORDERED: NICOTINE POLACRILEX 2 MG GUM BUC PRN (18:05)
[2023-11-14] MEDS ORDERED: NICOTINE POLACRILEX 2 MG LOZENGE BC PRN (18:05)
[2023-11-14] MEDS ORDERED: ALBUTEROL SO4 HFA INHALER IH PRN (18:17)
[2023-11-14] MEDS: THIAMINE 100 MG TABLET PO SCH (21:33)
[2023-11-14] MEDS: FAMOTIDINE 20 MG TABLET PO SCH (21:33)
[2023-11-14] MEDS: BUDESONIDE/FORMETEROL FUMARATE 80/4.5 mcg INHALER IH SCH (21:33)
[2023-11-14] MEDS: MELATONIN 5 MG TABLETS PO SCH (21:33)
[2023-11-14] MEDS: ATORVASTATIN CA 10 MG TABLET (FP) PO SCH (21:33)
[2023-11-14] MEDS: GABAPENTIN 400 MG CAPSULE PO SCH (21:33)
[2023-11-14] MEDS: TOLNAFTATE 1% CREAM 15 GM TUBE TP SCH (21:34)
[2023-11-14] MEDS: QUEtiapine FUMARATE 200 MG TABLET PO ONE (23:32)
[2023-11-15] MEDS: ACETAMINOPHEN 325 MG TABLET (FP) PO PRN (07:06)
[2023-11-15] MEDS: methaDONE HCL 40 MG DISPERSABLE TABLET PO SCH (08:00)
[2023-11-15] MEDS: PRENATAL VITAMINS W/ FOLIC ACID TABLET (FP) PO SCH (09:39)
[2023-11-15] MEDS: FOLIC ACID 1 MG TABLET (FP) PO SCH (09:39)
[2023-11-15] MEDS: ASCORBIC ACID 250 MG TABLET (FP) PO SCH (09:39)
[2023-11-15] MEDS: amLODIPine BESYLATE 10 MG TABLET (FP) PO SCH (09:39)
[2023-11-15] MEDS: METHOCARBAMOL 500 MG TABLET PO SCH (13:42)
[2023-11-15] MEDS: clonazePAM 0.5 MG ODT TABLETS SL PRN (13:42)
[2023-11-15] MEDS: LISINOPRIL 20 MG TABLET PO SCH (13:42)
[2023-11-15] MEDS: QUEtiapine FUMARATE 25 MG TABLET PO SCH (14:08)
[2023-11-15] MEDS: QUEtiapine FUMARATE 200 MG TABLET PO SCH (21:15)
[2023-11-16] MEDS: IBUPROFEN 600 MG TABLET (FP) PO PRN (06:42)
[2023-11-18] MEDS: LIDOCAINE 5% TOPICAL PATCH TP SCH (13:09)
[2023-11-18] MEDS: LIDOCAINE PATCH REMOVAL MC SCH (21:23)
[2023-11-19] MEDS: clonazePAM 0.5 MG ODT TABLETS SL SCH (11:09)
[2023-11-19] MEDS: BACLOFEN 10 MG TABLET (FP) PO SCH (11:10)
[2023-11-19] MEDS: ACAMPROSATE CALCIUM 333 MG TABLET.DR PO SCH (13:21)
[2023-11-20 06:58] VITALS: TEMP 97.1
[2023-11-20 09:14] VITALS: BP 140/75; PULSE 87; RESP 17
[2023-11-20 11:51] LABS: INR 0.93 (0.83-1.09); PROTHROMBIN TIME (PATIENT) 10.5 SEC (9.7-13.0)
== END 2023-11-20 09:40 | disposition home or self-care (01) | DRG 895 ==
LOC: YASAS 15:49 → Y3NR 19:34 → Y3W 20:26
PROVIDERS: ADMIT Allergy & Immunology; ATTEND Psychiatry & Neurology Pain Medicine
PROC: HZ42ZZZ Group Counseling for Substance Abuse Treatment, Cognitive-Behavioral (ICD-10-PCS; principal; 2023-11-14)
DX: F10.20 Alcohol dependence, uncomplicated (principal); F11.20 Opioid dependence, uncomplicated; F14.20 Cocaine dependence, uncomplicated; F19.282 Other psychoactive substance dependence with psychoactive substance-induced sleep disorder; F19.280 Other psychoactive substance dependence with psychoactive substance-induced anxiety disorder; F17.210 Nicotine dependence, cigarettes, uncomplicated; F31.9 Bipolar disorder, unspecified; F41.9 Anxiety disorder, unspecified; F43.10 Post-traumatic stress disorder, unspecified; E78.5 Hyperlipidemia, unspecified; I10 Essential (primary) hypertension; J43.9 Emphysema, unspecified; M54.50 Low back pain, unspecified; G89.29 Other chronic pain; Z99.89 Dependence on other enabling machines and devices
CPT/HCPCS: 36415; 80305; 80307; 82140; 82652; 83735; 85610; 87811; J0475

== ENCOUNTER 2023-11-22 17:03 | Inpatient (IN) | payer OTHER ==
[2023-11-22 17:54] VITALS: BMI 24.6
[2023-11-22] MEDS ORDERED: DOCUSATE SODIUM 100 MG CAPSULE (FP) PO PRN (20:08)
[2023-11-22] MEDS ORDERED: ALBUTEROL SO4 HFA INHALER IH PRN (20:08)
[2023-11-22] MEDS ORDERED: MAGNESIUM HYDROX 2400MG/30ML ORAL SUSPENSION 30 ML CUP PO PRN (20:15)
[2023-11-22] MEDS ORDERED: IBUPROFEN 400 MG TABLET (FP) PO PRN (20:15)
[2023-11-22] MEDS ORDERED: POLYETHYLENE GLYCOL (HEALTHYLAX) 3350 17 GM PACKET PO PRN (20:15)
[2023-11-22] MEDS ORDERED: NALOXONE HCL 0.4 MG/ML VIAL IVPUSH PRN (20:15)
[2023-11-22] MEDS ORDERED: LOPERAMIDE HCL 2 MG CAPSULE PO PRN (20:15)
[2023-11-22] MEDS ORDERED: NALOXONE (NARCAN) HCL 4 MG/0.1 ML SPRAY NS PRN (20:15)
[2023-11-22] MEDS ORDERED: NICOTINE POLACRILEX 2 MG GUM BUC PRN (20:15)
[2023-11-22] MEDS ORDERED: NICOTINE POLACRILEX 2 MG LOZENGE BC PRN (20:15)
[2023-11-22] MEDS ORDERED: guaiFENesin 600 MG TABLET.ER (FP) PO PRN (20:15)
[2023-11-22] MEDS ORDERED: BENZONATATE 200 MG CAPSULE PO PRN (20:15)
[2023-11-22] MEDS ORDERED: P-EPHED 60MG/TRIPROLIDI 2.5MG TABLET PO PRN (20:15)
[2023-11-22] MEDS: THIAMINE 100 MG TABLET PO SCH (21:42)
[2023-11-22] MEDS: QUEtiapine FUMARATE 200 MG TABLET PO ONE (21:42)
[2023-11-22] MEDS: FAMOTIDINE 20 MG TABLET PO SCH (21:42)
[2023-11-22] MEDS: ATORVASTATIN CA 10 MG TABLET (FP) PO SCH (21:42)
[2023-11-22] MEDS: MELATONIN 5 MG TABLETS PO SCH (21:43)
[2023-11-22] MEDS: METHOCARBAMOL 500 MG TABLET PO PRN (21:45)
[2023-11-22] MEDS: BUDESONIDE/FORMETEROL FUMARATE 80/4.5 mcg INHALER IH SCH (21:46)
[2023-11-23] MEDS: amLODIPine BESYLATE 10 MG TABLET (FP) PO SCH (09:27)
[2023-11-23] MEDS: LISINOPRIL 20 MG TABLET PO SCH (09:27)
[2023-11-23] MEDS: methaDONE HCL 40 MG DISPERSABLE TABLET PO SCH (09:27)
[2023-11-23] MEDS: PRENATAL VITAMINS W/ FOLIC ACID TABLET (FP) PO SCH (09:27)
[2023-11-23] MEDS: FOLIC ACID 1 MG TABLET (FP) PO SCH (09:27)
[2023-11-23] MEDS: clonazePAM 0.5 MG ODT TABLETS SL PRN (15:21)
[2023-11-23] MEDS: IBUPROFEN 600 MG TABLET (FP) PO PRN (20:03)
[2023-11-23] MEDS ORDERED: clonazePAM 0.5 MG ODT TABLETS SL SCH (22:00)
[2023-11-23] MEDS: GABAPENTIN 100 MG CAPSULE PO SCH (22:10)
[2023-11-23] MEDS: busPIRone HCL 10 MG TABLET (FP) PO SCH (22:11)
[2023-11-23] MEDS: QUEtiapine FUMARATE 200 MG TABLET PO SCH (22:11)
[2023-11-26] MEDS: BACITRACIN 0.9 GM PACKET TP SCH (10:16)
[2023-11-26] MEDS: LIDOCAINE 4% PATCH TP SCH (12:42)
[2023-11-26] MEDS: LIDOCAINE PATCH REMOVAL MC SCH (21:11)
[2023-11-26] MEDS: clonazePAM 0.5 MG ODT TABLETS SL PRN (21:14)
[2023-11-27] MEDS: QUEtiapine FUMARATE 50 MG TABLET PO SCH (10:17)
[2023-11-27] MEDS ORDERED: clonazePAM 0.5 MG ODT TABLETS SL PRN (10:50)
[2023-11-27] MEDS: clonazePAM 0.5 MG ODT TABLETS SL PRN (19:15)
[2023-11-28] MEDS: METHOCARBAMOL 500 MG TABLET PO SCH (17:11)
[2023-11-28] MEDS: clonazePAM 0.5 MG ODT TABLETS SL SCH (17:12)
[2023-11-28] MEDS ORDERED: METHOCARBAMOL 500 MG TABLET PO SCH (18:00)
[2023-11-29] MEDS: LIDOCAINE 4% PATCH TP SCH (06:19)
[2023-11-29] MEDS: ACETAMINOPHEN 325 MG TABLET (FP) PO PRN (12:02)
[2023-11-29] MEDS: TOLNAFTATE 1% CREAM 15 GM TUBE TP SCH (21:44)
[2023-12-03] MEDS: methaDONE HCL 40 MG DISPERSABLE TABLET PO SCH (05:41)
[2023-12-04] MEDS: clonazePAM 0.5 MG ODT TABLETS SL SCH (15:48)
[2023-12-04] MEDS: SUVOREXANT 5 MG TABLET PO PRN (21:01)
[2023-12-05] MEDS: MAG HYDROX/AL HYDROX/SIMETH 30 ML UNIT-DOSE CUP PO PRN (10:35)
[2023-12-06] MEDS: BENZOCAINE/MENTHOL (CHLORASEPTIC ) LOZENGE MM PRN (19:00)
[2023-12-09] MEDS: methaDONE HCL 40 MG DISPERSABLE TABLET PO SCH (05:48)
[2023-12-10] MEDS ORDERED: SUVOREXANT 10 MG TABLET PO PRN (22:00)
[2023-12-11] MEDS: hydrOXYzine PAMOATE 25 MG CAPSULE (FP) PO PRN (11:58)
[2023-12-11] MEDS: BACLOFEN 10 MG TABLET (FP) PO SCH (11:58)
[2023-12-11] MEDS: ACAMPROSATE CALCIUM 333 MG TABLET.DR PO SCH (13:29)
[2023-12-11] MEDS: HYDROCORTISONE 0.5% TOPICAL CREAM 30 GM TUBE TP PRN (15:44)
[2023-12-11] MEDS ORDERED: clonazePAM 0.5 MG ODT TABLETS SL SCH (17:00)
[2023-12-11] MEDS: SUVOREXANT 5 MG TABLET PO PRN (21:11)
[2023-12-12] MEDS: SUVOREXANT 10 MG TABLET PO PRN (21:37)
[2023-12-14] MEDS: SUVOREXANT 10 MG TABLET PO PRN (21:33)
[2023-12-16] MEDS: methaDONE HCL 40 MG DISPERSABLE TABLET PO SCH (05:34)
[2023-12-16] MEDS ORDERED: SUVOREXANT 10 MG TABLET PO PRN (22:00)
[2023-12-17] MEDS: SUVOREXANT 10 MG TABLET PO PRN (21:51)
[2023-12-18] MEDS: clonazePAM 0.5 MG ODT TABLETS SL SCH (15:40)
[2023-12-19 06:56] VITALS: TEMP 97.5
[2023-12-19 09:25] VITALS: BP 109/69; PULSE 100; RESP 18
== END 2023-12-19 12:53 | disposition home or self-care (01) | DRG 895 ==
LOC: YASAS 17:03 → Y3NR 21:08 → Y3W 11-23 14:44
PROVIDERS: ADMIT Allergy & Immunology; ATTEND Psychiatry & Neurology Pain Medicine
PROC: HZ42ZZZ Group Counseling for Substance Abuse Treatment, Cognitive-Behavioral (ICD-10-PCS; principal; 2023-11-22)
DX: F11.20 Opioid dependence, uncomplicated (principal); F13.20 Sedative, hypnotic or anxiolytic dependence, uncomplicated; F14.20 Cocaine dependence, uncomplicated; F10.20 Alcohol dependence, uncomplicated; F17.210 Nicotine dependence, cigarettes, uncomplicated; F31.9 Bipolar disorder, unspecified; F19.982 Other psychoactive substance use, unspecified with psychoactive substance-induced sleep disorder; F19.980 Other psychoactive substance use, unspecified with psychoactive substance-induced anxiety disorder; F41.9 Anxiety disorder, unspecified; I10 Essential (primary) hypertension; E78.5 Hyperlipidemia, unspecified; K21.9 Gastro-esophageal reflux disease without esophagitis; J44.9 Chronic obstructive pulmonary disease, unspecified; G47.00 Insomnia, unspecified; M54.59 Other low back pain; G89.29 Other chronic pain; R26.2 Difficulty in walking, not elsewhere classified; Z99.89 Dependence on other enabling machines and devices; Z56.0 Unemployment, unspecified
CPT/HCPCS: 36415; 80305; 80307; 82140; 86803; J0475

== ENCOUNTER 2024-04-19 13:32 | Inpatient (IN) | payer OTHER ==
[2024-04-19 14:18] VITALS: BMI 24.4
[2024-04-19] MEDS ORDERED: NICOTINE POLACRILEX 2 MG GUM BUC PRN (14:31)
[2024-04-19] MEDS ORDERED: guaiFENesin 600 MG TABLET.ER (FP) PO PRN (14:31)
[2024-04-19] MEDS ORDERED: BISMUTH SUBSALICYLATE 524 MG/30 ML PO PRN (14:31)
[2024-04-19] MEDS ORDERED: BENZONATATE 200 MG CAPSULE PO PRN (14:31)
[2024-04-19] MEDS ORDERED: MAGNESIUM HYDROX 2400MG/30ML ORAL SUSPENSION 30 ML CUP PO PRN (14:31)
[2024-04-19] MEDS ORDERED: LOPERAMIDE HCL 2 MG CAPSULE PO PRN (14:31)
[2024-04-19] MEDS ORDERED: ACETAMINOPHEN 325 MG TABLET (FP) PO PRN (14:31)
[2024-04-19] MEDS ORDERED: POLYETHYLENE GLYCOL (HEALTHYLAX) 3350 17 GM PACKET PO PRN (14:31)
[2024-04-19] MEDS ORDERED: NALOXONE (NARCAN) HCL 4 MG/0.1 ML SPRAY NS PRN (14:31)
[2024-04-19] MEDS ORDERED: NICOTINE POLACRILEX 2 MG LOZENGE BC PRN (14:31)
[2024-04-19] MEDS ORDERED: IBUPROFEN 400 MG TABLET (FP) PO PRN (14:31)
[2024-04-19] MEDS ORDERED: ONDANSETRON *ODT* 4 MG TABLET SL PRN (14:31)
[2024-04-19] MEDS ORDERED: IBUPROFEN 600 MG TABLET (FP) PO ONE (16:12)
[2024-04-19] MEDS: IBUPROFEN 600 MG TABLET (FP) PO PRN (16:16)
[2024-04-19] MEDS: THIAMINE 100 MG TABLET PO SCH (22:29)
[2024-04-20] MEDS ORDERED: LORazepam 1 MG TABLET PO PRN (08:59)
[2024-04-20] MEDS ORDERED: methaDONE HCL 40 MG DISPERSABLE TABLET PO ONE (09:15)
[2024-04-20 10:06] LABS: CHLORIDE 109 mmol/L (98-107); POTASSIUM 4.3 mmol/L (3.5-5.1); SODIUM 142 mmol/L (136-145)
[2024-04-20 10:08] LABS: HEMOGLOBIN 12.8 GM/dL (11.7-16.9); MCH 31.2 pg (25.7-33.7); MCHC 34.6 g/dl (32.0-35.9); MEAN CELL VOLUME 90.2 fl (80-96); MEAN PLT VOLUME 8.2 fl (7.5-11.1); PLATELET COUNT 255 10^3/uL (134-434); WHITE BLOOD COUNT 7.9 K/mm3 (4.0-10.0)
[2024-04-20 10:10] LABS: ALBUMIN 3.4 g/dl (3.4-5.0); ANION GAP 3 mmol/L (4-13); BLOOD UREA NITROGEN 16.6 mg/dL (7-18); CO2 31 mmol/L (21-32); GLUCOSE,RANDOM 72 mg/dL (74-106)
[2024-04-20 10:11] LABS: CALCIUM 8.2 mg/dL (8.5-10.1)
[2024-04-20 10:13] LABS: SGPT/ALT 24 U/L (13-61)
[2024-04-20 10:14] LABS: CREATININE 0.4 mg/dL (0.55-1.3); SGOT/AST 19 U/L (15-37)
[2024-04-20 10:15] LABS: BILIRUBIN,TOTAL 0.4 mg/dL (0.2-1); TOT PROT 6.7 g/dl (6.4-8.2)
[2024-04-20 10:16] LABS: ALK PHOS 132 U/L (45-117)
[2024-04-20] MEDS: ASPIRIN 81 MG CHEWABLE TABLETS PO SCH (11:00)
[2024-04-20] MEDS: clonazePAM 0.5 MG ODT TABLETS SL SCH (11:00)
[2024-04-20] MEDS: GABAPENTIN 400 MG CAPSULE PO SCH (11:00)
[2024-04-20] MEDS: PRENATAL VITAMINS W/ FOLIC ACID TABLET (FP) PO SCH (11:00)
[2024-04-20] MEDS: QUEtiapine FUMARATE 50 MG TABLET PO SCH (11:00)
[2024-04-20] MEDS: DOXYCYCLINE HYCLATE 100 MG TABLET PO SCH (11:00)
[2024-04-20] MEDS: LORazepam 2 MG TABLET PO SCH (11:16)
[2024-04-20] MEDS: methaDONE HCL 40 MG DISPERSABLE TABLET PO ONE (11:17)
[2024-04-20] MEDS: QUEtiapine FUMARATE 200 MG TABLET PO SCH (21:30)
[2024-04-21] MEDS: methaDONE HCL 40 MG DISPERSABLE TABLET PO SCH (09:42)
[2024-04-21] MEDS: amLODIPine BESYLATE 10 MG TABLET (FP) PO SCH (09:43)
[2024-04-22] MEDS: LORazepam 1 MG TABLET PO SCH (05:27)
[2024-04-23] MEDS ORDERED: LORazepam 0.5 MG TABLET PO PRN
[2024-04-23] MEDS: LORazepam 0.5 MG TABLET PO SCH (05:34)
[2024-04-23] MEDS: VITAMINS A AND D TOPICAL OINTMENT TP SCH (12:12)
[2024-04-23] MEDS: MAG HYDROX/AL HYDROX/SIMETH 30 ML UNIT-DOSE CUP PO PRN (17:18)
[2024-04-24] MEDS: LORazepam 0.5 MG TABLET PO ONE (05:34)
[2024-04-24] MEDS: BENZOCAINE/MENTHOL (CHLORASEPTIC ) LOZENGE MM PRN (05:38)
[2024-04-24] MEDS: NALOXONE (NYS OPIOID OVERDOSE PROGRAM) 4 MG/0.1 ML SPRAY NS SCH (08:49)
[2024-04-24 09:40] VITALS: BP 121/71; PULSE 89; RESP 16; TEMP 98
== END 2024-04-24 10:02 | disposition home or self-care (01) | DRG 897 ==
LOC: YASAS 13:32 → Y3N 15:40
PROVIDERS: ADMIT Neuromusculoskeletal Medicine & OMM; ATTEND Neuromusculoskeletal Medicine & OMM
PROC: HZ2ZZZZ Detoxification Services for Substance Abuse Treatment (ICD-10-PCS; principal; 2024-04-19)
DX: F10.230 Alcohol dependence with withdrawal, uncomplicated (principal); F11.20 Opioid dependence, uncomplicated; F19.282 Other psychoactive substance dependence with psychoactive substance-induced sleep disorder; F17.210 Nicotine dependence, cigarettes, uncomplicated; F31.9 Bipolar disorder, unspecified; F19.24 Other psychoactive substance dependence with psychoactive substance-induced mood disorder; F41.9 Anxiety disorder, unspecified; I10 Essential (primary) hypertension; J45.909 Unspecified asthma, uncomplicated; J43.9 Emphysema, unspecified; K21.9 Gastro-esophageal reflux disease without esophagitis; M41.9 Scoliosis, unspecified; M54.50 Low back pain, unspecified; G89.29 Other chronic pain; R26.89 Other abnormalities of gait and mobility; Z62.810 Personal history of physical and sexual abuse in childhood
CPT/HCPCS: 36415; 80053; 80307; 85027; 86780

== ENCOUNTER 2024-05-27 15:25 | Inpatient (IN) | payer OTHER ==
[2024-05-27 16:25] VITALS: BMI 26.0
[2024-05-27] MEDS ORDERED: P-EPHED 60MG/TRIPROLIDI 2.5MG TABLET PO PRN (16:37)
[2024-05-27] MEDS ORDERED: BISMUTH SUBSALICYLATE 524 MG/30 ML PO PRN (16:37)
[2024-05-27] MEDS ORDERED: NICOTINE POLACRILEX 2 MG LOZENGE BC PRN (16:37)
[2024-05-27] MEDS ORDERED: POLYETHYLENE GLYCOL (HEALTHYLAX) 3350 17 GM PACKET PO PRN (16:37)
[2024-05-27] MEDS ORDERED: MAGNESIUM HYDROX 2400MG/30ML ORAL SUSPENSION 30 ML CUP PO PRN (16:37)
[2024-05-27] MEDS ORDERED: LOPERAMIDE HCL 2 MG CAPSULE PO PRN (16:37)
[2024-05-27] MEDS ORDERED: BISACODYL 5 MG TABLET.DR (FP) PO PRN (16:37)
[2024-05-27] MEDS ORDERED: BENZONATATE 200 MG CAPSULE PO PRN (16:37)
[2024-05-27] MEDS ORDERED: ONDANSETRON *ODT* 4 MG TABLET SL PRN (16:37)
[2024-05-27] MEDS ORDERED: BENZOCAINE/MENTHOL (CHLORASEPTIC ) LOZENGE MM PRN (16:37)
[2024-05-27] MEDS ORDERED: IBUPROFEN 400 MG TABLET (FP) PO PRN (16:37)
[2024-05-27] MEDS ORDERED: DOCUSATE SODIUM 100 MG CAPSULE (FP) PO PRN (16:37)
[2024-05-27] MEDS ORDERED: NICOTINE POLACRILEX 2 MG GUM BUC PRN (16:37)
[2024-05-27] MEDS ORDERED: guaiFENesin 600 MG TABLET.ER (FP) PO PRN (16:37)
[2024-05-27] MEDS ORDERED: NALOXONE (NARCAN) HCL 4 MG/0.1 ML SPRAY NS PRN (16:37)
[2024-05-27] MEDS ORDERED: ALBUTEROL SO4 HFA INHALER IH PRN (20:24)
[2024-05-27] MEDS: THIAMINE 100 MG TABLET PO SCH (22:16)
[2024-05-27] MEDS: MELATONIN 5 MG TABLETS PO SCH (22:16)
[2024-05-27] MEDS: CEPHALEXIN MONOHYDRATE 500 MG CAPSULE (UD) PO SCH (22:16)
[2024-05-28] MEDS: ACETAMINOPHEN 325 MG TABLET (FP) PO PRN (05:28)
[2024-05-28] MEDS: IBUPROFEN 600 MG TABLET (FP) PO PRN (07:35)
[2024-05-28] MEDS: PRENATAL VITAMINS W/ FOLIC ACID TABLET (FP) PO SCH (09:50)
[2024-05-28] MEDS: ASPIRIN 81 MG CHEWABLE TABLETS PO SCH (09:50)
[2024-05-28] MEDS: methaDONE HCL 40 MG DISPERSABLE TABLET PO SCH (09:52)
[2024-05-28] MEDS: GABAPENTIN 100 MG CAPSULE PO SCH (09:52)
[2024-05-28] MEDS: diazePAM 5 MG TABLET PO PRN (09:55)
[2024-05-28] MEDS: diazePAM 5 MG TABLET PO SCH (10:29)
[2024-05-28] MEDS: QUEtiapine FUMARATE 50 MG TABLET PO SCH (10:31)
[2024-05-28] MEDS: amLODIPine BESYLATE 10 MG TABLET (FP) PO SCH (10:56)
[2024-05-28 11:09] LABS: HEMATOCRIT 38.3 % (35.4-49); HEMOGLOBIN 12.2 GM/dL (11.7-16.9); MCHC 31.9 g/dl (32.0-35.9); MEAN CELL VOLUME 90.7 fl (80-96); MEAN PLT VOLUME 7.7 fl (7.5-11.1); PLATELET COUNT 303 10^3/uL (134-434); RBC 4.22 M/mm3 (4.00-5.60); RDW 14.7 % (11.9-15.9); WHITE BLOOD COUNT 6.6 K/mm3 (4.0-10.0)
[2024-05-28 11:35] LABS: CHLORIDE 105 mmol/L (98-107); SODIUM 140 mmol/L (136-145)
[2024-05-28 11:38] LABS: ALBUMIN 3.1 g/dl (3.4-5.0); ANION GAP 4 mmol/L (4-13); BLOOD UREA NITROGEN 14.2 mg/dL (7-18); CALCIUM 8.8 mg/dL (8.5-10.1); CO2 30 mmol/L (21-32)
[2024-05-28 11:39] LABS: GLUCOSE,RANDOM 118 mg/dL (74-106)
[2024-05-28 11:41] LABS: CREATININE 0.5 mg/dL (0.55-1.3); SGOT/AST 16 U/L (15-37); SGPT/ALT 18 U/L (13-61)
[2024-05-28 11:43] LABS: BILIRUBIN,TOTAL 0.4 mg/dL (0.2-1); TOT PROT 6.6 g/dl (6.4-8.2)
[2024-05-28 11:44] LABS: ALK PHOS 111 U/L (45-117)
[2024-05-28] MEDS: QUEtiapine FUMARATE 200 MG TABLET PO SCH (22:08)
[2024-05-29] MEDS: BACLOFEN 10 MG TABLET (FP) PO SCH (10:25)
[2024-05-30] MEDS: diazePAM 5 MG TABLET PO SCH (05:39)
[2024-05-30] MEDS: GABAPENTIN 100 MG CAPSULE PO SCH (22:04)
[2024-05-31] MEDS: diazePAM 5 MG TABLET PO SCH (05:33)
[2024-06-01] MEDS: diazePAM 5 MG TABLET PO ONE (05:38)
[2024-06-01] MEDS: MAG HYDROX/AL HYDROX/SIMETH 30 ML UNIT-DOSE CUP PO PRN (09:30)
[2024-06-02 08:56] VITALS: RESP 18
[2024-06-02 12:59] VITALS: BP 101/68; PULSE 91; TEMP 97.6
== END 2024-06-02 15:37 | disposition other institution (70) | DRG 897 ==
LOC: YASAS 15:25 → Y3N 18:05
PROVIDERS: ADMIT Allergy & Immunology; ATTEND Allergy & Immunology
PROC: HZ2ZZZZ Detoxification Services for Substance Abuse Treatment (ICD-10-PCS; principal; 2024-05-27)
DX: F10.230 Alcohol dependence with withdrawal, uncomplicated (principal); L03.115 Cellulitis of right lower limb; L03.116 Cellulitis of left lower limb; F11.23 Opioid dependence with withdrawal; F17.210 Nicotine dependence, cigarettes, uncomplicated; F31.9 Bipolar disorder, unspecified; F25.9 Schizoaffective disorder, unspecified; F43.10 Post-traumatic stress disorder, unspecified; F41.9 Anxiety disorder, unspecified; E78.5 Hyperlipidemia, unspecified; I10 Essential (primary) hypertension; J45.909 Unspecified asthma, uncomplicated; K21.9 Gastro-esophageal reflux disease without esophagitis; M54.50 Low back pain, unspecified; G89.29 Other chronic pain; R26.89 Other abnormalities of gait and mobility; Z99.89 Dependence on other enabling machines and devices; Z88.8 Allergy status to other drugs, medicaments and biological substances
CPT/HCPCS: 36415; 80053; 80305; 80307; 85027; 87811; J0475

== ENCOUNTER 2024-06-02 15:47 | Inpatient (IN) | payer OTHER ==
[2024-06-02] MEDS ORDERED: BENZONATATE 200 MG CAPSULE PO PRN (17:56)
[2024-06-02] MEDS ORDERED: LOPERAMIDE HCL 2 MG CAPSULE PO PRN (17:56)
[2024-06-02] MEDS ORDERED: IBUPROFEN 400 MG TABLET (FP) PO PRN (17:56)
[2024-06-02] MEDS ORDERED: POLYETHYLENE GLYCOL (HEALTHYLAX) 3350 17 GM PACKET PO PRN (17:56)
[2024-06-02] MEDS ORDERED: MAGNESIUM HYDROX 2400MG/30ML ORAL SUSPENSION 30 ML CUP PO PRN (17:56)
[2024-06-02] MEDS ORDERED: NICOTINE POLACRILEX 2 MG GUM BUC PRN (17:56)
[2024-06-02] MEDS ORDERED: NALOXONE (NARCAN) HCL 4 MG/0.1 ML SPRAY NS PRN (17:56)
[2024-06-02] MEDS ORDERED: NALOXONE HCL 0.4 MG/ML VIAL IVPUSH PRN (17:56)
[2024-06-02] MEDS ORDERED: NICOTINE POLACRILEX 2 MG LOZENGE BC PRN (17:56)
[2024-06-02] MEDS ORDERED: TUBERCULIN PPD 5 TU/0.1ML VIAL ID ONE ×2 (18:35→18:45)
[2024-06-02] MEDS: CEPHALEXIN MONOHYDRATE 500 MG CAPSULE (UD) PO SCH (21:08)
[2024-06-02] MEDS: MELATONIN 5 MG TABLETS PO SCH (21:08)
[2024-06-02] MEDS: THIAMINE 100 MG TABLET PO SCH (21:08)
[2024-06-02] MEDS ORDERED: clonazePAM 0.5 MG ODT TABLETS SL SCH (22:00)
[2024-06-03] MEDS: methaDONE HCL 40 MG DISPERSABLE TABLET PO SCH (06:01)
[2024-06-03] MEDS: PRENATAL VITAMINS W/ FOLIC ACID TABLET (FP) PO SCH (09:47)
[2024-06-03] MEDS: QUEtiapine FUMARATE 50 MG TABLET PO SCH (09:47)
[2024-06-03] MEDS: ASPIRIN 81 MG CHEWABLE TABLETS PO SCH (09:48)
[2024-06-03] MEDS: clonazePAM 0.25 MG ODT TABLETS SL SCH (09:48)
[2024-06-03] MEDS: QUEtiapine FUMARATE 100 MG TABLET (FP) PO SCH (21:39)
[2024-06-03] MEDS ORDERED: QUEtiapine FUMARATE 200 MG TABLET PO SCH (22:00)
[2024-06-04] MEDS: BENZOCAINE/MENTHOL (CHLORASEPTIC ) LOZENGE MM PRN (04:54)
[2024-06-04] MEDS: ACETAMINOPHEN 325 MG TABLET (FP) PO PRN (11:01)
[2024-06-04] MEDS: clonazePAM 0.25 MG ODT TABLETS SL SCH (17:18)
[2024-06-04] MEDS ORDERED: clonazePAM 0.25 MG ODT TABLETS SL SCH (18:00)
[2024-06-04] MEDS: guaiFENesin 600 MG TABLET.ER (FP) PO PRN (18:45)
[2024-06-04] MEDS: QUEtiapine FUMARATE 50 MG TABLET PO SCH (21:05)
[2024-06-05] MEDS ORDERED: BENZONATATE 200 MG CAPSULE PO PRN (14:55)
[2024-06-05] MEDS: guaiFENesin 600 MG TABLET.ER (FP) PO PRN (16:38)
[2024-06-05] MEDS: IBUPROFEN 600 MG TABLET (FP) PO PRN (18:36)
[2024-06-05] MEDS: ATORVASTATIN CA 10 MG TABLET (FP) PO SCH (21:49)
[2024-06-05] MEDS: OSELTAMIVIR PHOSPHATE 75 MG CAPSULE PO SCH (23:10)
[2024-06-06] MEDS: ALBUTEROL SO4 HFA INHALER IH PRN (09:15)
[2024-06-06] MEDS: amLODIPine BESYLATE 10 MG TABLET (FP) PO SCH (09:15)
[2024-06-07] MEDS: MAG HYDROX/AL HYDROX/SIMETH 30 ML UNIT-DOSE CUP PO PRN (11:56)
[2024-06-07] MEDS: P-EPHED 60MG/TRIPROLIDI 2.5MG TABLET PO PRN (13:37)
[2024-06-07] MEDS: OXYMETAZOLINE 0.05% NASAL SOLUTION 15 ML BOTTLE NS PRN (13:37)
[2024-06-09] MEDS: clonazePAM 0.5 MG ODT TABLETS SL SCH (10:00)
[2024-06-11] MEDS: hydrOXYzine PAMOATE 25 MG CAPSULE (FP) PO PRN (15:58)
[2024-06-13] MEDS: BACLOFEN 10 MG TABLET (FP) PO SCH (11:51)
[2024-06-14] MEDS: MELATONIN 5 MG TABLETS PO SCH (21:22)
[2024-06-15] MEDS: LIDOCAINE 4% PATCH TP SCH (17:03)
[2024-06-15] MEDS: clonazePAM 0.5 MG ODT TABLETS SL SCH (17:04)
[2024-06-15] MEDS: LIDOCAINE PATCH REMOVAL MC SCH (21:11)
[2024-06-16] MEDS: BACLOFEN 10 MG TABLET (FP) PO PRN (09:47)
[2024-06-18] MEDS: CLOTRIMAZOLE 1% CREAM TP SCH (21:12)
[2024-06-20] MEDS: BUDESONIDE/FORMETEROL FUMARATE 80/4.5 mcg INHALER IH SCH (21:25)
[2024-06-22] MEDS: clonazePAM 0.5 MG ODT TABLETS SL ONE (17:15)
[2024-06-23] MEDS: clonazePAM 0.5 MG ODT TABLETS SL SCH (09:36)
[2024-06-23 21:55] VITALS: RESP 18
[2024-06-24] MEDS: SUVOREXANT 10 MG TABLET PO PRN (21:23)
[2024-06-26 06:48] VITALS: TEMP 97.5
[2024-06-26 09:18] VITALS: BP 139/80; PULSE 94
== END 2024-06-26 12:50 | disposition home or self-care (01) | DRG 895 ==
LOC: YASAS 15:47 → Y5N 15:49
PROVIDERS: ADMIT Psychiatry & Neurology Pain Medicine; ATTEND Psychiatry & Neurology Pain Medicine
PROC: HZ42ZZZ Group Counseling for Substance Abuse Treatment, Cognitive-Behavioral (ICD-10-PCS; principal; 2024-06-02)
DX: F10.20 Alcohol dependence, uncomplicated (principal); F11.20 Opioid dependence, uncomplicated; F14.20 Cocaine dependence, uncomplicated; F19.282 Other psychoactive substance dependence with psychoactive substance-induced sleep disorder; F17.210 Nicotine dependence, cigarettes, uncomplicated; F31.9 Bipolar disorder, unspecified; F19.24 Other psychoactive substance dependence with psychoactive substance-induced mood disorder; F41.9 Anxiety disorder, unspecified; I10 Essential (primary) hypertension; E78.5 Hyperlipidemia, unspecified; J43.9 Emphysema, unspecified; J10.1 Influenza due to other identified influenza virus with other respiratory manifestations; M54.50 Low back pain, unspecified; G89.29 Other chronic pain; B35.1 Tinea unguium; R60.0 Localized edema
CPT/HCPCS: 0241U-QW; J0475

== ENCOUNTER 2024-10-09 13:46 | Inpatient (IN) | payer OTHER ==
[2024-10-09 14:25] VITALS: BMI 26.2
[2024-10-09] MEDS ORDERED: BENZOCAINE/MENTHOL (CHLORASEPTIC ) LOZENGE MM PRN (15:55)
[2024-10-09] MEDS ORDERED: LOPERAMIDE HCL 2 MG CAPSULE PO PRN (15:55)
[2024-10-09] MEDS ORDERED: POLYETHYLENE GLYCOL (HEALTHYLAX) 3350 17 GM PACKET PO PRN (15:55)
[2024-10-09] MEDS ORDERED: NICOTINE POLACRILEX 2 MG GUM BUC PRN (15:55)
[2024-10-09] MEDS ORDERED: NALOXONE (NARCAN) HCL 4 MG/0.1 ML SPRAY NS PRN (15:55)
[2024-10-09] MEDS ORDERED: BENZONATATE 200 MG CAPSULE PO PRN (15:55)
[2024-10-09] MEDS ORDERED: guaiFENesin 600 MG TABLET.ER (FP) PO PRN (15:55)
[2024-10-09] MEDS ORDERED: ALBUTEROL SO4 HFA INHALER IH PRN (19:25)
[2024-10-09] MEDS: THIAMINE 100 MG TABLET PO SCH (21:09)
[2024-10-09] MEDS: ATORVASTATIN CA 10 MG TABLET (FP) PO SCH (21:09)
[2024-10-09] MEDS: BUDESONIDE/FORMETEROL FUMARATE 80/4.5 mcg INHALER IH SCH (21:09)
[2024-10-09] MEDS: MELATONIN 5 MG TABLETS PO SCH (21:09)
[2024-10-09] MEDS: ACAMPROSATE CALCIUM 333 MG TABLET.DR PO SCH (21:09)
[2024-10-09] MEDS: GABAPENTIN 400 MG CAPSULE PO SCH (21:09)
[2024-10-09] MEDS: LIDOCAINE PATCH REMOVAL MC SCH (21:11)
[2024-10-09] MEDS ORDERED: LIDOCAINE PATCH REMOVAL MC SCH (22:00)
[2024-10-09] MEDS: IBUPROFEN 600 MG TABLET (FP) PO PRN (22:11)
[2024-10-10] MEDS: PRENATAL VITAMINS W/ FOLIC ACID TABLET (FP) PO SCH (09:32)
[2024-10-10] MEDS: ASPIRIN 81 MG CHEWABLE TABLETS PO SCH (09:32)
[2024-10-10] MEDS: LISINOPRIL 20 MG TABLET PO SCH (09:32)
[2024-10-10] MEDS: amLODIPine BESYLATE 10 MG TABLET (FP) PO SCH (09:32)
[2024-10-10] MEDS: LIDOCAINE 5% TOPICAL PATCH TP SCH (09:33)
[2024-10-10] MEDS ORDERED: LIDOCAINE 5% TOPICAL PATCH TP SCH (10:00)
[2024-10-10] MEDS ORDERED: PATIENT'S OWN MEDICATION (NON-FORMULARY) (Lisinopril [Zestril] 40 MG Tablet) PO SCH (10:00)
[2024-10-10] MEDS: MAGNESIUM HYDROX 2400MG/30ML ORAL SUSPENSION 30 ML CUP PO PRN (10:43)
[2024-10-10] MEDS: clonazePAM 0.5 MG ODT TABLETS SL SCH (13:05)
[2024-10-10] MEDS: ACETAMINOPHEN 325 MG TABLET (FP) PO PRN (15:28)
[2024-10-10] MEDS: BACITRACIN 0.9 GM PACKET TP SCH (17:45)
[2024-10-10] MEDS: QUEtiapine FUMARATE 100 MG TABLET (FP) PO SCH (21:13)
[2024-10-12] MEDS: hydrOXYzine PAMOATE 25 MG CAPSULE (FP) PO PRN (06:02)
[2024-10-12] MEDS: MAG HYDROX/AL HYDROX/SIMETH 30 ML UNIT-DOSE CUP PO PRN (12:58)
[2024-10-13] MEDS: IBUPROFEN 400 MG TABLET (FP) PO PRN (02:10)
[2024-10-13] MEDS ORDERED: clonazePAM 0.25 MG ODT TABLETS SL SCH (19:00)
[2024-10-14] MEDS: clonazePAM 0.25 MG ODT TABLETS SL SCH (10:13)
[2024-10-15] MEDS: FAMOTIDINE 20 MG TABLET PO SCH (10:18)
[2024-10-16] MEDS: MELATONIN 5 MG TABLETS PO SCH (21:15)
[2024-10-17] MEDS ORDERED: TOLNAFTATE 1% CREAM 15 GM TUBE TP SCH (10:00)
[2024-10-17] MEDS: BACLOFEN 10 MG TABLET (FP) PO SCH (10:36)
[2024-10-18] MEDS: TOLNAFTATE 1% CREAM 15 GM TUBE TP SCH (10:29)
[2024-10-19] MEDS: clonazePAM 0.25 MG ODT TABLETS SL SCH (17:54)
[2024-10-20] MEDS ORDERED: clonazePAM 0.25 MG ODT TABLETS SL SCH (10:00)
[2024-10-28 18:44] LABS: HIV INTERPRETATION NEGATIVE (NEGATIVE)
[2024-11-05] MEDS: clonazePAM 0.25 MG ODT TABLETS SL SCH (16:56)
[2024-11-06 05:37] VITALS: RESP 16; TEMP 97.5
[2024-11-06 08:50] VITALS: BP 109/82; PULSE 87
[2024-11-06] MEDS: clonazePAM 0.25 MG ODT TABLETS SL ONE (13:03)
== END 2024-11-06 13:29 | disposition home or self-care (01) | DRG 895 ==
LOC: YASAS 13:46 → Y3W 18:01
PROVIDERS: ADMIT Psychiatry & Neurology Pain Medicine; ATTEND Psychiatry & Neurology Pain Medicine
PROC: HZ42ZZZ Group Counseling for Substance Abuse Treatment, Cognitive-Behavioral (ICD-10-PCS; principal; 2024-10-09)
DX: F14.20 Cocaine dependence, uncomplicated (principal); F11.20 Opioid dependence, uncomplicated; F19.282 Other psychoactive substance dependence with psychoactive substance-induced sleep disorder; F10.20 Alcohol dependence, uncomplicated; F17.210 Nicotine dependence, cigarettes, uncomplicated; F31.9 Bipolar disorder, unspecified; F41.9 Anxiety disorder, unspecified; B35.3 Tinea pedis; E78.5 Hyperlipidemia, unspecified; I10 Essential (primary) hypertension; J43.9 Emphysema, unspecified; K21.9 Gastro-esophageal reflux disease without esophagitis; G89.29 Other chronic pain; R26.89 Other abnormalities of gait and mobility; Z99.89 Dependence on other enabling machines and devices
CPT/HCPCS: 36415; 80305; 80307; 82962; 83036; 86803; 87389; 93005; 93010; J0475